=== PATIENT | female | born 1935 | race Caucasian/White ===

== ENCOUNTER → 2016-10-28 | Outpatient (CLI) | payer OTHER, BC ==
[~2016-10-28] MED LIST: AGG PO; ATOR-54 PO; CALC-354 PO; CLB/200 PO; FERR324T PO; MISCCAP82 PO; MULTTAB58 PO; NXM/40 PO; RANI150C4 PO; SERT1TAB72 PO; TOVIAZ PO; VALS40TA2 PO
[2016-10-28 12:23] LABS: COMPLETE YES; EOS % 7.7 %; HEMATOCRIT 42.6 % (37-47); IG% 0.5 %; LYMPH % 8.6 %; MEAN CELL VOLUME 101.9 fL (80-100); MEAN CORPUSCULAR HEMOGLOBIN 32.1 pg (25-34); MEAN CORPUSCULAR HGB CONC 31.5 g/dl (32-36); MEAN PLATELET VOLUME 11.2 fL (7.4-10.4); MONO % 7.2 %; PLATELET COUNT 220 K/uL (130-400); RED BLOOD COUNT 4.18 M/uL (4.2-5.4); WHITE BLOOD COUNT 10.49 K/uL (4.8-10.8)
[2016-10-28 13:12] LABS: ALT/SGPT 24 U/L (12-78); AST/SGOT 18 U/L (15-37); BLOOD UREA NITROGEN 16 mg/dl (7-18); BUN/CREATININE RATIO 17.2 (10-20); CALCIUM 9.7 mg/dl (8.5-10.1); CARBON DIOXIDE 26 mmol/L (21-32); CHLORIDE 107 mmol/L (98-107); CREATININE 0.95 mg/dl (0.60-1.20); GLUCOSE 95 mg/dl (70-99); POTASSIUM 4.1 mmol/L (3.5-5.1); SODIUM 141 mmol/L (136-145)
[2016-10-28 13:24] LABS: ALB/GLOB RATIO 0.9 (0.9-2); ALKALINE PHOSPHATASE 111 U/L (45-117); CHOLESTEROL 147 mg/dl (0-200); CHOLESTEROL/HDL RATIO 3.3; HDL CHOLESTEROL 44 mg/dl; LDL CHOLESTEROL CALCULATED 74 mg/dl; TRIGLYCERIDES 143 mg/dl (0-150); VERY LOW DENSITY LIPOPROT CALC 29 mg/dl
== END | disposition home or self-care (01) ==
LOC: C.LABPBG 07:54
PROVIDERS: ATTEND Internal Medicine
DX: R91.1 Solitary pulmonary nodule (principal); E03.9 Hypothyroidism, unspecified

== ENCOUNTER → 2016-11-06 | Outpatient (CLI) | payer OTHER, BC ==
--- NOTE | 2016-11-06 09:53 | DIAGNOSTIC IMAGING REPORT ---
CT OF THE CHEST WITHOUT IV CONTRAST CLINICAL HISTORY: Solitary pulmonary nodule. COMPARISON STUDY: Chest CT T April 16, 2015 and PET/CT May 13, 2015. CT DOSE: 220.32 mGy.cm TECHNIQUE: Axial images of the chest were obtained without IV contrast. Images were reviewed in the axial, sagittal, and coronal planes. IV contrast was not administered for this examination. FINDINGS: No enlarged axillary, mediastinal or hilar lymph nodes are present. The heart is mildly enlarged. There is extensive coronary artery calcification. There is no pericardial effusion. A large hiatal hernia with partially intrathoracic stomach is noted. The previously described 1.2 x 1.1 cm irregular subpleural opacity within the right upper lobe shown on image 75 of 266 is unchanged since exams dating back to October 30, 2014. There is a calcified granuloma within the right upper lobe. An 8 mm groundglass nodule within the left lower lobe shown on image 160 of 266 is new since prior exam. Bony thorax is unremarkable. Upper abdomen is unremarkable. Gallbladder is surgically absent. IMPRESSION: 1. No change in the 1.2 x 1.1 cm irregular subpleural opacity within the right upper lobe since initial CT of October 30, 2014. Scarring is favored. A neoplastic process is considered less likely. A follow-up chest CT in one year to ensure stability is recommended. 2. Subtle 9 mm groundglass opacity within the left lower lobe which is likely infectious or inflammatory but can be assessed on subsequent CT. 3. No thoracic lymphadenopathy. Electronically signed by: Ortega Davis M.D. 11/06/2016 9:51 AM Dictated Date/Time: 11/06/2016 9:35 AM
== END | disposition home or self-care (01) ==
LOC: C.CTS 09:22
PROVIDERS: ATTEND Internal Medicine
DX: R91.1 Solitary pulmonary nodule (principal)

== ENCOUNTER → 2017-03-15 | Outpatient (CLI) | payer OTHER, BC ==
[2017-03-15 17:32] LABS: BASO % 0.8 %; BASO ABS # 0.07 K/uL (0-0.2); COMPLETE YES; EOS % 2.5 %; HEMATOCRIT 41.8 % (37-47); IG% 0.2 %; LYMPH ABS # 1.67 K/uL (1.2-3.4); MEAN CELL VOLUME 101.7 fL (80-100); MEAN CORPUSCULAR HEMOGLOBIN 32.6 pg (25-34); MEAN CORPUSCULAR HGB CONC 32.1 g/dl (32-36); MEAN PLATELET VOLUME 11.7 fL (7.4-10.4); MONO % 7.3 %; NEUT % 69.2 %; PLATELET COUNT 214 K/uL (130-400); RED BLOOD COUNT 4.11 M/uL (4.2-5.4); WHITE BLOOD COUNT 8.35 K/uL (4.8-10.8)
[2017-03-15 17:47] LABS: ALT/SGPT 26 U/L (12-78); AST/SGOT 17 U/L (15-37); BLOOD UREA NITROGEN 21 mg/dl (7-18); BUN/CREATININE RATIO 21.9 (10-20); CALCIUM 9.9 mg/dl (8.5-10.1); CARBON DIOXIDE 29 mmol/L (21-32); CHLORIDE 106 mmol/L (98-107); CREATININE 0.97 mg/dl (0.60-1.20); GLUCOSE 97 mg/dl (70-99); POTASSIUM 4.6 mmol/L (3.5-5.1); SODIUM 139 mmol/L (136-145)
[2017-03-15 17:57] LABS: ALKALINE PHOSPHATASE 90 U/L (45-117)
[2017-03-15 18:04] LABS: LYME DISEASE AB IGG NEG (NEG)
[2017-03-15 18:05] LABS: LYME DISEASE AB IGM NEG (NEG)
== END | disposition home or self-care (01) ==
LOC: C.LABPBG 11:51
PROVIDERS: ATTEND Internal Medicine
DX: I10 Essential (primary) hypertension (principal); I63.50 Cerebral infarction due to unspecified occlusion or stenosis of unspecified cerebral artery; F32.9 Major depressive disorder, single episode, unspecified; E78.5 Hyperlipidemia, unspecified; E03.9 Hypothyroidism, unspecified; D75.89 Other specified diseases of blood and blood-forming organs

== ENCOUNTER 2017-06-11 10:51 | Emergency (ER) | payer OTHER, BC ==
[~2017-06-11] VITALS: Ht 152.4 cm; Wt 72.4 kg
[2017-06-11 10:57] VITALS: Ht 152.4 cm; Wt 72.4 kg
--- NOTE | 2017-06-11 11:38 | DIAGNOSTIC IMAGING REPORT ---
CHEST ONE VIEW PORTABLE CLINICAL HISTORY: Altered mental status COMPARISON STUDY: CT scan dated 11/06/2016 FINDINGS: The heart is normal in size. There is a gas-containing retrocardiac opacity consistent with a hiatal hernia. There is no lobar consolidation. There is mild basilar interstitial thickening. There is equivocal trace right pleural effusion.[ IMPRESSION: 1. Large hiatal hernia 2. No evidence of lobar consolidation 3. Basilar interstitial thickening Electronically signed by: Maldonado Gu M.D. 06/11/2017 11:37 AM Dictated Date/Time: 06/11/2017 11:36 AM
[2017-06-11 11:55] LABS: BASO % 0.3 %; BASO ABS # 0.04 K/uL (0-0.2); EOS ABS # 0.26 K/uL (0-0.5); HEMATOCRIT 39.7 % (37-47); HEMOGLOBIN 13.1 g/dL (12.0-16.0); IG# 0.06 K/uL (0.00-0.02); LYMPH % 5.9 %; LYMPH ABS # 0.77 K/uL (1.2-3.4); MEAN CELL VOLUME 99.5 fL (80-100); MEAN CORPUSCULAR HEMOGLOBIN 32.8 pg (25-34); MEAN PLATELET VOLUME 10.8 fL (7.4-10.4); MONO % 3.5 %; MONO ABS # 0.45 K/uL (0.11-0.59); NEUT % 87.8 %; NEUT ABS # 11.45 K/uL (1.4-6.5); PLATELET COUNT 170 K/uL (130-400); RED CELL DISTRIBUTION WIDTH CV 13.2 % (11.5-14.5); RED CELL DISTRIBUTION WIDTH SD 47.8 fL (36.4-46.3); WHITE BLOOD COUNT 13.03 K/uL (4.8-10.8)
[2017-06-11] MEDS ORDERED: ESCI10TA17 PO (12:06)
[2017-06-11] MEDS ORDERED: LEVO25TA5 PO (12:06)
[2017-06-11] MEDS ORDERED: MULTTAB5 PO (12:06)
[2017-06-11] MEDS ORDERED: MISCTAB78 PO (12:06)
[2017-06-11] MEDS ORDERED: FESO4TAB PO (12:06)
[2017-06-11] MEDS ORDERED: CHOL20009 PO (12:06)
[2017-06-11] MEDS ORDERED: ESCI1TAB10 PO (12:06)
[2017-06-11] MEDS ORDERED: MECL1TAB42 PO (12:06)
[2017-06-11] MEDS ORDERED: NITR1CAP16 PO (12:06)
[2017-06-11 12:13] LABS: BLOOD UREA NITROGEN 20 mg/dl (7-18); CALCIUM 10.1 mg/dl (8.5-10.1); CARBON DIOXIDE 25 mmol/L (21-32); GLUCOSE 111 mg/dl (70-99); LIPASE 90 U/L (73-393); POTASSIUM 3.4 mmol/L (3.5-5.1); SODIUM 136 mmol/L (136-145)
[2017-06-11] MEDS ORDERED: CEFTRIAXONE SOD INJ 1 GM ADDVIAL IV STA (12:14)
[2017-06-11 12:18] LABS: CKMB 1.2 ng/ml (0.5-3.6)
[2017-06-11 12:48] LABS: PTT PATIENT 26.5 SECONDS (21.0-31.0)
[2017-06-11] MEDS ORDERED: CEPH500C PO (13:25)
--- NOTE | 2017-06-11 13:25 | EMERGENCY ROOM VISIT NOTE ---
History Report prepared by Jose Armando: Reg Alcaraz Under the Supervision of: Dr. Victor Hugo Bledsoe D.O. 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 dx on wednesday with uti placed on antibiotics has been taking for 3 days called obgyn dr naqvi told to come to ed for admission. pt has been increasing fluids . 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 The patient notes that she was recently diagnosed with a severe UTI June 09, 2017. She was seen at [facility] and prescribed Macrobid for the UTI. Per caregiver, the patient was doing well yesterday, though developed general weakness and chills. The patient notes polyuria and a cough. She states that she has to urinate more often than normal. She denies any congestion or runny nose. She was given Tylenol this morning for the fever. 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 Review of Systems See HPI for pertinent positives & negatives. A total of 10 systems reviewed and were otherwise negative. Past Medical & Surgical Medical Problems: (1) Gallbladder calculus (2) UTI (urinary tract infection) Surgical Problems: (1) Hx of cholecystectomy Family History Cancer Social History Smoking Status: Never Smoker Smokeless Tobacco Use: No Alcohol Use: occasionally (glass of wine at night) Drug Use: none Marital Status: Housing Status: lives alone Occupation Status: unemployed Current/Historical Medications Scheduled Aspirin-Dipyridamole 25MG/200MG (Aggrenox 200MG/25MG), 1 CAP PO BID Atorvastatin (Lipitor), 20 MG PO DAILY Calcium Carbonate-Cholecalcife (Caltrate 600+D), 1 TAB PO DAILY Celecoxib (CeleBREX), 200 MG PO DAILY Cephalexin Monohydrate (Keflex), 500 MG PO BID Cholecalciferol (Vitamin D), 2,000 UNITS PO DAILY Escitalopram (Lexapro), 10 MG PO DAILY Escitalopram Oxalate (Lexapro), 40 MG PO DAILY Fesoterodine Fumarate (Toviaz), 4 MG PO BID Levothyroxine Sodium (Levothyroxine Sodium), 25 MCG PO DAILY Misc Natural Products (Osteo Bi-Flex Advanced Do), 2 TABS PO DAILY Multiple Vitamins W/ Minerals (Centrum), 1 TAB PO DAILY Nitrofurantoin Monohyd Macro (Macrobid), 100 MG PO BID Ranitidine Hcl (Ranitidine Hcl), 150 MG PO HS Valsartan (Diovan), 40 MG PO DAILY Scheduled PRN Meclizine Hcl (Meclizine Hcl), 25 MG PO UD PRN for DIZZINESS Allergies Coded Allergies: No Known Allergies (Unverified , 06/11/17) Physical Exam Vital Signs Date Time Temp Pulse Resp B/P (MAP) Pulse Ox O2 Delivery O2 Flow Rate FiO2 06/11/17 13:40 36.8 78 15 144/79 96 06/11/17 13:31 144/79 06/11/17 13:06 77 06/11/17 13:06 78 15 96 Room Air 06/11/17 13:01 126/79 06/11/17 12:41 77 15 96 Room Air 06/11/17 12:36 78 15 96 Room Air 06/11/17 12:31 121/66 06/11/17 12:26 84 13 96 Room Air 06/11/17 12:00 125/72 06/11/17 11:56 80 16 94 Room Air 06/11/17 11:51 82 15 94 Room Air 06/11/17 11:31 109/77 06/11/17 11:21 84 15 96 Room Air 06/11/17 11:12 84 18 124/72 96 Room Air 06/11/17 11:01 124/72 06/11/17 11:00 86 06/11/17 10:57 132/74 06/11/17 10:57 36.8 87 18 130/79 96 Room Air Physical Exam CONSTITUTIONAL/VITAL SIGNS: Reviewed / noted above. GENERAL: Non-toxic in appearance. INTEGUMENTARY: Warm, dry, and Roberta. HEAD: Normocephalic. EYES: without scleral icterus or trauma. ENT/OROPHARYNX: clear and moist. LYMPHADENOPATHY/NECK: Is supple without lymphadenopathy or meningismus. RESPIRATORY: Lungs clear and equal. CARDIOVASCULAR: Regular rate and rhythm. GI/ABDOMEN: Soft and nontender. No organomegaly or pulsatile mass. No rebound or guarding. Normal bowel sounds. EXTREMITIES: Warm and well perfused. BACK: No CVA tenderness. NEUROLOGICAL: Intact without focal deficits. PSYCHIATRIC: normal affect. MUSCULOSKELETAL: Normally developed with good muscle tone. Medical Decision & Procedures ER Provider Diagnostic Interpretation: Radiology results as stated below per my review and radiologist interpretation: CHEST ONE VIEW PORTABLE CLINICAL HISTORY: Altered mental status COMPARISON STUDY: CT scan dated 11/06/2016 FINDINGS: The heart is normal in size. There is a gas-containing retrocardiac opacity consistent with a hiatal hernia. There is no lobar consolidation. There is mild basilar interstitial thickening. There is equivocal trace right pleural effusion.[ IMPRESSION: 1. Large hiatal hernia 2. No evidence of lobar consolidation 3. Basilar interstitial thickening Electronically signed by: Maldonado Gu M.D. 06/11/2017 11:37 AM Dictated Date/Time: 06/11/2017 11:36 AM Laboratory Results 06/11/17 11:28 Red Blood Count 3.99, Mean Corpuscular Volume 99.5, Mean Corpuscular Hemoglobin 32.8, Mean Corpuscular Hemoglobin Concent 33.0, Mean Platelet Volume 10.8, Neutrophils (%) (Auto) 87.8, Lymphocytes (%) (Auto) 5.9, Monocytes (%) (Auto) 3.5, Eosinophils (%) (Auto) 2.0, Basophils (%) (Auto) 0.3, Neutrophils # (Auto) 11.45, Lymphocytes # (Auto) 0.77, Monocytes # (Auto) 0.45, Eosinophils # (Auto) 0.26, Basophils # (Auto) 0.04 06/11/17 11:28 Test 06/11/17 11:28 06/11/17 11:44 06/11/17 12:15 White Blood Count 13.03 K/uL (4.8-10.8) Red Blood Count 3.99 M/uL (4.2-5.4) Hemoglobin 13.1 g/dL (12.0-16.0) Hematocrit 39.7 % (37-47) Mean Corpuscular Volume 99.5 fL (80-100) Mean Corpuscular Hemoglobin 32.8 pg (25-34) Mean Corpuscular Hemoglobin Concent 33.0 g/dl (32-36) Platelet Count 170 K/uL (130-400) Mean Platelet Volume 10.8 fL (7.4-10.4) Neutrophils (%) (Auto) 87.8 % Lymphocytes (%) (Auto) 5.9 % Monocytes (%) (Auto) 3.5 % Eosinophils (%) (Auto) 2.0 % Basophils (%) (Auto) 0.3 % Neutrophils # (Auto) 11.45 K/uL (1.4-6.5) Lymphocytes # (Auto) 0.77 K/uL (1.2-3.4) Monocytes # (Auto) 0.45 K/uL (0.11-0.59) Eosinophils # (Auto) 0.26 K/uL (0-0.5) Basophils # (Auto) 0.04 K/uL (0-0.2) RDW Standard Deviation 47.8 fL (36.4-46.3) RDW Coefficient of Variation 13.2 % (11.5-14.5) Immature Granulocyte % (Auto) 0.5 % Immature Granulocyte # (Auto) 0.06 K/uL (0.00-0.02) Anion Gap 7.0 mmol/L (3-11) Est Creatinine Clear Calc Drug Dose 42.1 ml/min Estimated GFR () 68.5 Estimated GFR (Non- 59.1 BUN/Creatinine Ratio 22.3 (10-20) Calcium Level 10.1 mg/dl (8.5-10.1) Magnesium Level 2.1 mg/dl (1.8-2.4) Total Creatine Kinase 61 U/L (26-192) Creatine Kinase MB 1.2 ng/ml (0.5-3.6) Creatine Kinase MB Ratio 2.0 (0-3.0) Troponin I < 0.015 ng/ml (0-0.045) Lipase 90 U/L (73-393) Urine Color DK YELLOW Urine Appearance CLEAR (CLEAR) Urine pH 6.5 (4.5-7.5) Urine Specific [place] 1.016 (1.000-1.030) Urine Protein NEG (NEG) Urine Glucose (UA) NEG (NEG) Urine Ketones NEG (NEG) Urine Occult Blood NEG (NEG) Urine Nitrite NEG (NEG) Urine Bilirubin NEG (NEG) Urine Urobilinogen NEG (NEG) Urine Leukocyte Esterase NEG (NEG) Urine WBC (Auto) 0 /hpf (0-5) Urine RBC (Auto) 0-4 /hpf (0-4) Urine Hyaline Casts (Auto) 1-5 /lpf (0-5) Urine Epithelial Cells (Auto) 0-5 /lpf (0-5) Urine Bacteria (Auto) NEG (NEG) Prothrombin Time 10.6 SECONDS (9.0-12.0) Prothromb Time International Ratio 1.0 (0.9-1.1) Activated Partial Thromboplast Time 26.5 SECONDS (21.0-31.0) Partial Thromboplastin Ratio 1.0 Laboratory results as stated above per my review. Medications Administered Medications (Trade) Dose Ordered Sig/Vonnie Route Start Time Stop Time Status Last Admin Dose Admin Ceftriaxone Sodium (Rocephin Inj) 1 gm NOW STAT IV 06/11/17 12:14 06/11/17 12:15 DC 06/11/17 12:48 1 GM ECG Indication: other (fever) Rate (beats per minute): 84 Rhythm: normal sinus Findings: no acute ischemic change, no ectopy Change: Patient's electrocardiogram interpreted by me. ED Course 1116: Previous medical records were reviewed. The patient was evaluated in room B11B. A complete history and physical examination was performed. 1214: Ordered Rocephin 1 gm IV 1326: I reassessed the patient at this time. She is feeling better and resting comfortably. I discussed the results and treatment plan with the patient. I answered all pertaining questions that she had. She expressed understanding and verbalized agreement. The patient will be discharged home. Medical Decision Differentials include: Acute coronary syndrome, myocardial infarction, CVA, TIA , anemia, infection, pneumonia, UTI, pyelonephritis, poor nutrition, dehydration , electrolyte disturbance, and hypoglycemia. This is a 81-year-old female who presents to the ED with a chief complaint of generalized weakness. The patient had a urine culture done 2 days ago that revealed Escherichia coli that was pansensitive. The patient was started on Macrobid yesterday and had a dose yesterday. When the doctor contacted her about occult, they reported the weakness and he referred her here for evaluation. The patient has not had any vomiting or diarrhea. No other significant complaints. She does have some mild generalized weakness. She does have care workers taking care of her at least 16 hours a day. The vital signs are normal. She is afebrile. Her physical exam was unremarkable. A chest x-ray did not show acute disease. White blood cell count was 13. Complete metabolic panel was unremarkable, troponin is negative and a urine did not show infection. Because the recent culture, the patient was switched to Keflex. She was given a dose of IV Rocephin here. She is felt to be stable for discharge. Medication Reconcilliation Current Medication List: was personally reviewed by me Blood Pressure Screening Patient's blood pressure: Normal blood pressure Impression Primary Impression: UTI (urinary tract infection) Scribe Attestation The scribe's documentation has been prepared under my direction and personally reviewed by me in its entirety. I confirm that the note above accurately reflects all work, treatment, procedures, and medical decision making performed by me. Departure Information Dispostion Home / Self-Care Prescriptions Cephalexin Monohydrate (Keflex) 500 Mg Cap 500 MG PO BID, #28 CAP Prov: Victor Hugo Bledsoe D.O. 06/11/17 Referrals Addi Rangel M.D. (PCP) Forms HOME CARE DOCUMENTATION FORM, IMPORTANT VISIT INFORMATION Patient Instructions My [facility] Additional Instructions Keflex as prescribed. Follow-up with your doctor for further care and evaluation in 1-2 days. Return to the emergency department for worsening or new symptoms or any concerns. You have been examined and treated today on an emergency basis only. This is not a substitute for, or an effort to provide, complete comprehensive medical care. It is impossible to recognize and treat all injuries or illnesses in a single emergency department visit. It is therefore important that you follow up closely with your doctor. Call as soon as possible for an appointment.
[2017-06-11 13:40] VITALS: BP 144/79; PULSE 78; TEMP 36.8; O2SAT 96
== END 2017-06-11 13:40 | disposition home or self-care (01) ==
LOC: EDBD 10:51 → C.EDB 10:52
DX: N39.0 Urinary tract infection, site not specified (principal); B96.20 Unspecified Escherichia coli [E. coli] as the cause of diseases classified elsewhere; Z79.82 Long term (current) use of aspirin; Z80.9 Family history of malignant neoplasm, unspecified

== ENCOUNTER → 2017-11-29 | Outpatient (CLI) | payer OTHER, BC ==
[~2017-11-29] MED LIST changes: +CEPH500C PO; +CHOL20009 PO; +ESCI10TA17 PO; +ESCI1TAB10 PO; -FERR324T PO; +FESO4TAB PO; +LEVO25TA5 PO; +MECL1TAB42 PO; -MISCCAP82 PO; +MISCTAB78 PO; +MULTTAB5 PO; -MULTTAB58 PO; +NITR1CAP16 PO; -NXM/40 PO; -SERT1TAB72 PO; -TOVIAZ PO
[2017-11-29 16:48] LABS: BASO % 0.6 %; BASO ABS # 0.04 K/uL (0-0.2); EOS % 2.1 %; EOS ABS # 0.15 K/uL (0-0.5); HEMATOCRIT 45.2 % (37-47); HEMOGLOBIN 14.5 g/dL (12.0-16.0); IG# 0.01 K/uL (0.00-0.02); LYMPH % 22.4 %; MEAN CELL VOLUME 101.6 fL (80-100); MEAN CORPUSCULAR HEMOGLOBIN 32.6 pg (25-34); MEAN CORPUSCULAR HGB CONC 32.1 g/dl (32-36); MEAN PLATELET VOLUME 11.2 fL (7.4-10.4); MONO % 5.9 %; MONO ABS # 0.42 K/uL (0.11-0.59); NEUT % 68.9 %; NEUT ABS # 4.92 K/uL (1.4-6.5); PLATELET COUNT 208 K/uL (130-400); RED CELL DISTRIBUTION WIDTH CV 13.6 % (11.5-14.5); RED CELL DISTRIBUTION WIDTH SD 50.7 fL (36.4-46.3); WHITE BLOOD COUNT 7.14 K/uL (4.8-10.8)
[2017-11-29 17:07] LABS: ALBUMIN 3.9 gm/dl (3.4-5.0); ALKALINE PHOSPHATASE 89 U/L (45-117); ALT/SGPT 21 U/L (12-78); AST/SGOT 20 U/L (15-37); BLOOD UREA NITROGEN 19 mg/dl (7-18); CALCIUM 9.6 mg/dl (8.5-10.1); CARBON DIOXIDE 28 mmol/L (21-32); CHOLESTEROL 170 mg/dl (0-200); CREATININE 0.96 mg/dl (0.60-1.20); GLUCOSE 88 mg/dl (70-99); LDL CHOLESTEROL CALCULATED 86 mg/dl; POTASSIUM 4.3 mmol/L (3.5-5.1); SODIUM 140 mmol/L (136-145); TOTAL PROTEIN 7.4 gm/dl (6.4-8.2)
== END | disposition home or self-care (01) ==
LOC: C.LABPBG 10:47
PROVIDERS: ATTEND Internal Medicine
DX: I10 Essential (primary) hypertension (principal); I63.50 Cerebral infarction due to unspecified occlusion or stenosis of unspecified cerebral artery; E78.5 Hyperlipidemia, unspecified; D75.89 Other specified diseases of blood and blood-forming organs; E03.9 Hypothyroidism, unspecified; F43.20 Adjustment disorder, unspecified; M12.9 Arthropathy, unspecified

== ENCOUNTER 2019-06-30 14:15 | Observation (INO) ==
[2019-06-30 14:56] LABS: Basophils # (auto) 0.03 K/uL (0-0.2); Basophils % (auto) 0.4 %; Eosinophils # (auto) 0.12 K/uL (0-0.5); Eosinophils % (auto) 1.6 %; Hematocrit (blood only) 34.4 % (37-47); Hemoglobin 10.9 g/dL (12.0-16.0); Immature Granulocytes # (auto) 0.02 K/uL (0.00-0.02); Immature Granulocytes % (auto) 0.3 %; Lymphocytes # (auto) 1.02 K/uL (1.2-3.4); Mean Corpuscular Hemoglobin 32.8 pg (25-34); Mean Corpuscular Hgb Conc 31.7 g/dL (32-36); Mean Corpuscular Volume 103.6 fL (80-100); Mean Platelet Volume 10.1 fL (7.4-10.4); Monocytes # (auto) 0.76 K/uL (0.11-0.59); Monocytes % (auto) 10.4 %; Neutrophils # (auto) 5.33 K/uL (1.4-6.5); Neutrophils % (auto) 73.3 %; Platelet Count 175 K/uL (130-400); RDW Coefficient of Variation 13.6 % (11.5-14.5); RDW Standard Deviation 51.2 fL (36.4-46.3); Red Blood Count 3.32 M/uL (4.2-5.4); White Blood Count 7.28 K/uL (4.8-10.8)
[2019-06-30 15:02] LABS: Alanine Aminotransferase 21 U/L (12-78); Albumin Level 2.8 gm/dl (3.4-5.0); Aspartate Aminotransferase 19 U/L (15-37); BUN Creatinine Ratio 27.8 (10-20); Blood Urea Nitrogen 25 mg/dl (7-18); Calcium 10.1 mg/dl (8.5-10.1); Carbon Dioxide 26 mmol/L (21-32); Chloride 104 mmol/L (98-107); Creatinine Clr Calc Pharmacy 42.4 ml/min; Est GFR (African American) 67.6; Est GFR (Non-African American) 58.3; Glucose 100 mg/dl (70-99); Potassium 4.3 mmol/L (3.5-5.1); Sodium 135 mmol/L (136-145)
[2019-06-30 15:13] LABS: Albumin Globulin Ratio 0.7 (0.9-2); Alkaline Phosphatase 79 U/L (45-117); Bilirubin,Total 0.6 mg/dl (0.2-1); Thyroid Stimulating Hormone 0.737 uIu/ml (0.300-4.500); Total Protein 6.8 gm/dl (6.4-8.2); Troponin I < 0.015 ng/ml (0-0.045)
--- NOTE | 2019-06-30 16:01 | XRay Report ---
XR chest 1V portable CLINICAL HISTORY: 83 years-old Female presenting with weakness. TECHNIQUE: Portable upright AP view of the chest was obtained. COMPARISON: 06/11/2017. FINDINGS: Atherosclerosis of the aortic arch. Cardiac silhouette borderline enlarged. Bibasilar opacities left greater than right. This has increased from prior on the left. Underlying small left pleural effusion is not excluded. Degenerative changes of the thoracic spine. Degenerative changes of the glenohumera l joint on the left. The presence of a large hiatal hernia is better appreciated on the prior radiogr aph. IMPRESSION: 1. Bibasilar opacities likely represent atelectasis. There may be increased atelectasis on the left. Underlying infection/consolidation considered less likely. 2. Large hiatal hernia. 3. Borderline cardiomegaly. ACT 112: Negative or not required by law. Electronically signed by: Addi Perea M.D. 06/30/2019 4:00 PM
--- NOTE | 2019-06-30 16:08 | CT Scan Report ---
HEAD CT NONCONTRAST CT DOSE: 729.78 mGycm HISTORY: weakness TECHNIQUE: Multiaxial CT images of the head were performed without the use of intravenous contrast. A utomated exposure control was utilized for this study. A dose lowering technique was utilized adheri ng to the principles of ALARA. Comparison: Head CT 02/12/2013. Findings: Stable chronic opacification of the right maxillary sinus. The mastoid air cells are clear. The calvarium and skull base are intact. There is no mass, hematoma, midline shift, acute infarct. W júnior matter hypodensity is nonspecific but suggestive of microvascular ischemic change. The ventricle s and sulci demonstrate mild age-related involutional changes. Old right basal ganglia infarct, uncha nged. Impression: No significant change compared to the prior study. No acute intracranial abnormality. ACT 112: Negative or not required by law. Electronically signed by: Kevin Wallace M.D. 06/30/2019 4:07 PM
--- NOTE | 2019-06-30 16:51 | Ultrasound Report ---
BILATERAL LOWER EXTREMITY VENOUS DOPPLER HISTORY: Bilateral pain calves COMPARISON STUDY: None. FINDINGS: There is normal compressibility, flow, and augmentation within the bilateral lower extremit y deep venous systems. There is a 5.3 x 3.2 x 0.8 cm left popliteal cyst. IMPRESSION: No DVT within the right or left lower extremity. ACT 112: Negative or not required by law. Electronically signed by: Kevin Wallace M.D. 06/30/2019 4:49 PM
[2019-06-30 18:49] LABS: Appearance Urine Clear (Clear); Bacteria Urine Automated 2+ (Negative); Bilirubin Urine Negative (Negative); Blood Urine Negative (Negative); Cast Urine Automated 0 /lpf (0-5); Color Urine Yellow; Glucose Urine UA Negative (Negative); Ketones Urine Negative (Negative); Leukocyte Esterase Urine 2+ (Negative); Nitrite Urine Positive (Negative); Protein Urine Negative (Negative); RBC Urine Automated 0-4 /hpf (0-4); Specific Gravity Urine 1.012 (1.000-1.030); Urobilinogen Urine Negative (Negative); WBC Urine Automated >30 /hpf (0-5)
--- NOTE | 2019-06-30 19:28 | Emergency Department Note ---
Entered by Maggie Gonzalez acting as a scribe for Billy Aguiar M.D. History of Present Illness General Chief complaint: Weakness Time Seen by Provider: 06/30/19 15:05 Source: patient History of Present Illness Provider complaint: Weakness Onset (ago): day(s) 3 Location: lower extremity Radiation: back (Lower) Relieved By: + none Exacerbated By: + movement Associated symptoms: + cough, + loss of appetite and + other (Fatigued); no chest pain, no headaches and no shortness of breath The patient is a 83 year old female who presents to the Emergency Room with complaints of lower extremity weakness/pain that began 3 days ago. The patient states that her pain radiates into her lower back and is exacerbated by movement but not relieved by anything specific. The patient reports experiencing increased fatigue, a cough, and loss of appetite. The patient denies experiencing any chest pain, headaches, or shortness of breath. Home Medications Home Medications Medication Instructions Recorded Confirmed Type fesoterodine 4 mg tablet,extended 4 mg PO BID #100 tab 02/08/19 06/30/19 Rx release 24 hr aspirin 25 mg-dipyridamole 200 mg 1 cap PO BID #180 cap 03/01/19 06/30/19 Rx capsule,ext.release 12 hr multiphase levothyroxine 25 mcg tablet 25 mcg PO QAM #90 tab 03/30/19 06/30/19 History cholecalciferol (vitamin D3) 50 50 mcg PO QAM cap 04/08/19 06/30/19 History mcg (2,000 unit) capsule atorvastatin 20 mg PO HS 06/30/19 06/30/19 History calcium carbonate [Calcium 500] 500 mg PO QAM 06/30/19 06/30/19 History celecoxib 200 mg PO QAM 06/30/19 06/30/19 History escitalopram oxalate 5 mg PO QAM 06/30/19 06/30/19 History esomeprazole magnesium 40 mg PO HS 06/30/19 06/30/19 History glucosamine-chondroitin [Osteo 2 tab PO BID 06/30/19 06/30/19 History Bi-Flex] [id number]-[id number] acid 1 tab PO QAM 06/30/19 06/30/19 History [Centrum] telmisartan 40 mg PO QAM 06/30/19 06/30/19 History Allergies Allergy/AdvReac Type Severity Reaction Status Date / Time simvastatin [From Zocor] AdvReac Verified 06/30/19 18:06 Past Med/Surg History Medical History Arthritis, multiple joint involvement (Chronic) 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) Depression (Chronic) GERD without esophagitis (Acute) Hyperlipidemia (Chronic) Hypertension (Chronic) Hypothyroidism (Acute) Incontinence of urine in female Large hiatal hernia (Chronic) Macrocytosis (Acute) Urinary incontinence (Acute) Surgical History H/O foot surgery Family History Unknown Cancer Rheumatoid arthritis Fibromyalgia Social History Preferred Language: Frisian current occupational status: retired Feels Safe at Home: Yes Smoking Status: Never smoker Hx Alcohol Use: Yes Alcohol Intake Frequency: Rarely Hx Substance Use: No caffeine: Yes Physical Activity Frequency: Does not Exercise Seatbelt Use: always Sunscreen Use: Yes Review of Systems See HPI for pertinent positives & negatives. and A total of 10 systems reviewed and were otherwise negative Physical Exam Vital Signs Vital Signs - 24 hr 06/30/19 14:15 06/30/19 14:25 06/30/19 15:00 Temperature 36.9 C Temperature Source Oral Pulse Rate 90 92 H 87 Pulse Rate from SpO2 Sensor 92 H 87 Pulse Rhythm Regular Respiratory Rate 16 12 16 Respiratory Effort / Characteristics Non-Labored Respiratory Depth Normal Respiratory Pattern Regular Blood Pressure 127/83 127/83 128/62 Blood Pressure Mean 97 97 71 Pulse Oximetry 95 96 97 Oxygen Delivery Method Room Air Room Air Room Air Sepsis Recent Fever Within 48 Hours No Sepsis New/Unexplained Change in Mental Status No Sepsis Action Taken by Nursing No Action Required 06/30/19 15:30 06/30/19 18:00 06/30/19 18:30 Temperature Temperature Source Pulse Rate 87 89 89 Pulse Rate from SpO2 Sensor 88 89 87 Pulse Rhythm Respiratory Rate 16 16 15 Respiratory Effort / Characteristics Respiratory Depth Respiratory Pattern Blood Pressure 127/80 152/78 H 155/83 H Blood Pressure Mean 94 103 99 Pulse Oximetry 97 96 96 Oxygen Delivery Method Room Air Room Air Room Air Sepsis Recent Fever Within 48 Hours Sepsis New/Unexplained Change in Mental Status Sepsis Action Taken by Nursing GENERAL: Awake, alert, fatigued-appearing, in no distress HENT: Normocephalic, atraumatic. EYES: Normal conjunctiva. Sclera non-icteric. RESPIRATORY: Clear to auscultation. No wheezes. Normal respiratory effort. CARDIAC: Normal rate. Normal rhythm. Extremities warm and well perfused. GI: Soft, non-distended. No tenderness to palpation. No rebound or guarding. No masses. RECTAL: Hemoccult negative stool. MUSCULOSKELETAL: Atraumatic. Chest examination reveals no tenderness. LOWER EXTREMITIES: Calves are equal size bilaterally and non-tender. 1+ LE edema. NEURO: Normal sensorium. No sensory or motor deficits noted. No facial droop. SKIN: Warm and dry. Nojaundice noted. Course Course 151: Past medical records reviewed. The patient was evaluated in room B03B. A complete history and physical exam was performed. 1731: I spoke with the patient's daughter and she would like her mother to stay for observation because she is concerned for her mother's care at home. 0: I spoke with Dr. Gemma Chau- Hospitalist about the patient's case and she will accept the patient for further evaluation. Medical Decision Making Differential Diagnosis Differential Diagnosis includes but is not limited to dehydration, stroke, anemia, hypoglycemia, hyponatremia, hypernatremia, urinary tract infection, pneumonia, bronchitis, sepsis, gastroenteritis, additional abdominal pathology, metabolic abnormalities and infections. Medical Records Attestation: I reviewed the patient's medical records. Home Medications Current Medication List: was personally reviewed by me Laboratory Data Attestation: I reviewed the patient's lab results. Result diagrams: 06/30/19 14:36 06/30/19 14:36 Lab Results 06/30/19 06/30/19 06/30/19 Range/Units 14:36 14:36 17:50 WBC 7.28 (4.8-10.8) K/uL RBC 3.32 L (4.2-5.4) M/uL Hgb 10.9 L (12.0-16.0) g/dL Hct 34.4 L (37-47) % MCV 103.6 H (80-100) fL MCH 32.8 (25-34) pg MCHC 31.7 L (32-36) g/dL RDW Std Deviation 51.2 H (36.4-46.3) fL RDW Coeff of Pavithra 13.6 (11.5-14.5) % Plt Count 175 (130-400) K/uL MPV 10.1 (7.4-10.4) fL Immature Gran % (Auto) 0.3 % Neut % (Auto) 73.3 % Lymph % (Auto) 14.0 % [place] % (Auto) 10.4 % Eos % (Auto) 1.6 % Baso % (Auto) 0.4 % Immature Gran # (Auto) 0.02 (0.00-0.02) K/uL Neut # (Auto) 5.33 (1.4-6.5) K/uL Lymph # (Auto) 1.02 L (1.2-3.4) K/uL [place] # (Auto) 0.76 H (0.11-0.59) K/uL Eos # (Auto) 0.12 (0-0.5) K/uL Baso # (Auto) 0.03 (0-0.2) K/uL Sodium 135 L (136-145) mmol/L Potassium 4.3 (3.5-5.1) mmol/L Chloride 104 (98-107) mmol/L Carbon Dioxide 26 (21-32) mmol/L Anion Gap 5.0 (3-11) BUN 25 H (7-18) mg/dl Creatinine 0.90 (0.6-1.2) mg/dl Est Cr Clr Drug Dosing 42.4 ml/min Est GFR ( Amer) 67.6 Est GFR (Non-Af Amer) 58.3 BUN/Creatinine Ratio 27.8 H (10-20) Glucose 100 H (70-99) mg/dl Calcium 10.1 (8.5-10.1) mg/dl Total Bilirubin 0.6 (0.2-1) mg/dl AST 19 (15-37) U/L ALT 21 (12-78) U/L Alkaline Phosphatase 79 (45-117) U/L Troponin I < 0.015 (0-0.045) ng/ml Total Protein 6.8 (6.4-8.2) gm/dl Albumin 2.8 L (3.4-5.0) gm/dl Globulin 4.0 (2.5-4.0) gm/dl Albumin/Globulin Ratio 0.7 L (0.9-2) TSH 0.737 (0.300-4.500) uIu/ml Urine Color Yellow Urine Appearance Clear (Clear) Urine pH 6.0 (4.5-7.5) Ur Specific Warren 1.012 (1.000-1.030) Urine Protein Negative (Negative) Urine Glucose (UA) Negative (Negative) Urine Ketones Negative (Negative) Urine Blood Negative (Negative) Urine Nitrite Positive A (Negative) Urine Bilirubin Negative (Negative) Urine Urobilinogen Negative (Negative) Ur Leukocyte Esterase 2+ H (Negative) Urine WBC (Auto) >30 H (0-5) /hpf Urine RBC (Auto) 0-4 (0-4) /hpf U Hyaline Cast (Auto) 0 (0-5) /lpf U Epithel Cells (Auto) 5-10 H (0-5) /lpf Urine Bacteria (Auto) 2+ H (Negative) Imaging Data Radiologist's Impression: Radiology results as stated below per my review and the radiologist's interpretation: XR chest 1V portable CLINICAL HISTORY: 83 years-old Female presenting with weakness. TECHNIQUE: Portable upright AP view of the chest was obtained. COMPARISON: 06/11/2017. FINDINGS: Atherosclerosis of the aortic arch. Cardiac silhouette borderline enlarged. Bibasilar opacities left greater than right. This has increased from prior on the left. Underlying small left pleural effusion is not excluded. Degenerative changes of the thoracic spine. Degenerative changes of the glenohumeral joint on the left. The presence of a large hiatal hernia is better appreciated on the prior radiograph. IMPRESSION: 1. Bibasilar opacities likely represent atelectasis. There may be increased atelectasis on the left. Underlying infection/consolidation considered less likely. 2. Large hiatal hernia. 3. Borderline cardiomegaly. ACT 112: Negative or not required by law. Electronically signed by: Addi Perea M.D. 06/30/2019 4:[address] NON[address]AST CT DOSE: 729.78 mGycm HISTORY: weakness TECHNIQUE: Multiaxial CT images of the head were performed without the use of intravenous contrast. Automated exposure control was utilized for this study. A dose lowering technique was utilized adhering to the principles of ALARA. Comparison: Head CT 02/12/2013. Findings: Stable chronic opacification of the right maxillary sinus. The mastoid air cells are clear. The calvarium and skull base are intact. There is no mass, hematoma, midline shift, acute infarct. White matter hypodensity is nonspecific but suggestive of microvascular ischemic change. The ventricles and sulci demonstrate mild age-related involutional changes. Old right basal ganglia infarct, unchanged. Impression: No significant change compared to the prior study. No acute intracranial abnormality. ACT 112: Negative or not required by law. Electronically signed by: Kevin Wallace M.D. 06/30/2019 4:07 PM BILATERAL LOWER EXTREMITY VENOUS DOPPLER HISTORY: Bilateral pain calves COMPARISON STUDY: None. FINDINGS: There is normal compressibility, flow, and augmentation within the bilateral lower extremity deep venous systems. There is a 5.3 x 3.2 x 0.8 cm left popliteal cyst. IMPRESSION: No DVT within the right or left lower extremity. ACT 112: Negative or not required by law. Electronically signed by: Kevin Wallace M.D. 06/30/2019 4:49 PM ECG Data Attestation: I personally reviewed and interpreted this ECG as follows: Indication: + weakness Rate (beats per minute): 93 Rhythm: + sinus rhythm ECG ST segments: no ST depression and no ST elevation ECG Findings: + PVCs and + Other (LAFB) Blood Pressure Blood Pressure Findings: Elevated blood pressure Blood Pressure Disposition: further management by hospitalist SUNIL Narrative Patient is an 83-year-old female distant history of stroke, GERD, hiatal hernia, UTI presenting today with a complaint of some significant weakness the last 2 days with some intermittent confusion. No trauma reported. Planes of a little bit of bilateral calf pain. Ultrasound here were negative. Basic labs are complete without significant finding. Chest x-ray is unremarkable. CT the head is unremarkable. Does not have real focal deficits and doubt this is a stroke. Mild anemia is noted. Hemoccult negative stool. Does have some paresthesias at home but discussion with daughters via phone so the patient believe further evaluation observation here in the hospital is reasonable given her fall risk and unclear etiology of her weakness today. Patient was agreeable. Urinalysis was pending when I discussed with the hospitalist however on evaluation does appear somewhat concerning. May explain symptoms. Discussed with the hospital ist who will treat as UTI at this time. Impression & Plan Weakness, Acute UTI Discharge Plan Visit Data Chief Complaint: Weakness ED Provider: Billy Aguiar Discharge Problem: Weakness, Acute UTI Forms Stand Alone Forms: My [facility] Prescriptions Prescriptions: No Action Toviaz 4 mg tablet extended release 24 hr 4 mg PO BID Qty: 100 RF: 3 aspirin-dipyridamole 25-200 mg capsule, ER multiphase 12 hr 1 cap PO BID Qty: 180 RF: 1 levothyroxine 25 mcg tablet 25 mcg PO QAM Qty: 90 RF: 0 cholecalciferol (vitamin D3) 50 mcg (2,000 unit) capsule 50 mcg PO QAM RF: 0 calcium carbonate [Calcium 500] 500 mg calcium (1,250 mg) Tablet,Chewable 500 mg PO QAM RF: 0 glucosamine-chondroitin [Osteo Bi-Flex] 250-200 mg Tablet 2 tab PO BID RF: 0 Centrum 18-400 mg-mcg Tablet 1 tab PO QAM RF: 0 celecoxib 200 mg capsule 200 mg PO QAM RF: 0 atorvastatin 20 mg tablet 20 mg PO HS RF: 0 telmisartan 40 mg tablet 40 mg PO QAM RF: 0 esomeprazole magnesium 40 mg capsule,delayed release(DR/EC) 40 mg PO HS RF: 0 escitalopram oxalate 5 mg tablet 5 mg PO QAM RF: 0 The scribe's documentation has been prepared under my direction and personally reviewed by me in its entirety. I confirm that the note above accurately reflects all work, treatment, procedures, and medical decision making performed by me.
--- NOTE | 2019-06-30 20:01 | History & Physical Report ---
Date of Service June 30, 2019 Assessment & Plan (1) Weakness: Etiology uncertain. Patient has no objective findings of weakness. No muscle tenderness. Broad differential to include current UTI, deconditioning. Less likely suspect statin induced myopathy, polymyalgia rheumatica PT/OT evaluation Check CK, ESR, CRP with morning labs Fall precautions Present on Admission?: Yes (2) Acute UTI: + UA. 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 Continue Aggrenox Continue atorvastatin Present on Admission?: Yes (4) Depression: Chronic. Stable and well-controlled on current medications Continue escitalopram Present on Admission?: Yes (5) Hyperlipidemia: Chronic. Continue atorvastatin Present on Admission?: Yes (6) Hypertension: Blood pressure 155/83 Continue telmisartan Present on Admission?: Yes (7) Hypothyroidism: TSH within normal limits at 0.737 Continue Synthroid FENnormal saline at 100 mL/h x 2 L, monitor electrolytes and replete as needed, heart healthy diet as tolerated Prophylaxisencourage ambulation [place] per discussion with patient Dispositionobservation to medical floor History of Present Illness Chief Complaint: Weakness Primary Care Provider: Addi Rangel MD Emilee Israel is a pleasant 83-year-old female with history of hypertension/hyperlipidemia/hypothyroidism/depression presenting with 2 weeks of weakness and leg pain. Patient states that she has been having a difficult time with ambulation due to the leg weakness and pain. Weakness is sometimes in the morning and sometimes after being up all day. Equal bilaterally. Denies back pain, incontinence. No recent illness. No additional complaints at this time Patient lives at home alone but has caretakers coming to the house. She is active and independent in ADLs. ER course: Hemoccult stool negative Allergies Allergy/AdvReac Type Severity Reaction Status Date / Time simvastatin [From Zocor] AdvReac Verified 06/30/19 18:06 Home Medications Home Medications Medication Instructions Recorded Confirmed Type fesoterodine 4 mg tablet,extended 4 mg PO BID #100 tab 02/08/19 06/30/19 Rx release 24 hr aspirin 25 mg-dipyridamole 200 mg 1 cap PO BID #180 cap 03/01/19 06/30/19 Rx capsule,ext.release 12 hr multiphase levothyroxine 25 mcg tablet 25 mcg PO QAM #90 tab 03/30/19 06/30/19 History cholecalciferol (vitamin D3) 50 50 mcg PO QAM cap 04/08/19 06/30/19 History mcg (2,000 unit) capsule atorvastatin 20 mg PO HS 06/30/19 06/30/19 History calcium carbonate [Calcium 500] 500 mg PO QAM 06/30/19 06/30/19 History celecoxib 200 mg PO QAM 06/30/19 06/30/19 History escitalopram oxalate 5 mg PO QAM 06/30/19 06/30/19 History esomeprazole magnesium 40 mg PO HS 06/30/19 06/30/19 History glucosamine-chondroitin [Osteo 2 tab PO BID 06/30/19 06/30/19 History Bi-Flex] pwlqoyabttdo-[id number]-lmltk acid 1 tab PO QAM 06/30/19 06/30/19 History [Centrum] telmisartan 40 mg PO QAM 06/30/19 06/30/19 History Past Med/Surg History Medical History Arthritis, multiple joint involvement (Chronic) 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) Depression (Chronic) GERD without esophagitis (Acute) Hyperlipidemia (Chronic) Hypertension (Chronic) Hypothyroidism (Acute) Incontinence of urine in female Large hiatal hernia (Chronic) Macrocytosis (Acute) Urinary incontinence (Acute) Surgical History H/O foot surgery Family History Unknown Cancer Rheumatoid arthritis Fibromyalgia Social History Preferred Language: Icelandic current occupational status: retired Feels Safe at Home: Yes Smoking Status: Never smoker Hx Alcohol Use: Yes Alcohol Intake Frequency: Rarely Hx Substance Use: No caffeine: Yes Physical Activity Frequency: Does not Exercise Seatbelt Use: always Sunscreen Use: Yes Review of Systems Review of Systems: All systems reviewed & are unremarkable except as noted in HPI & below + Urinary frequency Physical Exam Physical Exam: General: patient resting comfortably, NAD, non-toxic in appearance, AA&O x 4 Skin: warm, dry, intact, no rashes or lesions HEENT: NC/AT, PERRL, EOMI, anicteric sclera, conjunctiva without injection, external ear normal to inspection and nontender, nares patent, dry lips and mucus membranes, dentures in place, no oropharyngeal lesions, neck supple, trachea midline, no LAD, no thyromegaly, no JVD Heart: +S1/S2, regular, no m/r/g Lungs: equal air entry bilaterally, no rales/rhonchi/wheezes Abd: +BS, soft, NT/ND, no masses/organomegaly/ascites Ext: warm, 2+ pulses in UE/LE bilaterally, no clubbing/cyanosis or edema, padded dressing on left foot Neuro: nonfocal, patient AA&O x 4, speech intact, no facial droop, moving all extremities on command, mildly decreased strength in left upper and lower extremities Results & Data Vital Signs (Past 12 Hours) Vital Signs Temp Pulse Resp BP Pulse Ox 06/30/19 18:30 89 15 155/83 H 96 06/30/19 18:00 89 16 152/78 H 96 06/30/19 15:30 87 16 127/80 97 06/30/19 15:00 87 16 128/62 97 06/30/19 14:25 92 H 12 127/83 96 06/30/19 14:15 36.9 C 90 16 127/83 95 Laboratory Results Lab Results 06/30/19 06/30/19 06/30/19 Range/Units 14:36 14:36 17:50 WBC 7.28 (4.8-10.8) K/uL RBC 3.32 L (4.2-5.4) M/uL Hgb 10.9 L (12.0-16.0) g/dL Hct 34.4 L (37-47) % MCV 103.6 H (80-100) fL MCH 32.8 (25-34) pg MCHC 31.7 L (32-36) g/dL RDW Std Deviation 51.2 H (36.4-46.3) fL RDW Coeff of Pavithra 13.6 (11.5-14.5) % Plt Count 175 (130-400) K/uL MPV 10.1 (7.4-10.4) fL Immature Gran % (Auto) 0.3 % Neut % (Auto) 73.3 % Lymph % (Auto) 14.0 % [place] % (Auto) 10.4 % Eos % (Auto) 1.6 % Baso % (Auto) 0.4 % Immature Gran # (Auto) 0.02 (0.00-0.02) K/uL Neut # (Auto) 5.33 (1.4-6.5) K/uL Lymph # (Auto) 1.02 L (1.2-3.4) K/uL [place] # (Auto) 0.76 H (0.11-0.59) K/uL Eos # (Auto) 0.12 (0-0.5) K/uL Baso # (Auto) 0.03 (0-0.2) K/uL Sodium 135 L (136-145) mmol/L Potassium 4.3 (3.5-5.1) mmol/L Chloride 104 (98-107) mmol/L Carbon Dioxide 26 (21-32) mmol/L Anion Gap 5.0 (3-11) BUN 25 H (7-18) mg/dl Creatinine 0.90 (0.6-1.2) mg/dl Est Cr Clr Drug Dosing 42.4 ml/min Est GFR ( Amer) 67.6 Est GFR (Non-Af Amer) 58.3 BUN/Creatinine Ratio 27.8 H (10-20) Glucose 100 H (70-99) mg/dl Calcium 10.1 (8.5-10.1) mg/dl Total Bilirubin 0.6 (0.2-1) mg/dl AST 19 (15-37) U/L ALT 21 (12-78) U/L Alkaline Phosphatase 79 (45-117) U/L Troponin I < 0.015 (0-0.045) ng/ml Total Protein 6.8 (6.4-8.2) gm/dl Albumin 2.8 L (3.4-5.0) gm/dl Globulin 4.0 (2.5-4.0) gm/dl Albumin/Globulin Ratio 0.7 L (0.9-2) TSH 0.737 (0.300-4.500) uIu/ml Urine Color Yellow Urine Appearance Clear (Clear) Urine pH 6.0 (4.5-7.5) Ur Specific [place] 1.012 (1.000-1.030) Urine Protein Negative (Negative) Urine Glucose (UA) Negative (Negative) Urine Ketones Negative (Negative) Urine Blood Negative (Negative) Urine Nitrite Positive A (Negative) Urine Bilirubin Negative (Negative) Urine Urobilinogen Negative (Negative) Ur Leukocyte Esterase 2+ H (Negative) Urine WBC (Auto) >30 H (0-5) /hpf Urine RBC (Auto) 0-4 (0-4) /hpf U Hyaline Cast (Auto) 0 (0-5) /lpf U Epithel Cells (Auto) 5-10 H (0-5) /lpf Urine Bacteria (Auto) 2+ H (Negative) Diagnostic Findings XR chest 1V portable CLINICAL HISTORY: 83 years-old Female presenting with weakness. TECHNIQUE: Portable upright AP view of the chest was obtained. COMPARISON: 06/11/2017. FINDINGS: Atherosclerosis of the aortic arch. Cardiac silhouette borderline enlarged. Bibasilar opacities left greater than right. This has increased from prior on the left. Underlying small left pleural effusion is not excluded. Degenerative changes of the thoracic spine. Degenerative changes of the glenohumeral joint on the left. The presence of a large hiatal hernia is better appreciated on the prior radiograph. IMPRESSION: 1. Bibasilar opacities likely represent atelectasis. There may be increased atelectasis on the left. Underlying infection/consolidation considered less likely. 2. Large hiatal hernia. 3. Borderline cardiomegaly. ACT 112: Negative or not required by law. Electronically signed by: Addi Perea M.D. 06/30/2019 4:00 PM Dictated: 06/30/19 1558 Transcribed: 06/30/[address] DOSE: 729.78 mGycm HISTORY: weakness TECHNIQUE: Multiaxial CT images of the head were performed without the use of intravenous contrast. Automated exposure control was utilized for this study. A dose lowering technique was utilized adhering to the principles of ALARA. Comparison: Head CT 02/12/2013. Findings: Stable chronic opacification of the right maxillary sinus. The mastoid air cells are clear. The calvarium and skull base are intact. There is no mass, hematoma, midline shift, acute infarct. White matter hypodensity is nonspecific but suggestive of microvascular ischemic change. The ventricles and sulci demonstrate mild age-related involutional changes. Old right basal ganglia infarct, unchanged. Impression: No significant change compared to the prior study. No acute intracranial abnormality. ACT 112: Negative or not required by law. Electronically signed by: Kevin Wallace M.D. 06/30/2019 4:07 PM Dictated: 06/30/191550 Transcribed: 06/30/191550 BILATERAL LOWER EXTREMITY VENOUS DOPPLER HISTORY: Bilateral pain calves COMPARISON STUDY: None. FINDINGS: There is normal compressibility, flow, and augmentation within the bilateral lower extremity deep venous systems. There is a 5.3 x 3.2 x 0.8 cm left popliteal cyst. BILATERAL LOWER EXTREMITY VENOUS DOPPLER HISTORY: Bilateral pain calves COMPARISON STUDY: None. FINDINGS: There is normal compressibility, flow, and augmentation within the bilateral lower extremity deep venous systems. There is a 5.3 x 3.2 x 0.8 cm left popliteal cyst. IMPRESSION: No DVT within the right or left lower extremity. ACT 112: Negative or not required by law. Electronically signed by: Kevin Wallace M.D. 06/30/2019 4:49 PM Dictated: 06/30/191647 Transcribed: 06/30/191647 ACT 112: Negative or not required by law. Electronically signed by: Kevin Wallace M.D. 06/30/2019 4:49 PM Dictated: 06/30/191647 Transcribed: 06/30/191647 ECG Additional Comments: The study shows NSR at 93bpm, LAFB, YX=053, FTX=947, QTc=47, non-specific Twave changes Code Status & VTE Plan Code Status FULL VTE Prophylaxis Plan VTE Prophylaxis will be ordered: Yes PG Care Time/CCT Total # of Minutes Spent Total Time Spent with Patient: Total time spent is greater than 50% in coordination of care (as documented) at patient's floor/unit and/or counseling patient: Coding Level of Care Code 08887 OBS Care - Level 3 Diagnoses Weakness R53.1 Acute UTI N39.0 Cerebral artery occlusion with cerebral infarction Depression F32.9 Depression Type: reactive depression Hyperlipidemia E78.5 Hyperlipidemia type: unspecified Hypertension I10 Hypertension type: unspecified Hypothyroidism E03.9 Hypothyroidism type: unspecified (1) Depression Depression Type: reactive depression Qualified Code(s): F32.9 - Major depressive disorder, single episode, unspecified (2) Hyperlipidemia Hyperlipidemia type: unspecified Qualified Code(s): E78.5 - Hyperlipidemia, unspecified (3) Hypertension Hypertension type: unspecified Qualified Code(s): I10 - Essential (primary) hypertension (4) Hypothyroidism Hypothyroidism type: unspecified Qualified Code(s): E03.9 - Hypothyroidism, unspecified
[2019-06-30] MEDS ORDERED: ONDANSETRON INJ 2 MG/ML 2 ML VIAL IV PRN (20:27)
[2019-06-30] MEDS ORDERED: ACETAMINOPHEN 325 MG TAB PO PRN (20:27)
[2019-06-30] MEDS: cefTRIAXone SODIUM 1,000 MG in DEXTROSE 5% 50 ML IV SCH (21:07)
[2019-06-30] MEDS: SODIUM CHLORIDE 0.9% 1000ML 1,000 ML IV SCH (21:08)
[2019-06-30] MEDS: DIPYRIDAMOLE/ASPIRIN CAP PO SCH (21:12)
[2019-06-30] MEDS: PANTOprazole 40 MG TAB PO SCH (21:12)
[2019-06-30] MEDS: ATORVASTATIN 20 MG TAB PO SCH (21:12)
[2019-06-30 21:25] LABS: Magnesium 2.1 mg/dl (1.8-2.4); Phosphorus 2.7 mg/dl (2.5-4.9)
--- NOTE | 2019-06-30 22:27 | Electrocardiogram Report ---
Test Reason : Blood Pressure : / mmHG Vent. Rate : 093 BPM Atrial Rate : 093 BPM P-R Int : 168 ms QRS Dur : 112 ms QT Int : 360 ms P-R-T Axes : 029 -47 055 degrees QTc Int : 447 ms Sinus rhythm with occasional Premature ventricular complexes Left anterior fascicular block Minimal voltage criteria for LVH, may be normal variant Abnormal ECG When compared with ECG of 11-JUN-2017 11:21, Premature ventricular complexes are now Present Non-specific change in ST segment in Anterior leads Nonspecific T wave abnormality no longer evident in Inferior leads Nonspecific T wave abnormality, improved in Anterolateral leads Confirmed by Ryan Angulo ([id number]) on 06/30/2019 10:27:41 PM Referred By: NELI Confirmed By:Ryan Angulo
[2019-07-01] MEDS: LEVOTHYROXINE SODIUM 25 MCG TABLET PO SCH (06:14)
[2019-07-01] MEDS: SODIUM CHLORIDE 0.9% 1000ML 1,000 ML IV SCH (06:48)
[2019-07-01] MEDS: TELMISARTAN 40 MG TAB PO SCH (08:30)
[2019-07-01] MEDS: ESCITALOPRAM OXALATE 10 MG TAB PO SCH (08:31)
[2019-07-01] MEDS: DIPYRIDAMOLE/ASPIRIN CAP PO SCH ×2 (08:31→20:16)
[2019-07-01] MEDS: CeleBREX 200 MG CAP PO SCH (08:31)
[2019-07-01] MEDS: CALCIUM CARBONATE 1250MG TAB PO SCH (08:31)
[2019-07-01] MEDS: CHOLECALCIFEROL 1,000 UNITS 25 MCG TAB PO SCH (08:31)
[2019-07-01 08:38] LABS: Basophils # (auto) 0.02 K/uL (0-0.2); Basophils % (auto) 0.3 %; Eosinophils # (auto) 0.08 K/uL (0-0.5); Eosinophils % (auto) 1.4 %; Hematocrit (blood only) 34.7 % (37-47); Hemoglobin 11.2 g/dL (12.0-16.0); Immature Granulocytes # (auto) 0.02 K/uL (0.00-0.02); Immature Granulocytes % (auto) 0.3 %; Lymphocytes # (auto) 0.97 K/uL (1.2-3.4); Lymphocytes % (auto) 16.6 %; Mean Corpuscular Hemoglobin 32.9 pg (25-34); Mean Corpuscular Hgb Conc 32.3 g/dL (32-36); Mean Corpuscular Volume 102.1 fL (80-100); Mean Platelet Volume 10.1 fL (7.4-10.4); Monocytes # (auto) 0.42 K/uL (0.11-0.59); Monocytes % (auto) 7.2 %; Neutrophils # (auto) 4.33 K/uL (1.4-6.5); Neutrophils % (auto) 74.2 %; Platelet Count 170 K/uL (130-400); RDW Coefficient of Variation 13.4 % (11.5-14.5); RDW Standard Deviation 50.4 fL (36.4-46.3); White Blood Count 5.84 K/uL (4.8-10.8)
[2019-07-01 09:16] LABS: BUN Creatinine Ratio 21.3 (10-20); C Reactive Protein 10.1 mg/dl (0-0.29); Calcium 9.5 mg/dl (8.5-10.1); Creatinine Clr Calc Pharmacy 58.7 ml/min; Est GFR (African American) 93.8; Potassium 3.5 mmol/L (3.5-5.1)
--- NOTE | 2019-07-01 13:43 | Hospitalist Progress Note ---
Date of Service July 01, 2019 Assessment & Plan (1) Weakness: - Likely related to acute UTI -- UC +gram negative bacilli, on IV abx. - No neuro deficits noted on exam; CT head was negative, hold brain MRI at this time (did have previous h/o CVA) - Denies unilateral leg weakness, radiculopathy -- less likely related to spinal etiology. - Consider statin induced myopathy; CK level was WNL - is not related to rhabdomyolysis. - CXR with atelectasis, neg for PNA; also has large hiatal hernia. - Venous doppler negative for DVT. - IV fluids with NS at 80 cc/hr. - PT/OT evaluation - does have caregivers at home that are present throughout most of the day. (2) Acute UTI: - UC +gram negative bacilli. - Continue Ceftriaxone for empiric coverage. 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 - Continue Aggrenox, Atorvastatin. - CT head negative; consider brain MRI to rule out CVA. (4) Depression: - Continue Lexapro as prescribed. - Her daughter expressed their wishes to d/c med -- discuss with PCP. (5) Hyperlipidemia: - Continue atorvastatin 20 mg qhs. (6) Hypertension: - Continue Telmisartan as prescribed. - BP has been elevated, 140-150's. (7) Hypothyroidism: - TSH within normal limits at 0.737 - Continue Synthroid 25 mcg daily. Dispo: Med/surg; discharge to home likely on 07/02 pending results of UC & PT/OT recs. Admission and Anticipated Discharge Date Admission Date: June 30, 2019 Subjective Pt. reports feeling fatigued but improved overall. She ambulated to the restroom, denied weakness/legs buckling underneath her. Is having urinary incontinence -- chronic for her at home. Denies dysuria, hematuria, abd or pelvic pain, fever/chills, chest pain, SOB. Her two daughters were present at bedside, updated with plan of care this afternoon. Review of Systems Review of Systems: All systems reviewed & are unremarkable except as noted in HPI & below Constitutional: + fatigue and + weakness; no fever, no chills and no anorexia Respiratory: no cough, no dyspnea and no dyspnea on exertion Cardiovascular: no chest pain, no palpitations and no edema Gastrointestinal: no abdominal pain, no nausea, no vomiting and no constipation Genitourinary: + urinary incontinence; no dysuria, no difficulty urinating and no hematuria Musculoskeletal: no back pain and no joint pain Integumentary: no non-healing lesions Physical Exam Physical Exam: General: Resting comfortably HEENT: NC/AT; PERRLA with EOMI; [place] conjunctiva, MMM. No erythema of posterior pharynx Neck: Supple and nontender Cardiac: RRR Lungs: CTA bilaterally Abdomen: Bowel normoactive X 4; Nontender to palpation Extremities: Warm. No edema present Neuro: No focal weakness Skin: No rash Results & Data ([facility]) Vital Signs (Past 12 Hours) Vital Signs Temp Pulse Resp BP Pulse Ox 07/01/19 07:28 36.6 C 74 20 155/75 H 95 Laboratory Results 07/01/19 07/01/19 07/01/19 Range/Units 08:09 08:09 08:09 WBC 5.84 (4.8-10.8) K/uL RBC 3.40 L (4.2-5.4) M/uL Hgb 11.2 L (12.0-16.0) g/dL Hct 34.7 L (37-47) % MCV 102.1 H (80-100) fL MCH 32.9 (25-34) pg MCHC 32.3 (32-36) g/dL RDW Std Deviation 50.4 H (36.4-46.3) fL RDW Coeff of Paivthra 13.4 (11.5-14.5) % Plt Count 170 (130-400) K/uL MPV 10.1 (7.4-10.4) fL Immature Gran % (Auto) 0.3 % Neut % (Auto) 74.2 % Lymph % (Auto) 16.6 % [place] % (Auto) 7.2 % Eos % (Auto) 1.4 % Baso % (Auto) 0.3 % Immature Gran # (Auto) 0.02 (0.00-0.02) K/uL Neut # (Auto) 4.33 (1.4-6.5) K/uL Lymph # (Auto) 0.97 L (1.2-3.4) K/uL [place] # (Auto) 0.42 (0.11-0.59) K/uL Eos # (Auto) 0.08 (0-0.5) K/uL Baso # (Auto) 0.02 (0-0.2) K/uL ESR 82 H (0-21) mm/hr Sodium 137 (136-145) mmol/L Potassium 3.5 D (3.5-5.1) mmol/L Chloride 107 (98-107) mmol/L Carbon Dioxide 24 (21-32) mmol/L Anion Gap 6.0 (3-11) BUN 14 (7-18) mg/dl Creatinine 0.65 (0.6-1.2) mg/dl Est Cr Clr Drug Dosing 58.7 ml/min Est GFR ( Amer) 93.8 Est GFR (Non-Af Amer) 81.0 BUN/Creatinine Ratio 21.3 H (10-20) Glucose 97 (70-99) mg/dl Calcium 9.5 (8.5-10.1) mg/dl Phosphorus (2.5-4.9) mg/dl Magnesium (1.8-2.4) mg/dl Total Bilirubin (0.2-1) mg/dl AST (15-37) U/L ALT (12-78) U/L Alkaline Phosphatase (45-117) U/L Total Creatine Kinase 32 (26-192) U/L Troponin I (0-0.045) ng/ml C-Reactive Protein 10.10 H (0-0.29) mg/dl Total Protein (6.4-8.2) gm/dl Albumin (3.4-5.0) gm/dl Globulin (2.5-4.0) gm/dl Albumin/Globulin Ratio (0.9-2) TSH (0.300-4.500) uIu/ml Urine Color Urine Appearance (Clear) Urine pH (4.5-7.5) Ur Specific [place] (1.000-1.030) Urine Protein (Negative) Urine Glucose (UA) (Negative) Urine Ketones (Negative) Urine Blood (Negative) Urine Nitrite (Negative) Urine Bilirubin (Negative) Urine Urobilinogen (Negative) Ur Leukocyte Esterase (Negative) Urine WBC (Auto) (0-5) /hpf Urine RBC (Auto) (0-4) /hpf U Hyaline Cast (Auto) (0-5) /lpf U Epithel Cells (Auto) (0-5) /lpf Urine Bacteria (Auto) (Negative) 06/30/19 06/30/19 06/30/19 Range/Units 17:50 14:36 14:36 WBC (4.8-10.8) K/uL RBC (4.2-5.4) M/uL Hgb (12.0-16.0) g/dL Hct (37-47) % MCV (80-100) fL MCH (25-34) pg MCHC (32-36) g/dL RDW Std Deviation (36.4-46.3) fL RDW Coeff of Pavithra (11.5-14.5) % Plt Count (130-400) K/uL MPV (7.4-10.4) fL Immature Gran % (Auto) % Neut % (Auto) % Lymph % (Auto) % [place] % (Auto) % Eos % (Auto) % Baso % (Auto) % Immature Gran # (Auto) (0.00-0.02) K/uL Neut # (Auto) (1.4-6.5) K/uL Lymph # (Auto) (1.2-3.4) K/uL [place] # (Auto) (0.11-0.59) K/uL Eos # (Auto) (0-0.5) K/uL Baso # (Auto) (0-0.2) K/uL ESR (0-21) mm/hr Sodium 135 L (136-145) mmol/L Potassium 4.3 (3.5-5.1) mmol/L Chloride 104 (98-107) mmol/L Carbon Dioxide 26 (21-32) mmol/L Anion Gap 5.0 (3-11) BUN 25 H (7-18) mg/dl Creatinine 0.90 (0.6-1.2) mg/dl Est Cr Clr Drug Dosing 42.4 ml/min Est GFR ( Amer) 67.6 Est GFR (Non-Af Amer) 58.3 BUN/Creatinine Ratio 27.8 H (10-20) Glucose 100 H (70-99) mg/dl Calcium 10.1 (8.5-10.1) mg/dl Phosphorus 2.7 (2.5-4.9) mg/dl Magnesium 2.1 (1.8-2.4) mg/dl Total Bilirubin 0.6 (0.2-1) mg/dl AST 19 (15-37) U/L ALT 21 (12-78) U/L Alkaline Phosphatase 79 (45-117) U/L Total Creatine Kinase (26-192) U/L Troponin I < 0.015 (0-0.045) ng/ml C-Reactive Protein (0-0.29) mg/dl Total Protein 6.8 (6.4-8.2) gm/dl Albumin 2.8 L (3.4-5.0) gm/dl Globulin 4.0 (2.5-4.0) gm/dl Albumin/Globulin Ratio 0.7 L (0.9-2) TSH 0.737 (0.300-4.500) uIu/ml Urine Color Yellow Urine Appearance Clear (Clear) Urine pH 6.0 (4.5-7.5) Ur Specific [place] 1.012 (1.000-1.030) Urine Protein Negative (Negative) Urine Glucose (UA) Negative (Negative) Urine Ketones Negative (Negative) Urine Blood Negative (Negative) Urine Nitrite Positive A (Negative) Urine Bilirubin Negative (Negative) Urine Urobilinogen Negative (Negative) Ur Leukocyte Esterase 2+ H (Negative) Urine WBC (Auto) >30 H (0-5) /hpf Urine RBC (Auto) 0-4 (0-4) /hpf U Hyaline Cast (Auto) 0 (0-5) /lpf U Epithel Cells (Auto) 5-10 H (0-5) /lpf Urine Bacteria (Auto) 2+ H (Negative) 06/30/19 Range/Units 14:36 WBC 7.28 (4.8-10.8) K/uL RBC 3.32 L (4.2-5.4) M/uL Hgb 10.9 L (12.0-16.0) g/dL Hct 34.4 L (37-47) % MCV 103.6 H (80-100) fL MCH 32.8 (25-34) pg MCHC 31.7 L (32-36) g/dL RDW Std Deviation 51.2 H (36.4-46.3) fL RDW Coeff of Pavithra 13.6 (11.5-14.5) % Plt Count 175 (130-400) K/uL MPV 10.1 (7.4-10.4) fL Immature Gran % (Auto) 0.3 % Neut % (Auto) 73.3 % Lymph % (Auto) 14.0 % [place] % (Auto) 10.4 % Eos % (Auto) 1.6 % Baso % (Auto) 0.4 % Immature Gran # (Auto) 0.02 (0.00-0.02) K/uL Neut # (Auto) 5.33 (1.4-6.5) K/uL Lymph # (Auto) 1.02 L (1.2-3.4) K/uL [place] # (Auto) 0.76 H (0.11-0.59) K/uL Eos # (Auto) 0.12 (0-0.5) K/uL Baso # (Auto) 0.03 (0-0.2) K/uL ESR (0-21) mm/hr Sodium (136-145) mmol/L Potassium (3.5-5.1) mmol/L Chloride (98-107) mmol/L Carbon Dioxide (21-32) mmol/L Anion Gap (3-11) BUN (7-18) mg/dl Creatinine (0.6-1.2) mg/dl Est Cr Clr Drug Dosing ml/min Est GFR ( Amer) Est GFR (Non-Af Amer) BUN/Creatinine Ratio (10-20) Glucose (70-99) mg/dl Calcium (8.5-10.1) mg/dl Phosphorus (2.5-4.9) mg/dl Magnesium (1.8-2.4) mg/dl Total Bilirubin (0.2-1) mg/dl AST (15-37) U/L ALT (12-78) U/L Alkaline Phosphatase (45-117) U/L Total Creatine Kinase (26-192) U/L Troponin I (0-0.045) ng/ml C-Reactive Protein (0-0.29) mg/dl Total Protein (6.4-8.2) gm/dl Albumin (3.4-5.0) gm/dl Globulin (2.5-4.0) gm/dl Albumin/Globulin Ratio (0.9-2) TSH (0.300-4.500) uIu/ml Urine Color Urine Appearance (Clear) Urine pH (4.5-7.5) Ur Specific [place] (1.000-1.030) Urine Protein (Negative) Urine Glucose (UA) (Negative) Urine Ketones (Negative) Urine Blood (Negative) Urine Nitrite (Negative) Urine Bilirubin (Negative) Urine Urobilinogen (Negative) Ur Leukocyte Esterase (Negative) Urine WBC (Auto) (0-5) /hpf Urine RBC (Auto) (0-4) /hpf U Hyaline Cast (Auto) (0-5) /lpf U Epithel Cells (Auto) (0-5) /lpf Urine Bacteria (Auto) (Negative) PG Care Time/CCT Total # of Minutes Spent Total Time Spent with Patient: Total time spent is greater than 50% in coordination of care (as documented) at patient's floor/unit and/or counseling patient: Coding Level of Care Code 09074 Subseq Obs Care Lvl 3 Diagnoses Weakness R53.1 Acute UTI N39.0 Cerebral artery occlusion with cerebral infarction Depression F32.9 Depression Type: reactive depression Hyperlipidemia E78.5 Hyperlipidemia type: unspecified Hypertension I10 Hypertension type: unspecified Hypothyroidism E03.9 Hypothyroidism type: unspecified (1) Depression Depression Type: reactive depression Qualified Code(s): F32.9 - Major depressive disorder, single episode, unspecified (2) Hyperlipidemia Hyperlipidemia type: unspecified Qualified Code(s): E78.5 - Hyperlipidemia, unspecified (3) Hypothyroidism Hypothyroidism type: unspecified Qualified Code(s): E03.9 - Hypothyroidism, unspecified (4) Hypertension Hypertension type: unspecified Qualified Code(s): I10 - Essential (primary) hypertension
[2019-07-01] MEDS: ENOXAPARIN INJ 40 MG/0.4 ML SYR SQ SCH (15:53)
[2019-07-01] MEDS: PANTOprazole 40 MG TAB PO SCH (20:16)
[2019-07-01] MEDS: cefTRIAXone SODIUM 1,000 MG in DEXTROSE 5% 50 ML IV SCH (20:16)
[2019-07-01] MEDS: ATORVASTATIN 20 MG TAB PO SCH (20:16)
[2019-07-02] MEDS: LEVOTHYROXINE SODIUM 25 MCG TABLET PO SCH (06:04)
[2019-07-02 06:08] LABS: Hematocrit (blood only) 34.4 % (37-47); Hemoglobin 10.9 g/dL (12.0-16.0); Mean Corpuscular Hemoglobin 32.2 pg (25-34); Mean Corpuscular Hgb Conc 31.7 g/dL (32-36); Mean Corpuscular Volume 101.8 fL (80-100); Mean Platelet Volume 9.9 fL (7.4-10.4); Platelet Count 181 K/uL (130-400); RDW Coefficient of Variation 13.1 % (11.5-14.5); RDW Standard Deviation 49.2 fL (36.4-46.3); Red Blood Count 3.38 M/uL (4.2-5.4)
[2019-07-02] MEDS: CeleBREX 200 MG CAP PO SCH (07:56)
[2019-07-02] MEDS: ESCITALOPRAM OXALATE 10 MG TAB PO SCH (07:56)
[2019-07-02] MEDS: CALCIUM CARBONATE 1250MG TAB PO SCH (07:56)
[2019-07-02] MEDS: DIPYRIDAMOLE/ASPIRIN CAP PO SCH (07:56)
[2019-07-02] MEDS: TELMISARTAN 40 MG TAB PO SCH (07:57)
[2019-07-02] MEDS: CHOLECALCIFEROL 1,000 UNITS 25 MCG TAB PO SCH (07:57)
[2019-07-02] MEDS ORDERED: CEFDINIR 300 MG CAP PO SCH (09:00)
[2019-07-02] MEDS: ENOXAPARIN INJ 40 MG/0.4 ML SYR SQ SCH (10:06)
--- NOTE | 2019-07-02 15:36 | Discharge Summary ---
Date of Service July 02, 2019 Admission HPI Per Admitting Provider Emilee Israel is a pleasant 83-year-old female with history of hypertension/hyperlipidemia/hypothyroidism/depression presenting with 2 weeks of weakness and leg pain. Patient states that she has been having a difficult time with ambulation due to the leg weakness and pain. Weakness is sometimes in the morning and sometimes after being up all day. Equal bilaterally. Denies back pain, incontinence. No recent illness. No additional complaints at this time Patient lives at home alone but has caretakers coming to the house. She is active and independent in ADLs. ER course: Hemoccult stool negative Admission Exam Per Admitting Provider General: patient resting comfortably, NAD, non-toxic in appearance, AA&O x 4 Skin: warm, dry, intact, no rashes or lesions HEENT: NC/AT, PERRL, EOMI, anicteric sclera, conjunctiva without injection, external ear normal to inspection and nontender, nares patent, dry lips and mucus membranes, dentures in place, no oropharyngeal lesions, neck supple, trachea midline, no LAD, no thyromegaly, no JVD Heart: +S1/S2, regular, no m/r/g Lungs: equal air entry bilaterally, no rales/rhonchi/wheezes Abd: +BS, soft, NT/ND, no masses/organomegaly/ascites Ext: warm, 2+ pulses in UE/LE bilaterally, no clubbing/cyanosis or edema, padded dressing on left foot Neuro: nonfocal, patient AA&O x 4, speech intact, no facial droop, moving all extremities on command, mildly decreased strength in left upper and lower extremities Principal Diagnosis Weakness, UTI Discharge Exam General: Resting comfortably HEENT: NC/AT; PERRLA with EOMI; [place] conjunctiva, MMM. No erythema of posterior pharynx Neck: Supple and nontender Cardiac: RRR Lungs: CTA bilaterally Abdomen: Bowel normoactive X 4; Nontender to palpation Extremities: Warm. No edema present Neuro: No focal weakness Skin: No rash Discharge Data Allergies Allergy/AdvReac Type Severity Reaction Status Date / Time simvastatin [From Zocor] AdvReac Verified 06/30/19 18:06 Consultations 06/30/19 18:03 ED Decision to Admit Stat Ordered Studies 06/30/19 15:26 CT head/brain wo con Stat US venous doppler LE BI Stat Hospital Course (1) Weakness: Likely related to acute UTI -- UC +E coli. CT head was negative. Denies unilateral leg weakness, radiculopathy -- less likely related to spinal etiology. Considered statin induced myopathy; CK level was WNL - is not related to rhabdomyolysis. CXR with atelectasis, neg for PNA; also has large hiatal hernia. Venous doppler negative for DVT. Received IV fluids at 80 cc/hr. PT/OT evaluation - does have caregivers at home that are present throughout most of the day. Recommended home health, was arranged. (2) Acute UTI: UC + E. coli. Ceftriaxone for empiric coverage. Converted to Cefdinir at discharge per sensitivities. 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 Continued Aggrenox, Atorvastatin. CT head negative. (4) Depression: Continued Lexapro as prescribed. Her daughter expressed their wishes to d/c med -- discuss with PCP. (5) Hyperlipidemia: Continued atorvastatin 20 mg qhs. (6) Hypertension: Continued Telmisartan as prescribed. (7) Hypothyroidism: TSH within normal limits at 0.737 Continued Synthroid 25 mcg daily. Discharged to home on 07/02/19. Total Time Total Time Spent Total Time Spent (In Minutes): >30 minutes Total Time Includes: Examination of the Patient, Discharge Planning, Medication Reconciliation, Communication With Other Providers and Other Discharge Plan Discharge Items Patient Disposition: Home - Self-Care Reason For Visit: WEAKNESS Discharge Diagnosis: UTI, Generalized Weakness Condition on Discharge: Fair Goals: You have been hospitalized for an acute medical problem. During your stay at [facility], we have made an effort to correct the problem that brought you to the hospital while keeping you as comfortable as possible. Medications were used to bring your condition under control and your discharge instructions will include directions for any medications you should take after leaving the hospital. Please make sure you see your Primary Care Provider as part of your follow up plan. Activity: As commented below Exercise/Sports: Gradually increase as tolerated Non-emergency contact: Primary Care Provider Call non-emergency contact if: you have any medication questions, your symptoms worsen and you have a fever Follow-up/Referrals: Addi Rangel MD [Primary Care Provider] - (Patient's family will take care of this appointment) Diet: Heart Healthy Addtl Attending Provider Instructions: 1. Acute Urinary Tract Infection * Please take Cefdinir 300 mg twice daily for treatment of UTI. * Please drink plenty of fluids - at least 8-10 glasses per day - to avoid dehydration. 2. Please follow up with PCP in 1-2 weeks to discuss this hospital admission. Pending Studies at Discharge: Yes Studies:: E. coli (prelim) on urine culture. Stand-Alone Forms: My [facility] Medications and DC Order Prescriptions: New cefdinir 300 mg capsule 300 mg PO BID 3 Days Qty: 6 RF: 0 Continued Toviaz 4 mg tablet extended release 24 hr 4 mg PO BID Qty: 100 RF: 3 aspirin-dipyridamole 25-200 mg capsule, ER multiphase 12 hr 1 cap PO BID Qty: 180 RF: 1 levothyroxine 25 mcg tablet 25 mcg PO QAM Qty: 90 RF: 0 cholecalciferol (vitamin D3) 50 mcg (2,000 unit) capsule 50 mcg PO QAM RF: 0 calcium carbonate [Calcium 500] 500 mg calcium (1,250 mg) Tablet,Chewable 500 mg PO QAM RF: 0 glucosamine-chondroitin [Osteo Bi-Flex] 250-200 mg Tablet 2 tab PO BID RF: 0 Centrum 18-400 mg-mcg Tablet 1 tab PO QAM RF: 0 celecoxib 200 mg capsule 200 mg PO QAM RF: 0 atorvastatin 20 mg tablet 20 mg PO HS RF: 0 telmisartan 40 mg tablet 40 mg PO QAM RF: 0 esomeprazole magnesium 40 mg capsule,delayed release(DR/EC) 40 mg PO HS RF: 0 escitalopram oxalate 5 mg tablet 5 mg PO QAM RF: 0 Discharge Orders: Discharge Order (Routine); Ordered 07/02/19 Ordered By: Jazmín Moran Admission Data Admit Date/Time: 06/30/19 19:40 Attending Provider: Gera Sanders Admit Provider: Kasey Chau Primary Care Provider: Addi Rangel Other Providers: Kasey Chau Other Interventions: Discharge Summary Assessment (RN) Last Done: 07/02/19 12:12 DC Date/Time DO NOT enter until pt leaves facility: 07/02/19 13:33 Supervising Physician Co-Signing Physician Notes Patient seen and examined on the day of discharge. I agree with the discharge s ummary by Jazmín NO. I have reviewed the chart including labs, imaging and plans for discharge. patient feeling great, completed therapy today, okay to go home with home health she is responding well to antibiotics for her UTI eating well, no fever updated daughter, answered questions - UTI, E coli: d/c home on Cefdinir no fever, vitals stable, eating well, strength is improving home health will be available Coding Level of Care Code D/C Day Management >30 mins Diagnoses Weakness R53.1 Acute UTI N39.0 Cerebral artery occlusion with cerebral infarction Depression F32.9 Depression Type: reactive depression Hyperlipidemia E78.5 Hyperlipidemia type: unspecified Hypertension I10 Hypertension type: unspecified Hypothyroidism E03.9 Hypothyroidism type: unspecified
== END 2019-07-02 13:33 | disposition home or self-care (01) ==
LOC: 4W 14:15 → ED 14:15 → SUATTDRO 19:40 → 4W 20:09

== ENCOUNTER 2020-06-29 16:13 | Observation (INO) ==
--- NOTE | 2020-06-29 16:41 | Emergency Department Note ---
Impression & Plan Acute loss of vision, Internal carotid artery stenosis, High serum chloride ED Provider Note NAME: RUSSEL CASANOVA AGE: 84 SEX: F : 1935 ARRIVES VIA: Walk-In INFORMANT: Patient ED PROVIDER(S): Beto Draper DO CHIEF COMPLAINT: Loss of vision out of left eye HPI: Patient is an 84-year-old female who presents the ER for sudden loss of vision of the left eye which occurred yesterday around 6 PM. She notes she can only see out of the left extreme lateral aspect of her left eye. She denies any headache or change in vision otherwise. No chest pain or shortness of breath. No nausea vomiting or diarrhea. No weakness or numbness in the arms or legs. No other exacerbating or remitting factors.She was seen at the eye doctor's office and referred in for further evaluation. ROS: See above HPI for pertinent positives & negatives. A total of 10 systems reviewed and were otherwise negative. PAST MEDICAL HISTORY:See Below PAST SURGICAL HISTORY:See Below FAMILY HISTORY:See Below SOCIAL HISTORY:See Below HOME MEDICATIONS:See Below ALLERGIES:See Below VITALS:See Below PHYSICAL EXAMINATION: GENERAL: Sitting up in bed, alert, well appearing, well nourished, no distress, non-toxic EYE EXAM: normal conjunctiva. PERRL and EOM's grossly intact. OROPHARYNX: no exudate, no erythema, lips, buccal mucosa, and tongue normal and mucous membranes are moist NECK: supple, no nuchal rigidity, no adenopathy, non-tender LUNGS: Clear to auscultation. Normal chest wall mechanics HEART: no murmurs, S1 normal and S2 normal ABDOMEN: abdomen soft, non-tender, normo-active bowel sounds, no masses, no rebound or guarding. BACK: Back is symmetrical on inspection and there is no deformity, no midline tenderness, no CVA tenderness. SKIN: no rashes and no bruising UPPER EXTREMITIES: upper extremities are grossly normal. LOWER EXTREMITIES: No pitting edema. NEURO EXAM: Normal sensorium, cranial nerves II-XII intact, normal speech, no weakness of arms, no weakness of legs. No drift. Finger to nose intact. Gross sensation intact. [id number]-tt-[id number] intact. Rapid alternating movements of upper extremities intact. MEDICAL DECISION MAKING: Patient is an 84-year-old female who presents the ER for Loss of vision out of her left eye with exception of the extreme left lateral visual field which she is able to see out of. She was referred in by her eye doctor.IV was established blood was obtained. She is completely neurologically intact with exception of her loss of vision. Labs show no significant leukocytosis or anemia. INR was u nremarkable. BMP with slightly elevated chloride. LFTs bilirubin troponin was unremarkable. Covid was negative.CT as well as CT angio of the head and neck showed no acute pathology. Several areas of stenosis and old stroke.Case was discussed with Aydin Valdes who recommended admission and complete stroke work- up. Patient was updated bedside admitted for further work-up Triage Nursing notes reviewed. Limited review of prior medical records performed Vital Signs: reviewed and remarkable for tachy Differential diagnosis: Differential Diagnosis includes but is not limited to ischemic Stroke, hemorrhagic stroke, bells palsy, mass, neoplasm, migraine headache, seizure, subarachnoid hemorrhage, TIA, and transient global amnesia. ER treatment provided: See below Diagnostics interpreted by me: ECG: A. fib rate of 108 Left axis Right bundle branch block ST depressions in the high lateral leads QTC 496 Cardiac Monitoring: An order was placed for continuous cardiac monitoring. The monitor shows a rate of 110 with A. fib rhythm. Laboratory studies: As stated above and show below. Imaging studies: CT as well as CT angio of the head and neck shows old basal ganglia stroke and stenosis in the right internal carotid as well as the cerebral artery Consultation(s): Discussed with neurology as stated above Procedures: none Critical Care: None Past Med/Surg History Medical History (Updated 06/29/20 @ 22:21 by Beto Draper DO) Acute UTI Arthritis, multiple joint involvement Cerebral artery occlusion with cerebral infarction Depression GERD without esophagitis Hyperlipidemia Hypertension Hypothyroidism Incontinence of urine in female Large hiatal hernia Macrocytosis Urinary incontinence UTI (urinary tract infection) Surgical History H/O foot surgery History of bladder surgery resuspension History of hysterectomy Hx of cholecystectomy Hx of varicose vein ligation and stripping Family History Unknown Cancer Rheumatoid arthritis Fibromyalgia Social History Smoking Status: Never smoker Hx Alcohol Use: No Hx Substance Use: No Preferred Language: Icelandic Communication Ability: Effective Visual Impairment: No Limitations 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 Beliefs That Will Affect Care: None marital status: / Current Living Situation: Alone Current Living Situation Comment: home health during day current occupational status: retired Feels Safe at Home: Yes Childhood Exposure to Second-Hand Smoke: No caffeine: Yes Dental Care, Regularly: Yes Physical Activity Frequency: Does not Exercise Seatbelt Use: always Sunscreen Use: Yes Assistive Devices: Walker Allergies Allergies Allergy/AdvReac Type Severity Reaction Status Date / Time simvastatin [From Zocor] AdvReac Verified 05/13/20 10:26 Home Meds Home Medications Medication Instructions Recorded Confirmed cholecalciferol (vitamin D3) 50 50 mcg PO QAM cap 04/08/19 06/29/20 mcg (2,000 unit) capsule Centrum 1 tab PO QAM 06/30/19 06/29/20 calcium carbonate [Calcium 500] 500 mg PO QAM 06/30/19 06/29/20 escitalopram oxalate 5 mg PO QAM 06/30/19 06/29/20 glucosamine-chondroitin [Osteo 2 tab PO BID 06/30/19 06/29/20 Bi-Flex] cyanocobalamin (vitamin B-12) 500 mcg PO QAM 04/29/20 06/29/20 [Vitamin B-12] levothyroxine 25 mcg PO QAM 04/29/20 06/29/20 Previous Rx's Medication Instructions Recorded aspirin 25 mg-dipyridamole 200 mg 1 cap PO BID #180 cap 07/07/19 capsule,ext.release 12 hr multiphase celecoxib 200 mg capsule 200 mg PO QAM #90 cap 12/11/19 atorvastatin 20 mg tablet 20 mg PO HS #90 tab 12/29/19 esomeprazole magnesium 40 mg 40 mg PO HS #90 cap 12/29/19 capsule,delayed release telmisartan 20 mg PO QAM #90 tab 05/02/20 diltiazem HCl 120 mg 120 mg PO QAM #30 cap 05/17/20 capsule,extended release 24 hr Results & Data (ED) Vital Signs Vital Signs - 24 hr 06/29/20 16:15 06/29/20 17:00 06/29/20 17:41 Temperature 36.6 C Temperature Source Temporal Artery Scan Pulse Rate 109 H 85 95 H Pulse Rate from SpO2 Sensor 83 99 H Pulse Rhythm Regular Respiratory Rate 18 16 14 Respiratory Effort / Characteristics Non-Labored Spontaneous Respiratory Depth Normal Respiratory Pattern Regular Blood Pressure 134/79 162/97 H 122/86 Blood Pressure Mean 97 118 98 Pulse Oximetry 98 96 95 Oxygen Delivery Method Room Air Room Air Sepsis Recent Fever Within 48 Hours No Sepsis New/Unexplained Change in Mental Status No Sepsis Action Taken by Nursing No Action Required 06/29/20 18:00 06/29/20 18:30 06/29/20 19:07 Temperature Temperature Source Pulse Rate 82 79 92 H Pulse Rate from SpO2 Sensor 82 Pulse Rhythm Respiratory Rate 16 13 19 Respiratory Effort / Characteristics Respiratory Depth Respiratory Pattern Blood Pressure 138/65 133/79 168/102 H Blood Pressure Mean 89 97 124 Pulse Oximetry 97 95 98 Oxygen Delivery Method Room Air Room Air Sepsis Recent Fever Within 48 Hours Sepsis New/Unexplained Change in Mental Status Sepsis Action Taken by Nursing 06/29/20 19:30 Temperature Temperature Source Pulse Rate 79 Pulse Rate from SpO2 Sensor Pulse Rhythm Respiratory Rate 19 Respiratory Effort / Characteristics Respiratory Depth Respiratory Pattern Blood Pressure 144/84 H Blood Pressure Mean 104 Pulse Oximetry 98 Oxygen Delivery Method Room Air Sepsis Recent Fever Within 48 Hours Sepsis New/Unexplained Change in Mental Status Sepsis Action Taken by Nursing Laboratory Data Result diagrams: 06/29/20 16:50 06/29/20 16:50 Lab Results 06/29/20 06/29/20 06/29/20 Range/Units 16:50 16:50 16:50 WBC 6.72 (4.8-10.8) K/uL RBC 4.02 L (4.2-5.4) M/uL Hgb 13.3 (12.0-16.0) g/dL Hct 41.0 (37-47) % MCV 102.0 H (80-100) fL MCH 33.1 (25-34) pg MCHC 32.4 (32-36) g/dL RDW Std Deviation 50.0 H (36.4-46.3) fL RDW Coeff of Pavithra 13.3 (11.5-14.5) % Plt Count 201 (130-400) K/uL MPV 10.5 H (7.4-10.4) fL Immature Gran % (Auto) 0.3 % Neut % (Auto) 59.8 % Lymph % (Auto) 28.0 % Emmet % (Auto) 8.8 % Eos % (Auto) 2.5 % Baso % (Auto) 0.6 % Neut # (Auto) 4.02 (1.4-6.5) K/uL Lymph # (Auto) 1.88 (1.2-3.4) K/uL Emmet # (Auto) 0.59 (0.11-0.59) K/uL Eos # (Auto) 0.17 (0-0.5) K/uL Baso # (Auto) 0.04 (0-0.2) K/uL Immature Gran # (Auto) 0.02 (0.00-0.02) K/uL PT 10.3 (9.0-12.0) Seconds INR 1.0 (0.9-1.1) APTT 24.4 (21.0-31.0) Seconds PTT Ratio 0.9 Sodium 140 (136-145) mmol/L Potassium 4.2 (3.5-5.1) mmol/L Chloride 110 H (98-107) mmol/L Carbon Dioxide 26 (21-32) mmol/L Anion Gap 5.0 (3-11) BUN 20 H (7-18) mg/dl Creatinine 1.10 (0.6-1.2) mg/dl Est Cr Clr Drug Dosing 31.2 ml/min Est GFR ( Amer) 52.6 Est GFR (Non-Af Amer) 45.4 BUN/Creatinine Ratio 18.4 (10-20) Glucose 112 H (70-99) mg/dl POC Glucose (70-99) mg/dl Calcium 10.6 H (8.5-10.1) mg/dl Magnesium 2.2 (1.8-2.4) mg/dl Total Bilirubin 0.3 (0.2-1) mg/dl AST 19 (15-37) U/L ALT 21 (12-78) U/L Alkaline Phosphatase 97 (45-117) U/L Troponin I < 0.015 (0-0.045) ng/ml Total Protein 7.6 (6.4-8.2) gm/dl Albumin 3.7 (3.4-5.0) gm/dl Globulin 3.9 (2.5-4.0) gm/dl Albumin/Globulin Ratio 1.0 (0.9-2) COVID-19 Eval Order SARS-CoV-2, RNA, NAAT (NEGATIVE) 06/29/20 06/29/20 06/29/20 Range/Units 16:50 18:53 18:53 WBC (4.8-10.8) K/uL RBC (4.2-5.4) M/uL Hgb (12.0-16.0) g/dL Hct (37-47) % MCV (80-100) fL MCH (25-34) pg MCHC (32-36) g/dL RDW Std Deviation (36.4-46.3) fL RDW Coeff of Pavithra (11.5-14.5) % Plt Count (130-400) K/uL MPV (7.4-10.4) fL Immature Gran % (Auto) % Neut % (Auto) % Lymph % (Auto) % Emmet % (Auto) % Eos % (Auto) % Baso % (Auto) % Neut # (Auto) (1.4-6.5) K/uL Lymph # (Auto) (1.2-3.4) K/uL Emmet # (Auto) (0.11-0.59) K/uL Eos # (Auto) (0-0.5) K/uL Baso # (Auto) (0-0.2) K/uL Immature Gran # (Auto) (0.00-0.02) K/uL PT (9.0-12.0) Seconds INR (0.9-1.1) APTT (21.0-31.0) Seconds PTT Ratio Sodium (136-145) mmol/L Potassium (3.5-5.1) mmol/L Chloride (98-107) mmol/L Carbon Dioxide (21-32) mmol/L Anion Gap (3-11) BUN (7-18) mg/dl Creatinine (0.6-1.2) mg/dl Est Cr Clr Drug Dosing ml/min Est GFR ( Amer) Est GFR (Non-Af Amer) BUN/Creatinine Ratio (10-20) Glucose (70-99) mg/dl POC Glucose 119 H (70-99) mg/dl Calcium (8.5-10.1) mg/dl Magnesium (1.8-2.4) mg/dl Total Bilirubin (0.2-1) mg/dl AST (15-37) U/L ALT (12-78) U/L Alkaline Phosphatase (45-117) U/L Troponin I (0-0.045) ng/ml Total Protein (6.4-8.2) gm/dl Albumin (3.4-5.0) gm/dl Globulin (2.5-4.0) gm/dl Albumin/Globulin Ratio (0.9-2) COVID[facility]19 [facility], RNA, NAAT NEGATIVE (NEGATIVE) Administered Medications Discontinued Medications Ioversol (Optiray 320 125ml) 120 ml IV ONCE ONE Stop: 06/29/20 17:31 Last Admin: 06/29/20 17:31 Dose: 120 ml Documented by: [id number] Discharge Plan Visit Data Chief Complaint: Neuro Symptoms/Deficit Stated Complaint: LOST VISION IN LEFT EYE ED Provider: Beto Draper Discharge Problem: Acute loss of vision, Internal carotid artery stenosis, High serum chloride Patient Disposition: Admitted As Inpatient Discharge Instructions Interventions: ED Discharge Assessment Last Done: 06/29/20 21:19 Discharge Problem: Acute loss of vision Qualifiers: Laterality: left Qualified Code(s): H53.132 - Sudden visual loss, left eye Internal carotid artery stenosis Qualifiers: Laterality: right Qualified Code(s): I65.21 - Occlusion and stenosis of right carotid artery
--- NOTE | 2020-06-29 16:46 | XRay Report ---
XR chest 1V portable CLINICAL HISTORY: Stroke Like Symptoms COMPARISON STUDY: No previous studies for comparison. FINDINGS: Lung volumes are normal. There is no pneumothorax. Blunting of left costophrenic angle is l ikely chronic. A hiatal hernia is noted. Left basilar opacity favors atelectasis. There is no evidenc e for pulmonary edema. Cardiomediastinal silhouette is stable. Old deformity of the left humeral neck is chronic. IMPRESSION: 1. No acute cardiopulmonary findings. No significant change in appearance of the chest. 2. Hiatal hernia. ACT 112: Negative or not required by law. Electronically signed by: Ortega Davis M.D. 06/29/2020 4:45 PM
[2020-06-29 17:05] LABS: Basophils # (auto) 0.04 K/uL (0-0.2); Basophils % (auto) 0.6 %; Eosinophils # (auto) 0.17 K/uL (0-0.5); Eosinophils % (auto) 2.5 %; Hemoglobin 13.3 g/dL (12.0-16.0); Immature Granulocytes # (auto) 0.02 K/uL (0.00-0.02); Immature Granulocytes % (auto) 0.3 %; Lymphocytes # (auto) 1.88 K/uL (1.2-3.4); Mean Corpuscular Hemoglobin 33.1 pg (25-34); Mean Corpuscular Hgb Conc 32.4 g/dL (32-36); Mean Platelet Volume 10.5 fL (7.4-10.4); Monocytes # (auto) 0.59 K/uL (0.11-0.59); Monocytes % (auto) 8.8 %; Neutrophils # (auto) 4.02 K/uL (1.4-6.5); Neutrophils % (auto) 59.8 %; Platelet Count 201 K/uL (130-400); RDW Coefficient of Variation 13.3 % (11.5-14.5); Red Blood Count 4.02 M/uL (4.2-5.4); White Blood Count 6.72 K/uL (4.8-10.8)
[2020-06-29 17:13] LABS: Partial Thromboplastin Ratio 0.9; Partial Thromboplastin Time 24.4 Seconds (21.0-31.0); Prothrombin Time 10.3 Seconds (9.0-12.0)
[2020-06-29 17:21] LABS: Alanine Aminotransferase 21 U/L (12-78); Albumin Level 3.7 gm/dl (3.4-5.0); Aspartate Aminotransferase 19 U/L (15-37); BUN Creatinine Ratio 18.4 (10-20); Blood Urea Nitrogen 20 mg/dl (7-18); Calcium 10.6 mg/dl (8.5-10.1); Carbon Dioxide 26 mmol/L (21-32); Chloride 110 mmol/L (98-107); Creatinine Clr Calc Pharmacy 31.2 ml/min; Est GFR (African American) 52.6; Est GFR (Non-African American) 45.4; Glucose 112 mg/dl (70-99); Magnesium 2.2 mg/dl (1.8-2.4); Potassium 4.2 mmol/L (3.5-5.1); Sodium 140 mmol/L (136-145)
[2020-06-29 17:26] LABS: Alkaline Phosphatase 97 U/L (45-117); Bilirubin,Total 0.3 mg/dl (0.2-1); Globulin 3.9 gm/dl (2.5-4.0); Total Protein 7.6 gm/dl (6.4-8.2); Troponin I < 0.015 ng/ml (0-0.045)
[2020-06-29] MEDS ORDERED: OPTIRAY 320 125ml IV ONE (17:30)
--- NOTE | 2020-06-29 18:02 | CT Scan Report ---
CT OF THE HEAD WITHOUT CONTRAST CLINICAL HISTORY: Stroke Like Symptoms COMPARISON STUDY: Head CT June 30, 2019. MRI of the brain April 29, 2020. TECHNIQUE: Helical axial images of the head were obtained without IV contrast. Automated exposure con trol was utilized for the study. A dose lowering technique was utilized adhering to the principles o f ALARA. FINDINGS: No acute intracranial hemorrhage, midline shift or mass effect is present. Ventricular syst em is stable. Basilar cisterns are patent. There are no extra-axial collections. Old right basal gang ángel infarct is unchanged. White matter hypodensities are unchanged and suggest small vessel disease. Right maxillary sinus is diminutive and opacified. This is chronic. There is no calvarial fracture. IMPRESSION: 1. No acute intracranial findings. 2. No change in an old right basal ganglia infarct. ACT 112: Negative or not required by law. Electronically signed by: Ortega Davis M.D. 06/29/2020 6:01 PM
--- NOTE | 2020-06-29 18:22 | CT Scan Report ---
CT ANGIOGRAPHY OF THE NECK WITH CONTRAST CLINICAL HISTORY: Stroke Like Symptoms COMPARISON STUDY: No previous studies for comparison. Technique: CT angiography of the carotid and vertebral arteries was obtained using [email or web address] 320 IV and 3D reconstruction on an independent workstation. NASCET criteria was utilized. Automated exposure c ontrol was utilized for the study. A dose lowering technique was utilized adhering to the principles of ALARA. CT DOSE: 1037.08 mGy.cm Findings: Lung apices are clear. There is no cervical lymphadenopathy or cervical spine fracture. The re is moderate stenosis severe stenosis at the origin of the right vertebral artery. Otherwise, the v ertebral arteries are unremarkable. There is no dissection within the major vessels of the neck. Ther e is moderate extensive plaque within the proximal right internal carotid artery. This results in elaina nosis. Vessel measures 2.3 mm in caliber at site of stenosis and 4.1 mm distally. There is moderate p laque within the left carotid bifurcation without stenosis. CTA of the head will be reported separate ly. IMPRESSION: 1. 50% stenosis of the proximal right internal carotid artery. 2. Moderate to severe stenosis at the origin of the right vertebral artery. 3. No dissection. ACT 112: Negative or not required by law. Electronically signed by: Ortega Davis M.D. 06/29/2020 6:21 PM
--- NOTE | 2020-06-29 18:26 | CT Scan Report ---
CTA ANGIOGRAPHY OF THE HEAD CLINICAL HISTORY: Stroke Like Symptoms COMPARISON STUDY: MRI of the brain April 29, 2020. Head CT June 30, 2019. TECHNIQUE: Helical axial images of the head were obtained following uneventful intravenous administr ation of 120 cc of Optiray 320. Sagittal and coronal reconstructions were viewed as well as maximal i ntensity projections on an independent 3-D workstation. Automated exposure control was utilized for the study. A dose lowering technique was utilized adhering to the principles of ALARA. FINDINGS: Right maxillary sinus is diminutive and opacified. This is chronic. No acute intracranial h emorrhage, midline shift or mass effect is present. Ventricular system is stable. Basilar cisterns ar e patent. There are no extra-axial collections. There is an old right basal ganglia infarct. This is unchanged. The bilateral M1, M2, A1 and A2 segments are patent. There is moderate calcified plaque wi thin the bilateral cavernous carotids severe stenosis. The posterior circulation is intact. No centra l vessel occlusion is noted. There is no intracranial aneurysm. Moderate multifocal stenoses within t he right posterior cerebral artery are noted. IMPRESSION: 1. No central vessel occlusion. 2. Moderate stenoses within the right posterior cerebral artery. ACT 112: Negative or not required by law. Electronically signed by: Ortega Davis M.D. 06/29/2020 6:25 PM
--- NOTE | 2020-06-29 20:37 | History & Physical Report ---
Date of Service June 29, 2020 Assessment & Plan Admission and Anticipated Discharge Date Admission Date: 84 yo F w/ pMHx. of GERD, HTN, HLD, hypothyroidism, depression and cerebral artery disease with infarction 10 years prior presents with sudden onset persistent painless monocular vision deficit of the left side concerning for ischemic optic neuropathy vs. central retinal artery occlusion; given that she had a prior stoke and imaging with multiple areas of narrowing embolic disease is a potential cause; patient also has an irregular heart rhythm that again could lead to an embolic process. - connect with [facility] for eye exam results from 06/29 - MRI brain ordered - neurology consulted - stroke protocol ordered - PT/OT/Speech consulted - continue Aggrenox, Statin - AM lipid and A1C ordered - neuro checks per protocol Arrhythmia, potentially MAT; previously diagnosed with PAT; asymptomatic Computer read is a. fib but p waves are seen, [id number] vasc of 6 for age, gender, HTN, and prior stroke (mod/high risk) - follow up EKG read - troponin, ECHO, AM EKG - consulted cardiology - continue home Diltiazem HTN - continue home Telmisartan HLD - continue home Atorvastatin GERD no change in hiatal hernia on CXR - continue home esomeprazole Hypothyroidism - continue home levothyroxine Code:full Diet: regular COVID: negative 06/29/20 DVT: Lovenox History of Present Illness Chief Complaint: vision loss L eye Primary Care Provider: Addi Rangel MD Emilee Israel is here today for loss of vision in her left eye. She has a past medical history of cerebral artery infarct, HTN, HLD, hypothyroidism, and depression. She wears glasses for reading. She noted at 6:15 PM on 06/28 after fi nishing dinner that she looked in the mirror and could not see out of her left eye. There was not a curtain falling over her vision but a sudden change. She does not have any pain in her eye. There is no double vision. She went to her eye doctor and underwent a thorough eye exam and was sent here. She has a prior history of a stroke 10 years prior with deficit at that time of left lower extremity weakness that has resolved. She was not sure if she was taking ASA and stated that her daughter normally helps her with her medications. She was previously admitted for concern of CAP, and found to have PAT at that time and started on Diltiazem by [facility]. She has a hiatal hernia and takes Esomeprazole for this. Daughter is a nurse in cardiology, and patient has been at her baseline mentation with no other symptoms per daughter outside of the vision loss. No tobacco use. Allergies Allergy/AdvReac Type Severity Reaction Status Date / Time simvastatin [From Zocor] AdvReac Verified 05/13/20 10:26 Home Medications Medication Instructions Recorded Confirmed Type cholecalciferol (vitamin D3) 50 50 mcg PO QAM cap 04/08/19 06/29/20 History mcg (2,000 unit) capsule Centrum 1 tab PO QAM 06/30/19 06/29/20 History calcium carbonate [Calcium 500] 500 mg PO QAM 06/30/19 06/29/20 History escitalopram oxalate 5 mg PO QAM 06/30/19 06/29/20 History glucosamine-chondroitin [Osteo 2 tab PO BID 06/30/19 06/29/20 History Bi-Flex] celecoxib 200 mg capsule 200 mg PO QAM #90 cap 12/11/19 06/29/20 Rx esomeprazole magnesium 40 mg 40 mg PO HS #90 cap 12/29/19 06/29/20 Rx capsule,delayed release cyanocobalamin (vitamin B-12) 500 mcg PO QAM 04/29/20 06/29/20 History [Vitamin B-12] levothyroxine 25 mcg PO QAM 04/29/20 06/29/20 History telmisartan 20 mg PO QAM #90 tab 05/02/20 06/29/20 Rx diltiazem HCl 120 mg 120 mg PO QAM #30 cap 05/17/20 06/29/20 Rx capsule,extended release 24 hr aspirin 81 mg PO DAILY #30 tab 07/01/20 Rx atorvastatin 40 mg PO HS #30 tab 07/01/20 Rx clopidogrel [Plavix] 75 mg PO DAILY 30 Days #30 tab 07/01/20 Rx Past Med/Surg History Medical History (Updated 07/02/20 @ 04:41 by Addi Rangel MD) Acute UTI Arthritis, multiple joint involvement Cerebral artery occlusion with cerebral infarction Community acquired pneumonia Depression GERD without esophagitis Gram-negative bacteremia Hyperlipidemia Hypertension Hypothyroidism Incontinence of urine in female Large hiatal hernia Macrocytosis Right ear impacted cerumen Urinary incontinence UTI (urinary tract infection) Weakness Surgical History H/O foot surgery History of bladder surgery resuspension History of hysterectomy Hx of cholecystectomy Hx of varicose vein ligation and stripping Family History Unknown Cancer Rheumatoid arthritis Fibromyalgia Social History Smoking Status: Never smoker Hx Alcohol Use: No Hx Substance Use: No Preferred Language: Japanese Communication Ability: Effective Visual Impairment: No Limitations Burglar Alarm Operator Required: No Beliefs That Will Affect Care: None marital status: / Current Living Situation: Alone Current Living Situation Comment: in-home aides to help current occupational status: retired Feels Safe at Home: Yes Childhood Exposure to Second-Hand Smoke: No caffeine: Yes Dental Care, Regularly: Yes Physical Activity Frequency: Does not Exercise Seatbelt Use: always Sunscreen Use: Yes Assistive Devices: Glasses Review of Systems Review of Systems: Constitutional: denies fevers, chills, vomiting, night sweats, weight change Head: denies trauma admits lightheadedness when standing up Neuro: denies syncope, presyncope, slurred speech, dysphagia, focal weakness, decreased sensation or numbness ENT: denies rhinorrhea, stuffiness, sneezing, sore throat Cardiac: denies chest pain, palpitations, leg edema Pulm: denies cough admits shortness of breath with walking chronically GI: denies constipation, diarrhea, changes in bowel habits : denies dysuria Physical Exam Constitutional: WD/WN, vitals as above Eyes: PERRL, conjunctivae normal, anicteric sclerae - loss of central vision in the left eye with peripheral vision intact to movement but not able to distinguish the number of fingers i am holding up ENMT: external ear and nose normal, oropharynx normal Neck: normal visual inspection Respiratory: normal respiratory effort, lungs clear to auscultation Cardiovascular: - regular rate with intermittent pauses, no m/r/g Gastrointestinal (Abdomen): normal bowel sounds, soft, nontender, no hepatosplenomegaly Musculoskeletal: no cyanosis or clubbing, extremities motor strength 5/5 Skin: no rashes, warm and dry Neurologic: - monocular visual deficit in central vision in the L eye with intact peripheral vision to movement in the left - vision intact in right eye - otherwise CN 2-12 intact - strength intact 5/5 and bilaterally symmetric in the upper and lower extremity Psychiatric: A+Ox3, euthymic affect Results & Data Results & Data ([facility]) Vital Signs (Past 12 Hours) Vital Signs Temp Pulse Resp BP Pulse Ox 06/29/20 19:30 79 19 144/84 H 98 06/29/20 19:07 92 H 19 168/102 H 98 06/29/20 18:30 79 13 133/79 95 06/29/20 18:00 82 16 138/65 97 06/29/20 17:41 95 H 14 122/86 95 06/29/20 17:00 85 16 162/97 H 96 06/29/20 16:15 36.6 C 109 H 18 134/79 98 CBC Results Results Complete Blood Count Results: RBC 4.00 M/uL (4.2-5.4) L 07/01/20 WBC 5.50 K/uL (4.8-10.8) 07/01/20 Hgb 13.2 g/dL (12.0-16.0) 07/01/20 Hct 40.9 % (37-47) 07/01/20 Plt Count 203 K/uL (130-400) 07/01/20 Chemistry (BMP) Results [facility] Results: Sodium 142 mmol/L (136-145) 07/01/20 Potassium 3.6 mmol/L (3.5-5.1) 07/01/20 Chloride 108 mmol/L (98-107) H 07/01/20 BUN 16 mg/dl (7-18) 07/01/20 Creatinine 0.78 mg/dl (0.6-1.2) 07/01/20 Glucose 108 mg/dl (70-99) H 07/01/20 Supervising Physician Co-Signing Physician Notes Attending addendum: I have physically seen this patient, have supervised the medical residents activities, and agree with the H&P unless as otherwise noted. Assessment and Plan: TIA- The patient will be admitted to telemetry for serial cardiac enzymes, serial EKG's, cardiac rhythm monitoring and a 2-D echocardiogram with Dopplers. CT of brain with old right basal ganglia infarct CTA head right posterior cerebral artery with moderate stenoses CTA neck with right ICA 50% proximal stenosis. Right vertebral artery with moderate to severe stenoses. All vascular changes unchanged compared to previous Stroke without TPA order set Continue high-dose statin Consult PT/OT/speech/neurology Dysrhythmia/hypertension- The patient will be admitted to telemetry for serial cardiac enzymes, serial EKG's, cardiac rhythm monitoring and a 2-D echocardiogram with Dopplers. Differential is MAT/intermittent A. fib. Continue diltiazem and telmisartan Consult cardiology Remaining orders and notations as noted Resident Activity Tracking Resident Involvement: Resident Care Provided Care Provided: Adult [facility] Medicine
[2020-06-29] MEDS ORDERED: ASPIRIN CHEW 324 MG PO STA (21:15)
[2020-06-29] MEDS ORDERED: PHARMACIST DISCHARGE MED REC CONSULT PRN (21:23)
[2020-06-29] MEDS ORDERED: ACETAMINOPHEN 325 MG TAB PO PRN (21:42)
[2020-06-29] MEDS ORDERED: ATORVASTATIN 20 MG TAB PO SCH (21:42)
[2020-06-29] MEDS ORDERED: POLYETHYLENE (MIRALAX) 17 GM PACK PO PRN (21:42)
[2020-06-29] MEDS: PANTOprazole 40 MG TAB PO SCH (23:54)
[2020-06-30 06:34] LABS: Basophils # (auto) 0.03 K/uL (0-0.2); Basophils % (auto) 0.5 %; Eosinophils # (auto) 0.14 K/uL (0-0.5); Eosinophils % (auto) 2.2 %; Hematocrit (blood only) 39.5 % (37-47); Hemoglobin 12.9 g/dL (12.0-16.0); Immature Granulocytes # (auto) 0.01 K/uL (0.00-0.02); Immature Granulocytes % (auto) 0.2 %; Lymphocytes # (auto) 1.35 K/uL (1.2-3.4); Lymphocytes % (auto) 20.7 %; Mean Corpuscular Hemoglobin 33.1 pg (25-34); Mean Corpuscular Hgb Conc 32.7 g/dL (32-36); Mean Corpuscular Volume 101.3 fL (80-100); Mean Platelet Volume 10.4 fL (7.4-10.4); Monocytes # (auto) 0.51 K/uL (0.11-0.59); Monocytes % (auto) 7.8 %; Neutrophils # (auto) 4.47 K/uL (1.4-6.5); Neutrophils % (auto) 68.6 %; Platelet Count 186 K/uL (130-400); RDW Coefficient of Variation 13.4 % (11.5-14.5); RDW Standard Deviation 49.6 fL (36.4-46.3); White Blood Count 6.51 K/uL (4.8-10.8)
[2020-06-30] MEDS: LEVOTHYROXINE SODIUM 25 MCG TABLET PO SCH (06:34)
[2020-06-30 07:06] LABS: BUN Creatinine Ratio 19.6 (10-20); Blood Urea Nitrogen 16 mg/dl (7-18); Calcium 9.7 mg/dl (8.5-10.1); Carbon Dioxide 25 mmol/L (21-32); Chloride 110 mmol/L (98-107); Creatinine Clr Calc Pharmacy 42.3 ml/min; Est GFR (African American) 76.2; Est GFR (Non-African American) 65.8; Glucose 94 mg/dl (70-99); Potassium 3.7 mmol/L (3.5-5.1); Sodium 142 mmol/L (136-145)
[2020-06-30 07:11] LABS: Chol HDL Ratio 3; Cholesterol 153 mg/dl (0-200); HDL Cholesterol 53 mg/dl; LDL Cholesterol Calculated 73 mg/dl; Triglycerides 136 mg/dl (0-150); Troponin I < 0.015 ng/ml (0-0.045); VLDL Cholesterol 27 mg/dl
--- NOTE | 2020-06-30 07:40 | Hospitalist Progress Note ---
Date of Service June 30, 2020 Assessment & Plan (1) Acute loss of vision: Emliee Israel is an 84-year-old female w/ PMH of GERD, HTN, HLD, hypothyroidism, depression and cerebral artery disease with infarction 10 years prior who presented with sudden onset persistent painless monocular vision deficit of the left eye concerning for ischemic optic neuropathy vs. central retinal artery occlusion. Acute Vision Loss - MRI Brain: 1. No acute intracranial abnormality, specifically there is no evidence of acute or subacute infarct. 2. Encephalomalacia related to chronic infarct of the right frontal lobe zhu radiata and lentiform nucleus. 3. Age-related involutional changes with advanced chronic microvascular ischemic disease. 4. No abnormal enhancement. - Consulted ophthalmology as well in light of fairly benign B-MRI - Neurology consult (see full details on neuro consult note): - Follow-up with results of brain MRI. - Would recommend checking an ESR, CRP, ARTUR screen with titers, and Sjogren's antibodies. - If inflammatory markers are elevated would recommend treatment with high- dose corticosteroids and temporal artery biopsy. - Continue with Aggrenox and atorvastatin. - Continue stroke protocol - PT/OT/Speech consulted - PT will continue while here - No need for OT after initial eval - ST: Slippery diet per recs on previous admission, no new swallowing issues - Atorvastatin increased from 20mg to 40mg daily--with previous stroke + current symptoms, secondary prevention will be more adequate with high-intensity dosing - Continue Aggrenox - Neuro checks per protocol Arrhythmia -- potentially MAT; previously diagnosed with PAT; asymptomatic - Initial EKG showing SR w frequent & consecutive atrial ectopy - Repeat EKG in AM showing SR w/ occasional PVCs, LVH w/ QRS widening - Troponin negative - Echo showing sclerotic aortic valve, vegetation could not be ruled out--see cardiology recs below - Cardiology consult (see cards consult note for full details): - Echocardiogram was relatively benign although the aortic valve is quite sclerotic. Small vegetation on the aortic valve would be difficult to see on the current study and if the suspicion is high for embolic phenomenon in no other source is suspected a PRAMOD could be considered to clarify the situation. - Do not think the rhythms identified on EKGs and tele are consistent w/ a. fib. 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 - I would not be surprised if she has occult atrial fibrillation at other times. Long-term monitoring for atrial fibrillation is an option - Continue home Diltiazem Hypertension - Continue home Telmisartan Hyperlipidemia - Continue home Atorvastatin GERD -- no change in hiatal hernia on CXR - Continue home esomeprazole Hypothyroidism - Continue home levothyroxine Code: Conditional (No intubation) Diet: Regular, slippery per Speech COVID: negative 06/29/20 DVT: Lovenox Dispo: Med Tele (2) Internal carotid artery stenosis: (3) Ischemic optic neuropathy of left eye: Admission and Anticipated Discharge Date Admission Date: June 29, 2020 Supervising Physician Co-Signing Physician Notes I personally examined the patient and verified all vyas points of history and exam, discussed case, and agree with decision making with Dr Roland. ongoing vision loss L eye. can see peripherally somewhat, then everything more direct and medially is more of a blur to a blind spot. vitals noted nad heent nc at mmm. L pupil doesn't really react, R reactive. subjectively vision poor L eye, seems more crisp from about midline or slightly lateral of midline laterally. from midline medically blurry to absent. no other notable focal deficits vision loss -with reportedly normal exam at [facility], seems unlikely retinal artery/vein occlusion in a conventional sense, does not have occiputal stroke. 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 will ask ophthalmology for opinion. updated dtr brenden (wanted to update gt - who had been calling for updates - but the number that i was given was incorrect -- gt's actual number is [phone] - but after updating brenden she noted that since things are still very much [id number] diagnostically she would update family today and just asked that we update gt when more information is available tomorrow) otherwise as above Subjective Emilee feels overall well this morning. Her vision remains impaired on the left side. She describes it as blurry vision, where she can see figures and shadows but cannot make out details. She denies associated symptoms including weakness, slurred speech, weakness, dizziness, headaches, n/v, SOB, CP. Review of Systems Review of Systems: All systems reviewed & are unremarkable except as noted in Subjective Physical Exam Constitutional: WD/WN, vitals as above Eyes: PERRL, conjunctivae normal, anicteric sclerae - Vision loss of left eye, sees figures/shadows but cannot count fingers ENMT: external ear and nose normal, oropharynx normal Neck: normal visual inspection Respiratory: normal respiratory effort, lungs clear to auscultation Cardiovascular: RRR, no murmur, no edema Heart Sounds: normal S1 and normal S2; no gallop, no murmur and no cardiac rub Gastrointestinal (Abdomen): normal bowel sounds, soft, nontender, no hepatosplenomegaly Musculoskeletal: no cyanosis or clubbing, extremities motor strength 5/5 Skin: no rashes, warm and dry Neurologic: - monocular visual deficit in central vision in the L eye with intact peripheral vision to movement in the left - vision intact in right eye - otherwise CN II-XII intact - strength intact 5/5 and bilaterally symmetric in the upper and lower extremity Psychiatric: A+Ox3, euthymic affect Results & Data Results & Data ([facility]) Vital Signs (Past 12 Hours) Vital Signs Temp Pulse Pulse Resp BP BP BP 06/30/20 03:28 36.4 C L 81 16 147/87 H 06/30/20 01:45 138 H 06/29/20 21:42 36.7 C 98 H 18 150/88 H 06/29/20 21:06 80 17 179/91 H 06/29/20 20:30 74 17 146/89 H Pulse Ox 06/30/20 03:28 98 06/30/20 01:45 06/29/20 21:42 97 06/29/20 21:06 95 06/29/20 20:30 98 Resident Activity Tracking Resident Involvement: Resident Care Provided Care Provided: Adult Hospital Medicine (1) Internal carotid artery stenosis Laterality: right Qualified Code(s): I65.21 - Occlusion and stenosis of right carotid artery (2) Acute loss of vision Laterality: left Qualified Code(s): H53.132 - Sudden visual loss, left eye
[2020-06-30] MEDS: DIPYRIDAMOLE/ASPIRIN CAP PO SCH ×2 (08:20→20:42)
[2020-06-30] MEDS: dilTIAZem HCL 120 MG CAPCR PO SCH (08:21)
[2020-06-30] MEDS: ESCITALOPRAM OXALATE 10 MG TAB PO SCH (08:21)
[2020-06-30] MEDS: TELMISARTAN 20 MG TAB PO SCH (08:21)
[2020-06-30] MEDS: ENOXAPARIN INJ 40 MG/0.4 ML SYR SQ SCH (08:22)
--- NOTE | 2020-06-30 10:34 | Neurology Consultation ---
Date of Consultation June 30, 2020 Assessment & Plan (1) Acute loss of vision: (2) Ischemic optic neuropathy of left eye: This patient presents with near complete painless vision loss to the left eye. She does have some residual peripheral vision only to the left eye and appears to have a full visual field for the right eye. She has a relative afferent pupillary defect to the left eye and has an abnormal appearing left optic nerve. She may have nonarteritic ischemic optic neuropathy. A retinal artery occlusion is not excluded. A right occipital lobe infarct is possible but I would not expect a relative afferent pupillary defect with this condition. Inflammatory or arteritic optic neuropathy is possible although she does not have systemic symptoms of arteritis such as headache, scalp tenderness, or jaw claudication. Follow-up with results of brain MRI. Would recommend checking an ESR, CRP, ARTUR screen with titers, and Sjogren's antibodies. If inflammatory markers are elevated would recommend treatment with high-dose corticosteroids and temporal artery biopsy. Continue with Aggrenox and atorvastatin. Follow-up with results of echocardiogram and cardiology consultation. May need to consider anticoagulation in light of possible atrial fibrillation. Patient will need additional ophthalmological care as well. Should arrange for further outpatient ophthalmology assessments after discharge. History of Present Illness Reason for Consultation: Vision loss, left eye Requesting Physician: Pepe Gaspar MD Attending Physician: Beto John DO History of Present Illness The patient is an 84-year-old female with a chief complaint of near complete painless vision loss to the left eye that began suddenly last night. She is able to see out of the upper lateral periphery of the left eye. No vision loss to the right eye noted. The vision loss has been persistent. She denies any associated headache, scalp tenderness, or myalgia. No ocular pain or redness. No ptosis or diplopia. No change in speech. No numbness of the face or limbs. No weakness of the arms or legs. She had been referred to the emergency department yesterday after an evaluation with her eye doctor. Past medical history notable for hypertension, hyperlipidemia, and stroke 10 years ago affecting the left side, without residual deficit. She has been taking Aggrenox, atorvastatin, and antihypertensives. Patient follows with cardiology for paroxysmal atrial tachycardia. An electrocardiogram completed yesterday suggested atrial fibrillation with rapid ventricular response. An electrocardiogram completed today revealed a sinus rhythm with occasional PVCs. Allergies Allergy/AdvReac Type Severity Reaction Status Date / Time simvastatin [From Zocor] AdvReac Verified 05/13/20 10:26 Home Medications Medication Instructions Recorded Confirmed Type cholecalciferol (vitamin D3) 50 50 mcg PO QAM cap 04/08/19 06/29/20 History mcg (2,000 unit) capsule Centrum 1 tab PO QAM 06/30/19 06/29/20 History calcium carbonate [Calcium 500] 500 mg PO QAM 06/30/19 06/29/20 History escitalopram oxalate 5 mg PO QAM 06/30/19 06/29/20 History glucosamine-chondroitin [Osteo 2 tab PO BID 06/30/19 06/29/20 History Bi-Flex] aspirin 25 mg-dipyridamole 200 mg 1 cap PO BID #180 cap 07/07/19 06/29/20 Rx capsule,ext.release 12 hr multiphase celecoxib 200 mg capsule 200 mg PO QAM #90 cap 12/11/19 06/29/20 Rx atorvastatin 20 mg tablet 20 mg PO HS #90 tab 12/29/19 06/29/20 Rx esomeprazole magnesium 40 mg 40 mg PO HS #90 cap 12/29/19 06/29/20 Rx capsule,delayed release cyanocobalamin (vitamin B-12) 500 mcg PO QAM 04/29/20 06/29/20 History [Vitamin B-12] levothyroxine 25 mcg PO QAM 04/29/20 06/29/20 History telmisartan 20 mg PO QAM #90 tab 05/02/20 06/29/20 Rx diltiazem HCl 120 mg 120 mg PO QAM #30 cap 05/17/20 06/29/20 Rx capsule,extended release 24 hr Patient History Medical History (Updated 06/30/20 @ 10:44 by Aydin Valdes MD) Acute UTI Arthritis, multiple joint involvement Cerebral artery occlusion with cerebral infarction Depression GERD without esophagitis Hyperlipidemia Hypertension Hypothyroidism Incontinence of urine in female Large hiatal hernia Macrocytosis Urinary incontinence UTI (urinary tract infection) Surgical History H/O foot surgery History of bladder surgery resuspension History of hysterectomy Hx of cholecystectomy Hx of varicose vein ligation and stripping Family History Unknown Cancer Rheumatoid arthritis Fibromyalgia Social History Smoking Status: Never smoker Hx Alcohol Use: No Hx Substance Use: No Preferred Language: [place] Communication Ability: Effective Visual Impairment: No Limitations Check And Transfer Beader Required: No Beliefs That Will Affect Care: None marital status: / Current Living Situation: Alone Current Living Situation Comment: in-home aides to help current occupational status: retired Other Information That Helps Us Care for You: No Feels Safe at Home: Yes Safety Concerns: Feels Safe At This Time Childhood Exposure to Second-Hand Smoke: No caffeine: Yes Dental Care, Regularly: Yes Physical Activity Frequency: Does not Exercise Seatbelt Use: always Sunscreen Use: Yes Assistive Devices: Walker Review of Systems Constitutional: no fever and no chills Eyes: as per Subjective / HPI and + blind spots; no diplopia and no eye pain Ear, Nose, Mouth, Throat: no hearing loss Respiratory: no cough and no dyspnea Cardiovascular: no chest pain and no palpitations Gastrointestinal: no nausea and no vomiting Genitourinary: no dysuria Musculoskeletal: no myalgia Integumentary: no rash and no lesions Neurologic: as per Subjective / HPI; no unsteadiness, no localized weakness, no loss of sensation, no abnormal movements, no syncope, no headache(s), no abnormal speech, no confusion and no memory loss Psychiatric: no depression and no anxiety Hematologic / Lymphatic: no easy bleeding and no easy bruising Exam (Neuro) Constitutional: well developed and well nourished; no acute distress Eyes: normal visual robison by confrontation, EOM intact bilaterally and + optic disc abnormality (Left optic disc appears indistinct, no hemorrhages); + no PERRL (There is a left afferent pupillary defect.) and no nystagmus Cardiovascular: Vessels: normal carotid upstroke; no carotid bruit Neurologic: Oriented to:: Person, Place and Time Memory: Short Term Intact and Remote Intact Attention: Span Intact and Concentration Intact Language: Naming Objects and Repeating Phrases Speech Fluency: negative Dysarthria Speech Aphasia: negative Aphasia Fund of Knowledge: Current Events, Past History and Vocabulary Cranial Nerves: Normal V (Facial sensation intact), VII (There is no facial droop or weakness), VIII (Hearing intact), IX, X (Palate elevates to midline), XI (Shoulder shrug intact) and XII (Tongue protrudes to midline); Abnorm II (Poor visual acuity to the left eye, unable to count fingers. Does have some residual upper lateral peripheral vision.) and III, IV, (Left afferent pupillary defect noted.) Motor Strength: Normal Lower Extremities and Normal Upper Extremities; negative Pronator Drift Motor Tone: Normal Lower Extremities and Normal Upper Extremities Muscle Bulk/Involuntary Movements: No Involuntary Movements; negative Muscle Atrophy Sensation: Light Touch Intact, Pain/Temperature Intact, Vibration Intact and Proprioception Intact Coordination: Normal; negative Limited Balance, Dysdiadochokinesia, Finger-Nose Abnormal and Heel-Voss Abnormal Deep Tendon Reflexes: Rt Triceps: 2+, Lt Triceps: 2+, Rt Biceps: 2+, Lt Biceps: 2+, Rt Brachioradialis: 2+, Lt Brachioradialis: 2+, Rt Patellar: 2+, Lt Patellar: 2+, Rt Ankle: 1+ and Lt Ankle: 1+ Special Tests: negative Babinski Present Gait: negative Normal Station and Gait Details: Gait not tested in the context of patient's current neurological/medical status. Results & Data ([facility]) Vital Signs (Past 12 Hours) Vital Signs Temp Pulse Pulse Resp BP BP Pulse Ox 06/30/20 07:45 36.4 C L 78 16 118/78 98 06/30/20 03:28 36.4 C L 81 16 147/87 H 98 06/30/20 01:45 138 H Laboratory Results WBC 6.51, hemoglobin 12.9, hematocrit 39.5, platelet count 186,, sodium 142, potassium 3.7, BUN 16, creatinine 0.81, glucose 94, troponin less than 0.015, triglycerides 136, cholesterol 153, LDL 73, VLDL 27, HDL [address] of the head reveals a chronic right basal ganglia infarct as well as chronic small vessel ischemic disease. CTA of the head reveals moderate stenosis within the right posterior cerebral artery. CTA of the neck reveals a 50% stenosis of the proximal right internal carotid artery and moderate to severe stenosis at the origin of the right vertebral artery, no dissection. These findings were observed by the interpreting radiologist, I reviewed the images as well and agree. Electrocardiogram completed today revealed a sinus rhythm with occasional PVCs, 75 bpm. Electrocardiogram completed yesterday suggested atrial fibrillation with rapid ventricular response or aberrantly conducted complexes. Coding Level of Care Code 53816 Initial Inpt Care Lvl 3 Diagnoses Acute loss of vision H53.132 Laterality: left Ischemic optic neuropathy of left eye H47.012 (1) Acute loss of vision Laterality: left Qualified Code(s): H53.132 - Sudden visual loss, left eye
--- NOTE | 2020-06-30 10:55 | XCELERA ---
[id number]
--- NOTE | 2020-06-30 10:59 | Cardiology Consultation ---
Date of Consultation June 30, 2020 Assessment & Plan (1) Acute loss of vision: Possibly embolic. Current etiology being investigated with additional studies. I do not think we have documented a rhythm which would put her at higher risk of embolic phenomenon. Her echocardiogram was relatively benign although the aortic valve is quite sclerotic. A small vegetation on the aortic valve would be difficult to see on the current study and if the suspicion is high for embolic phenomenon in no other source is suspected a PRAMOD could be considered to clarify the situation. (2) PAT (paroxysmal atrial tachycardia): I do not think the rhythms identified on her EKGs and telemetry to date are consistent with atrial fibrillation. 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 While I do not believe we have any documented recordings of atrial fibrillation, atrial arrhythmias that this nature certainly put her at risk of developing atrial fibrillation. I would not be surprised if she has occult atrial fibrillation at other times. Long-term monitoring for atrial fibrillation is an option, although it may be difficult to distinguish these rhythms on outpatient monitoring due to problems with fidelity of the recordings. (3) Aortic regurgitation: Mild to moderate on examination today. Normal chamber dimensions and LV function. I do not believe this is a clinical concern currently and can be followed over time. History of Present Illness Reason for Consultation: Abnormal EKG Requesting Physician: Dora Attending Physician: Beto John DO History of Present Illness The patient is an 84-year-old woman with a history of paroxysmal atrial tachycardia presented to the hospital with left eye blindness. She has been evaluated on outpatient patient sent to the hospital regarding her new visual disturbance. An initial EKG suggested the presence of atrial fibrillation and there was some concern for an embolic phenomenon resulting in her visual disturbance. The patient states that last the summer when she was admitted to the hospital she had been diagnosed with a heart rhythm problem. At that time she occasionally had noticed some pounding in her chest. This seemed to be quite rare was not associated with other symptoms. She was started on medical therapy that time is not had any recurrent symptoms. She cannot recall any recent episodes of palpitations or abnormal heart rhythms. She denies dizziness or lightheadedness. She has not suffered syncope. She denies any chest pain. She has an element of mild dyspnea at times which is not appear to be limiting. Allergies Allergy/AdvReac Type Severity Reaction Status Date / Time simvastatin [From Zocor] AdvReac Verified 05/13/20 10:26 Home Medications Medication Instructions Recorded Confirmed Type cholecalciferol (vitamin D3) 50 50 mcg PO QAM cap 04/08/19 06/29/20 History mcg (2,000 unit) capsule Centrum 1 tab PO QAM 06/30/19 06/29/20 History calcium carbonate [Calcium 500] 500 mg PO QAM 06/30/19 06/29/20 History escitalopram oxalate 5 mg PO QAM 06/30/19 06/29/20 History glucosamine-chondroitin [Osteo 2 tab PO BID 06/30/19 06/29/20 History Bi-Flex] aspirin 25 mg-dipyridamole 200 mg 1 cap PO BID #180 cap 07/07/19 06/29/20 Rx capsule,ext.release 12 hr multiphase celecoxib 200 mg capsule 200 mg PO QAM #90 cap 12/11/19 06/29/20 Rx atorvastatin 20 mg tablet 20 mg PO HS #90 tab 12/29/19 06/29/20 Rx esomeprazole magnesium 40 mg 40 mg PO HS #90 cap 12/29/19 06/29/20 Rx capsule,delayed release cyanocobalamin (vitamin B-12) 500 mcg PO QAM 04/29/20 06/29/20 History [Vitamin B-12] levothyroxine 25 mcg PO QAM 04/29/20 06/29/20 History telmisartan 20 mg PO QAM #90 tab 05/02/20 06/29/20 Rx diltiazem HCl 120 mg 120 mg PO QAM #30 cap 05/17/20 06/29/20 Rx capsule,extended release 24 hr Patient History Medical History (Updated 06/30/20 @ 13:07 by Milan Zarate MD) Acute UTI Arthritis, multiple joint involvement Cerebral artery occlusion with cerebral infarction Depression GERD without esophagitis Hyperlipidemia Hypertension Hypothyroidism Incontinence of urine in female Large hiatal hernia Macrocytosis Urinary incontinence UTI (urinary tract infection) Surgical History H/O foot surgery History of bladder surgery resuspension History of hysterectomy Hx of cholecystectomy Hx of varicose vein ligation and stripping Family History Unknown Cancer Rheumatoid arthritis Fibromyalgia Social History Smoking Status: Never smoker Hx Alcohol Use: No Hx Substance Use: No Preferred Language: Welsh Communication Ability: Effective Visual Impairment: No Limitations Evs Tech Required: No Beliefs That Will Affect Care: None marital status: / Current Living Situation: Alone Current Living Situation Comment: in-home aides to help current occupational status: retired Other Information That Helps Us Care for You: No Feels Safe at Home: Yes Safety Concerns: Feels Safe At This Time Childhood Exposure to Second-Hand Smoke: No caffeine: Yes Dental Care, Regularly: Yes Physical Activity Frequency: Does not Exercise Seatbelt Use: always Sunscreen Use: Yes Assistive Devices: Walker Review of Systems Review of Systems: All systems reviewed & are unremarkable except as noted in HPI & below No recent constitutional symptoms such as fevers or chills. Some swelling in the right ankle on occasion. Resolves with elevation. Eating and drinking normally. Physical Exam Physical Exam: She is alert and oriented x3. Mood affect appear normal. She answered all questions appropriately. HEENT: Sclerae are anicteric. Pupils are equal and reactive to light and accommodation. Extraocular movements were intact. Neuro: Cranial nerves intact with dilation of the left pupil verses the right. Neck: Examination of the submandibular region did not reveal any significant lymphadenopathy. Carotids are palpable bilaterally and free of bruits on auscultation. There was no evidence of jugular venous distention. The thyroid was not enlarged. Lungs: Lungs are clear to auscultation bilaterally. There are no rales wheezes or rhonchi. She has normal respiratory effort without use of accessory muscles. There is normal pulmonary excursion. Cardiac: The rhythm was regular. S1 and S2 were normal. Soft systolic murmur. The PMI was not markedly displaced on palpation. Abdomen: The abdomen was soft and nontender. Extremities: Patient has bilateral radial pulses that are equal in intensity. There is no evidence cyanosis or clubbing. There was no evidence of significant peripheral edema bilaterally. Skin: There are no rashes noted on examination today. Results & Data ([facility]) Vital Signs (Past 12 Hours) Vital Signs Temp Pulse Pulse Resp BP BP Pulse Ox 06/30/20 07:45 36.4 C L 78 16 118/78 98 06/30/20 03:28 36.4 C L 81 16 147/87 H 98 06/30/20 01:45 138 H Laboratory Results Abnormal Lab Results 06/29/20 06/29/20 06/29/20 16:50 16:50 16:50 WBC 6.72 RBC 4.02 L Hgb 13.3 Hct 41.0 MCV 102.0 H MCH 33.1 MCHC 32.4 RDW Std Deviation 50.0 H RDW Coeff of Pavithra 13.3 Plt Count 201 MPV 10.5 H Immature Gran % (Auto) 0.3 Neut % (Auto) 59.8 Lymph % (Auto) 28.0 [place] % (Auto) 8.8 Eos % (Auto) 2.5 Baso % (Auto) 0.6 Neut # (Auto) 4.02 Lymph # (Auto) 1.88 [place] # (Auto) 0.59 Eos # (Auto) 0.17 Baso # (Auto) 0.04 Immature Gran # (Auto) 0.02 PT 10.3 INR 1.0 APTT 24.4 PTT Ratio 0.9 Sodium 140 Potassium 4.2 Chloride 110 H Carbon Dioxide 26 Anion Gap 5.0 BUN 20 H Creatinine 1.10 Est Cr Clr Drug Dosing 31.2 Est GFR ( Amer) 52.6 Est GFR (Non-Af Amer) 45.4 BUN/Creatinine Ratio 18.4 Glucose 112 H POC Glucose Calcium 10.6 H Magnesium 2.2 Total Bilirubin 0.3 AST 19 ALT 21 Alkaline Phosphatase 97 Troponin I < 0.015 Total Protein 7.6 Albumin 3.7 Globulin 3.9 Albumin/Globulin Ratio 1.0 Triglycerides Cholesterol LDL Cholesterol, Calc VLDL Cholesterol, Calc HDL Cholesterol Cholesterol/HDL Ratio COVID-19 Eval Order SARS-CoV-2, RNA, NAAT 06/29/20 06/29/20 06/29/20 16:50 18:53 18:53 WBC RBC Hgb Hct MCV MCH MCHC RDW Std Deviation RDW Coeff of Pavithra Plt Count MPV Immature Gran % (Auto) Neut % (Auto) Lymph % (Auto) [place] % (Auto) Eos % (Auto) Baso % (Auto) Neut # (Auto) Lymph # (Auto) [place] # (Auto) Eos # (Auto) Baso # (Auto) Immature Gran # (Auto) PT INR APTT PTT Ratio Sodium Potassium Chloride Carbon Dioxide Anion Gap BUN Creatinine Est Cr Clr Drug Dosing Est GFR ( Amer) Est GFR (Non-Af Amer) BUN/Creatinine Ratio Glucose POC Glucose 119 H Calcium Magnesium Total Bilirubin AST ALT Alkaline Phosphatase Troponin I Total Protein Albumin Globulin Albumin/Globulin Ratio Triglycerides Cholesterol LDL Cholesterol, Calc VLDL Cholesterol, Calc HDL Cholesterol Cholesterol/HDL Ratio COVID-19 Eval [facility] SARS-CoV-2, RNA, NAAT NEGATIVE 06/30/20 06/30/20 06:08 06:08 WBC 6.51 RBC 3.90 L Hgb 12.9 Hct 39.5 MCV 101.3 H MCH 33.1 MCHC 32.7 RDW Std Deviation 49.6 H RDW Coeff of Pavithra 13.4 Plt Count 186 MPV 10.4 Immature Gran % (Auto) 0.2 Neut % (Auto) 68.6 Lymph % (Auto) 20.7 [place] % (Auto) 7.8 Eos % (Auto) 2.2 Baso % (Auto) 0.5 Neut # (Auto) 4.47 Lymph # (Auto) 1.35 [place] # (Auto) 0.51 Eos # (Auto) 0.14 Baso # (Auto) 0.03 Immature Gran # (Auto) 0.01 PT INR APTT PTT Ratio Sodium 142 Potassium 3.7 Chloride 110 H Carbon Dioxide 25 Anion Gap 7.0 BUN 16 Creatinine 0.81 Est Cr Clr Drug Dosing 42.3 Est GFR ( Amer) 76.2 Est GFR (Non-Af Amer) 65.8 BUN/Creatinine Ratio 19.6 Glucose 94 POC Glucose Calcium 9.7 Magnesium Total Bilirubin AST ALT Alkaline Phosphatase Troponin I < 0.015 Total Protein Albumin Globulin Albumin/Globulin Ratio Triglycerides 136 Cholesterol 153 LDL Cholesterol, Calc 73 VLDL Cholesterol, Calc 27 HDL Cholesterol 53 Cholesterol/HDL Ratio 3 COVID-19 Eval Order SARS-CoV-2, RNA, NAAT Diagnostic Findings Echocardiogram performed today revealed preserved LV systolic function. Mild LVH. Aortic valve sclerosis. Mild to moderate aortic regurgitation. ECG Additional Comments: Multiple EKGs were obtained during this admission and her last admission. Generally speaking she has a sinus rhythm with frequent atrial ectopy. Left axis deviation. PG Care Time/CCT Total # of Minutes Spent Total Time Spent with Patient: Total time spent is greater than 50% in coordination of care (as documented) at patient's floor/unit and/or counseling patient: Coding Level of Care Code 34645 Initial Inpt Care Lvl 3 Diagnoses Acute loss of vision H53.132 Laterality: left PAT (paroxysmal atrial tachycardia) I47.1 Aortic regurgitation I35.1 (1) Acute loss of vision Laterality: left Qualified Code(s): H53.132 - Sudden visual loss, left eye
--- NOTE | 2020-06-30 13:12 | Electrocardiogram Report ---
Test Reason : Blood Pressure : / mmHG Vent. Rate : 108 BPM Atrial Rate : 117 BPM P-R Int : 000 ms QRS Dur : 110 ms QT Int : 350 ms P-R-T Axes : 000 -53 091 degrees QTc Int : 469 ms Sinus rhythm with frequent and consecutive atrial ectopy Aberrant conduction vs PVCs Left anterior fascicular block Minimal voltage criteria for LVH, may be normal variant T wave abnormality, consider lateral ischemia Abnormal ECG When compared with ECG of 01-MAY-2020 06:39, Vent. rate has increased BY 41 BPM T wave inversion now evident in Lateral leads Confirmed by Prince Zarate ([id number]) on 06/30/2020 1:12:28 PM Referred By: REFERRED SELF Confirmed By:Noah Zarate
--- NOTE | 2020-06-30 13:18 | Electrocardiogram Report ---
Test Reason : Blood Pressure : / mmHG Vent. Rate : 075 BPM Atrial Rate : 075 BPM P-R Int : 172 ms QRS Dur : 120 ms QT Int : 408 ms P-R-T Axes : 028 -49 031 degrees QTc Int : 455 ms Sinus rhythm with occasional Premature ventricular complexes Left anterior fascicular block Left ventricular hypertrophy with QRS widening Abnormal ECG When compared with ECG of 29-JUN-2020 16:45, (unconfirmed) Sinus rhythm has replaced Atrial fibrillation T wave inversion no longer evident in Lateral leads Confirmed by Prince Zarate ([id number]) on 06/30/2020 1:17:50 PM Referred By: REFERRED SELF Confirmed By:Noah Zarate
[2020-06-30] MEDS ORDERED: GADOBUTROL 30ML VIAL IV ONE (15:37)
--- NOTE | 2020-06-30 17:11 | Magnetic Resonance Report ---
MR brain wo/w con HISTORY: 84 years-old Female vision loss L acute left eye vision loss COMPARISON: CT head, CTA head and neck studies 06/29/2020, brain MRI 04/29/2020 TECHNIQUE: Multiplanar multisequence MRI of the brain was obtained both with and without the use of 6 .5 mL Gadavist FINDINGS: Motion degraded exam. There is no restricted diffusion to suggest acute or subacute infarct. 6 mm pin eal gland cyst. No acute intracranial hemorrhage, midline shift, abnormal extra-axial collection, hyd rocephalus or intracranial mass. Age-related involutional changes. Extensive T2/FLAIR hyperintensitie s throughout the white matter suggest chronic microvascular ischemic disease. Encephalomalacia from a chronic infarct of the zhu radiata right frontal lobe with involvement of the right lentiform nuc leus and corpus callosum. Incidental note is made of a loop of the left anterior inferior cerebellar artery extending approximately 60% into the left internal auditory canal. The bilateral globes and orbits appear unremarkable. There is no abnormal intra-axial or extra-axial enhancement. Cerebral venous sinuses and major arterial flow voids are patent. Trace mastoid effusion s. Complete opacification with volume loss of the right maxillary sinus redemonstrated. IMPRESSION: 1. No acute intracranial abnormality, specifically there is no evidence of acute or subacute infarct. 2. Encephalomalacia related to chronic infarct of the right frontal lobe zhu radiata and lentiform nucleus. 3. Age-related involutional changes with advanced chronic microvascular ischemic disease. 4. No abnormal enhancement. ACT 112: Negative or not required by law. The above report was generated using voice recognition software. It may contain grammatical, syntax o r spelling errors. Electronically signed by: Timoteo Petersen M.D. 06/30/2020 5:10 PM
--- NOTE | 2020-06-30 18:04 | Billing Data ---
Date of Service June 30, 2020 Coding Level of Care Code 31674 Subseq Hosp Care Lvl 3
[2020-06-30] MEDS: PANTOprazole 40 MG TAB PO SCH (20:43)
[2020-06-30] MEDS ORDERED: ATORVASTATIN 40 MG TAB PO SCH (21:00)
--- NOTE | 2020-06-30 23:45 | Consultation Report ---
DATE OF CONSULTATION: 06/30/2020 OPHTHALMOLOGY CONSULTATION NOTE CHIEF COMPLAINT AND HISTORY OF PRESENT ILLNESS: This is an 84-year-old female with a past medical history of hypertension, hypercholesterolemia, remote history of stroke, and a history of paroxysmal atrial tachycardia, who developed sudden onset painless loss of vision in the left eye on 06/28/2020. She states she was eating dinner, had finished, and was cleaning the kitchen when she noticed that her left eye vision suddenly became dark. When she tried to look at herself in the mirror, she noticed that her left eye could only see off to the left temporal side of her vision, otherwise everything else seemed black. She denied any concomitant eye pain, taoist pain, jaw claudication, headache, pain with eye movement, extremity weakness, paresthesia, slurred speech, or difficulty ambulating. She ended up calling her primary gin inspector, Dr. Bonnie Luna, who saw the patient on 06/29/2020 in her office and noted a decrease in vision and an afferent pupillary defect in the left eye. She also thought her left optic nerve looked "odd," but did not see any retinal tear or detachment or macular pathology. Dr. Luna did call and speak with a retina specialist, Dr. Bernardo Kovacs, with the [facility] group who made arrangements to see Emilee on Wednesday in their [place] office. Her family wanted her to be seen sooner and so subsequently had her taken to the [facility] Emergency Department. PAST MEDICAL HISTORY: Hypertension, hypercholesterolemia, hypothyroidism, stroke, paroxysmal atrial tachycardia. PAST SURGICAL HISTORY: Hysterectomy, cholecystectomy, bladder surgery, foot surgery, varicose vein ligation. MEDICATIONS: Please see medication list. ALLERGIES: SIMVASTATIN. SOCIAL HISTORY: She is a . She does not smoke or use alcohol. She lives alone and is fairly active. PHYSICAL EXAMINATION: Her visual acuity without correction at near is 20/50 in the right eye and 20/200 in the left eye with eccentric viewing. Her intraocular pressures were 14 in the right eye and 15 in the left eye. Her right pupil was 6 mm and reacted down to 4 mm. Her left pupil was 6.5 mm and reacted only down to 6 mm. There was an afferent pupillary defect on the left side. Her extraocular movements were full in both eyes. Her confrontational visual robison were full in the right eye and constricted in the left eye except for the left temporal field. Her slit lamp exam on the right eye shows dermatochalasis of the right upper lid. Her conjunctiva and sclerae are white and quiet. Her cornea appears clear. Her anterior chamber is deep and formed. Her iris seems normal and her lens has moderate nuclear cataract. On the left side, she has dermatochalasis of the left upper lid. Her conjunctiva and sclerae are white and quiet. Cornea appears clear. The anterior chamber is deep and formed. The iris is normal and the lens show moderate nuclear sclerosis. Her dilated exam on the right shows a cup-to-disc ratio of around 0.5. The macula, vessels and peripheral retina appear within normal limits except for mild peripheral pigment degeneration. On the left side, there is a posterior vitreous detachment. She has a cup-to-disc ratio of 0.5. There is a small flame-shaped hemorrhage at the inferotemporal disc border. There is no pallid disc edema noted. There is no macular encinas red spot. The vessels and peripheral retina appear to be within normal limits except for mild peripheral pigment degeneration. LABORATORY DATA: Her erythrocyte sedimentation rate was 22. RADIOLOGY DATA: CTA of the head showed no central vessel occlusion and moderate right posterior cerebral artery stenosis. CTA of the neck showed 50% stenosis of the proximal right internal carotid artery. There was moderate severe stenosis of the right vertebral artery and there was no dissection noted. MRI of the brain shows no acute infarct. There is chronic microvascular ischemic disease and encephalomalacia related to chronic infarct of the right frontal lobe. ASSESSMENT AND PLAN: 1. Left eye vision loss: Differential diagnosis includes ischemic optic neuropathy versus artery occlusion. There were no signs or symptoms of giant cell arteritis by history or on exam. There was no pallid disc edema noted of the left optic nerve. There were no signs of vein occlusion on her dilated exam. Although artery occlusion is included in the differential, when Emilee saw Dr. Luna on Wednesday, Dr. Luna did not make any mention of a encinas red spot in the macula or any other signs of a central retinal artery occlusion. I discussed with Emilee that she certainly has risk factors for ischemia including hypertension, hypercholesterolemia, and a previous stroke. There was also a question of atrial fibrillation, but her cardiology consult revealed that it may actually be some type of ectopic atrial tachycardia. I discussed with Emilee that in any case there is no intervention for the eye indicated at this time. I did caution her on the guarded prognosis for visual recovery. I recommend continued vascular workup while in the hospital and upon discharge, she can follow up with the [facility] for further optic nerve and retinal imaging including an intravenous fluorescein angiogram. She will also follow up with Dr. Luna for her routine eye exams and eye pressure monitoring. 2. Nuclear cataracts, bilateral: She was told at her recent visit that her cataracts were becoming more visually significant. She can consider a cataract evaluation once she has stabilized from her left eye vision loss. 3. Glaucoma suspect: This is based on her borderline disc cupping and discussion with Dr. Luna on the phone. Her intraocular pressures have been normal, but Dr. Luna does have some concern for the possibility of low tension glaucoma and is considering referring Emilee to a senior it specialist. Thank you very much for this interesting consult. BRENDA
[2020-07-01 06:14] LABS: Estimated Average Glucose 108 mg/dl; Hemoglobin A1C 5.4 % (4.5-5.6)
[2020-07-01] MEDS: LEVOTHYROXINE SODIUM 25 MCG TABLET PO SCH (06:14)
[2020-07-01 06:28] LABS: Basophils # (auto) 0.04 K/uL (0-0.2); Basophils % (auto) 0.7 %; Eosinophils # (auto) 0.12 K/uL (0-0.5); Eosinophils % (auto) 2.2 %; Hematocrit (blood only) 40.9 % (37-47); Hemoglobin 13.2 g/dL (12.0-16.0); Immature Granulocytes # (auto) 0.01 K/uL (0.00-0.02); Immature Granulocytes % (auto) 0.2 %; Lymphocytes # (auto) 1.43 K/uL (1.2-3.4); Mean Corpuscular Hgb Conc 32.3 g/dL (32-36); Mean Corpuscular Volume 102.3 fL (80-100); Mean Platelet Volume 10.9 fL (7.4-10.4); Monocytes # (auto) 0.39 K/uL (0.11-0.59); Monocytes % (auto) 7.1 %; Neutrophils # (auto) 3.51 K/uL (1.4-6.5); Neutrophils % (auto) 63.8 %; Platelet Count 203 K/uL (130-400); RDW Coefficient of Variation 13.4 % (11.5-14.5); RDW Standard Deviation 50.6 fL (36.4-46.3)
[2020-07-01 07:06] LABS: BUN Creatinine Ratio 20.8 (10-20); Calcium 9.9 mg/dl (8.5-10.1); Creatinine Clr Calc Pharmacy 42.9 ml/min; Est GFR (African American) 79.8; Est GFR (Non-African American) 68.8; Potassium 3.6 mmol/L (3.5-5.1)
[2020-07-01] MEDS: dilTIAZem HCL 120 MG CAPCR PO SCH (08:10)
[2020-07-01] MEDS: ESCITALOPRAM OXALATE 10 MG TAB PO SCH (08:10)
[2020-07-01] MEDS: DIPYRIDAMOLE/ASPIRIN CAP PO SCH (08:10)
[2020-07-01] MEDS: TELMISARTAN 20 MG TAB PO SCH (08:11)
[2020-07-01] MEDS: ENOXAPARIN INJ 40 MG/0.4 ML SYR SQ SCH (08:11)
--- NOTE | 2020-07-01 09:48 | Neurology Progress Note ---
Date of Service July 01, 2020 Assessment & Plan (1) Acute loss of vision: (2) Ischemic optic neuropathy of left eye: Patient had acute loss of vision in the left eye (woke up with it on June 29). She had an ophthalmology evaluation by Dr. Munoz and was admitted to the hospital. MRI shows no acute stroke but she does have an old right frontal stroke ( from 10 years ago and she has been on Aggrenox). She has a history of hypertension and dyslipidemia, which , along with her advanced age, are risk factors for stroke. CT angiography shows moderate stenoses in multiple areas as noted in the history. echocardiogram was unremarkable. CRP and sed rate are normal and I suspect this was a vascular occlusion as opposed to an inflammatory issue such as temporal arteritis. She does have just a little bit of vision in the left eye, grossly. Recommendations: 1. Since the patient has been on Aggrenox with this new event, we could consider discontinuing this and initiating 81 mg aspirin +75 mg clopidogrel for 3 weeks then convert to 75 mg clopidogrel. There are no [id number]-[id number] studies comparing Aggrenox to clopidogrel, or Aggrenox to clopidogrel plus aspirin 2. continue with current dose of atorvastatin. 3. Continue follow-up with ophthalmology. Overall there is a poor prognosis for complete recovery of vision in left eye. Hopefully she will make some recovery with time. Overall, I spent a total of 35 minutes with the case including review of records, direct evaluation the patient bedside, and discussion of the case with the patient at bedside Dr. Donis including differential diagnosis and treatment options. Admission and Anticipated Discharge Date Admission Date: June 29, 2020 Subjective patient continues to have markedly decreased vision left eye. She has no pain or headache. MRI of the brain showed no acute stroke. There was an old right frontal stroke. CT angiography showed 50% stenosis of the proximal right ICA and moderate stenosis of the right vertebral at the origin and the right posterior cerebral artery. CBC and was unremarkable and sed rate was 22. CRP was nonreactive. The patient has been on Aggrenox and was recently put on Lovenox in the hospital. Results & Data ([facility]) Vital Signs (Past 12 Hours) Vital Signs Temp Pulse Pulse Resp BP Pulse Ox 07/01/20 07:22 102 H 07/01/20 07:16 36.7 C 70 18 141/73 H 96 07/01/20 03:41 36.6 C 90 18 169/66 H 96 07/01/20 02:11 85 06/30/20 22:10 36.9 C 81 18 136/70 93 Exam (Neuro) Physical Exam: She is awake and alert. Speech is without obvious a facial or dysarthria. She is pleasant and cooperative. Extraocular eye muscles are intact without nystagmus. In dim light the left pupil was 5-6 mm and the right was 4 mm. Both reacted briskly to bright light with direct and consensual responses. The right eye has normal vision and visual robison. The left eye has markedly decreased vision but she can see a hand way to little bit in front of her face. Vision is black. There is no facial droop and the tongue was midline. Coordination was normal in the arms and strength was symmetrical the limbs. There was no tremor. PG Care Time/CCT Total # of Minutes Spent Total Time Spent with Patient: Total time spent is greater than 50% in coordination of care (as documented) at patient's floor/unit and/or counseling patient: Coding Level of Care Code 79047 Subseq Hosp Care Lvl 3 Diagnoses Acute loss of vision H53.132 Laterality: left Ischemic optic neuropathy of left eye H47.012 Time Spent (min) 35 (1) Acute loss of vision Laterality: left Qualified Code(s): H53.132 - Sudden visual loss, left eye
[2020-07-01] MEDS ORDERED: dilTIAZem ER 120 MG CAPCR PO ONE (10:00)
--- NOTE | 2020-07-01 14:53 | Discharge Summary ---
Date of Service July 01, 2020 Admission HPI Per Admitting Provider Emilee Israel is here today for loss of vision in her left eye. She has a past medical history of cerebral artery infarct, HTN, HLD, hypothyroidism, and depression. She wears glasses for reading. She noted at 6:15 PM on 06/28 after finishing dinner that she looked in the mirror and could not see out of her left eye. There was not a curtain falling over her vision but a sudden change. She does not have any pain in her eye. There is no double vision. She went to her eye doctor and underwent a thorough eye exam and was sent here. She has a prior history of a stroke 10 years prior with deficit at that time of left lower extremity weakness that has resolved. She was not sure if she was taking ASA and stated that her daughter normally helps her with her medications. She was previously admitted for concern of CAP, and found to have PAT at that time and started on Diltiazem by [facility]. She has a hiatal hernia and takes Esomeprazole for this. Daughter is a nurse in cardiology, and patient has been at her baseline mentation with no other symptoms per daughter outside of the vision loss. No tobacco use. Admission Exam Per Admitting Provider Constitutional: WD/WN, vitals as above Eyes: PERRL, conjunctivae normal, anicteric sclerae - loss of central vision in the left eye with peripheral vision intact to movement but not able to distinguish the number of fingers i am holding up ENMT: external ear and nose normal, oropharynx normal Neck: normal visual inspection Respiratory: normal respiratory effort, lungs clear to auscultation Cardiovascular: - regular rate with intermittent pauses, no m/r/g Gastrointestinal (Abdomen): normal bowel sounds, soft, nontender, no hepatosplenomegaly Musculoskeletal: no cyanosis or clubbing, extremities motor strength 5/5 Skin: no rashes, warm and dry Neurologic: - monocular visual deficit in central vision in the L eye with intact peripheral vision to movement in the left - vision intact in right eye - otherwise CN 2-12 intact - strength intact 5/5 and bilaterally symmetric in the upper and lower extremity Psychiatric: A+Ox3, euthymic affect Principal Diagnosis left visual deficit Discharge Exam GENERAL: No acute distress. Well developed and well nourished. Vital signs reviewed as above. EYES: Conjunctivae normal. Anicteric sclerae. Still w/ complaint of loss of central vision in the left eye w/ peripheral vision intact and able to "see shadows/outlines." HENT: Moist mucous membranes. RESPIRATORY: Clear to auscultation bilaterally. No wheezing, rales, or rhonchi. CARDIOVASCULAR: Regular rate and rhythm. No murmurs. ABDOMEN: Soft, non-tender and non-distended. Normal bowel sounds. EXTREMITIES: No edema. Non-tender. NEUROLOGIC: No focal neurological deficits. Apart from vision deficit as noted above, CN II-XII grossly intact. PSYCHIATRIC: Cooperative. Appropriate mood and affect. Discharge Data Allergies Allergy/AdvReac Type Severity Reaction Status Date / Time simvastatin [From Zocor] AdvReac Verified 05/13/20 10:26 Consultations 06/29/20 18:46 ED Decision to Admit Stat 06/29/20 21:24 Consult Case Management - Discharge Planning Routine Consult Neurology Routine 06/29/20 21:42 Consult Cardiology Routine 06/30/20 17:12 Consult Ophthalmology Routine Ordered Studies 06/29/20 16:37 CT angio head w con Stat CT angio neck with con Stat CT head/brain wo con Stat 06/30/20 09:00 MR brain wo/w con Routine Hospital Course (1) Acute loss of vision: Emilee Israel is an 84-year-old female w/ PMH of GERD, HTN, HLD, hypothyroidism, depression and cerebral artery disease with infarction 10 years prior who presented with sudden onset persistent painless monocular vision deficit of the left eye concerning for ischemic optic neuropathy vs. central retinal artery occlusion. Acute Vision Loss - MRI Brain: 1. No acute intracranial abnormality, specifically there is no evidence of acute or subacute infarct. 2. Encephalomalacia related to chronic infarct of the right frontal lobe zhu radiata and lentiform nucleus. 3. Age-related involutional changes with advanced chronic microvascular ischemic disease. 4. No abnormal enhancement. - Consulted ophthalmology as well in light of fairly benign B-MRI -- no indications for intervention at this time - Recommend follow up with [facility] as outpatient - Neurology consult (see full details on neuro consult note): - Would recommend checking an ESR, CRP, ARTUR screen with titers, and Sjogren's antibodies. some of these labs were pending at time of discharge - Atorvastatin increased from 20mg to 40mg daily--with previous stroke + current symptoms, secondary prevention will be more adequate with high-intensity dosing - Per neuro recommendations, discontinued Aggenox - Started patient on Plavix 75mg po daily + ASA 81mg po daily x 3 weeks and then plan for just Plavix 75mg po daily - Recommend home PT Arrhythmia -- potentially MAT; previously diagnosed with PAT; asymptomatic - Initial EKG showing SR w frequent & consecutive atrial ectopy - Repeat EKG in AM showing SR w/ occasional PVCs, LVH w/ QRS widening - Troponin negative - Echo showing sclerotic aortic valve, vegetation could not be ruled out--see cardiology recs below - While in hospital, patient had cardiology consult (see cards consult note for full details): - Echocardiogram was relatively benign although the aortic valve is quite sclerotic. Small vegetation on the aortic valve would be difficult to see on the current study and if the suspicion is high for embolic phenomenon in no other source is suspected a PRAMOD could be considered to clarify the situation. - Do not think the rhythms identified on EKGs and tele are consistent w/ a. fib. 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 - I would not be surprised if she has occult atrial fibrillation at other times. Long-term monitoring for atrial fibrillation is an option - Continue home Diltiazem - Would consider long-term monitoring for atrial fibrillation as outpatient Hypertension - Continue home Telmisartan Hyperlipidemia - Continue home Atorvastatin GERD -- no change in hiatal hernia on CXR - Continue home esomeprazole Hypothyroidism - Continue home levothyroxine Code: Conditional (No intubation) Diet: Regular, slippery per Speech COVID: negative 06/29/20 DVT: Lovenox Dispo: Med Tele (2) Internal carotid artery stenosis: (3) Ischemic optic neuropathy of left eye: Total Time Total Time Spent Total Time Spent (In Minutes): See attending attestation Discharge Plan Discharge Items Patient Disposition: Home - Self-Care Reason For Visit: STROKE LIKE SYMPTOMS Discharge Diagnosis: painless monocular vision deficit of the left eye Condition on Discharge: Fair Activity: Per Instructions section Non-emergency contact: Primary Care Provider, Neurologist and Funeral Service Manager Call non-emergency contact if: you have any medication questions, your symptoms worsen, your pain is not controlled and your pain is worsening Follow-up/Referrals: Addi Rangel MD [Primary Care Provider] - 07/02/20 3:15 pm (If you need to change this appointment, please call [phone].) Diet: Regular Addtl Attending Provider Instructions: Mrs. Israel, It was our pleasure to care for you at [facility] from 06/29/20 to 07/01/20. You initially presented to the emergency department with concerns of acute vision deficit in your left eye. Imaging of your brain showed no evidence of a new stroke. While in the hospital, you were seen by neurologist, a brain specialist. It has been recommended, due to the this new symptom and your history of stroke, that you medications be adjusted. At this time, you should stop your home Aggrenox. Please start Plavix and Aspirin. You will take Plavix 75mg once daily AND Aspirin 81 mg once daily for 3 weeks, then take only Plavix 75mg once daily. Your atorvastatin dose has also been increased from 20mg to 40mg daily; please continue with this new dose. While in the hospital, you were also seen by an health sciences program coordinator, an leave specialist. At this time, there in no indication for intervention for the eye. It is recommended that you follow up with the [facility] for further work up. You are being discharged home with home health services and recommendations for home physical therapy. Please follow up with your primary care physician within 1-2 days. Pending Studies at Discharge: Yes Studies:: Immunology screening labs: ARTUR, SS-A/Ro antibody, SS-B/La antibody Stand-Alone Forms: My [employer]sm, Smoking Cessation Medications and DC Order Prescriptions: New atorvastatin 40 mg Tablet 40 mg PO HS Qty: 30 RF: 0 clopidogrel [Plavix] 75 mg tablet 75 mg PO DAILY 30 Days Qty: 30 RF: 0 aspirin 81 mg tablet,delayed release (DR/EC) 81 mg PO DAILY Qty: 30 RF: 0 Continued celecoxib 200 mg capsule 200 mg PO QAM Qty: 90 RF: 3 esomeprazole magnesium 40 mg capsule,delayed release(DR/EC) 40 mg PO HS Qty: 90 RF: 3 diltiazem HCl 120 mg capsule,extended release 24hr 120 mg PO QAM Qty: 30 RF: 5 cholecalciferol (vitamin D3) 50 mcg (2,000 unit) capsule 50 mcg PO QAM RF: 0 calcium carbonate [Calcium 500] 500 mg calcium (1,250 mg) Tablet,Chewable 500 mg PO QAM RF: 0 glucosamine-chondroitin [Osteo Bi-Flex] 250-200 mg Tablet 2 tab PO BID RF: 0 Centrum 18-400 mg-mcg Tablet 1 tab PO QAM RF: 0 escitalopram oxalate 5 mg tablet 5 mg PO QAM RF: 0 cyanocobalamin (vitamin B-12) [Vitamin B-12] 500 mcg Tablet 500 mcg PO QAM RF: 0 levothyroxine 25 mcg tablet 25 mcg PO QAM RF: 0 telmisartan 40 mg tablet 20 mg PO QAM Qty: 90 RF: 3 Discontinued aspirin-dipyridamole 25-200 mg capsule, ER multiphase 12 hr 1 cap PO BID Qty: 180 RF: 3 atorvastatin 20 mg tablet 20 mg PO HS Qty: 90 RF: 3 Discharge Orders: Discharge Order (Routine); Ordered 07/01/20 Ordered By: Samuel Fox Admission Data Admit Date/Time: 06/29/20 20:29 Attending Provider: Fabiola Donis Admit Provider: Pepe Gaspar Primary Care Provider: Addi Rangel Other Providers: Keagan Franks ; Milan Zarate ; Aydin Valdes ; Reymundo Munoz Other Interventions: Discharge Summary Assessment (RN) Last Done: 07/01/20 17:08 Supervising Physician Co-Signing Physician Notes Patient seen and examined with PGY-1 Dr. Olvera. Agree with history, exam findings, assessment and plan of care as outlined. In brief, Ms. Israel is an 84-year-old female w/ PMH of GERD, HTN, HLD, hypothyroidism, depression and cerebral artery disease with infarction 10 years prior who presented with sudden onset persistent painless monocular vision deficit of the left eye concerning for ischemic optic neuropathy vs. central retinal artery occlusion. Feeling well this morning. Eager to go home. Does not have much vision in the left eyeonly able to see peripherally and it is just shadows. Vital signs and nursing notes reviewed. Minimal vision grossly in the left eyejust shadows. Heart with regular rate and rhythm. Lungs clear to auscultation. 1. Acute vision loss. Likely vascular occlusion. MRI brain without evidence of acute or subacute infarct. Ophthalmology. Neurology consulted. ESR, CRP are not elevated. ARTUR with titers and Sjogrens pending. Continue Aggrenox and atorvastatin 40mg. Could potentially switch from Aggrenox to Plavix. Did discuss this with daughterClementina who is a nurse in [place], [place]. Follow up as scheduled with [facility] tomorrow. 2. Cardiac arrhythmia. 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 Troponin neg. Continue home diltiazem. Echo with sclerotic aortic valve. 3. HTN. Continue home telmisartan. 4. HLD. Continue atorvastatin 40mg. 5. Hypothyroid. Continue home levothyroxine. Dispo: Discharge home today. I personally spent 40 minutes discharge planning for this patient including discussing plan of care with patients daughterClementina. Resident Activity Tracking Resident Involvement: Resident Care Provided Care Provided: Adult Hospital Medicine
[2020-07-01] MEDS ORDERED: STROKE PATIENT DISCHARGE STA (15:56)
[2020-07-02] MEDS ORDERED: dilTIAZem HCL 240 MG CAPCR PO SCH (09:00)
[2020-07-02 13:36] LABS: Anti Nuclear Antibody Screen NEGATIVE (NEGATIVE); Anti-SS-A <1.0 NEG AI (<1.0 NEG); Anti-SS-B <1.0 NEG AI (<1.0 NEG)
--- NOTE | 2020-07-04 20:29 | Billing Data ---
Date of Service July 04, 2020 Coding Level of Care Code 01487 OBS Care - Level 3
== END 2020-07-01 17:29 | disposition home health service (06) ==
LOC: 2N 16:13 → ED 16:13 → SUATTDRO 20:29 → 2N 21:19

== ENCOUNTER 2020-12-17 00:22 | Inpatient (IN) ==
[2020-12-17] MEDS ORDERED: SODIUM CHLORIDE 0.9% 250 ML IV ONE (00:40)
[2020-12-17 00:58] LABS: Hematocrit (blood only) 34.7 % (37-47); Hemoglobin 11.3 g/dL (12.0-16.0); Mean Corpuscular Hemoglobin 32.2 pg (25-34); Mean Corpuscular Hgb Conc 32.6 g/dL (32-36); Mean Corpuscular Volume 98.9 fL (80-100); Mean Platelet Volume 9.7 fL (7.4-10.4); Platelet Count 199 K/uL (130-400); RDW Coefficient of Variation 15.7 % (11.5-14.5); RDW Standard Deviation 57.2 fL (36.4-46.3); Red Blood Count 3.51 M/uL (4.2-5.4); White Blood Count 9.73 K/uL (4.8-10.8)
[2020-12-17 01:20] LABS: Albumin Globulin Ratio 0.8 (0.9-2); Albumin Level 2.7 gm/dl (3.4-5.0); BUN Creatinine Ratio 27.4 (10-20); Bilirubin,Total 0.7 mg/dl (0.2-1); Calcium 9.3 mg/dl (8.5-10.1); Est GFR (African American) 83.1 ml/min; Est GFR (Non-African American) 71.7 ml/min; Globulin 3.5 gm/dl (2.5-4.0); Magnesium 1.9 mg/dl (1.8-2.4); Potassium 3.3 mmol/L (3.5-5.1); Total Protein 6.2 gm/dl (6.4-8.2)
[2020-12-17 01:36] LABS: Basophils # (auto) 0.02 K/uL (0-0.2); Basophils % (auto) 0.2 %; Eosinophils # (auto) 0.01 K/uL (0-0.5); Eosinophils % (auto) 0.1 %; Immature Granulocytes # (auto) 0.05 K/uL (0.00-0.02); Immature Granulocytes % (auto) 0.5 %; Lymphocytes # (auto) 0.69 K/uL (1.2-3.4); Lymphocytes % (auto) 7.1 %; Monocytes # (auto) 0.72 K/uL (0.11-0.59); Monocytes % (auto) 7.4 %; Neutrophils # (auto) 8.24 K/uL (1.4-6.5); Neutrophils % (auto) 84.7 %
--- NOTE | 2020-12-17 02:42 | History & Physical Report ---
Date of Service December 17, 2020 Assessment & Plan (1) Weakness: Plan: 85 yo F w/ pMHx. of weakness, swelling, internal carotid stenosis, urinary incontinence presenting after outpatient treatment for UTI with Macrobid and development of altered mental status and ambulatory dysfunction Altered mental status and ambulatory dysfunction likely 2/2 UTI given history of recurrent UTIs with similar presentations hemodynamically stable, afebrile, no leukocytosis, lactate nl. prior urine culture [e.coli] resistant to Ciprofloxacin and Levofloxacin CT head with no acute findings on [facility] - follow up final report - UA ordered with straight cath if needed - follow up results although this has been pre-treated with one dose of Macrobid - blood cultures ordered - follow up results - D/C Macrobid and started Ceftriaxone - continue to trend WBC - PT, OT ordered prior CVA - continue ASA, Plavix, & Statin HTN - continue Telmisartan Arrhythmia Prior Hx. 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.9 - continue Diltiazem Hypokalemia - replete with 40 mEq K-rider - recheck with AM labs Urinary incontinence - continue Toviaz Reflux - continue PPI Hypothyroidism - continue Levothyroxine Code: full Diet: regular DVT: Lovenox 30 Q24H (2) Internal carotid artery stenosis: (3) Arthritis, multiple joint involvement: (4) GERD without esophagitis: (5) Hyperlipidemia: (6) Hypertension: (7) Hypothyroidism: (8) Urinary incontinence: History of Present Illness Chief Complaint: ambulatory dysfunction Primary Care Provider: Addi Rangel MD Emilee Israel is presenting for ambulatory dysfunction and altered mental status. She was seen by her PCP Dr. Rangel for ambulatory dysfunction and confusion and was started on Macrobid for presumed UTI. She was not able to give a urine sample in the clinic. She has had UTI's in the past with a similar presentation. She was not able to give me any information, but her daughter was here and gave me some information. She had not had any elevated temperature, nausea, or vomiting. She did have chills, fatigue, weakness and sweats. She has not had any recent falls, no complaints of chest pain or palpitations, no recent constipation or diarrhea. She has not complained of dysuria. She has a history of incontinence and her daughter was wondering if the medication Toviaz that she takes for this could be contributing to her recurrent UTI's although she has been on this medication prior to her development of UTI's. Her most recent UTI was in September. Allergies Allergy/AdvReac Type Severity Reaction Status Date / Time simvastatin [From Zocor] AdvReac Unknown Unknown Verified 12/17/20 01:40 Home Medications Medication Instructions Recorded Confirmed Type cholecalciferol (vitamin D3) 50 50 mcg PO QAM cap 04/08/19 12/17/20 History mcg (2,000 unit) capsule calcium carbonate 500 mg calcium 500 mg PO QAM 06/30/19 12/17/20 History (1,250 mg) chewable tablet (Calcium 500) multivitamin-ferrous 1 tab PO QAM 06/30/19 12/17/20 History fumarate-folic acid 18 mg-400 mcg tablet (Centrum) cyanocobalamin (vitamin B-12) 500 500 mcg PO QAM 04/29/20 12/17/20 History mcg tablet (Vitamin B-12) glucosamine-chondroitin 250 mg-200 1 tab PO BID tab 07/10/20 12/17/20 History mg tablet (Osteo Bi-Flex) atorvastatin 40 mg tablet 40 mg PO HS #90 tab 07/18/20 12/17/20 Rx clopidogrel 75 mg tablet (Plavix) 75 mg PO DAILY #90 tab 07/18/20 12/17/20 Rx fesoterodine 4 mg tablet,extended 4 mg PO BID #180 tab 08/14/20 12/17/20 Rx release 24 hr (Toviaz) diltiazem HCl 120 mg 120 mg PO QAM #90 cap 10/22/20 12/17/20 Rx capsule,extended release 24 hr levothyroxine 25 mcg tablet 25 mcg PO QAM #90 tab 10/22/20 12/17/20 Rx celecoxib 200 mg capsule 200 mg PO QAM #90 cap 12/09/20 12/17/20 Rx nitrofurantoin 100 mg PO BID 5 Days #10 cap 12/16/20 12/17/20 Rx monohydrate/macrocrystals 100 mg capsule (Macrobid) telmisartan 40 mg tablet 20 mg PO DAILY #45 tab 12/16/20 12/17/20 Rx aspirin 81 mg tablet,delayed 81 mg PO HS 12/17/20 12/17/20 History release esomeprazole magnesium 40 mg 40 mg PO HS 12/17/20 12/17/20 History capsule,delayed release Past Med/Surg History Medical History Acute UTI Arthritis, multiple joint involvement Cerebral artery occlusion with cerebral infarction Community acquired pneumonia Depression GERD without esophagitis Gram-negative bacteremia Hyperlipidemia Hypertension Hypothyroidism Incontinence of urine in female Large hiatal hernia Macrocytosis Right ear impacted cerumen Swelling of right foot Urinary incontinence UTI (urinary tract infection) Weakness Surgical History H/O foot surgery History of bladder surgery resuspension History of hysterectomy Hx of cholecystectomy Hx of varicose vein ligation and stripping Family History Unknown Cancer Rheumatoid arthritis Fibromyalgia Denies family history of Ovarian cancer Prostate cancer Myocardial infarction Breast cancer Colorectal cancer Social History Smoking Status: Never smoker Second Hand Exposure: No; Hx Alcohol Use: No Hx Substance Use: No Preferred Language: Turkmen Communication Ability: Effective Visual Impairment: No Limitations Hearing Ability: Normal Content Management Specialist Required: No Beliefs That Will Affect Care: None marital status: / Current Living Situation: Family Current Living Situation Comment: in-home aides to help current occupational status: retired Feels Safe at Home: Yes Childhood Exposure to Second-Hand Smoke: No caffeine: Yes during the past year weight has: remained stable Dental Care, Regularly: Yes Physical Activity Frequency: Does not Exercise Seatbelt Use: always Sunscreen Use: Yes Assistive Devices: Glasses Review of Systems Review of Systems: Unobtainable due to cognitive status Physical Exam Constitutional: + altered mental status and + lethargic; no acute distress Eyes: PERRL, conjunctivae normal, anicteric sclerae ENMT: external ear and nose normal, oropharynx normal Neck: normal visual inspection Respiratory: normal respiratory effort, lungs clear to auscultation Cardiovascular: RRR, no murmur, no edema Gastrointestinal (Abdomen): - soft - bowel sounds present - tender to palpation in the lower quadrant - no guarding Skin: no rashes, warm and dry Neurologic: no focal motor deficits Psychiatric: Orientation: + not alert and + not oriented x 3 Results & Data Results & Data ([facility]) Vital Signs (Past 12 Hours) Vital Signs Temp Pulse Pulse Resp BP BP Pulse Ox 12/17/20 02:00 89 20 115/59 L 93 12/17/20 01:00 89 22 110/62 93 12/17/20 00:45 95 H 18 110/62 94 12/17/20 00:30 36.8 C 99 H 18 105/58 L 94 CBC Results Results Complete Blood Count Results: RBC 3.76 M/uL (4.2-5.4) L 12/17/20 WBC 9.47 K/uL (4.8-10.8) 12/17/20 Hgb 12.3 g/dL (12.0-16.0) 12/17/20 Hct 37.4 % (37-47) 12/17/20 Plt Count 171 K/uL (130-400) 12/17/20 Chemistry (BMP) Results BMP Results: Sodium 135 mmol/L (136-145) L 12/17/20 Potassium 3.6 mmol/L (3.5-5.1) 12/17/20 Chloride 107 mmol/L (98-107) 12/17/20 BUN 19 mg/dl (7-18) H 12/17/20 Creatinine 0.76 mg/dl (0.6-1.2) 12/17/20 Glucose 109 mg/dl (70-99) H 12/17/20 Supervising Physician Co-Signing Physician Notes Patient seen and examined, chart reviewed, case discussed with Dr. Gaspar and I agree with his assessment and plan as above. In brief, patient is an 85yo female presenting with weakness, ambulatory dysfunction and AMS. Patient as seen by her PCP recently and started on Macrobid for presumed UTI. On exam she is afebrile, HD stable, lethargic and slow to respond Skin -intact HEENT - NC/AT, PERRL, MMM, Neck supple Heart - +S1/S2, regular, no m/r/g Lungs - CTA Abd - +BS, soft, NT/ND Ext - no edema Labs and images reviewed. Assessment/Plan -Follow cultures -Ceftriaxone -PT/OT -Remainder of plan as above Resident Activity Tracking Resident Involvement: Resident Care Provided Care Provided: Adult [facility] Medicine (1) Internal carotid artery stenosis Laterality: right Qualified Code(s): I65.21 - Occlusion and stenosis of right carotid artery (2) Hyperlipidemia Hyperlipidemia type: unspecified Qualified Code(s): E78.5 - Hyperlipidemia, unspecified (3) Hypothyroidism Hypothyroidism type: unspecified Qualified Code(s): E03.9 - Hypothyroidism, unspecified (4) Hypertension Hypertension type: unspecified Qualified Code(s): I10 - Essential (primary) hypertension
[2020-12-17] MEDS ORDERED: POTASSIUM CHLORIDE / WTR 10 MEQ/100 ML PLCT IV STA (03:04)
[2020-12-17] MEDS ORDERED: ACETAMINOPHEN 325 MG TAB PO PRN (04:25)
[2020-12-17] MEDS ORDERED: POLYETHYLENE (MIRALAX) 17 GM PACK PO PRN (04:25)
[2020-12-17 04:27] LABS: Appearance Urine Clear (Clear); Bacteria Urine Automated 2+ (Negative); Bilirubin Urine Negative (Negative); Blood Urine Negative (Negative); Cast Urine Automated 0 /lpf (0-5); Color Urine Yellow; Epithelial Cell Urine Auto 0-5 /lpf (0-5); Glucose Urine UA Negative (Negative); Ketones Urine Negative (Negative); Leukocyte Esterase Urine 2+ (Negative); Nitrite Urine Positive (Negative); Protein Urine Trace (Negative); RBC Urine Automated 0-4 /hpf (0-4); Specific Gravity Urine 1.016 (1.000-1.030); Urobilinogen Urine Negative (Negative); pH Urine 5.5 (4.5-7.5)
[2020-12-17 06:23] LABS: BUN Creatinine Ratio 24.4 (10-20); Calcium 9.5 mg/dl (8.5-10.1); Creatinine Clr Calc Pharmacy 42.6 ml/min; Est GFR (African American) 81.7 ml/min; Est GFR (Non-African American) 70.5 ml/min; Hematocrit (blood only) 37.4 % (37-47); Hemoglobin 12.3 g/dL (12.0-16.0); Magnesium 1.9 mg/dl (1.8-2.4); Mean Corpuscular Hemoglobin 32.7 pg (25-34); Mean Corpuscular Hgb Conc 32.9 g/dL (32-36); Mean Corpuscular Volume 99.5 fL (80-100); Platelet Count 171 K/uL (130-400); Potassium 3.6 mmol/L (3.5-5.1); RDW Coefficient of Variation 15.6 % (11.5-14.5); Red Blood Count 3.76 M/uL (4.2-5.4); White Blood Count 9.47 K/uL (4.8-10.8)
[2020-12-17] MEDS: LEVOTHYROXINE SODIUM 25 MCG TABLET PO SCH (06:31)
[2020-12-17] MEDS: ENOXAPARIN INJ 30 MG/0.3 ML SYR SQ SCH (06:31)
[2020-12-17] MEDS: cefTRIAXone SODIUM 1,000 MG in DEXTROSE 5% 50 ML IV SCH (06:31)
[2020-12-17] MEDS: SODIUM CHLORIDE 0.9% 1000ML 1,000 ML IV SCH ×2 (06:31→19:37)
[2020-12-17 06:52] LABS: Basophils # (auto) 0.02 K/uL (0-0.2); Basophils % (auto) 0.2 %; Dohle Bodies 1+; Echinocytes 1+; Eosinophils # (auto) 0.01 K/uL (0-0.5); Eosinophils % (auto) 0.1 %; Immature Granulocytes # (auto) 0.03 K/uL (0.00-0.02); Immature Granulocytes % (auto) 0.3 %; Lymphocytes # (auto) 0.67 K/uL (1.2-3.4); Lymphocytes % (auto) 7.1 %; Macrocytosis Present; Monocytes # (auto) 0.27 K/uL (0.11-0.59); Monocytes % (auto) 2.9 %; Neutrophils # (auto) 8.47 K/uL (1.4-6.5); Neutrophils % (auto) 89.4 %
--- NOTE | 2020-12-17 07:07 | CT Scan Report ---
CT SCAN OF THE BRAIN WITHOUT IV CONTRAST CLINICAL HISTORY: Change in mental status. COMPARISON STUDY: CT of the brain dated 06/29/2020. TECHNIQUE: Unenhanced axial CT scan of the brain is performed from the vertex to the skull base. A do se lowering technique was utilized adhering to the principles of ALARA. CT DOSE: 537.48 mGy.cm FINDINGS: Brain parenchyma: There are age-related involutional changes noting moderate subcortical and periven tricular microangiopathic change. There is no hemorrhage, mass effect, or evidence of acute territori al ischemia by CT criteria. A chronic lacunar infarct is noted in the right basal ganglia/internal ca psule. Fuentes-white matter differentiation is preserved. No extra-axial fluid collection is seen. Ventricles, sulci, cisterns: Prominent secondary to involutional change. Intracranial vasculature: There is atherosclerotic calcification of the cavernous carotid and vertebr al arteries. Calvarium: Unremarkable. Sinuses and mastoids: The visualized paranasal sinuses are clear. The mastoid air cells are well pneu matized. Orbits: The bony orbits are grossly intact. IMPRESSION: There is no hemorrhage, mass effect, or evidence of acute territorial ischemia by CT jose ceballos. ACT 112: Negative or not required by law. Electronically signed by: Pietro Ott M.D. 12/17/2020 7:05 AM
--- NOTE | 2020-12-17 07:07 | Emergency Department Note ---
History of Present Illness General Chief complaint: Weakness Stated complaint: INABILITY TO AMBULATE Time Seen by Provider: 12/17/20 00:33 History of Present Illness This is an 85-year-old female presenting to the emergency department via EMS from home for evaluation of weakness and inability to ambulate. The patient was seen at her primary care physician's office about 12 hours prior to arrival and diagnosed with a urinary tract infection. She was started on Macrobid. The patient does have in-home care givers that watch her throughout the day. Evidently the patient had decreased appetite and did not eat or drink anything this afternoon. Around 4 PM she refused to get out of bed to walk despite need ing to use the bathroom. The patient then began acting atypical and altered. EMS was contacted and now brings the patient to the ER. The patient herself does not have any significant complaints, but does seem altered and history is somewhat limited otherwise. Home Medications Medication Instructions Recorded Confirmed Type cholecalciferol (vitamin D3) 50 50 mcg PO QAM cap 04/08/19 12/17/20 History mcg (2,000 unit) capsule calcium carbonate 500 mg calcium 500 mg PO QAM 06/30/19 12/17/20 History (1,250 mg) chewable tablet (Calcium 500) multivitamin-ferrous 1 tab PO QAM 06/30/19 12/17/20 History fumarate-folic acid 18 mg-400 mcg tablet (Centrum) cyanocobalamin (vitamin B-12) 500 500 mcg PO QAM 04/29/20 12/17/20 History mcg tablet (Vitamin B-12) glucosamine-chondroitin 250 mg-200 1 tab PO BID tab 07/10/20 12/17/20 History mg tablet (Osteo Bi-Flex) atorvastatin 40 mg tablet 40 mg PO HS #90 tab 07/18/20 12/17/20 Rx clopidogrel 75 mg tablet (Plavix) 75 mg PO DAILY #90 tab 07/18/20 12/17/20 Rx fesoterodine 4 mg tablet,extended 4 mg PO BID #180 tab 08/14/20 12/17/20 Rx release 24 hr (Toviaz) diltiazem HCl 120 mg 120 mg PO QAM #90 cap 10/22/20 12/17/20 Rx capsule,extended release 24 hr levothyroxine 25 mcg tablet 25 mcg PO QAM #90 tab 10/22/20 12/17/20 Rx celecoxib 200 mg capsule 200 mg PO QAM #90 cap 12/09/20 12/17/20 Rx nitrofurantoin 100 mg PO BID 5 Days #10 cap 12/16/20 12/17/20 Rx monohydrate/macrocrystals 100 mg capsule (Macrobid) telmisartan 40 mg tablet 20 mg PO DAILY #45 tab 12/16/20 12/17/20 Rx aspirin 81 mg tablet,delayed 81 mg PO HS 12/17/20 12/17/20 History release esomeprazole magnesium 40 mg 40 mg PO HS 12/17/20 12/17/20 History capsule,delayed release Allergies Allergy/AdvReac Type Severity Reaction Status Date / Time simvastatin [From Zocor] AdvReac Unknown Unknown Verified 12/17/20 01:40 Past Med/Surg History Medical History Acute UTI Arthritis, multiple joint involvement Cerebral artery occlusion with cerebral infarction Community acquired pneumonia Depression GERD without esophagitis Gram-negative bacteremia Hyperlipidemia Hypertension Hypothyroidism Incontinence of urine in female Large hiatal hernia Macrocytosis Right ear impacted cerumen Swelling of right foot Urinary incontinence UTI (urinary tract infection) Weakness Surgical History H/O foot surgery History of bladder surgery resuspension History of hysterectomy Hx of cholecystectomy Hx of varicose vein ligation and stripping Family History Unknown Cancer Rheumatoid arthritis Fibromyalgia Denies family history of Ovarian cancer Prostate cancer Myocardial infarction Breast cancer Colorectal cancer Social History Smoking Status: Never smoker Second Hand Exposure: No; Hx Alcohol Use: No Hx Substance Use: No Preferred Language: Bulgarian Communication Ability: Effective Visual Impairment: No Limitations Hearing Ability: Normal Delicatessen Manager Required: No Beliefs That Will Affect Care: None marital status: / Current Living Situation: Family Current Living Situation Comment: in-home aides to help current occupational status: retired Feels Safe at Home: Yes Childhood Exposure to Second-Hand Smoke: No caffeine: Yes during the past year weight has: remained stable Dental Care, Regularly: Yes Physical Activity Frequency: Does not Exercise Seatbelt Use: always Sunscreen Use: Yes Assistive Devices: Glasses Review of Systems A total of 10 systems reviewed and were otherwise negative Physical Exam Vital Signs Vital Signs - 24 hr 12/17/20 00:30 12/17/20 00:45 12/17/20 01:00 Temperature 36.8 C Temperature Source Oral Pulse Rate 99 H 89 Pulse Rate [Apical] 95 H Pulse Rate from SpO2 Sensor Respiratory Rate 18 18 22 Respiratory Effort / Characteristics Non-Labored Spontaneous Non-Labored Respiratory Depth Normal Normal Respiratory Pattern Regular Blood Pressure 105/58 L 110/62 Blood Pressure [Right Arm] 110/62 Blood Pressure Mean 73 78 Blood Pressure Mean [Right Arm] 78 Blood Pressure Position Lying Pulse Oximetry 94 94 93 Oxygen Delivery Method Room Air Room Air Sepsis Recent Fever Within 48 Hours No Sepsis New/Unexplained Change in Mental Status Yes Sepsis Action Taken by Nursing No Action Required 12/17/20 02:00 12/17/20 02:30 Temperature Temperature Source Pulse Rate 89 84 Pulse Rate [Apical] Pulse Rate from SpO2 Sensor 83 Respiratory Rate 20 20 Respiratory Effort / Characteristics Respiratory Depth Respiratory Pattern Blood Pressure 115/59 L 121/64 Blood Pressure [Right Arm] Blood Pressure Mean 77 83 Blood Pressure Mean [Right Arm] Blood Pressure Position Pulse Oximetry 93 94 Oxygen Delivery Method Sepsis Recent Fever Within 48 Hours Sepsis New/Unexplained Change in Mental Status Sepsis Action Taken by Nursing VITALS: Vitals are noted on the nurse's note and reviewed by myself. Vital signs stable. GENERAL: Elderly female who does not appear in acute distress. She is having difficulty answering questions. HEAD: Normocephalic atraumatic. HEART: Regular rate and rhythm without murmurs gallops or rubs. LUNGS: Clear to auscultation bilaterally without wheezes, rales or rhonchi. No retractions or accessory muscle use. ABDOMEN: Positive normal bowel sounds x 4. Soft, nontender, without masses or organomegaly. No guarding or rebound tenderness. MUSCULOSKELETAL: No muscle atrophy, erythema, or edema noted. Full range of motion in all extremities Course Administered Medications Enoxaparin Sodium (Enoxaparin Inj 30 Mg/0.3 Ml Syr) 30 mg SQ Q24H IVY Stop: 01/16/21 05:59 Last Admin: 12/17/20 06:31 Dose: 30 mg Documented by: [id number] Ceftriaxone Sodium 1,000 mg/ (Dextrose) 50 mls @ 100 mls/hr IV Q24H [facility]; Protocol Stop: 12/27/20 05:59 Last Admin: 12/17/20 06:31 Dose: 100 mls/hr Documented by: [id number] Sodium Chloride (Nss 1000ml) 1,000 mls @ 80 mls/hr IV .[id number] IVY Stop: 12/18/20 05:24 Last Admin: 12/17/20 06:31 Dose: 80 mls/hr Documented by: [id number] Levothyroxine Sodium (Levothyroxine Sodium 25 Mcg Tablet) 25 mcg PO DAILYBB IVY Stop: 01/16/21 06:29 Last Admin: 12/17/20 06:31 Dose: 25 mcg Documented by: [id number] Discontinued Medications Sodium Chloride (Nss) 250 mls @ 999 mls/hr IV .Q16M ONE Stop: 12/17/20 00:55 Last Infusion: 12/17/20 02:28 Dose: 0 mls/hr Documented by: [id number] Admin: 12/17/20 01:56 Dose: 999 mls/hr Documented by: [id number] Potassium Chloride (K Derik / Wtr) 10 meq in 100 mls @ 100 mls/hr IV Q1H STA Stop: 12/17/20 04:03 Last Infusion: 12/17/20 04:20 Dose: 0 mls/hr Documented by: [id number] Admin: 12/17/20 03:20 Dose: 100 mls/hr Documented by: [id number] Medical Decision Making Differential Diagnosis Differential includes acute coronary syndrome, myocardial infarction, CVA, TIA, anemia, infection, pneumonia, UTI, pyelonephritis, poor nutrition, dehydration, electrolyte disturbance,hypoglycemia. Laboratory Data Result diagrams: 12/17/20 05:23 12/17/20 05:23 Lab Results 12/17/20 12/17/20 12/17/20 Range/Units 00:40 00:40 00:40 WBC 9.73 (4.8-10.8) K/uL RBC 3.51 L (4.2-5.4) M/uL Hgb 11.3 L (12.0-16.0) g/dL Hct 34.7 L (37-47) % MCV 98.9 (80-100) fL MCH 32.2 (25-34) pg MCHC 32.6 (32-36) g/dL RDW Std Deviation 57.2 H (36.4-46.3) fL RDW Coeff of Pavithra 15.7 H (11.5-14.5) % Plt Count 199 (130-400) K/uL MPV 9.7 (7.4-10.4) fL Immature Gran % (Auto) 0.5 % Neut % (Auto) 84.7 % Lymph % (Auto) 7.1 % Dakota % (Auto) 7.4 % Eos % (Auto) 0.1 % Baso % (Auto) 0.2 % Neut # (Auto) 8.24 H (1.4-6.5) K/uL Lymph # (Auto) 0.69 L (1.2-3.4) K/uL [place] # (Auto) 0.72 H (0.11-0.59) K/uL Eos # (Auto) 0.01 (0-0.5) K/uL Baso # (Auto) 0.02 (0-0.2) K/uL Immature Gran # (Auto) 0.05 H (0.00-0.02) K/uL Sodium 134 L D (136-145) mmol/L Potassium 3.3 L D (3.5-5.1) mmol/L Chloride 107 (98-107) mmol/L Carbon Dioxide 24 (21-32) mmol/L Anion Gap 3.0 (3-11) BUN 21 H (7-18) mg/dl Creatinine 0.75 (0.6-1.2) mg/dl Est Cr Clr Drug Dosing 46.0 ml/min Est GFR ( Amer) 83.1 ml/min Est GFR (Non-Af Amer) 71.7 ml/min BUN/Creatinine Ratio 27.4 H (10-20) Glucose 148 H (70-99) mg/dl Lactate 0.9 (0.4-2.0) mmol/L Calcium 9.3 (8.5-10.1) mg/dl Magnesium 1.9 (1.8-2.4) mg/dl Total Bilirubin 0.7 (0.2-1) mg/dl AST 96 H (15-37) U/L ALT 77 (12-78) U/L Alkaline Phosphatase 102 (45-117) U/L Total Protein 6.2 L (6.4-8.2) gm/dl Albumin 2.7 L (3.4-5.0) gm/dl Globulin 3.5 (2.5-4.0) gm/dl Albumin/Globulin Ratio 0.8 L (0.9-2) COVID-19 Eval Order SARS-CoV-2 (PCR) (Negative) 12/17/20 12/17/20 Range/Units 01:26 01:26 WBC (4.8-10.8) K/uL RBC (4.2-5.4) M/uL Hgb (12.0-16.0) g/dL Hct (37-47) % MCV (80-100) fL MCH (25-34) pg MCHC (32-36) g/dL RDW Std Deviation (36.4-46.3) fL RDW Coeff of Pavithra (11.5-14.5) % Plt Count (130-400) K/uL MPV (7.4-10.4) fL Immature Gran % (Auto) % Neut % (Auto) % Lymph % (Auto) % [place] % (Auto) % Eos % (Auto) % Baso % (Auto) % Neut # (Auto) (1.4-6.5) K/uL Lymph # (Auto) (1.2-3.4) K/uL [place] # (Auto) (0.11-0.59) K/uL Eos # (Auto) (0-0.5) K/uL Baso # (Auto) (0-0.2) K/uL Immature Gran # (Auto) (0.00-0.02) K/uL Sodium (136-145) mmol/L Potassium (3.5-5.1) mmol/L Chloride (98-107) mmol/L Carbon Dioxide (21-32) mmol/L Anion Gap (3-11) BUN (7-18) mg/dl Creatinine (0.6-1.2) mg/dl Est Cr Clr Drug Dosing ml/min Est GFR ( Amer) ml/min Est GFR (Non-Af Amer) ml/min BUN/Creatinine Ratio (10-20) Glucose (70-99) mg/dl Lactate (0.4-2.0) mmol/L Calcium (8.5-10.1) mg/dl Magnesium (1.8-2.4) mg/dl Total Bilirubin (0.2-1) mg/dl AST (15-37) U/L ALT (12-78) U/L Alkaline Phosphatase (45-117) U/L Total Protein (6.4-8.2) gm/dl Albumin (3.4-5.0) gm/dl Globulin (2.5-4.0) gm/dl Albumin/Globulin Ratio (0.9-2) COVID-19 Eval Order Covid19 at [facility] SARS-CoV-2 (PCR) NEGATIVE (Negative) Imaging Data Radiologist's Impression: Head CT 12/17/20 00:40 CT SCAN OF THE BRAIN WITHOUT IV CONTRAST CLINICAL HISTORY: Change in mental status. COMPARISON STUDY: CT of the brain dated 06/29/2020. TECHNIQUE: Unenhanced axial CT scan of the brain is performed from the vertex to the skull base. A dose lowering technique was utilized adhering to the princip les of EVELIA. CT DOSE: 537.48 mGy.cm FINDINGS: Brain parenchyma: There are age-related involutional changes noting moderate subcortical and periventricular microangiopathic change. There is no hemorrhage, mass effect, or evidence of acute territorial ischemia by CT criteria. A chronic lacunar infarct is noted in the right basal ganglia/internal capsule. Fuentes-white matter differentiation is preserved. No extra-axial fluid collection is seen. Ventricles, sulci, cisterns: Prominent secondary to involutional change. Intracranial vasculature: There is atherosclerotic calcification of the cavernous carotid and vertebral arteries. Calvarium: Unremarkable. Sinuses and mastoids: The visualized paranasal sinuses are clear. The mastoid air cells are well pneumatized. Orbits: The bony orbits are grossly intact. IMPRESSION: There is no hemorrhage, mass effect, or evidence of acute territorial ischemia by CT criteria. ACT 112: Negative or not required by law. Electronically signed by: Pietro Ott M.D. 12/17/2020 7:05 AM Preliminary Findings Only See Final Report For Complete Findings CT HEAD: Comparison is made to CT head on 06/29/2020. No acute intracranial abnormality identified. If there is persistent concern for acute infarct, consider further evaluation with MRI. Stable chronic small vessel ischemic disease and cerebral volume loss. Stable encephalomalacia in the right basal ganglia. Mild mucosal thickening in the sphenoid sinus. Atherosclerotic calcifications of the intracranial vasculature. Small osteoma along the inner table of the left frontal bone. Radiologist: Jason Munguia M.D. ECG Data Attestation: I personally reviewed and interpreted this ECG as follows: Additional Comments: Normal sinus rhythm @89 bpm Left anterior fascicular block Left ventricular hypertrophy with QRS widening Abnormal ECG When compared with ECG of 30-JUN-2020 07:08, Premature ventricular complexes are no longer Present ST elevation now present in Anterior leads MDM Narrative Physical exam and history were performed. Nursing notes, EMR, and Medication List were personally reviewed. Patient appears to have diagnosis of UTI with progressive weakness and difficulty walking. IV access was established and labs were obtained. She was gently hydrated with normal saline. CT of the head was performed. Blood cultures and lactic were gathered. Patient blood work is as above and was reviewed. She does not have a significantly elevated white blood cell count, gross anemia, bandemia, or si gnificant electrolyte imbalance. Transaminases are not diagnostic. Urine is with nitrates and esterase suggestive of infection. Covid is negative. CT of the head was reviewed by myself and radiology showing no acute process. Lactic is negative. Overall the patient does not appear well for discharge home. She is somewhat altered and has a UTI. Her symptoms certainly could be medication related versus infectious findings. The case was discussed with the hospitalist team who agreed to evaluate the patient here in the ER. Please see their dictation for further patient course, plan, and disposition. The chart was completed utilizing [employer] ([employer]) Speech Voice Recognition Software. Grammatical errors, random word insertions, pronoun errors, and incomplete sentences are an occasional consequence of this system due to software limitations, ambient noise, and hardware issues. Any formal questions or concerns about the content, text, or information contained within the body of this dictation should be directly addressed to the provider for clarification. . Impression & Plan Weakness, Ambulatory dysfunction, Acute UTI Discharge Plan Visit Data Chief Complaint: Weakness Stated Complaint: INABILITY TO AMBULATE ED Provider: Dk Boucher ED Midlevel Provider: Alonso Chester Discharge Problem: Weakness, Ambulatory dysfunction, Acute UTI Patient Disposition: Admitted As Inpatient Discharge Instructions Interventions: ED Discharge Assessment Last Done: 12/17/20 03:58
[2020-12-17] MEDS: CLOPIDOGREL BISULFATE 75 MG TAB PO SCH (08:31)
[2020-12-17] MEDS: TELMISARTAN 20 MG TAB PO SCH (08:31)
[2020-12-17] MEDS: dilTIAZem HCL 120 MG CAPCR PO SCH (08:31)
[2020-12-17] MEDS: CeleBREX 200 MG CAP PO SCH (08:31)
--- NOTE | 2020-12-17 08:39 | Hospitalist Progress Note ---
Date of Service December 17, 2020 Assessment & Plan (1) Weakness: Plan: 85 yo F w/ pMHx. of weakness, swelling, internal carotid stenosis, urinary incontinence presenting after outpatient treatment for UTI with Macrobid and development of altered mental status and ambulatory dysfunction Metabolic encephalopathy from uti poa and ambulatory dysfunction likely recurrent UTIs with similar presentations sepsis prior urine culture [e.coli] resistant to Ciprofloxacin and Levofloxacin -> started on Ceftriaxone CT head with no acute findings - Urine and blood cultures show gram negative bacteria prior CVA - continue ASA, Plavix, & Statin HTN - continue Telmisartan Arrhythmia Prior Hx. 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.9 - continue Diltiazem Hypokalemia - replete with 40 mEq K-rider - recheck with AM labs Urinary incontinence - continue Toviaz Reflux - continue PPI Hypothyroidism - continue Levothyroxine Code: full Diet: regular DVT: Lovenox 30 Q24H (2) Internal carotid artery stenosis: (3) Arthritis, multiple joint involvement: (4) GERD without esophagitis: (5) Hyperlipidemia: (6) Hypertension: (7) Hypothyroidism: (8) Urinary incontinence: Admission and Anticipated Discharge Date Admission Date: December 17, 2020 Subjective this pt is still lethargic, has some mumbling speech, no focal deficits or loss, seems to be metabolic in nature and found to have gram negative bacteremia Review of Systems Review of Systems: Moderate distress and fatigue is asleep easily during examination no headache, no visual changes Has mumbling speech speech does not seem safe to swallow at this point no chest pain, pressure or palpitations no shortness of breath, cough or wheezes no abdominal pain, nausea or vomiting, diarrhea or constipation no dysuria, hematuria or frequency no focal joint pain or swelling no back pain, CVA tenderness or radicular pain no bruising, bleeding or rashes no focal signs of weakness or numbness or altered sensation no complaints of anxiety or depression.. Physical Exam Physical Exam: The patient appeared well nourished and normally developed. Vital signs as documented. Head exam is normocephalic atraumatic Neck is without JVD, thyromegaly, or carotid bruits She tries to speak but is mumbling and falls asleep easily likely result of encephalopathy. Lungs are clear to auscultation, and is at the bases Cardiac exam, Rhythm is regular.. No murmurs, rubs or gallops. Abdominal exam reveals normal bowel sounds, soft non tender, no suprapubic tenderness Extremities are nonedematous and both pedal pulses are present Neurologic exam is alert and responds to questions is not oriented Skin is without bruises or rashes Psychologically is without concerns for anxiety or depression Results & Data Results & Data ([facility]) Vital Signs (Past 12 Hours) Vital Signs Temp Pulse Pulse Pulse Resp BP BP 12/17/20 07:46 99.1 F 98 H 16 145/84 H 12/17/20 04:14 98.6 F 117 H 16 161/64 H 12/17/20 03:31 105 H 21 138/94 12/17/20 03:00 84 23 129/68 12/17/20 02:30 84 20 121/64 12/17/20 02:00 89 20 115/59 L 12/17/20 01:00 89 22 110/62 12/17/20 00:45 95 H 18 110/62 12/17/20 00:30 98.2 F 99 H 18 105/58 L Pulse Ox 12/17/20 07:46 96 12/17/20 04:14 93 12/17/20 03:31 12/17/20 03:00 94 12/17/20 02:30 94 12/17/20 02:00 93 12/17/20 01:00 93 12/17/20 00:45 94 12/17/20 00:30 94 PG Care Time/CCT Total # of Minutes Spent Total Time Spent with Patient: Total time spent is greater than 50% in coordinat ion of care (as documented) at patient's floor/unit and/or counseling patient: Coding Level of Care Code 13767 Subseq Hosp Care Lvl 3 Diagnoses Weakness R53.1 Internal carotid artery stenosis I65.21 Laterality: right Arthritis, multiple joint involvement M12.9 GERD without esophagitis K21.9 Hyperlipidemia E78.5 Hyperlipidemia type: unspecified Hypertension I10 Hypertension type: unspecified Hypothyroidism E03.9 Hypothyroidism type: unspecified Urinary incontinence R32 (1) Internal carotid artery stenosis Laterality: right Qualified Code(s): I65.21 - Occlusion and stenosis of right carotid artery (2) Hyperlipidemia Hyperlipidemia type: unspecified Qualified Code(s): E78.5 - Hyperlipidemia, unspecified (3) Hypothyroidism Hypothyroidism type: unspecified Qualified Code(s): E03.9 - Hypothyroidism, unspecified (4) Hypertension Hypertension type: unspecified Qualified Code(s): I10 - Essential (primary) hypertension
--- NOTE | 2020-12-17 15:26 | Electrocardiogram Report ---
Test Reason : Blood Pressure : / mmHG Vent. Rate : 089 BPM Atrial Rate : 089 BPM P-R Int : 166 ms QRS Dur : 122 ms QT Int : 382 ms P-R-T Axes : 020 -46 017 degrees QTc Int : 464 ms Normal sinus rhythm Left anterior fascicular block Left ventricular hypertrophy with QRS widening Abnormal ECG When compared with ECG of 30-JUN-2020 07:08, Premature ventricular complexes are no longer Present Confirmed by Prince Zarate ([id number]) on 12/17/2020 3:26:02 PM Referred By: REFERRED SELF Confirmed By:Noah Zarate
--- NOTE | 2020-12-17 21:47 | Billing Data ---
Date of Service December 17, 2020 Coding Level of Care Code 57075 Initial Inpt Care Lvl 2
[2020-12-17] MEDS: ATORVASTATIN 40 MG TAB PO SCH (22:18)
[2020-12-17] MEDS: ASPIRIN 81 MG ECTAB PO SCH (22:18)
[2020-12-17] MEDS: PANTOprazole 40 MG TAB PO SCH (22:18)
[2020-12-18] MEDS: LEVOTHYROXINE SODIUM 25 MCG TABLET PO SCH (06:07)
[2020-12-18] MEDS: ENOXAPARIN INJ 30 MG/0.3 ML SYR SQ SCH (06:07)
[2020-12-18] MEDS: cefTRIAXone SODIUM 1,000 MG in DEXTROSE 5% 50 ML IV SCH (06:07)
--- NOTE | 2020-12-18 07:47 | Hospitalist Progress Note ---
Date of Service December 18, 2020 Assessment & Plan (1) Weakness: Plan: 85 yo F w/ pMHx. of weakness, swelling, internal carotid stenosis, urinary incontinence presenting after outpatient treatment for UTI with Macrobid and development of altered mental status and ambulatory dysfunction infectious encephalopathy and ambulatory dysfunction likely 2/2 UTI given history of recurrent UTIs with similar presentations hemodynamically stable, afebrile, no leukocytosis, lactate nl. prior urine culture [e.coli] resistant to Ciprofloxacin and Levofloxacin now is gram negative awaiting final identification CT head with no acute findings - UA ordered with straight cath if needed - follow up results although this has been pre-treated with one dose of Macrobid - blood cultures ordered - follow up results - D/C Macrobid and started Ceftriaxone - continue to trend WBC - PT, OT ordered prior CVA - continue ASA, hold due Plavix, & Statin due to swallowing status HTN - continue Telmisartan Arrhythmia Prior Hx. 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.9 - continue Diltiazem Hypokalemia - replete with 40 mEq K-rider - recheck with AM labs Urinary incontinence - Toviaz Reflux - continue PPI Hypothyroidism - continue Levothyroxine Code: full Diet: regular DVT: Lovenox 30 Q24H (2) Internal carotid artery stenosis: (3) Arthritis, multiple joint involvement: (4) GERD without esophagitis: (5) Hyperlipidemia: (6) Hypertension: (7) Hypothyroidism: (8) Urinary incontinence: Admission and Anticipated Discharge Date Admission Date: December 17, 2020 Subjective this pt is still lethargic, but improved, still has some mumbling speech, no focal deficits or loss, seems to be metabolic in nature and found to have gram negative bacteremia speech did see and clear to have po food, will hold on many po meds at this time Review of Systems Review of Systems: Moderate distress and fatigue is asleep easily during examination no headache, no visual changes Has mumbling speech speech does not seem safe to swallow at this point no chest pain, pressure or palpitations no shortness of breath, cough or wheezes no abdominal pain, nausea or vomiting, diarrhea or constipation no dysuria, hematuria or frequency no focal joint pain or swelling no back pain, CVA tenderness or radicular pain no bruising, bleeding or rashes no focal signs of weakness or numbness or altered sensation no complaints of anxiety or depression.. Physical Exam Physical Exam: The patient appeared well nourished and normally developed. Vital signs as documented. Head exam is normocephalic atraumatic Neck is without JVD, thyromegaly, or carotid bruits She tries to speak but is mumbling and falls asleep easily likely result of encephalopathy. Lungs are clear to auscultation, and is at the bases Cardiac exam, Rhythm is regular.. No murmurs, rubs or gallops. Abdominal exam reveals normal bowel sounds, soft non tender, no suprapubic tenderness Extremities are nonedematous and both pedal pulses are present Neurologic exam is alert and responds to questions is not oriented Skin is without bruises or rashes Psychologically is without concerns for anxiety or depression Results & Data Results & Data ([facility]) Vital Signs (Past 12 Hours) Vital Signs Temp Pulse Resp BP Pulse Ox 12/18/20 07:24 98.1 F 97 H 18 144/75 H 96 12/18/20 04:40 98.8 F 93 H 16 146/80 H 96 12/17/20 22:00 98.2 F 93 H 20 132/74 98 PG Care Time/CCT Total # of Minutes Spent Total Time Spent with Patient: Total time spent is greater than 50% in coordination of care (as documented) at patient's floor/unit and/or counseling patient: Coding Level of Care Code 56604 Subseq Hosp Care Lvl 3 Diagnoses Weakness R53.1 Internal carotid artery stenosis I65.21 Laterality: right Arthritis, multiple joint involvement M12.9 GERD without esophagitis K21.9 Hyperlipidemia E78.5 Hyperlipidemia type: unspecified Hypertension I10 Hypertension type: unspecified Hypothyroidism E03.9 Hypothyroidism type: unspecified Urinary incontinence R32 (1) Internal carotid artery stenosis Laterality: right Qualified Code(s): I65.21 - Occlusion and stenosis of right carotid artery (2) Hyperlipidemia Hyperlipidemia type: unspecified Qualified Code(s): E78.5 - Hyperlipidemia, unspecified (3) Hypothyroidism Hypothyroidism type: unspecified Qualified Code(s): E03.9 - Hypothyroidism, unspecified (4) Hypertension Hypertension type: unspecified Qualified Code(s): I10 - Essential (primary) hypertension
[2020-12-18] MEDS: dilTIAZem HCL 120 MG CAPCR PO SCH (08:59)
[2020-12-18] MEDS: TELMISARTAN 20 MG TAB PO SCH (08:59)
[2020-12-18] MEDS: CeleBREX 200 MG CAP PO SCH (08:59)
[2020-12-18] MEDS: CLOPIDOGREL BISULFATE 75 MG TAB PO SCH (08:59)
[2020-12-18] MEDS ORDERED: hydrALAZINE HCL 20 MG/ML VIAL IV PRN (15:07)
[2020-12-18] MEDS ORDERED: ACETAMINOPHEN 1000 MG/100 ML IV IV PRN (15:11)
[2020-12-18] MEDS ORDERED: ASPIRIN 300 MG SUPP PR ONE (15:15)
[2020-12-18] MEDS ORDERED: THIAMINE HCL 200 MG in SODIUM CHLORIDE 0.9% 50 ML IV ONE (15:30)
[2020-12-18] MEDS: FAMOTIDINE 20 MG in SYRINGE 3 ML IV SCH (20:40)
[2020-12-18] MEDS: ATORVASTATIN 40 MG TAB PO SCH (20:40)
[2020-12-18] MEDS: ASPIRIN 81 MG ECTAB PO SCH (20:40)
[2020-12-19] MEDS: ENOXAPARIN INJ 30 MG/0.3 ML SYR SQ SCH (05:21)
[2020-12-19] MEDS: cefTRIAXone SODIUM 1,000 MG in DEXTROSE 5% 50 ML IV SCH (05:21)
[2020-12-19] MEDS: LEVOTHYROXINE SODIUM 25 MCG TABLET PO SCH (05:24)
[2020-12-19] MEDS: dilTIAZem HCL 120 MG CAPCR PO SCH (07:59)
[2020-12-19] MEDS: CLOPIDOGREL BISULFATE 75 MG TAB PO SCH (07:59)
[2020-12-19 08:02] LABS: Hematocrit (blood only) 34.8 % (37-47); Hemoglobin 11.3 g/dL (12.0-16.0); Mean Corpuscular Hemoglobin 32.5 pg (25-34); Mean Corpuscular Hgb Conc 32.5 g/dL (32-36); Mean Platelet Volume 9.6 fL (7.4-10.4); Platelet Count 233 K/uL (130-400); RDW Coefficient of Variation 15.5 % (11.5-14.5); RDW Standard Deviation 56.8 fL (36.4-46.3); Red Blood Count 3.48 M/uL (4.2-5.4); White Blood Count 8.29 K/uL (4.8-10.8)
[2020-12-19 08:24] LABS: BUN Creatinine Ratio 40.2 (10-20); Calcium 9.7 mg/dl (8.5-10.1); Creatinine Clr Calc Pharmacy 68.8 ml/min; Est GFR (African American) 102.9 ml/min; Est GFR (Non-African American) 88.8 ml/min; Potassium 3.6 mmol/L (3.5-5.1)
[2020-12-19] MEDS: FAMOTIDINE 20 MG in SYRINGE 3 ML IV SCH ×2 (08:59→19:56)
--- NOTE | 2020-12-19 15:08 | Hospitalist Progress Note ---
Date of Service December 19, 2020 Assessment & Plan (1) Weakness: Plan: 85 yo F w/ pMHx. of weakness, swelling, internal carotid stenosis, urinary incontinence presenting after outpatient treatment for UTI with Macrobid and development of altered mental status and ambulatory dysfunction infectious encephalopathy and ambulatory dysfunction likely 2/2 UTI given history of recurrent UTIs with similar presentations blood culture [e.coli] now william sensitive, prevously resistant to Ciprofloxacin and Levofloxacin, urine cuture with contaminated specimen, will assume this was the source as has no bowel c/o and no colic or GB complaints CT head with no acute findings - PT, OT ordered prior CVA - continue ASA, hold due Plavix, & Statin due to swallowing status HTN - continue Telmisartan Arrhythmia Prior Hx. 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.9 - continue Diltiazem Hypokalemia - replete with 40 mEq K-rider - recheck with AM labs Urinary incontinence - Toviaz Reflux - continue PPI Hypothyroidism - continue Levothyroxine Code: full Diet: regular DVT: Lovenox 30 Q24H (2) Internal carotid artery stenosis: (3) Arthritis, multiple joint involvement: (4) GERD without esophagitis: (5) Hyperlipidemia: (6) Hypertension: (7) Hypothyroidism: (8) Urinary incontinence: Admission and Anticipated Discharge Date Admission Date: December 18, 2020 Subjective this pt is doing much better today, more alert less mumbly speech, ecoli identified and with her clearing seems it was infectious encephalopathy Review of Systems Review of Systems: Mild distress and fatigue much more awake no headache, no visual changes Has mumbling speech speech does not seem safe to swallow at this point no chest pain, pressure or palpitations no shortness of breath, cough or wheezes no abdominal pain, nausea or vomiting, diarrhea or constipation no dysuria, hematuria or frequency no focal joint pain or swelling no back pain, CVA tenderness or radicular pain no bruising, bleeding or rashes no focal signs of weakness or numbness or altered sensation no complaints of anxiety or depression.. Physical Exam Physical Exam: The patient appeared well nourished and normally developed. Vital signs as documented. Head exam is normocephalic atraumatic Neck is without JVD, thyromegaly, or carotid bruits She tries to speak but is mumbling and falls asleep easily likely result of encephalopathy. Lungs are clear to auscultation, and is at the bases Cardiac exam, Rhythm is regular.. No murmurs, rubs or gallops. Abdominal exam reveals normal bowel sounds, soft non tender, no suprapubic tenderness Extremities are nonedematous and both pedal pulses are present Neurologic exam is alert and responds to questions is not oriented Skin is without bruises or rashes Psychologically is without concerns for anxiety or depression Results & Data Results & Data ([facility]) Vital Signs (Past 12 Hours) Vital Signs Temp Pulse Resp BP Pulse Ox 12/19/20 07:52 98.1 F 92 H 18 158/80 H 97 PG Care Time/CCT Total # of Minutes Spent Total Time Spent with Patient: Total time spent is greater than 50% in coordination of care (as documented) at patient's floor/unit and/or counseling patient: Coding Level of Care Code 32689 Subseq Hosp Care Lvl 2 Diagnoses Weakness R53.1 Internal carotid artery stenosis I65.21 Laterality: right Arthritis, multiple joint involvement M12.9 GERD without esophagitis K21.9 Hyperlipidemia E78.5 Hyperlipidemia type: unspecified Hypertension I10 Hypertension type: unspecified Hypothyroidism E03.9 Hypothyroidism type: unspecified Urinary incontinence R32 (1) Internal carotid artery stenosis Laterality: right Qualified Code(s): I65.21 - Occlusion and stenosis of right carotid artery (2) Hyperlipidemia Hyperlipidemia type: unspecified Qualified Code(s): E78.5 - Hyperlipidemia, unspecified (3) Hypertension Hypertension type: unspecified Qualified Code(s): I10 - Essential (primary) hypertension (4) Hypothyroidism Hypothyroidism type: unspecified Qualified Code(s): E03.9 - Hypothyroidism, unspecified
[2020-12-19] MEDS: ATORVASTATIN 40 MG TAB PO SCH (19:56)
[2020-12-19] MEDS: ASPIRIN 81 MG ECTAB PO SCH (19:56)
[2020-12-20] MEDS: cefTRIAXone SODIUM 1,000 MG in DEXTROSE 5% 50 ML IV SCH (05:44)
[2020-12-20] MEDS: LEVOTHYROXINE SODIUM 25 MCG TABLET PO SCH (05:45)
[2020-12-20] MEDS: ENOXAPARIN INJ 30 MG/0.3 ML SYR SQ SCH (05:45)
--- NOTE | 2020-12-20 08:59 | Hospitalist Progress Note ---
Date of Service December 20, 2020 Assessment & Plan (1) Weakness: Plan: 85 yo F w/ pMHx. of weakness, swelling, internal carotid stenosis, urinary incontinence presenting after outpatient treatment for UTI with Macrobid and development of altered mental status and ambulatory dysfunction Metabolic encephalopathy and ambulatory dysfunction likely 2/2 UTI given history of recurrent UTIs with similar presentations. Metabolic encephalopathy slightly worse than previous day we will escalate her antibiotics to 2000 mg Rocephin daily. Check a.m. cortisol TSH Lyme titer LFTs try to encourage good sleep with melatonin reevaluate encephalopathy in the morning blood culture [e.coli] now william sensitive, previously resistant to Ciprofloxacin and Levofloxacin, urine cuture with contaminated specimen, will assume this was the source as has no bowel c/o and no colic or GB complaints CT head with no acute findings - PT, OT ordered prior CVA -Resume aspirin Plavix and holding statin HTN - continue losartan is held due to lower blood pressure continues on diltiazem Arrhythmia Prior Hx. 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.9 - continue Diltiazem Hypokalemia - replete with 40 mEq K-rider - recheck with AM labs Urinary incontinence - Toviaz Reflux - continue PPI Hypothyroidism - continue Levothyroxine Code: full Diet: regular DVT: Lovenox 30 Q24H (2) Internal carotid artery stenosis: (3) Arthritis, multiple joint involvement: (4) GERD without esophagitis: (5) Hyperlipidemia: (6) Hypertension: (7) Hypothyroidism: (8) Urinary incontinence: Admission and Anticipated Discharge Date Admission Date: December 18, 2020 Subjective Currently patient is a bit diminished or less interactive than previously. She still does articulate her words more clearly and but just wants to sleep throughout her hospital stay. She has had stable vital signs Review of Systems Review of Systems: Mild distress and fatigue much more awake no headache, no visual changes her speech has cleared no chest pain, pressure or palpitations no shortness of breath, cough or wheezes no focused abdominal pain, nausea or vomiting, diarrhea or constipation no dysuria, hematuria or frequency no focal joint pain or swelling no back pain, CVA tenderness or radicular pain no bruising, bleeding or rashes no focal signs of weakness or numbness or altered sensation no complaints of anxiety or depression.. Physical Exam Physical Exam: The patient appeared well nourished and normally developed. Vital signs as documented. Head exam is normocephalic atraumatic Neck is without JVD, thyromegaly, or carotid bruits She speaks clearly but falls asleep easily Lungs are clear to auscultation, and is at the bases Cardiac exam, Rhythm is regular.. No murmurs, rubs or gallops. Abdominal exam reveals normal bowel sounds, soft non tender, no suprapubic tenderness Extremities are nonedematous and both pedal pulses are present Neurologic exam is alert and responds to questions she is oriented x3 Skin is without bruises or rashes Psychologically is without concerns for anxiety or depression Results & Data Results & Data ([facility]) Vital Signs (Past 12 Hours) Vital Signs Temp Pulse Resp BP Pulse Ox 12/20/20 06:29 97.7 F 78 16 171/92 H 97 12/19/20 22:20 98.1 F 83 16 146/83 H 94 PG Care Time/CCT Total # of Minutes Spent Total Time Spent with Patient: Total time spent is greater than 50% in coordination of care (as documented) at patient's floor/unit and/or counseling patient: Coding Level of Care Code 19526 Subseq Hosp Care Lvl 3 Diagnoses Weakness R53.1 Internal carotid artery stenosis I65.21 Laterality: right Arthritis, multiple joint involvement M12.9 GERD without esophagitis K21.9 Hyperlipidemia E78.5 Hyperlipidemia type: unspecified Hypertension I10 Hypertension type: unspecified Hypothyroidism E03.9 Hypothyroidism type: unspecified Urinary incontinence R32 (1) Internal carotid artery stenosis Laterality: right Qualified Code(s): I65.21 - Occlusion and stenosis of right carotid artery (2) Hyperlipidemia Hyperlipidemia type: unspecified Qualified Code(s): E78.5 - Hyperlipidemia, unspecified (3) Hypothyroidism Hypothyroidism type: unspecified Qualified Code(s): E03.9 - Hypothyroidism, unspecified (4) Hypertension Hypertension type: unspecified Qualified Code(s): I10 - Essential (primary) hypertension
[2020-12-20] MEDS: CLOPIDOGREL BISULFATE 75 MG TAB PO SCH (09:18)
[2020-12-20] MEDS: dilTIAZem HCL 120 MG CAPCR PO SCH (09:18)
[2020-12-20] MEDS: FAMOTIDINE 20 MG in SYRINGE 3 ML IV SCH (09:18)
[2020-12-20 09:21] LABS: Est GFR (African American) 106.8 ml/min; Est GFR (Non-African American) 92.2 ml/min
[2020-12-20] MEDS ORDERED: THIAMINE HCL 200 MG in SODIUM CHLORIDE 0.9% 50 ML IV STA (17:17)
[2020-12-20] MEDS: ASPIRIN 81 MG ECTAB PO SCH (20:16)
[2020-12-21] MEDS: LEVOTHYROXINE SODIUM 25 MCG TABLET PO SCH (05:51)
[2020-12-21] MEDS: ENOXAPARIN INJ 30 MG/0.3 ML SYR SQ SCH (05:51)
[2020-12-21] MEDS ORDERED: cefTRIAXone SODIUM 2,000 MG in DEXTROSE 5% 50 ML IV SCH (06:00)
[2020-12-21 07:31] LABS: Hematocrit (blood only) 35.1 % (37-47); Hemoglobin 11.6 g/dL (12.0-16.0); Mean Corpuscular Hemoglobin 32.5 pg (25-34); Mean Corpuscular Volume 98.3 fL (80-100); Mean Platelet Volume 9.3 fL (7.4-10.4); Platelet Count 242 K/uL (130-400); RDW Coefficient of Variation 15.2 % (11.5-14.5); RDW Standard Deviation 55.1 fL (36.4-46.3); Red Blood Count 3.57 M/uL (4.2-5.4); White Blood Count 6.69 K/uL (4.8-10.8)
[2020-12-21 08:00] LABS: Albumin Level 2.1 gm/dl (3.4-5.0); BUN Creatinine Ratio 39.6 (10-20); Bilirubin Direct 0.1 mg/dl (0-0.2); Calcium 9.5 mg/dl (8.5-10.1); Est GFR (African American) 106.8 ml/min; Est GFR (Non-African American) 92.2 ml/min; Magnesium 1.8 mg/dl (1.8-2.4)
[2020-12-21 08:10] LABS: Bilirubin,Total 0.3 mg/dl (0.2-1); Thyroid Stimulating Hormone 2.61 uIu/ml (0.300-4.500); Total Protein 6.1 gm/dl (6.4-8.2)
[2020-12-21] MEDS ORDERED: POTASSIUM CHLORIDE 10 MEQ / 100ML WTR IV STA (08:21)
[2020-12-21] MEDS ORDERED: MAGNESIUM SULFATE / D5W 1 GM/100 ML BAG IV ONE (09:00)
[2020-12-21] MEDS: POTASSIUM CHLORIDE / WTR 10 MEQ/100 ML PLCT IV SCH ×3 (09:29→11:47)
[2020-12-21] MEDS: dilTIAZem HCL 120 MG CAPCR PO SCH (09:29)
[2020-12-21] MEDS: POTASSIUM CHLORIDE CRTAB 20 MEQ TABCR PO SCH ×2 (09:29→20:00)
[2020-12-21] MEDS: CLOPIDOGREL BISULFATE 75 MG TAB PO SCH (09:29)
[2020-12-21] MEDS: THIAMINE HCL 100 MG in SYRINGE 9 ML IV SCH (09:29)
--- NOTE | 2020-12-21 09:58 | XRay Report ---
XR chest 1V portable HISTORY: Fever. Cough. Evaluate for pneumonia. COMPARISON: Chest 06/29/2020. FINDINGS: No pneumothorax. There is been interval development of a left basilar density. Large hiatus hernia is again noted. The heart is stable in size. Prior cholecystectomy. No evidence for pulmonary edema. There are low lung volumes. Old fracture deformity within the left femoral neck. IMPRESSION: Progressive left basilar density. This may represent atelectasis or pneumonia. ACT 112: Negative or not required by law. Electronically signed by: Kevin Wallace M.D. 12/21/2020 9:56 AM
--- NOTE | 2020-12-21 13:19 | Ultrasound Report ---
US liver HISTORY: 85 years-old Female eval for cholecystitis acute right upper quadrant abdominal pain COMPARISON: PET CT 05/13/2015, chest radiograph 10/19/2014. TECHNIQUE: Multiple real-time sonographic images of the abdominal right upper quadrant were obtained assessing grayscale appearance and color flow FINDINGS: The pancreas is mostly obscured by bowel gas. The liver is within normal limits. Cholecystectomy. Nor mal common bile duct, 5 mm. No ascites. 1.8 cm cyst of the interpolar right kidney. No hydronephrosis identified. IMPRESSION: 1. Unremarkable right upper quadrant abdominal ultrasound. 2. The clinical reason given for the study is to exclude acute cholecystitis. The gallbladder however has been surgically absent back to at least 2014. ACT 112: Negative or not required by law. The above report was generated using voice recognition software. It may contain grammatical, syntax o r spelling errors. Electronically signed by: Young Petersen M.D. 12/21/2020 1:17 PM
[2020-12-21] MEDS ORDERED: PIPERACILL/TAZOBAC CONSULT ACTIVE PRN (16:09)
[2020-12-21] MEDS ORDERED: PIPERACILLIN/TAZOBACTAM 4.5 GM in DEXTROSE 5% 100 ML IV SCH (16:15)
--- NOTE | 2020-12-21 16:19 | Hospitalist Progress Note ---
Date of Service December 21, 2020 Assessment & Plan (1) Weakness: Plan: 85 yo F w/ pMHx. of weakness, swelling, internal carotid stenosis, urinary incontinence presenting after outpatient treatment for UTI with Macrobid and development of altered mental status and ambulatory dysfunction Metabolic encephalopathy and ambulatory dysfunction likely 2/2 UTI given history of recurrent UTIs with similar presentations. Metabolic encephalopathy slightly worse than previous day we will change antibiotics to Zosyn to cover Aspiration pneumonia. Check a.m. cortisol normal . TSH nl, LFTs mild ast elevation but previous jazz and liver u/s is negative. encourage Incentive spirometry. CXR shows progressive left lower lobe infiltrate concern for aspiration pneumonia blood culture [e.coli] now william sensitive, previously resistant to Ciprofloxacin and Levofloxacin, urine culture with contaminated specimen, will assume this was the source as has no bowel c/o and no colic or GB complaints. Broaden antibiotics Pt was also given thiamine with some reportedly improvement in mental state will continue CT head with no acute findings - PT, OT continues Code: full Diet: regular DVT: Lovenox 30 Q24H (2) Internal carotid artery stenosis: Plan: prior CVA -Resume aspirin Plavix and holding statin (3) GERD without esophagitis: Plan: Reflux - continue PPI (4) Hyperlipidemia: Plan: typically is on a statin, on hold at this time (5) Hypertension: Plan: HTN - losartan is held due to lower blood pressure continues on diltiazem Arrhythmia Prior Hx. 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.9 - continue Diltiazem (6) Hypothyroidism: Plan: Hypothyroidism - continue Levothyroxine (7) Urinary incontinence: Plan: Urinary incontinence - Toviaz (8) Arthritis, multiple joint involvement: (9) Low iron: Plan: venofer infusion (10) Hypokalemia: Plan: Hypokalemia - replete with 40 mEq K-rider Admission and Anticipated Discharge Date Admission Date: December 18, 2020 Subjective this pt is reportedly better this am, but remains sleepy and fatigued later this day. daughter at bedside and updated, noted outpt iron level is low, will correct. CXR shows progressive left basilar opacity, early in hospital stay was lethargic and concern for swallowing in jeopardy, now with progressive CXR changes and poor cough will broaden the antibiotics to cover aspiration pneumonia Review of Systems Review of Systems: Mild distress and fatigue no headache, no visual changes her speech has cleared no chest pain, pressure or palpitations no shortness of breath, now cough with deep breathing no focused abdominal pain, nausea or vomiting, diarrhea or constipation no dysuria, hematuria or frequency no focal joint pain or swelling no back pain, CVA tenderness or radicular pain no bruising, bleeding or rashes no focal signs of weakness or numbness or altered sensation, is very sleepy during visit no complaints of anxiety or depression.. Physical Exam Physical Exam: The patient appeared well nourished and normally developed. Vital signs as documented. Head exam is normocephalic atraumatic Neck is without JVD, thyromegaly, or carotid bruits She speaks clearly but falls asleep easily Lungs are diminished at the bases with rales, but poor effort Cardiac exam, Rhythm is regular.. No murmurs, rubs or gallops. Abdominal exam reveals normal bowel sounds, soft non tender, no suprapubic tenderness Extremities are nonedematous and both pedal pulses are present Neurologic exam is alert and responds to questions she is oriented x3 Skin is without bruises or rashes Psychologically is without concerns for anxiety or depression Results & Data Results & [facility] ([facility]) Vital Signs (Past 12 Hours) Vital Signs Temp Pulse Resp BP Pulse Ox 12/21/20 15:54 97.2 F L 75 18 120/68 94 12/21/20 11:24 98.4 F 85 16 148/75 H 96 12/21/20 05:50 99.5 F 89 16 173/89 H 91 PG Care Time/CCT Total # of Minutes Spent Total Time Spent with Patient: Total time spent is greater than 50% in coordination of care (as documented) at patient's floor/unit and/or counseling patient: Coding Level of Care Code 15676 Subseq Hosp Care Lvl 3 Diagnoses Weakness R53.1 Internal carotid artery stenosis I65.21 Laterality: right Arthritis, multiple joint involvement M12.9 GERD without esophagitis K21.9 Hyperlipidemia E78.5 Hyperlipidemia type: unspecified Hypertension I10 Hypertension type: unspecified Hypothyroidism E03.9 Hypothyroidism type: unspecified Urinary incontinence R32 Low iron E61.1 Hypokalemia E87.6 (1) Internal carotid artery stenosis Laterality: right Qualified Code(s): I65.21 - Occlusion and stenosis of right carotid artery (2) Hyperlipidemia Hyperlipidemia type: unspecified Qualified Code(s): E78.5 - Hyperlipidemia, unspecified (3) Hypothyroidism Hypothyroidism type: unspecified Qualified Code(s): E03.9 - Hypothyroidism, unspecified (4) Hypertension Hypertension type: unspecified Qualified Code(s): I10 - Essential (primary) hypertension
[2020-12-21] MEDS ORDERED: PIPERACILLIN/TAZOBACTAM 3.375 GM in DEXTROSE 5% 100 ML IV ONE (17:15)
[2020-12-21] MEDS ORDERED: IRON SUCROSE 200 MG in 0.9 % SODIUM CHLORIDE 100 ML IV ONE (17:30)
[2020-12-21] MEDS: ASPIRIN 81 MG ECTAB PO SCH (20:00)
[2020-12-21] MEDS: PIPERACILLIN/TAZOBACTAM 3.375 GM in DEXTROSE 5% 100 ML IV SCH (22:14)
[2020-12-22] MEDS: LEVOTHYROXINE SODIUM 25 MCG TABLET PO SCH (06:19)
[2020-12-22] MEDS: PIPERACILLIN/TAZOBACTAM 3.375 GM in DEXTROSE 5% 100 ML IV SCH ×3 (06:19→22:50)
[2020-12-22] MEDS: ENOXAPARIN INJ 30 MG/0.3 ML SYR SQ SCH (06:20)
[2020-12-22 07:24] LABS: Hematocrit (blood only) 35.7 % (37-47); Hemoglobin 11.8 g/dL (12.0-16.0); Mean Corpuscular Hemoglobin 32.6 pg (25-34); Mean Corpuscular Hgb Conc 33.1 g/dL (32-36); Mean Corpuscular Volume 98.6 fL (80-100); Platelet Count 233 K/uL (130-400); RDW Coefficient of Variation 15.5 % (11.5-14.5); RDW Standard Deviation 56.5 fL (36.4-46.3); Red Blood Count 3.62 M/uL (4.2-5.4); White Blood Count 8.02 K/uL (4.8-10.8)
[2020-12-22 08:18] LABS: BUN Creatinine Ratio 29.3 (10-20); Calcium 9.5 mg/dl (8.5-10.1); Est GFR (African American) 106.8 ml/min; Est GFR (Non-African American) 92.2 ml/min; Magnesium 2.2 mg/dl (1.8-2.4); Potassium 3.7 mmol/L (3.5-5.1)
[2020-12-22] MEDS: THIAMINE HCL 100 MG in SYRINGE 9 ML IV SCH (08:46)
[2020-12-22] MEDS: dilTIAZem HCL 120 MG CAPCR PO SCH (08:46)
[2020-12-22] MEDS: CLOPIDOGREL BISULFATE 75 MG TAB PO SCH (08:47)
[2020-12-22] MEDS: POTASSIUM CHLORIDE CRTAB 20 MEQ TABCR PO SCH (08:47)
--- NOTE | 2020-12-22 13:47 | Hospitalist Progress Note ---
Date of Service December 22, 2020 Assessment & Plan (1) Weakness: Plan: 85 yo F w/ pMHx. of weakness, swelling, internal carotid stenosis, urinary incontinence presenting after outpatient treatment for UTI with Macrobid and development of altered mental status and ambulatory dysfunction Metabolic encephalopathy and ambulatory dysfunction with E coli bacteremia(william sensitive), likely 2/2 UTI given history of recurrent UTIs with similar pres entations. Metabolic encephalopathy slightly worse after initial clearing, prompting change in antibiotics to Zosyn to cover Aspiration pneumonia. cortisol normal . TSH nl, LFTs mild ast elevation but previous jazz and liver u/s is negative. encourage Incentive spirometry. CXR shows progressive left lower lobe infiltrate concern for aspiration pneumonia however is not with cough blood culture [e.coli] now william sensitive, urine culture with contaminated specimen, will assume this was the source as has no bowel c/o and no colic, previous choecystectomy and . Broaden antibiotics Pt was also given thiamine with some reportedly improvement in mental state will continue CT head with no acute findings - PT, OT continues Code: full Diet: regular DVT: Lovenox 30 Q24H (2) Internal carotid artery stenosis: Plan: prior CVA -Resume aspirin Plavix and holding statin (3) GERD without esophagitis: Plan: Reflux - continue PPI (4) Hyperlipidemia: Plan: typically is on a statin, on hold at this time (5) Hypertension: Plan: HTN - losartan is held due to lower blood pressure continues on diltiazem Arrhythmia Prior Hx. 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.9 - continue Diltiazem (6) Hypothyroidism: Plan: Hypothyroidism - continue Levothyroxine (7) Urinary incontinence: Plan: Urinary incontinence - Toviaz (8) Arthritis, multiple joint involvement: (9) Low iron: Plan: venofer infusion (10) Hypokalemia: Plan: Hypokalemia - replete with 40 mEq K-rider Admission and Anticipated Discharge Date Admission Date: December 18, 2020 Subjective this pt is reportedly better in the am, but remains sleepy and fatigued later in the day day. Family seems determined to take home however PT eval suggests rehab CXR shows progressive left basilar opacity, early in hospital stay was lethargic and concern for swallowing in jeopardy, now with progressive CXR changes and poor cough will broaden the antibiotics to cover aspiration pneumonia, however she has not rebounded well and the basilar changes are not completely correlating with no clinical symptoms, given profound weakness will check CT chest to evaluate for nefarious issues in lung base that maybe overall impacting her performance Review of Systems Review of Systems: Mild distress and moderate fatigue no headache, no visual changes her speech has cleared no chest pain, pressure or palpitations no shortness of breath, now cough with deep breathing no focused abdominal pain, nausea or vomiting, diarrhea or constipation no dysuria, hematuria or frequency no focal joint pain or swelling no back pain, CVA tenderness or radicular pain no bruising, bleeding or rashes no focal signs of weakness or numbness or altered sensation, oriented x 3 but sleeps easily Physical Exam Physical Exam: The patient appeared well nourished and normally developed. Vital signs as documented. Head exam is normocephalic atraumatic Neck is without JVD, thyromegaly, or carotid bruits She speaks clearly but falls asleep easily Lungs are diminished at the bases with rales, but poor effort Cardiac exam, Rhythm is regular.. No murmurs, rubs or gallops. Abdominal exam reveals normal bowel sounds, soft non tender, no suprapubic tenderness Extremities are nonedematous and both pedal pulses are present Neurologic exam is alert and responds to questions she is oriented x3 Skin is without bruises or rashes Psychologically is with concerns beginning dementia Results & Data Results & Data ([facility]) Vital Signs (Past 12 Hours) Vital Signs Temp Pulse Resp BP Pulse Ox 12/22/20 08:30 98.1 F 85 16 129/93 96 PG Care Time/CCT Total # of Minutes Spent Total Time Spent with Patient: Total time spent is greater than 50% in coordination of care (as documented) at patient's floor/unit and/or counseling patient: Coding Level of Care Code 49451 Subseq Hosp Care Lvl 3 Diagnoses Weakness R53.1 Internal carotid artery stenosis I65.21 Laterality: right GERD without esophagitis K21.9 Hyperlipidemia E78.5 Hyperlipidemia type: unspecified Hypertension I10 Hypertension type: unspecified Hypothyroidism E03.9 Hypothyroidism type: unspecified Urinary incontinence R32 Arthritis, multiple joint involvement M12.9 Low iron E61.1 Hypokalemia E87.6 (1) Internal carotid artery stenosis Laterality: right Qualified Code(s): I65.21 - Occlusion and stenosis of right carotid artery (2) Hyperlipidemia Hyperlipidemia type: unspecified Qualified Code(s): E78.5 - Hyperlipidemia, unspecified (3) Hypertension Hypertension type: unspecified Qualified Code(s): I10 - Essential (primary) hypertension (4) Hypothyroidism Hypothyroidism type: unspecified Qualified Code(s): E03.9 - Hypothyroidism, unspecified
--- NOTE | 2020-12-22 14:38 | CT Scan Report ---
CT chest diagnostic wo con CT DOSE: 277.95 mGy.cm HISTORY: Abnormal chest x-ray. Left basilar opacity. eval LLL to help determine if pneumonia or not TECHNIQUE: Multiaxial CT images of the chest were performed without contrast. A dose lowering techni que was utilized adhering to the principles of ALARA. COMPARISON: Chest 12/21/2020. Chest CT 11/06/2016. FINDINGS: No pneumothorax. There is a large hiatus hernia containing the majority the stomach. This r emains unchanged. Normal caliber esophagus. No mediastinal or hilar lymphadenopathy. The heart is bor derline enlarged. There are dense coronary artery calcifications. No pericardial effusion. Mild calci fied plaque within the normal caliber thoracic aorta. Limited views of the upper abdomen demonstrate normal liver and spleen. No fractures within the visualized osseous structures. No pneumothorax. Ther e is mild respiratory motion artifact. The central airways are patent. Stable peripheral scarlike den sity within the right upper lobe on image 95. This measures 1.2 cm. Mild diffuse interstitial thicken ing which is likely chronic. There appears to be trace left pleural effusion. Small patchy densities within the base of the left lower lobe have also slightly progressed. This favors atelectasis. Puncta te calcified granuloma within the right upper lobe. There are few patchy right basilar densities whic h is also slightly progressed. IMPRESSION: 1. Slight progression of the small patchy bibasilar densities. This favors atelectasis. A pneumonia c ould also have a similar appearance but is considered less likely. 2. Trace left pleural effusion. 3. Large hiatus hernia, unchanged. ACT 112: Negative or not required by law. Electronically signed by: Kevin Wallace M.D. 12/22/2020 2:36 PM
[2020-12-22] MEDS: ASPIRIN 81 MG ECTAB PO SCH (20:15)
[2020-12-23] MEDS: PIPERACILLIN/TAZOBACTAM 3.375 GM in DEXTROSE 5% 100 ML IV SCH ×3 (05:14→22:28)
[2020-12-23] MEDS: ENOXAPARIN INJ 30 MG/0.3 ML SYR SQ SCH (05:17)
[2020-12-23] MEDS: LEVOTHYROXINE SODIUM 25 MCG TABLET PO SCH (05:17)
[2020-12-23 06:19] LABS: Hematocrit (blood only) 36.3 % (37-47); Hemoglobin 11.9 g/dL (12.0-16.0); Mean Corpuscular Hemoglobin 32.3 pg (25-34); Mean Corpuscular Hgb Conc 32.8 g/dL (32-36); Mean Corpuscular Volume 98.6 fL (80-100); Mean Platelet Volume 9.1 fL (7.4-10.4); Platelet Count 276 K/uL (130-400); RDW Coefficient of Variation 15.7 % (11.5-14.5); RDW Standard Deviation 56.7 fL (36.4-46.3); Red Blood Count 3.68 M/uL (4.2-5.4); White Blood Count 8.59 K/uL (4.8-10.8)
[2020-12-23 06:52] LABS: Calcium 9.7 mg/dl (8.5-10.1); Creatinine Clr Calc Pharmacy 67.4 ml/min; Est GFR (African American) 102.2 ml/min; Est GFR (Non-African American) 88.2 ml/min; Magnesium 2.2 mg/dl (1.8-2.4); Potassium 3.8 mmol/L (3.5-5.1)
[2020-12-23] MEDS: dilTIAZem HCL 120 MG CAPCR PO SCH (08:39)
[2020-12-23] MEDS: THIAMINE HCL 100 MG in SYRINGE 9 ML IV SCH (08:39)
[2020-12-23] MEDS: CLOPIDOGREL BISULFATE 75 MG TAB PO SCH (08:39)
--- NOTE | 2020-12-23 16:12 | Hospitalist Progress Note ---
Date of Service December 23, 2020 Assessment & Plan (1) Weakness: Plan: 85 yo F w/ pMHx. of weakness, swelling, internal carotid stenosis, urinary incontinence presenting after outpatient treatment for UTI with Macrobid and development of altered mental status and ambulatory dysfunction Metabolic encephalopathy and ambulatory dysfunction with E coli bacteremia(william sensitive), likely 2/2 UTI given history of recurrent UTIs with similar pres entations. Metabolic encephalopathy slightly worse after initial clearing, prompting change in antibiotics to Zosyn to cover Aspiration pneumonia. cortisol normal . TSH nl, LFTs mild ast elevation but previous jazz and liver u/s is negative. encourage Incentive spirometry. CXR shows progressive left lower lobe infiltrate concern for aspiration pneumonia however is not with cough blood culture [e.coli] now william sensitive, urine culture with contaminated specimen, will assume this was the source as has no bowel c/o and no colic, previous choecystectomy and . Broaden antibiotics Pt was also given thiamine with some reportedly improvement in mental state will continue CT head with no acute findings -> Presumed to be from infectious encephalopathy. Continue with abx. - PT, OT continues Code: full Diet: regular DVT: Lovenox 30 Q24H (2) Internal carotid artery stenosis: Plan: prior CVA -Resume aspirin Plavix and holding statin (3) GERD without esophagitis: Plan: Reflux - continue PPI (4) Hyperlipidemia: Plan: typically is on a statin, on hold at this time (5) Hypertension: Plan: HTN - losartan is held due to lower blood pressure continues on diltiazem Arrhythmia Prior Hx. 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.9 - continue Diltiazem (6) Hypothyroidism: Plan: Hypothyroidism - continue Levothyroxine (7) Urinary incontinence: Plan: Urinary incontinence - Toviaz (8) Arthritis, multiple joint involvement: Plan: No complaint of pain today for me. Appeared comfortable. - Monitor (9) Low iron: Plan: venofer infusion (10) Hypokalemia: Plan: Hypokalemia - replete with 40 mEq K-rider Admission and Anticipated Discharge Date Admission Date: December 18, 2020 Subjective Very sleepy for me. Falls back asleep before really answering any questions. Review of Systems Review of Systems: Unobtainable due to cognitive status and Unobtainable due to reduced consciousness Physical Exam Constitutional: WD/WN, vitals as above no acute distress Eyes: EOM intact bilaterally; no conjunctival abnormality ENMT: external ear and nose normal, oropharynx normal Neck: trachea midline, no thyromegaly normal visual inspection Respiratory: normal respiratory effort, lungs clear to auscultation no respiratory distress Cardiovascular: RRR, no murmur, no edema Gastrointestinal (Abdomen): Inspection/Auscultation: abdomen normal to inspection; abdomen not distended Musculoskeletal: no cyanosis or clubbing, extremities motor strength 5/5 Skin: no rashes, warm and dry Neurologic: moves all extremities; + not awake Psychiatric: Orientation: oriented to person; + not alert Results & Data Results & Data ([facility]) Vital Signs (Past 12 Hours) Vital Signs Temp Pulse Resp BP Pulse Ox 12/23/20 14:59 36.9 C 91 H 16 128/83 97 12/23/20 06:33 36.8 C 83 16 146/82 H 97 PG Care Time/CCT Total # of Minutes Spent Total Time Spent with Patient: Total time spent is greater than 50% in coordination of care (as documented) at patient's floor/unit and/or counseling patient: Coding Level of Care Code 75027 Subseq Hosp Care Lvl 2 Diagnoses Weakness R53.1 Internal carotid artery stenosis I65.21 Laterality: right GERD without esophagitis K21.9 Hyperlipidemia E78.5 Hyperlipidemia type: unspecified Hypertension I10 Hypertension type: unspecified Hypothyroidism E03.9 Hypothyroidism type: unspecified Urinary incontinence R32 Arthritis, multiple joint involvement M12.9 Low iron E61.1 Hypokalemia E87.6 (1) Internal carotid artery stenosis Laterality: right Qualified Code(s): I65.21 - Occlusion and stenosis of right carotid artery (2) Hyperlipidemia Hyperlipidemia type: unspecified Qualified Code(s): E78.5 - Hyperlipidemia, unspecified (3) Hypertension Hypertension type: unspecified Qualified Code(s): I10 - Essential (primary) hypertension (4) Hypothyroidism Hypothyroidism type: unspecified Qualified Code(s): E03.9 - Hypothyroidism, unspecified
[2020-12-23] MEDS: ASPIRIN 81 MG ECTAB PO SCH (22:13)
[2020-12-24] MEDS: LEVOTHYROXINE SODIUM 25 MCG TABLET PO SCH (06:24)
[2020-12-24] MEDS: ENOXAPARIN INJ 30 MG/0.3 ML SYR SQ SCH (06:24)
[2020-12-24] MEDS: PIPERACILLIN/TAZOBACTAM 3.375 GM in DEXTROSE 5% 100 ML IV SCH ×3 (06:24→21:33)
[2020-12-24 06:26] LABS: Hematocrit (blood only) 37.5 % (37-47); Hemoglobin 12.4 g/dL (12.0-16.0); Mean Corpuscular Hgb Conc 33.1 g/dL (32-36); Mean Corpuscular Volume 99.7 fL (80-100); Mean Platelet Volume 9.1 fL (7.4-10.4); Platelet Count 312 K/uL (130-400); RDW Coefficient of Variation 15.6 % (11.5-14.5); RDW Standard Deviation 56.8 fL (36.4-46.3); Red Blood Count 3.76 M/uL (4.2-5.4); White Blood Count 8.89 K/uL (4.8-10.8)
[2020-12-24 06:58] LABS: Calcium 9.9 mg/dl (8.5-10.1); Creatinine Clr Calc Pharmacy 52.2 ml/min; Est GFR (Non-African American) 81.1 ml/min; Potassium 3.7 mmol/L (3.5-5.1)
[2020-12-24] MEDS: dilTIAZem HCL 120 MG CAPCR PO SCH (09:02)
[2020-12-24] MEDS: CLOPIDOGREL BISULFATE 75 MG TAB PO SCH (09:02)
[2020-12-24] MEDS: THIAMINE HCL 100 MG in SYRINGE 9 ML IV SCH (09:03)
--- NOTE | 2020-12-24 18:54 | Hospitalist Progress Note ---
Date of Service December 24, 2020 Assessment & Plan (1) E coli bacteremia: Plan: 85 yo F w/ pMHx. of weakness, swelling, internal carotid stenosis, urinary incontinence presenting after outpatient treatment for UTI with Macrobid and development of altered mental status and ambulatory dysfunction Blood culture [e.coli] now william sensitive, urine culture with contaminated specimen, will assume this was the source as has no bowel c/o. Initially on ceftriaxone but given concern for worsening mental status antibiotics broadened to Zosyn on December 21. Given lack of information on baseline at current time will continue on this. Some possible concern regarding aspiration however procalcitonin this morning negative. Repeat blood cultures from 12/20 negative 48 hours. (2) Acute UTI: Plan: As above (3) Metabolic encephalopathy: Plan: Metabolic encephalopathy and ambulatory dysfunction with E coli bacteremia(william sensitive), likely 2/2 UTI given history of recurrent UTIs with similar presentations. Metabolic encephalopathy slightly worse after initial clearing, prompting change in antibiotics to Zosyn to cover Aspiration pneumonia. Cortisol normal . TSH nl, LFTs mild ast elevation but previous jazz and liver u/s is negative. encourage Incentive spirometry. CXR shows progressive left lower lobe infiltrate concern for aspiration pneumonia however is not with cough. Appears improved from what has been described on prior days. Unknown baseline however. CT head no acute intracranial pathology Reportedly improvement in mentation with IV thiamine therefore will continue this No level taken prior to supplementation (4) Weakness: Plan: As above (5) Aspiration pneumonia: Plan: Continue Zosyn. Procalcitonin negative. Can likely be switched to Augmentin on discharge to cover E. coli bacteremia and aspiration PNA. (6) Oropharyngeal dysphagia: Plan: SLT consult 12/18 pureed diet Aspiration precautions (7) Internal carotid artery stenosis: Plan: -Resume aspirin Plavix and holding statin (8) GERD without esophagitis: Plan: - continue PPI (9) Hyperlipidemia: Plan: typically is on a statin, on hold at this time due to generalized weakness (10) Hypertension: Plan: - Holding telmisartan due to low normal BP, continue diltiazem Arrhythmia Prior Hx. 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.9 - continue Diltiazem (11) Hypothyroidism: Plan: - continue Levothyroxine (12) Urinary incontinence: Plan: - Toviaz (13) Arthritis, multiple joint involvement: Plan: No complaint of pain today for me. Appeared comfortable. - Monitor (14) Low iron: Plan: 12/16 transferrin sats 9% Venofer 200mg on 12/21 Given no anemia will defer further infusions (15) Hypokalemia: Plan: Monitor and replace as necesssary Plan: Code: full Diet: regular DVT: Lovenox 30 Q24H Admission and Anticipated Discharge Date Admission Date: December 18, 2020 Subjective Patient appears pleasantly confused. Denies any chest pain, shortness of breath or cough. Reports her appetite has always been poor but denies any nausea, vomiting, abdominal pain or dysphagia. Tried calling Clementina (POA noted on sticky note) and Vi (daughter) with no answer at numbers provided. Review of Systems Review of Systems: All systems reviewed & are unremarkable except as noted in HPI & below Physical Exam Constitutional: WD/WN, vitals as above no acute distress Eyes: EOM intact bilaterally; no conjunctival abnormality ENMT: external ear and nose normal, oropharynx normal Neck: trachea midline, no thyromegaly normal visual inspection Respiratory: normal respiratory effort, lungs clear to auscultation no respiratory distress Cardiovascular: RRR, no murmur, no edema Gastrointestinal (Abdomen): Inspection/Auscultation: abdomen normal to inspection; abdomen not distended Percussion/Palpation: abdomen soft; abdomen nontender Musculoskeletal: no cyanosis or clubbing, extremities motor strength 5/5 Skin: no rashes, warm and dry Neurologic: moves all extremities and awake Psychiatric: Orientation: alert and oriented to person; + not oriented to place and + not oriented to time Results & Data Results & Data ([facility]) Vital Signs (Past 12 Hours) Vital Signs Temp Pulse Resp BP Pulse Ox 12/24/20 16:44 37.1 C 83 16 122/71 96 12/24/20 08:25 36.7 C 86 16 151/85 H 99 PG Care Time/CCT Total # of Minutes Spent Total Time Spent with Patient: Total time spent is greater than 50% in coordination of care (as documented) at patient's floor/unit and/or counseling patient: Coding Level of Care Code 45027 Subseq Hosp Care Lvl 2 Diagnoses Weakness R53.1 Internal carotid artery stenosis I65.21 Laterality: right GERD without esophagitis K21.9 Hyperlipidemia E78.5 Hyperlipidemia type: unspecified Hypertension I10 Hypertension type: unspecified Hypothyroidism E03.9 Hypothyroidism type: unspecified Urinary incontinence R32 Arthritis, multiple joint involvement M12.9 Low iron E61.1 Hypokalemia E87.6 E coli bacteremia R78.81; B96.20 Acute UTI N39.0 Metabolic encephalopathy G93.41 Oropharyngeal dysphagia R13.12 Aspiration pneumonia J69.0 (1) Internal carotid artery stenosis Laterality: right Qualified Code(s): I65.21 - Occlusion and stenosis of right carotid artery (2) Hyperlipidemia Hyperlipidemia type: unspecified Qualified Code(s): E78.5 - Hyperlipidemia, unspecified (3) Hypothyroidism Hypothyroidism type: unspecified Qualified Code(s): E03.9 - Hypothyroidism, unspecified (4) Hypertension Hypertension type: unspecified Qualified Code(s): I10 - Essential (primary) hypertension
[2020-12-24] MEDS: ASPIRIN 81 MG ECTAB PO SCH (21:33)
[2020-12-25] MEDS: LEVOTHYROXINE SODIUM 25 MCG TABLET PO SCH (06:28)
[2020-12-25] MEDS: ENOXAPARIN INJ 30 MG/0.3 ML SYR SQ SCH (06:28)
[2020-12-25] MEDS: PIPERACILLIN/TAZOBACTAM 3.375 GM in DEXTROSE 5% 100 ML IV SCH ×2 (06:30→13:56)
[2020-12-25] MEDS: dilTIAZem HCL 120 MG CAPCR PO SCH (09:04)
[2020-12-25] MEDS: CLOPIDOGREL BISULFATE 75 MG TAB PO SCH (09:04)
[2020-12-25] MEDS: THIAMINE HCL 100 MG TAB PO SCH (09:51)
--- NOTE | 2020-12-25 16:00 | Hospitalist Progress Note ---
Date of Service December 25, 2020 Assessment & Plan (1) E coli bacteremia: Plan: 85 yo F w/ pMHx. of weakness, swelling, internal carotid stenosis, urinary incontinence presenting after outpatient treatment for UTI with Macrobid and development of altered mental status and ambulatory dysfunction Blood culture [e.coli] now william sensitive, urine culture with contaminated specimen, will assume this was the source as has no bowel c/o. Initially on ceftriaxone but given concern for worsening mental status antibiotics broadened to Zosyn on December 21. Repeat blood cultures from 12/20 negative 48 hours. On discussion with her family it appears she is reasonably for off her baseline with strength but not necessarily her mentality. Will switch to Augmentin to cover both aspiration and E. coli bacteremia for a total of 2 week antibiotic course. Observe over the next few days for clinical stability. (2) Acute UTI: Plan: As above (3) Metabolic encephalopathy: Plan: Metabolic encephalopathy and ambulatory dysfunction with E coli bacteremia(william sensitive), likely 2/2 UTI given history of recurrent UTIs with similar presentations. Metabolic encephalopathy slightly worse after initial clearing, prompting change in antibiotics to Zosyn to cover Aspiration pneumonia. Cortisol normal . TSH nl, LFTs mild ast elevation but previous jazz and liver u/s is negative. encourage Incentive spirometry. CXR shows progressive left lower lobe infiltrate concern for aspiration pneumonia however is not with cough. CT head no acute intracranial pathology Reportedly improvement in mentation with IV thiamine therefore will continue this but switch to PO. No level taken prior to supplementation. Appears to be back to her baseline mentation - suspect just took a while to overcome bacteremia infection. (4) Weakness: Plan: As above Continue PT/OT during inpatient stay (5) Aspiration pneumonia: Plan: Possible diagnosis Switch to Augmentin. Procalcitonin negative. Repeat SLT eval now more awake (6) Oropharyngeal dysphagia: Plan: SLT consult 12/18 pureed diet Aspiration precautions Repeat evaluation as above (7) Internal carotid artery stenosis: Plan: -Resume aspirin Plavix and holding statin (8) GERD without esophagitis: Plan: - continue PPI (9) Hyperlipidemia: Plan: typically is on a statin, on hold at this time due to generalized weakness (10) Hypertension: Plan: - Holding telmisartan due to low normal BP, continue diltiazem Arrhythmia Prior Hx. 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.9 - continue Diltiazem (11) Hypothyroidism: Plan: TSH WNL - continue Levothyroxine (12) Urinary incontinence: Plan: - Toviaz (13) Arthritis, multiple joint involvement: Plan: No complaint of pain today for me. Appeared comfortable. - Monitor (14) Low iron: Plan: 12/16 transferrin sats 9% Venofer 200mg on 12/21 Given no anemia will defer further infusions (15) Hypokalemia: Plan: Monitor and replace as necessary Plan: Code: full Diet: regular DVT: Lovenox 30 Q24H Admission and Anticipated Discharge Date Admission Date: December 18, 2020 Subjective Patient pleasantly confused but awake in bed. Unable to understand why she is in hospital. Updated her daughter at bedside. She has been much improved with me the last two days but I understand she took a long time to get to this point. They are concerned about bringing her home in her current state but also do not wish to consider rehabilitation. I discussed switching over to oral antibiotics now she has been stable for the last 2 days and they wish to make sure she is stable on these which seems reasonable. Will need 24 hour care at home on discharge. Previously speech evaluation performed when the patient was very lethargic therefore requested repeat evaluation of this since she appears to be much improved. Review of Systems Review of Systems: All systems reviewed & are unremarkable except as noted in HPI & below Physical Exam Constitutional: WD/WN, vitals as above no acute distress Eyes: + anicteric sclerae; normal pupil size Neck: trachea midline, no thyromegaly normal visual inspection Respiratory: normal respiratory effort, lungs clear to auscultation no respiratory distress Cardiovascular: RRR, no murmur, no edema Gastrointestinal (Abdomen): Inspection/Auscultation: abdomen normal to inspection; abdomen not distended Percussion/Palpation: abdomen soft; abdomen nontender Skin: no rashes, warm and dry Neurologic: moves all extremities and awake Psychiatric: Orientation: alert and oriented to person (self only); + not oriented to place and + not oriented to time Results & Data Results & Data ([facility]) Vital Signs (Past 12 Hours) Vital Signs Temp Pulse Resp BP Pulse Ox 12/25/20 15:48 36.5 C 88 16 134/83 96 12/25/20 09:03 84 122/82 12/25/20 06:48 36.7 C 97 H 16 138/82 96 PG Care Time/CCT Total # of Minutes Spent Total Time Spent with Patient: Total time spent is greater than 50% in coordination of care (as documented) at patient's floor/unit and/or counseling patient: Coding Level of Care Code 06239 Subseq Hosp Care Lvl 2 Diagnoses E coli bacteremia R78.81; B96.20 Acute UTI N39.0 Metabolic encephalopathy G93.41 Weakness R53.1 Aspiration pneumonia J69.0 Oropharyngeal dysphagia R13.12 Internal carotid artery stenosis I65.21 Laterality: right GERD without esophagitis K21.9 Hyperlipidemia E78.5 Hyperlipidemia type: unspecified Hypertension I10 Hypertension type: unspecified Hypothyroidism E03.9 Hypothyroidism type: unspecified Urinary incontinence R32 Arthritis, multiple joint involvement M12.9 Low iron E61.1 Hypokalemia E87.6 (1) Internal carotid artery stenosis Laterality: right Qualified Code(s): I65.21 - Occlusion and stenosis of right carotid artery (2) Hyperlipidemia Hyperlipidemia type: unspecified Qualified Code(s): E78.5 - Hyperlipidemia, unspecified (3) Hypothyroidism Hypothyroidism type: unspecified Qualified Code(s): E03.9 - Hypothyroidism, unspecified (4) Hypertension Hypertension type: unspecified Qualified Code(s): I10 - Essential (primary) hypertension
[2020-12-25] MEDS: AMOXICILLIN/CLAVULANATE 875 MG TAB PO SCH (18:08)
[2020-12-25] MEDS: PANTOprazole 40 MG TAB PO SCH (20:27)
[2020-12-25] MEDS: ASPIRIN 81 MG ECTAB PO SCH (20:27)
[2020-12-26] MEDS: LEVOTHYROXINE SODIUM 25 MCG TABLET PO SCH (05:56)
[2020-12-26] MEDS: ENOXAPARIN INJ 30 MG/0.3 ML SYR SQ SCH (05:56)
[2020-12-26 06:01] LABS: Basophils # (auto) 0.05 K/uL (0-0.2); Basophils % (auto) 0.6 %; Eosinophils # (auto) 0.18 K/uL (0-0.5); Hematocrit (blood only) 39.3 % (37-47); Hemoglobin 12.6 g/dL (12.0-16.0); Immature Granulocytes # (auto) 0.18 K/uL (0.00-0.02); Lymphocytes # (auto) 1.42 K/uL (1.2-3.4); Lymphocytes % (auto) 15.9 %; Mean Corpuscular Hemoglobin 32.1 pg (25-34); Mean Corpuscular Hgb Conc 32.1 g/dL (32-36); Mean Platelet Volume 9.1 fL (7.4-10.4); Monocytes # (auto) 0.45 K/uL (0.11-0.59); Neutrophils # (auto) 6.65 K/uL (1.4-6.5); Neutrophils % (auto) 74.5 %; Platelet Count 342 K/uL (130-400); RDW Coefficient of Variation 15.4 % (11.5-14.5); RDW Standard Deviation 56.5 fL (36.4-46.3); Red Blood Count 3.93 M/uL (4.2-5.4); White Blood Count 8.93 K/uL (4.8-10.8)
[2020-12-26 06:31] LABS: BUN Creatinine Ratio 19.5 (10-20); Calcium 10.2 mg/dl (8.5-10.1); Est GFR (African American) 94.5 ml/min; Est GFR (Non-African American) 81.5 ml/min; Potassium 3.2 mmol/L (3.5-5.1)
[2020-12-26] MEDS: dilTIAZem HCL 120 MG CAPCR PO SCH (09:04)
[2020-12-26] MEDS: AMOXICILLIN/CLAVULANATE 875 MG TAB PO SCH ×2 (09:04→18:04)
[2020-12-26] MEDS: CLOPIDOGREL BISULFATE 75 MG TAB PO SCH (09:04)
[2020-12-26] MEDS: THIAMINE HCL 100 MG TAB PO SCH (09:04)
--- NOTE | 2020-12-26 13:32 | Hospitalist Progress Note ---
Date of Service December 26, 2020 Assessment & Plan (1) E coli bacteremia: Plan: 85 yo F w/ pMHx. of weakness, swelling, internal carotid stenosis, urinary incontinence presenting after outpatient treatment for UTI with Macrobid and development of altered mental status and ambulatory dysfunction Blood culture [e.coli] now william sensitive, urine culture with contaminated specimen, will assume this was the source as has no bowel c/o. Initially on ceftriaxone but given concern for worsening mental status antibiotics broadened to Zosyn on December 21, now switched to Augmentin 12/25. Repeat blood cultures from 12/20 negative 48 hours. Continue on Augmentin for total 2 week course Plan to discharge on Wednesday back home to allow family to set up 24 hour care. (2) Acute UTI: Plan: As above (3) Metabolic encephalopathy: Plan: Metabolic encephalopathy and ambulatory dysfunction with E coli bacteremia(william sensitive), likely 2/2 UTI given history of recurrent UTIs with similar presentations. Metabolic encephalopathy slightly worse after initial clearing, prompting change in antibiotics to Zosyn to cover Aspiration pneumonia. Cortisol normal . TSH nl, LFTs mild ast elevation but previous jazz and liver u/s is negative. encourage Incentive spirometry. CXR shows progressive left lower lobe infiltrate concern for aspiration pneumonia however is not with cough. CT head no acute intracranial pathology Reportedly improvement in mentation with IV thiamine therefore will continue this but switch to PO. No level taken prior to supplementation. Appears to be back to her baseline mentation - suspect just took a while to overcome bacteremia infection. (4) Weakness: Plan: As above Continue PT/OT during inpatient stay. Family requests discharge home with 24 hour care. (5) Aspiration pneumonia: Plan: Possible diagnosis Switch to Augmentin. Procalcitonin negative. Appreciate SLT evaluation - increased to minced and moist diet. No aspiration but requires reminding to swallow (6) Oropharyngeal dysphagia: Plan: Aspiration precautions Switched to minced and moist diet today per repeat SLT re-evaluation (7) Internal carotid artery stenosis: Plan: -Resume aspirin Plavix. Given recent CVA will restart her atorvastatin. 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 Reportedly this had been discontinued prior to this admission. (13) Arthritis, multiple joint involvement: Plan: No complaint of pain today for me. Appeared comfortable. - Monitor (14) Low iron: Plan: 12/16 transferrin sats 9% Venofer 200mg on 12/21 Given no anemia will defer further infusions (15) Hypokalemia: Plan: Continues to trend down?antibiotic-associated diarrhea. Start potassium chloride 20 meq PO daily Plan: Code: full Diet: regular, minced and moist DVT: Lovenox 30 Q24H Admission and Anticipated Discharge Date Admission Date: December 18, 2020 Subjective No acute events overnight. Patient remains pleasantly confused. Understands she is in hospital. Sitting up in chair when seen. Review of Systems Review of Systems: All systems reviewed & are unremarkable except as noted in HPI & below Physical Exam Constitutional: WD/WN, vitals as above + frail appearing; no acute distress Eyes: + anicteric sclerae; normal pupil size Respiratory: normal respiratory effort, lungs clear to auscultation no respiratory distress Cardiovascular: RRR, no murmur, no edema Gastrointestinal (Abdomen): Inspection/Auscultation: abdomen normal to inspection; abdomen not distended Percussion/Palpation: abdomen soft; abdomen nontender Musculoskeletal: no cyanosis or clubbing, extremities motor strength 5/5 Skin: no rashes, warm and dry Neurologic: moves all extremities and awake Psychiatric: Orientation: alert and oriented to person (self only); + not oriented to place and + not oriented to time Results & Data Results & Data ([facility]) Vital Signs (Past 12 Hours) Vital Signs Temp Pulse Resp BP Pulse Ox 12/26/20 07:40 36.6 C 87 16 130/80 97 PG Care Time/CCT Total # of Minutes Spent Total Time Spent with Patient: Total time spent is greater than 50% in coordination of care (as documented) at patient's floor/unit and/or counseling patient: Coding Level of Care Code 31653 Subseq Hosp Care Lvl 2 Diagnoses E coli bacteremia R78.81; B96.20 Acute UTI N39.0 Metabolic encephalopathy G93.41 Weakness R53.1 Aspiration pneumonia J69.0 Oropharyngeal dysphagia R13.12 Internal carotid artery stenosis I65.21 Laterality: right GERD without esophagitis K21.9 Hyperlipidemia E78.5 Hyperlipidemia type: unspecified Hypertension I10 Hypertension type: unspecified Hypothyroidism E03.9 Hypothyroidism type: unspecified Urinary incontinence R32 Arthritis, multiple joint involvement M12.9 Low iron E61.1 Hypokalemia E87.6 (1) Internal carotid artery stenosis Laterality: right Qualified Code(s): I65.21 - Occlusion and stenosis of right carotid artery (2) Hyperlipidemia Hyperlipidemia type: unspecified Qualified Code(s): E78.5 - Hyperlipidemia, unspecified (3) Hypothyroidism Hypothyroidism type: unspecified Qualified Code(s): E03.9 - Hypothyroidism, unspecified (4) Hypertension Hypertension type: unspecified Qualified Code(s): I10 - Essential (primary) hypertension
[2020-12-26] MEDS ORDERED: POTASSIUM CHLORIDE CRTAB 20 MEQ TABCR PO ONE (21:00)
[2020-12-26] MEDS: PANTOprazole 40 MG TAB PO SCH (21:55)
[2020-12-26] MEDS: ATORVASTATIN 40 MG TAB PO SCH (21:55)
[2020-12-27] MEDS: ENOXAPARIN INJ 30 MG/0.3 ML SYR SQ SCH (05:50)
[2020-12-27] MEDS: LEVOTHYROXINE SODIUM 25 MCG TABLET PO SCH (05:50)
[2020-12-27] MEDS: dilTIAZem HCL 120 MG CAPCR PO SCH (09:31)
[2020-12-27] MEDS: CLOPIDOGREL BISULFATE 75 MG TAB PO SCH (09:32)
[2020-12-27] MEDS: AMOXICILLIN/CLAVULANATE 875 MG TAB PO SCH ×2 (09:32→18:37)
[2020-12-27] MEDS: ADVANCED PROBIOTIC 1250 MG CAPSULE PO SCH (09:32)
[2020-12-27] MEDS: POTASSIUM CHLORIDE CRTAB 20 MEQ TABCR PO SCH (09:32)
[2020-12-27] MEDS: THIAMINE HCL 100 MG TAB PO SCH (09:32)
--- NOTE | 2020-12-27 21:55 | Hospitalist Progress Note ---
Date of Service December 27, 2020 Assessment & Plan (1) E coli bacteremia: Plan: 85 yo F w/ pMHx. of weakness, swelling, internal carotid stenosis, urinary incontinence presenting after outpatient treatment for UTI with Macrobid and development of altered mental status and ambulatory dysfunction Blood culture [e.coli] now william sensitive, urine culture with contaminated specimen, will assume this was the source as has no bowel c/o. Initially on ceftriaxone but given concern for worsening mental status antibiotics broadened to Zosyn on December 21, now switched to Augmentin 12/25. Repeat blood cultures from 12/20 negative 48 hours. Continue on Augmentin for total 2 week course Plan to discharge on Wednesday back home to allow family to set up 24 hour care. (2) Acute UTI: Plan: As above (3) Metabolic encephalopathy: Plan: Metabolic encephalopathy and ambulatory dysfunction with E coli bacteremia(william sensitive), likely 2/2 UTI given history of recurrent UTIs with similar presentations. Metabolic encephalopathy slightly worse after initial clearing, prompting change in antibiotics to Zosyn to cover Aspiration pneumonia. Cortisol normal . TSH nl, LFTs mild ast elevation but previous jazz and liver u/s is negative. encourage Incentive spirometry. CXR shows progressive left lower lobe infiltrate concern for aspiration pneumonia however is not with cough. CT head no acute intracranial pathology Reportedly improvement in mentation with IV thiamine therefore will continue this but switch to PO. No level taken prior to supplementation. Appears to be back to her baseline mentation - suspect just took a while to overcome bacteremia infection. (4) Weakness: Plan: As above Continue PT/OT during inpatient stay. Family requests discharge home with 24 hour care. (5) Aspiration pneumonia: Plan: Possible diagnosis Switch to Augmentin. Procalcitonin negative. Appreciate SLT evaluation - increased to minced and moist diet. No aspiration but requires reminding to swallow (6) Oropharyngeal dysphagia: Plan: Aspiration precautions Switched to minced and moist diet today per repeat SLT re-evaluation (7) Internal carotid artery stenosis: Plan: -Resume aspirin Plavix. Given recent CVA will restart her atorvastatin. 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 Reportedly this had been discontinued prior to this admission. (13) Arthritis, multiple joint involvement: Plan: No complaint of pain today for me. Appeared comfortable. - Monitor (14) Low iron: Plan: 12/16 transferrin sats 9% Venofer 200mg on 12/21 Given no anemia will defer further infusions (15) Hypokalemia: Plan: Continues to trend down?antibiotic-associated diarrhea. Started on potassium chloride 20 meq PO daily. Repeat levels tomorrow. Plan: Code: full Diet: regular, minced and moist DVT: Lovenox 30 Q24H Disposition - discharge home with 24 hour care and PT on Wednesday Admission and Anticipated Discharge Date Admission Date: December 18, 2020 Subjective No acute events overnight. No acute concerns or questions. Understands she is in hospital. Sitting in bed when seen. Review of Systems Review of Systems: All systems reviewed & are unremarkable except as noted in HPI & below Physical Exam Constitutional: WD/WN, vitals as above + frail appearing; no acute distress Eyes: + anicteric sclerae; normal pupil size ENMT: external ear and nose normal, oropharynx normal Respiratory: normal respiratory effort, lungs clear to auscultation no respiratory distress Cardiovascular: RRR, no murmur, no edema Gastrointestinal (Abdomen): Inspection/Auscultation: abdomen normal to inspection; abdomen not distended Percussion/Palpation: abdomen soft; abdomen nontender Neurologic: moves all extremities and awake Psychiatric: Orientation: alert and oriented to person (self only); + not oriented to place and + not oriented to time PG Care Time/CCT Total # of Minutes Spent Total Time Spent with Patient: Total time spent is greater than 50% in coordination of care (as documented) at patient's floor/unit and/or counseling patient: Coding Level of Care Code 40203 Subseq Hosp Care Lvl 1 Diagnoses E coli bacteremia R78.81; B96.20 Acute UTI N39.0 Metabolic encephalopathy G93.41 Weakness R53.1 Aspiration pneumonia J69.0 Oropharyngeal dysphagia R13.12 Internal carotid artery stenosis I65.21 Laterality: right GERD without esophagitis K21.9 Hyperlipidemia E78.5 Hyperlipidemia type: unspecified Hypertension I10 Hypertension type: unspecified Hypothyroidism E03.9 Hypothyroidism type: unspecified Urinary incontinence R32 Arthritis, multiple joint involvement M12.9 Low iron E61.1 Hypokalemia E87.6 (1) Internal carotid artery stenosis Laterality: right Qualified Code(s): I65.21 - Occlusion and stenosis of right carotid artery (2) Hyperlipidemia Hyperlipidemia type: unspecified Qualified Code(s): E78.5 - Hyperlipidemia, unspecified (3) Hypothyroidism Hypothyroidism type: unspecified Qualified Code(s): E03.9 - Hypothyroidism, unspecified (4) Hypertension Hypertension type: unspecified Qualified Code(s): I10 - Essential (primary) hypertension
[2020-12-27] MEDS: ATORVASTATIN 40 MG TAB PO SCH (22:32)
[2020-12-27] MEDS: PANTOprazole 40 MG TAB PO SCH (22:32)
[2020-12-28] MEDS: ENOXAPARIN INJ 30 MG/0.3 ML SYR SQ SCH (05:58)
[2020-12-28] MEDS: LEVOTHYROXINE SODIUM 25 MCG TABLET PO SCH (05:59)
[2020-12-28 06:27] LABS: Calcium 10.4 mg/dl (8.5-10.1); Creatinine Clr Calc Pharmacy 59.9 ml/min; Est GFR (African American) 98.3 ml/min; Est GFR (Non-African American) 84.8 ml/min; Magnesium 2.1 mg/dl (1.8-2.4); Potassium 3.6 mmol/L (3.5-5.1)
[2020-12-28] MEDS: THIAMINE HCL 100 MG TAB PO SCH (09:05)
[2020-12-28] MEDS: CLOPIDOGREL BISULFATE 75 MG TAB PO SCH (09:05)
[2020-12-28] MEDS: ADVANCED PROBIOTIC 1250 MG CAPSULE PO SCH (09:05)
[2020-12-28] MEDS: POTASSIUM CHLORIDE CRTAB 20 MEQ TABCR PO SCH (09:05)
[2020-12-28] MEDS: AMOXICILLIN/CLAVULANATE 875 MG TAB PO SCH ×2 (09:05→17:30)
[2020-12-28] MEDS: dilTIAZem HCL 120 MG CAPCR PO SCH (09:05)
--- NOTE | 2020-12-28 17:43 | Hospitalist Progress Note ---
Date of Service December 28, 2020 Assessment & Plan (1) E coli bacteremia: Plan: 85 yo F w/ pMHx. of weakness, swelling, internal carotid stenosis, urinary incontinence presenting after outpatient treatment for UTI with Macrobid and development of altered mental status and ambulatory dysfunction Blood culture [e.coli] now william sensitive, urine culture with contaminated specimen, will assume this was the source as has no bowel c/o. Initially on ceftriaxone but given concern for worsening mental status antibiotics broadened to Zosyn on December 21, now switched to Augmentin 12/25. Repeat blood cultures from 12/20 negative 48 hours. Continue on Augmentin for total 2 week course Plan to discharge on Wednesday back home to allow family to set up 24 hour care. (2) Acute UTI: Plan: As above (3) Metabolic encephalopathy: Plan: Metabolic encephalopathy and ambulatory dysfunction with E coli bacteremia(william sensitive), likely 2/2 UTI given history of recurrent UTIs with similar presentations. Metabolic encephalopathy slightly worse after initial clearing, prompting change in antibiotics to Zosyn to cover Aspiration pneumonia, now switched to Augmentin. Cortisol normal. TSH nl. LFTs mild ast elevation, will monitor with AM labs. CT head no acute intracranial pathology Reportedly improvement in mentation with IV thiamine therefore will continue this but switch to PO. No level taken prior to supplementation. Appears to be back to her baseline mentation - suspect just took a while to overcome bacteremia. (4) Weakness: Plan: As above Continue PT/OT during inpatient stay. Family requests discharge home with 24 hour care. (5) Aspiration pneumonia: Plan: Possible diagnosis Switched to Augmentin. Procalcitonin negative. Appreciate SLT evaluation - increased to minced and moist diet. No aspiration but requires reminding to swallow (6) Oropharyngeal dysphagia: Plan: Aspiration precautions Switched to minced and moist diet today per repeat SLT re-evaluation (7) Internal carotid artery stenosis: Plan: Resume aspirin Plavix. Given recent CVA will restart her atorvastatin. 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 Reportedly this had been discontinued prior to this admission. (13) Arthritis, multiple joint involvement: Plan: No complaint of pain today for me. Appeared comfortable. - Monitor (14) Low iron: Plan: 12/16 transferrin sats 9% Venofer 200mg on 12/21 Given no anemia will defer further infusions (15) Hypokalemia: Plan: Continues to trend down?antibiotic-associated diarrhea. Continue on potassium chloride 20 meq PO daily. Repeat levels tomorrow. Plan: Code: full Diet: regular, minced and moist DVT: Lovenox 30 Q24H Disposition - discharge home with 24 hour care, PT and OT on Wednesday Admission and Anticipated Discharge Date Admission Date: December 18, 2020 Subjective No acute events overnight. No acute concerns or questions. Medically stable for discharge pending 24 hour care set up at home. Review of Systems Review of Systems: All systems reviewed & are unremarkable except as noted in HPI & below Physical Exam Constitutional: WD/WN, vitals as above + frail appearing; no acute distress Respiratory: normal respiratory effort, lungs clear to auscultation no respiratory distress Cardiovascular: RRR, no murmur, no edema Skin: no rashes, warm and dry Neurologic: moves all extremities and awake Psychiatric: Orientation: alert and oriented to person (self only); + not oriented to place and + not oriented to time Results & Data Results & Data ([facility]) Vital Signs (Past 12 Hours) Vital Signs Temp Pulse Resp BP Pulse Ox 12/28/20 07:36 36.8 C 88 16 119/81 98 PG Care Time/CCT Total # of Minutes Spent Total Time Spent with Patient: Total time spent is greater than 50% in coordination of care (as documented) at patient's floor/unit and/or counseling patient: Coding Level of Care Code 05099 Subseq Hosp Care Lvl 1 Diagnoses E coli bacteremia R78.81; B96.20 Acute UTI N39.0 Metabolic encephalopathy G93.41 Weakness R53.1 Aspiration pneumonia J69.0 Oropharyngeal dysphagia R13.12 Internal carotid artery stenosis I65.21 Laterality: right GERD without esophagitis K21.9 Hyperlipidemia E78.5 Hyperlipidemia type: unspecified Hypertension I10 Hypertension type: unspecified Hypothyroidism E03.9 Hypothyroidism type: unspecified Urinary incontinence R32 Arthritis, multiple joint involvement M12.9 Low iron E61.1 Hypokalemia E87.6 (1) Internal carotid artery stenosis Laterality: right Qualified Code(s): I65.21 - Occlusion and stenosis of right carotid artery (2) Hyperlipidemia Hyperlipidemia type: unspecified Qualified Code(s): E78.5 - Hyperlipidemia, unspecified (3) Hypothyroidism Hypothyroidism type: unspecified Qualified Code(s): E03.9 - Hypothyroidism, unspecified (4) Hypertension Hypertension type: unspecified Qualified Code(s): I10 - Essential (primary) hypertension
[2020-12-28] MEDS: PANTOprazole 40 MG TAB PO SCH (21:02)
[2020-12-28] MEDS: ATORVASTATIN 40 MG TAB PO SCH (21:03)
[2020-12-29] MEDS: ENOXAPARIN INJ 30 MG/0.3 ML SYR SQ SCH (05:47)
[2020-12-29] MEDS: LEVOTHYROXINE SODIUM 25 MCG TABLET PO SCH ×2 (05:47→06:39)
[2020-12-29] MEDS: AMOXICILLIN/CLAVULANATE 875 MG TAB PO SCH ×2 (09:13→17:08)
[2020-12-29] MEDS: CLOPIDOGREL BISULFATE 75 MG TAB PO SCH (09:13)
[2020-12-29] MEDS: THIAMINE HCL 100 MG TAB PO SCH (09:13)
[2020-12-29] MEDS: POTASSIUM CHLORIDE CRTAB 20 MEQ TABCR PO SCH (09:13)
[2020-12-29] MEDS: ADVANCED PROBIOTIC 1250 MG CAPSULE PO SCH (09:13)
[2020-12-29] MEDS: dilTIAZem HCL 120 MG CAPCR PO SCH (09:13)
--- NOTE | 2020-12-29 19:14 | Hospitalist Progress Note ---
Date of Service December 29, 2020 Assessment & Plan (1) E coli bacteremia: Plan: 85 yo F w/ pMHx. of weakness, swelling, internal carotid stenosis, urinary incontinence presenting after outpatient treatment for UTI with Macrobid and development of altered mental status and ambulatory dysfunction William-sensitive E. coli, urine culture with contaminated specimen but suspect this was the source. Initially on ceftriaxone but given concern for worsening mental status anti biotics broadened to Zosyn 12/21, now switched to Augmentin 12/25. Repeat blood cultures from 12/20 negative to date. Continue on Augmentin for total 2 week course (last dose 12/30) Plan to discharge on Wednesday back home to allow family to set up 24 hour care. (2) Acute UTI: Plan: As above (3) Metabolic encephalopathy: Plan: Metabolic encephalopathy and ambulatory dysfunction with E coli bacteremia(william sensitive), likely 2/2 UTI given history of recurrent UTIs with similar presentations. Metabolic encephalopathy slightly worse after initial clearing, prompting change in antibiotics to Zosyn to cover Aspiration pneumonia. Cortisol normal . TSH nl, LFTs mild ast elevation but previous jazz and liver u/s is negative. encourage Incentive spirometry. CXR shows progressive left lower lobe infiltrate concern for aspiration pneumonia however is not with cough. CT head no acute intracranial pathology Reportedly improvement in mentation with IV thiamine therefore will continue this but switch to PO. No level taken prior to supplementation. Appears to be back to her baseline mentation - suspect just took a while to overcome bacteremia infection. (4) Weakness: Plan: As above Continue PT/OT during inpatient stay. Family requests discharge home with 24 hour care. (5) Aspiration pneumonia: Plan: Possible diagnosis Switch to Augmentin. Procalcitonin negative. Appreciate SLT evaluation - increased to minced and moist diet. No aspiration but requires reminding to swallow (6) Oropharyngeal dysphagia: Plan: Aspiration precautions Switched to minced and moist diet today per repeat SLT re-evaluation (7) Internal carotid artery stenosis: Plan: Resume aspirin Plavix. Given recent CVA will restart her atorvastatin. 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 Reportedly this had been discontinued prior to this admission. (13) Arthritis, multiple joint involvement: Plan: No complaint of pain today for me. Appeared comfortable. - Monitor (14) Low iron: Plan: 12/16 transferrin sats 9% Venofer 200mg on 12/21 Given no anemia will defer further infusions (15) Hypokalemia: Plan: Continues to trend down?antibiotic-associated diarrhea. Started on potassium chloride 20 meq PO daily. Repeat levels stable. Plan: Code: full Diet: regular, minced and moist DVT: Lovenox 30 Q24H Disposition - discharge home with 24 hour care, PT and OT on Wednesday Admission and Anticipated Discharge Date Admission Date: December 18, 2020 Subjective No acute events overnight. No acute concerns or questions. Requires 2-3 person assist. Medically stable for discharge pending 24 hour care set up at home. Review of Systems Review of Systems: All systems reviewed & are unremarkable except as noted in HPI & below Physical Exam Constitutional: WD/WN, vitals as above + frail appearing; no acute distress Respiratory: normal respiratory effort, lungs clear to auscultation no respiratory distress Cardiovascular: RRR, no murmur, no edema Skin: no rashes, warm and dry Neurologic: moves all extremities and awake Psychiatric: Orientation: alert and oriented to person (self only); + not oriented to place and + not oriented to time Results & Data Results & Data ([facility]) Vital Signs (Past 12 Hours) Vital Signs Temp Pulse Resp BP Pulse Ox 12/29/20 14:42 36.5 C 83 16 105/64 97 PG Care Time/CCT Total # of Minutes Spent Total Time Spent with Patient: Total time spent is greater than 50% in coordination of care (as documented) at patient's floor/unit and/or counseling patient: Coding Level of Care Code 95480 Subseq Hosp Care Lvl 1 Diagnoses E coli bacteremia R78.81; B96.20 Acute UTI N39.0 Metabolic encephalopathy G93.41 Weakness R53.1 Aspiration pneumonia J69.0 Oropharyngeal dysphagia R13.12 Internal carotid artery stenosis I65.21 Laterality: right GERD without esophagitis K21.9 Hyperlipidemia E78.5 Hyperlipidemia type: unspecified Hypertension I10 Hypertension type: unspecified Hypothyroidism E03.9 Hypothyroidism type: unspecified Urinary incontinence R32 Arthritis, multiple joint involvement M12.9 Low iron E61.1 Hypokalemia E87.6 (1) Internal carotid artery stenosis Laterality: right Qualified Code(s): I65.21 - Occlusion and stenosis of right carotid artery (2) Hyperlipidemia Hyperlipidemia type: unspecified Qualified Code(s): E78.5 - Hyperlipidemia, unspecified (3) Hypothyroidism Hypothyroidism type: unspecified Qualified Code(s): E03.9 - Hypothyroidism, unspecified (4) Hypertension Hypertension type: unspecified Qualified Code(s): I10 - Essential (primary) hypertension
[2020-12-29] MEDS: PANTOprazole 40 MG TAB PO SCH (20:03)
[2020-12-29] MEDS: ATORVASTATIN 40 MG TAB PO SCH (20:03)
[2020-12-30] MEDS: LEVOTHYROXINE SODIUM 25 MCG TABLET PO SCH (06:00)
[2020-12-30] MEDS: ENOXAPARIN INJ 30 MG/0.3 ML SYR SQ SCH (06:00)
[2020-12-30 07:14] LABS: Albumin Level 2.5 gm/dl (3.4-5.0); BUN Creatinine Ratio 30.1 (10-20); Calcium 10.2 mg/dl (8.5-10.1); Creatinine Clr Calc Pharmacy 54.8 ml/min; Est GFR (African American) 95.5 ml/min; Est GFR (Non-African American) 82.4 ml/min; Potassium 3.9 mmol/L (3.5-5.1)
[2020-12-30 07:17] LABS: Albumin Globulin Ratio 0.7 (0.9-2); Bilirubin,Total 0.7 mg/dl (0.2-1); Globulin 3.7 gm/dl (2.5-4.0); Total Protein 6.2 gm/dl (6.4-8.2)
[2020-12-30] MEDS: AMOXICILLIN/CLAVULANATE 875 MG TAB PO SCH (08:16)
[2020-12-30] MEDS: POTASSIUM CHLORIDE CRTAB 20 MEQ TABCR PO SCH (08:16)
[2020-12-30] MEDS: THIAMINE HCL 100 MG TAB PO SCH (08:16)
[2020-12-30] MEDS: CLOPIDOGREL BISULFATE 75 MG TAB PO SCH (08:16)
[2020-12-30] MEDS: ADVANCED PROBIOTIC 1250 MG CAPSULE PO SCH (08:16)
[2020-12-30] MEDS: dilTIAZem HCL 120 MG CAPCR PO SCH (08:16)
--- NOTE | 2020-12-30 09:14 | Hospitalist Progress Note ---
Date of Service December 30, 2020 Assessment & Plan (1) E coli bacteremia: Plan: 85 yo F w/ pMHx. of weakness, swelling, internal carotid stenosis, urinary incontinence presenting after outpatient treatment for UTI with Macrobid and development of altered mental status and ambulatory dysfunction William-sensitive E. coli, urine culture with contaminated specimen but suspect this was the source. Initially on ceftriaxone but given concern for worsening mental status anti biotics broadened to Zosyn 12/21, now switched to Augmentin 12/25. Repeat blood cultures from 12/20 negative to date. Continue on Augmentin for total 2 week course (last dose 12/30) Plan to discharge on Wednesday back home to allow family to set up 24 hour care. (2) Acute UTI: Plan: As above (3) Metabolic encephalopathy: Plan: Metabolic encephalopathy and ambulatory dysfunction with E coli bacteremia(william sensitive), likely 2/2 UTI given history of recurrent UTIs with similar presentations. Metabolic encephalopathy slightly worse after initial clearing, prompting change in antibiotics to Zosyn to cover Aspiration pneumonia. Cortisol normal . TSH nl, LFTs mild ast elevation but previous jazz and liver u/s is negative. encourage Incentive spirometry. CXR shows progressive left lower lobe infiltrate concern for aspiration pneumonia however is not with cough. CT head no acute intracranial pathology Reportedly improvement in mentation with IV thiamine therefore will continue this but switch to PO. No level taken prior to supplementation. Appears to be back to her baseline mentation - suspect just took a while to overcome bacteremia infection. (4) Weakness: Plan: As above Continue PT/OT during inpatient stay. Family requests discharge home with 24 hour care. (5) Aspiration pneumonia: Plan: Possible diagnosis Switch to Augmentin. Procalcitonin negative. Appreciate SLT evaluation - increased to minced and moist diet. No aspiration but requires reminding to swallow (6) Oropharyngeal dysphagia: Plan: Aspiration precautions Switched to minced and moist diet today per repeat SLT re-evaluation (7) Internal carotid artery stenosis: Plan: Resume aspirin Plavix. Given recent CVA will restart her atorvastatin. 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 Reportedly this had been discontinued prior to this admission. (13) Arthritis, multiple joint involvement: Plan: No complaint of pain today for me. Appeared comfortable. - Monitor (14) Low iron: Plan: 12/16 transferrin sats 9% Venofer 200mg on 12/21 Given no anemia will defer further infusions (15) Hypokalemia: Plan: Continues to trend down?antibiotic-associated diarrhea. Started on potassium chloride 20 meq PO daily. Repeat levels stable. Plan: Code: full Diet: regular, minced and moist DVT: Lovenox 30 Q24H Disposition - discharge home with 24 hour care, PT and OT on Wednesday Admission and Anticipated Discharge Date Admission Date: December 18, 2020 Results & Data Results & Data ([facility]) Vital Signs (Past 12 Hours) Vital Signs Temp Pulse Resp BP Pulse Ox 12/30/20 07:06 97.9 F 77 16 128/75 98 12/29/20 22:17 98.1 F 84 16 125/79 97 PG Care Time/CCT Total # of Minutes Spent Total Time Spent with Patient: Total time spent is greater than 50% in coordination of care (as documented) at patient's floor/unit and/or counseling patient: Coding Diagnoses E coli bacteremia R78.81; B96.20 Acute UTI N39.0 Metabolic encephalopathy G93.41 Weakness R53.1 Aspiration pneumonia J69.0 Oropharyngeal dysphagia R13.12 Internal carotid artery stenosis I65.21 Laterality: right GERD without esophagitis K21.9 Hyperlipidemia E78.5 Hyperlipidemia type: unspecified Hypertension I10 Hypertension type: unspecified Hypothyroidism E03.9 Hypothyroidism type: unspecified Urinary incontinence R32 Arthritis, multiple joint involvement M12.9 Low iron E61.1 Hypokalemia E87.6 (1) Internal carotid artery stenosis Laterality: right Qualified Code(s): I65.21 - Occlusion and stenosis of right carotid artery (2) Hyperlipidemia Hyperlipidemia type: unspecified Qualified Code(s): E78.5 - Hyperlipidemia, unspecified (3) Hypertension Hypertension type: unspecified Qualified Code(s): I10 - Essential (primary) hypertension (4) Hypothyroidism Hypothyroidism type: unspecified Qualified Code(s): E03.9 - Hypothyroidism, unspecified
--- NOTE | 2020-12-30 19:33 | Discharge Summary ---
Date of Service December 30, 2020 Admission HPI Per Admitting Provider Emilee Israel is presenting for ambulatory dysfunction and altered mental status. She was seen by her PCP Dr. Rangel for ambulatory dysfunction and confusion and was started on Macrobid for presumed UTI. She was not able to give a urine sample in the clinic. She has had UTI's in the past with a similar presentation. She was not able to give me any information, but her daughter was here and gave me some information. She had not had any elevated temperature, nausea, or vomiting. She did have chills, fatigue, weakness and sweats. She has not had any recent falls, no complaints of chest pain or palpitations, no recent constipation or diarrhea. She has not complained of dysuria. She has a history of incontinence and her daughter was wondering if the medication Toviaz that she takes for this could be contributing to her recurrent UTI's although she has been on this medication prior to her development of UTI's. Her most recent UTI was in September. Principal Diagnosis metabolic encephalopathy from uti poa aspiration pneumonia from lethargy from metabolic encephalopathy oral pharyngeal dysphagia iron deficiency Discharge Exam The patient appeared well Vital signs as documented. Lungs are clear to auscultation and appear unlabored Cardiac exam, Rhythm is regular.. No murmurs, rubs or gallops. Abdominal exam reveals normal bowel sounds, soft non tender, no masses Extremities are nonedematous and both pedal pulses are normal. Neurologic exam is alert and oriented x2 she seems slightly confused at times, n o focal loss of strength or sensation Skin is without bruises or rashes Psychologically is without concerns for anxiety or depression. Discharge Data Allergies Allergy/AdvReac Type Severity Reaction Status Date / Time simvastatin [From Zocor] AdvReac Unknown Unknown Verified 12/17/20 01:40 Consultations 12/17/20 02:01 ED Decision to Admit Stat Ordered Studies 12/17/20 00:40 CT head/brain wo con Stat 12/21/20 08:25 US liver Routine 12/22/20 13:48 CT chest diagnostic wo con Routine Hospital Course (1) E coli bacteremia: 85 yo F w/ pMHx. of weakness, swelling, internal carotid stenosis, urinary incontinence presenting after outpatient treatment for UTI with Macrobid and development of altered mental status and ambulatory dysfunction William-sensitive E. coli, urine culture with contaminated specimen but suspect this was the source. Initially on ceftriaxone but given concern for worsening mental status antibiotics broadened to Zosyn 12/21, now switched to Augmentin 12/25. Repeat blood cultures from 12/20 negative to date. Continue on Augmentin for total 2 week course (last dose 12/30) Plan to discharge on 12/30/20 back home to allow family to set up 24 hour care. (2) Acute UTI: As above (3) Metabolic encephalopathy: Metabolic encephalopathy and ambulatory dysfunction with E coli bacteremia(william sensitive), likely 2/2 UTI given history of recurrent UTIs with similar presentations. Metabolic encephalopathy slightly worse after initial clearing, prompting change in antibiotics to Zosyn to cover Aspiration pneumonia. Cortisol normal . TSH nl, LFTs mild ast elevation but previous jazz and liver u/s is negative. encourage Incentive spirometry. CXR shows progressive left lower lobe infiltrate concern for aspiration pneumonia however is not with cough. CT head no acute intracranial pathology Reportedly improvement in mentation with IV thiamine therefore will continue this but switch to PO. No level taken prior to supplementation. Appears to be back to her baseline mentation - suspect just took a while to overcome bacteremia infection. (4) Weakness: As above Continue PT/OT during inpatient stay. Family requests discharge home with 24 hour care. (5) Aspiration pneumonia: Possible diagnosis Switch to Augmentin. Procalcitonin negative. Appreciate SLT evaluation - increased to minced and moist diet. No aspiration but requires reminding to swallow (6) Oropharyngeal dysphagia: Aspiration precautions Switched to minced and moist diet today per repeat SLT re-evaluation (7) Internal carotid artery stenosis: Resume aspirin Plavix. Given recent CVA will restart her atorvastatin. 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 MAT - continue Diltiazem (11) Hypothyroidism: TSH WNL - continue Levothyroxine (12) Urinary incontinence: d/c Toviaz per family request. Reportedly this had been discontinued prior to this admission. (13) Arthritis, multiple joint involvement: No complaint of pain today for me. Appeared comfortable. - Monitor (14) Low iron: 12/16 transferrin sats 9% Venofer 200mg on 12/21 Given no anemia will defer further infusions (15) Hypokalemia: Continues to trend down?antibiotic-associated diarrhea. Started on potassium chloride 20 meq PO daily. Repeat levels stable. discharge home with 24 hour care, PT and OT on Wednesday Total Time Total Time Spent Total Time Spent (In Minutes): It required greater than 30 minutes to prepare this patient for discharge Discharge Plan Discharge Items Patient Disposition: Home - Home Health Services Reason For Visit: AMBULATORY DYSFUNCTION Discharge Diagnosis: E coli bacteremia confusion from infection resolved weakness from infection aspiration pneumonia Activity: Per Instructions section Activity Comment: care to avoid fall, and to increase strength Non-emergency contact: Primary Care Provider Call non-emergency contact if: you have any medication questions and your symptoms worsen Follow-up/Referrals: Addi Rangel MD [Primary Care Provider] - 01/08/21 8:30 am (APPT WITH APOLLO SANTANA AT [facility].) Diet: Regular Diet Texture: Mechanical soft (ground) Diet Comment: easy to chew easy to swallow, eat slowly and swallow intentionally Addtl Attending Provider Instructions: please be sure to follow up with family doctor in one week take extra care with diet and swallowing work to increase strength and balance be sure to have good bowel production take your multple vitamin, consider liquid vitamins if hard to swallow Pending Studies at Discharge: No Stand-Alone Forms: [facility] [employer], Smoking Cessation Medications and DC Order Prescriptions: Continued atorvastatin 40 mg tablet 40 mg PO HS Qty: 90 RF: 3 clopidogrel [Plavix] 75 mg tablet 75 mg PO DAILY Qty: 90 RF: 3 diltiazem HCl 120 mg capsule,extended release 24hr 120 mg PO QAM Qty: 90 RF: 3 levothyroxine 25 mcg tablet 25 mcg PO QAM Qty: 90 RF: 3 celecoxib 200 mg capsule 200 mg PO QAM Qty: 90 RF: 3 cholecalciferol (vitamin D3) 50 mcg (2,000 unit) capsule 50 mcg PO QAM RF: 0 calcium carbonate [Calcium 500] 500 mg calcium (1,250 mg) Tablet,Chewable 500 mg PO QAM RF: 0 Centrum 18-400 mg-mcg Tablet 1 tab PO QAM RF: 0 glucosamine-chondroitin [Osteo Bi-Flex] 250-200 mg tablet 1 tab PO BID RF: 0 cyanocobalamin (vitamin B-12) [Vitamin B-12] 500 mcg Tablet 500 mcg PO QAM RF: 0 esomeprazole magnesium 40 mg capsule,delayed release(DR/EC) 40 mg PO HS RF: 0 Discontinued Toviaz 4 mg tablet extended release 24 hr 4 mg PO BID Qty: 180 RF: 3 telmisartan 40 mg tablet 20 mg PO DAILY Qty: 45 RF: 3 nitrofurantoin monohyd/m-cryst [Macrobid] 100 mg capsule 100 mg PO BID 5 Days Qty: 10 RF: 0 aspirin 81 mg tablet,delayed release (DR/EC) 81 mg PO HS RF: 0 Discharge Orders: Discharge Order (Routine); Ordered 12/30/20 Ordered By: Tommy Mcgraw/Other Patient Handouts: Dysphagia: Exercises, Preventing Pneumonia, Dysphagia Aspiration, Dysphagia Diet- Managing Drinks, Dysphagia Diet- Managing Foods, Dysphagia Tongue Strengthen Exercise Admission Data Admit Date/Time: 12/18/20 10:23 Attending Provider: Tommy Bertrand Admit Provider: Pepe Gaspar Primary Care Provider: Addi Rangel Other Providers: Tahco Ramirez Other Interventions: Discharge Summary Assessment (RN) Last Done: 12/30/20 14:28 Coding Level of Care Code D/C DAY MANAGEMENT >30 MINS Diagnoses E coli bacteremia R78.81; B96.20 Acute UTI N39.0 Metabolic encephalopathy G93.41 Weakness R53.1 Aspiration pneumonia J69.0 Oropharyngeal dysphagia R13.12 Internal carotid artery stenosis I65.21 Laterality: right GERD without esophagitis K21.9 Hyperlipidemia E78.5 Hyperlipidemia type: unspecified Hypertension I10 Hypertension type: unspecified Hypothyroidism E03.9 Hypothyroidism type: unspecified Urinary incontinence R32 Arthritis, multiple joint involvement M12.9 Low iron E61.1 Hypokalemia E87.6
== END 2020-12-30 16:07 | disposition home health service (06) | DRG 689 ==
LOC: ED 00:22 → 3E 00:22 → SUATTDRO 02:48 → 3E 03:58 → SUATTDRO 12-18 10:23

== ENCOUNTER 2021-01-05 09:39 | Observation (INO) ==
--- NOTE | 2021-01-05 09:50 | Emergency Department Note ---
Impression & Plan Atypical chest pain, Hernia, hiatal ED Provider Note NAME: RUSSEL CASANOVA AGE: 85 SEX: F : 1935 ARRIVES VIA: Ambulance INFORMANT: patient, ED PROVIDER(S): Carlos Alberto Sampson MD Chief Complaint: Chest pain HPI: Patient did present with chest pain that woke up this morning around 8 AM. Patient describes it as substernal nonradiating. The patient did have some nausea but without any vomiting or diaphoresis. No known history of CAD or lung disease. Patient states that she does live by herself. Patient does have a prior history of stroke as well as recent admission due to concern for bacteremia likely secondary to UTI. The patient was also reportedly admitted for an aspiration pneumonia. The patient denies any fevers or chills. The patient does have some abdominal discomfort and associated pain with inspiration as well. Patient did receive aspirin in route. This did slightly improve her discomfort. Patient is currently on Macrobid for a presumptive UTI although family states that the patient does not have the results of her recent urinalysis. ROS: See HPI for pertinent positives and negatives. A total of 10 systems were reviewed and otherwise negative. Past medical history: See below Surgical history: See below Social history: See below Physical Exam: GENERAL: NAD, wearing a mask, non-toxic. EYE EXAM: Normal conjunctiva. PERRL, no anisocoria and EOM's grossly intact w/o pain. NECK: Supple, no nuchal rigidity, no adenopathy, non-tender. No signs of meningismus. LUNGS: Clear to auscultation. Normal chest wall mechanics. HEART: NSR, no MRG. ABDOMEN: Abdomen soft, non-tender, normo-active bowel sounds, no masses, no rebound or guarding. BACK: No CVA TTP. SKIN: No rashes and no bruising. UPPER EXTREMITIES: Upper extremities are grossly normal. LOWER EXTREMITIES: Grossly normal, no edema. Negative Homans' sign bilaterally. NEURO EXAM: A&O x3, cranial nerves II-XII grossly intact, normal speech, moves all 4 extremities on command w/o issue. Differential diagnoses: Cardiac ischemia, aortic dissection, pulmonary embolism, pneumothorax, pneumonia, pericarditis, myocarditis, esophageal rupture, GERD, cholecystitis, pancreatitis, musculoskeletal, as well as other pathologies. Course: Patient was seen and evaluated the bedside. Full history physical exam was pe rformed. EKG interpreted by me Normal sinus rhythm, rate 96, wide QRS, right bundle branch block pattern, left axis deviation, T wave version high lateral leads. Imaging Studies: See Below Cardiac monitoring: An order was placed for continuous cardiac monitoring. The monitor shows a rate of 90 with sinus rhythm. MDM: Patient did have blood work completed was given nitro. Patient has a white count of 11 with a hemoglobin of 11. Platelet count is unremarkable. Kidney function with prerenal azotemia. The patient did receive IV fluids. Initial troponin negative. EKG with T wave version the high lateral leads. Patient's pain has resolved. Given this we discussed possibility of admission but given the patient's abdominal discomfort CT of the abdomen pelvis ordered as well as angiography of the chest given the patient's pain with inspiration. CT angiography shows no PE but the patient does have significant hiatal hernia. This may also be contributory to the patient's symptoms. The patient does have a known history of hiatal hernia. Patient does have likely atelectasis of the left lower lobe likely from hiatal hernia. Patient has not has not complained of any cough. Patient does have mild perirectal and presacral edema. The patient does not complain of any buttock or back pain. No bowel wall thickening or obstruction. Given the patient's improvement in symptoms with the aspirin nitro and atypical nature of her chest pain I did speak the on-call hospitalist Dr. Castano the patient was admitted to the medicine service. Past Med/Surg History Medical History Acute UTI Arthritis, multiple joint involvement Cerebral artery occlusion with cerebral infarction Community acquired pneumonia Depression GERD without esophagitis Gram-negative bacteremia Hyperlipidemia Hypertension Hypothyroidism Incontinence of urine in female Large hiatal hernia Macrocytosis Right ear impacted cerumen Swelling of right foot Urinary incontinence UTI (urinary tract infection) Weakness Surgical History H/O foot surgery History of bladder surgery resuspension History of hysterectomy Hx of cholecystectomy Hx of varicose vein ligation and stripping Family History Unknown Cancer Rheumatoid arthritis Fibromyalgia Denies family history of Ovarian cancer Prostate cancer Myocardial infarction Breast cancer Colorectal cancer Social History Smoking Status: Never smoker Second Hand Exposure: No; Hx Alcohol Use: No Hx Substance Use: No Preferred Language: Danish Communication Ability: Effective Visual Impairment: No Limitations Hearing Ability: Normal 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 Beliefs That Will Affect Care: None marital status: / Current Living Situation: Family Current Living Situation Comment: in-home aides to help current occupational status: retired Feels Safe at Home: Yes Childhood Exposure to Second-Hand Smoke: No caffeine: Yes during the past year weight has: remained stable Dental Care, Regularly: Yes Physical Activity Frequency: Does not Exercise Seatbelt Use: always Sunscreen Use: Yes Assistive Devices: Walker Allergies Allergies Allergy/AdvReac Type Severity Reaction Status Date / Time simvastatin [From Zocor] AdvReac Unknown Unknown Verified 01/05/21 10:32 Home Meds Home Medications Medication Instructions Recorded Confirmed cholecalciferol (vitamin D3) 50 50 mcg PO QAM cap 04/08/19 01/05/21 mcg (2,000 unit) capsule calcium carbonate 500 mg calcium 500 mg PO QAM 06/30/19 01/05/21 (1,250 mg) chewable tablet (Calcium 500) multivitamin-ferrous 1 tab PO QAM 06/30/19 01/05/21 fumarate-folic acid 18 mg-400 mcg tablet (Centrum) cyanocobalamin (vitamin B-12) 500 500 mcg PO QAM 04/29/20 01/05/21 mcg tablet (Vitamin B-12) glucosamine-chondroitin 250 mg-200 1 tab PO BID tab 07/10/20 01/05/21 mg tablet (Osteo Bi-Flex) esomeprazole magnesium 40 mg 40 mg PO HS 12/17/20 01/05/21 capsule,delayed release fesoterodine 4 mg tablet,extended 4 mg PO BID 01/05/21 01/05/21 release 24 hr (Toviaz) telmisartan 40 mg tablet 20 mg PO QAM 01/05/21 01/05/21 Previous Rx's Medication Instructions Recorded atorvastatin 40 mg tablet 40 mg PO HS #90 tab 07/18/20 clopidogrel 75 mg tablet (Plavix) 75 mg PO DAILY #90 tab 07/18/20 diltiazem HCl 120 mg 120 mg PO QAM #90 cap 10/22/20 capsule,extended release 24 hr levothyroxine 25 mcg tablet 25 mcg PO QAM #90 tab 10/22/20 celecoxib 200 mg capsule 200 mg PO QAM #90 cap 12/09/20 Results & Data (ED) Vital Signs Vital Signs - 24 hr 01/05/21 09:50 01/05/21 09:51 01/05/21 10:00 Temperature 36.4 C L Temperature Source Oral Pulse Rate 95 H 96 H 94 H Pulse Rate [Finger] Pulse Rate from SpO2 Sensor 96 H 94 H Pulse Rhythm Regular Pulse Strength Normal Respiratory Rate 18 20 17 Respiratory Effort / Characteristics Non-Labored Spontaneous Respiratory Depth Normal Respiratory Pattern Regular Blood Pressure 121/71 121/71 114/65 Blood Pressure [Right Arm] Blood Pressure Mean 87 87 81 Blood Pressure Mean [Right Arm] Blood Pressure Position Sitting Pulse Oximetry 96 96 96 Oxygen Delivery Method Room Air Sepsis Recent Fever Within 48 Hours No Sepsis New/Unexplained Change in Mental Status N/A Sepsis Action Taken by Nursing No Action Required 01/05/21 10:17 01/05/21 10:30 01/05/21 10:37 Temperature Temperature Source Pulse Rate 97 H 91 H Pulse Rate [Finger] 90 Pulse Rate from SpO2 Sensor 92 H Pulse Rhythm Regular Pulse Strength Respiratory Rate 18 18 18 Respiratory Effort / Characteristics Respiratory Depth Respiratory Pattern Blood Pressure 115/69 Blood Pressure [Right Arm] 113/70 Blood Pressure Mean 84 Blood Pressure Mean [Right Arm] 84 Blood Pressure Position Pulse Oximetry 96 97 97 Oxygen Delivery Method Room Air Room Air Sepsis Recent Fever Within 48 Hours Sepsis New/Unexplained Change in Mental Status Sepsis Action Taken by Nursing 01/05/21 10:40 01/05/21 10:50 01/05/21 11:00 Temperature Temperature Source Pulse Rate 90 94 H 94 H Pulse Rate [Finger] 94 H Pulse Rate from SpO2 Sensor 91 H 94 H 94 H Pulse Rhythm Pulse Strength Respiratory Rate 18 18 15 Respiratory Effort / Characteristics Respiratory Depth Respiratory Pattern Blood Pressure 118/62 114/58 L 107/57 L Blood Pressure [Right Arm] 118/62 Blood Pressure Mean 80 76 73 Blood Pressure Mean [Right Arm] 80 Blood Pressure Position Pulse Oximetry 96 94 94 Oxygen Delivery Method Room Air Sepsis Recent Fever Within 48 Hours Sepsis New/Unexplained Change in Mental Status Sepsis Action Taken by Nursing 01/05/21 11:01 01/05/21 11:10 01/05/21 11:20 Temperature Temperature Source Pulse Rate 92 H 89 Pulse Rate [Finger] 90 Pulse Rate from SpO2 Sensor 91 H 85 Pulse Rhythm Pulse Strength Respiratory Rate 16 15 15 Respiratory Effort / Characteristics Respiratory Depth Respiratory Pattern Blood Pressure 106/58 L 112/62 Blood Pressure [Right Arm] 107/57 L Blood Pressure Mean 74 78 Blood Pressure Mean [Right Arm] 73 Blood Pressure Position Pulse Oximetry 94 96 96 Oxygen Delivery Method Room Air Sepsis Recent Fever Within 48 Hours Sepsis New/Unexplained Change in Mental Status Sepsis Action Taken by Nursing 01/05/21 11:30 Temperature Temperature Source Pulse Rate 89 Pulse Rate [Finger] Pulse Rate from SpO2 Sensor 89 Pulse Rhythm Pulse Strength Respiratory Rate 16 Respiratory Effort / Characteristics Respiratory Depth Respiratory Pattern Blood Pressure 119/65 Blood Pressure [Right Arm] Blood Pressure Mean 83 Blood Pressure Mean [Right Arm] Blood Pressure Position Pulse Oximetry 95 Oxygen Delivery Method Sepsis Recent Fever Within 48 Hours Sepsis New/Unexplained Change in Mental Status Sepsis Action Taken by Care Home Medications Current Medication List: was personally reviewed by me Laboratory Data Attestation: I reviewed the patient's lab results. Result diagrams: 01/05/21 08:58 01/05/21 08:58 Lab Results 01/05/21 01/05/21 01/05/21 Range/Units 08:58 08:58 08:58 WBC 11.71 H (4.8-10.8) K/uL RBC 3.43 L (4.2-5.4) M/uL Hgb 11.0 L (12.0-16.0) g/dL Hct 34.2 L (37-47) % MCV 99.7 (80-100) fL MCH 32.1 (25-34) pg MCHC 32.2 (32-36) g/dL RDW Std Deviation 56.8 H (36.4-46.3) fL RDW Coeff of Pavithra 15.4 H (11.5-14.5) % Plt Count 246 (130-400) K/uL MPV 10.6 H (7.4-10.4) fL Immature Gran % (Auto) 0.3 % Neut % (Auto) 87.9 % Lymph % (Auto) 6.4 % [place] % (Auto) 4.3 % Eos % (Auto) 0.9 % Baso % (Auto) 0.2 % Neut # (Auto) 10.31 H (1.4-6.5) K/uL Lymph # (Auto) 0.75 L (1.2-3.4) K/uL [place] # (Auto) 0.50 (0.11-0.59) K/uL Eos # (Auto) 0.10 (0-0.5) K/uL Baso # (Auto) 0.02 (0-0.2) K/uL Immature Gran # (Auto) 0.03 H (0.00-0.02) K/uL APTT 23.6 (21.0-31.0) Seconds PTT Ratio 0.9 Sodium 142 (136-145) mmol/L Potassium 3.6 (3.5-5.1) mmol/L Chloride 107 (98-107) mmol/L Carbon Dioxide 26 (21-32) mmol/L Anion Gap 9.0 (3-11) BUN 20 H (7-18) mg/dl Creatinine 0.66 (0.6-1.2) mg/dl Est Cr Clr Drug Dosing 49.1 ml/min Est GFR ( Amer) 92.1 ml/min Est GFR (Non-Af Amer) 79.4 ml/min BUN/Creatinine Ratio 30.7 H (10-20) Glucose 99 (70-99) mg/dl Calcium 9.8 (8.5-10.1) mg/dl Total Bilirubin 0.7 (0.2-1) mg/dl AST 22 (15-37) U/L ALT 27 (12-78) U/L Alkaline Phosphatase 88 (45-117) U/L Troponin I < 0.015 (0-0.045) ng/ml Total Protein 5.6 L (6.4-8.2) gm/dl Albumin 2.6 L (3.4-5.0) gm/dl Globulin 3.0 (2.5-4.0) gm/dl Albumin/Globulin Ratio 0.9 (0.9-2) Lipase 95 (73-393) U/L Urine Color Urine Appearance (Clear) Urine pH (4.5-7.5) Ur Specific [place] (1.000-1.030) Urine Protein (Negative) Urine Glucose (UA) (Negative) Urine Ketones (Negative) Urine Blood (Negative) Urine Nitrite (Negative) Urine Bilirubin (Negative) Urine Urobilinogen (Negative) Ur Leukocyte Esterase (Negative) Urine WBC (Auto) (0-5) /hpf Urine RBC (Auto) (0-4) /hpf U Hyaline Cast (Auto) (0-5) /lpf U Epithel Cells (Auto) (0-5) /lpf Urine Bacteria (Auto) (Negative) COVID-19 Eval Order SARS-CoV-2 (PCR) (Negative) 01/05/21 01/05/21 01/05/21 Range/Units 10:14 10:14 14:11 WBC (4.8-10.8) K/uL RBC (4.2-5.4) M/uL Hgb (12.0-16.0) g/dL Hct (37-47) % MCV (80-100) fL MCH (25-34) pg MCHC (32-36) g/dL RDW Std Deviation (36.4-46.3) fL RDW Coeff of Pavithra (11.5-14.5) % Plt Count (130-400) K/uL MPV (7.4-10.4) fL Immature Gran % (Auto) % Neut % (Auto) % Lymph % (Auto) % [place] % (Auto) % Eos % (Auto) % Baso % (Auto) % Neut # (Auto) (1.4-6.5) K/uL Lymph # (Auto) (1.2-3.4) K/uL [place] # (Auto) (0.11-0.59) K/uL Eos # (Auto) (0-0.5) K/uL Baso # (Auto) (0-0.2) K/uL Immature Gran # (Auto) (0.00-0.02) K/uL APTT (21.0-31.0) Seconds PTT Ratio Sodium (136-145) mmol/L Potassium (3.5-5.1) mmol/L Chloride (98-107) mmol/L Carbon Dioxide (21-32) mmol/L Anion Gap (3-11) BUN (7-18) mg/dl Creatinine (0.6-1.2) mg/dl Est Cr Clr Drug Dosing ml/min Est GFR ( Amer) ml/min Est GFR (Non-Af Amer) ml/min BUN/Creatinine Ratio (10-20) Glucose (70-99) mg/dl Calcium (8.5-10.1) mg/dl Total Bilirubin (0.2-1) mg/dl AST (15-37) U/L ALT (12-78) U/L Alkaline Phosphatase (45-117) U/L Troponin I (0-0.045) ng/ml Total Protein (6.4-8.2) gm/dl Albumin (3.4-5.0) gm/dl Globulin (2.5-4.0) gm/dl Albumin/Globulin Ratio (0.9-2) Lipase (73-393) U/L Urine Color Yellow Urine Appearance Clear (Clear) Urine pH 6.5 (4.5-7.5) Ur Specific [place] > 1.045 H (1.000-1.030) Urine Protein Negative (Negative) Urine Glucose (UA) Negative (Negative) Urine Ketones Negative (Negative) Urine Blood Negative (Negative) Urine Nitrite Negative (Negative) Urine Bilirubin Negative (Negative) Urine Urobilinogen Negative (Negative) Ur Leukocyte Esterase 1+ H (Negative) Urine WBC (Auto) >30 H (0-5) /hpf Urine RBC (Auto) 0-4 (0-4) /hpf U Hyaline Cast (Auto) 1-5 (0-5) /lpf U Epithel Cells (Auto) >30 H (0-5) /lpf Urine Bacteria (Auto) Negative (Negative) COVID-19 Eval Order Covid19 at [facility] SARS-CoV-2 (PCR) NEGATIVE (Negative) Administered Medications Nitroglycerin (Nitroglycerin Sl 0.4 Mg/Tab Tab) 0.4 mg SL UD PRN PRN Reason: Chest Pain Stop: 02/04/21 10:03 Last Admin: 01/05/21 10:35 Dose: 0.4 mg Documented by: [id number] Discontinued Medications Sodium Chloride (Nss) 500 mls @ 999 mls/hr IV .Q31M STA Stop: 01/05/21 10:34 Last Infusion: 01/05/21 11:02 Dose: 0 mls/hr Documented by: [id number] Admin: 01/05/21 10:35 Dose: 999 mls/hr Documented by: [id number] Ioversol (Optiray 320 125ml) 120 ml IV ONCE ONE Stop: 01/05/21 11:45 Last Admin: 01/05/21 11:45 Dose: 120 ml Documented by: [id number] Imaging Data Radiologist's Impression: Chest X-Ray 01/05/21 10:04 XR chest 1V portable HISTORY: Atypical Chest Pain COMPARISON: Chest CT 12/22/2020. FINDINGS: No pneumothorax. There is a trace left pleural effusion, unchanged. There is a large hiatus hernia. Left basilar linear densities persist and favor subsegmental atelectasis. The heart remains borderline enlarged. There is mild chronic interstitial thickening, unchanged. No evidence for pulmonary edema. Chr onic deformity within the left shoulder is again noted. IMPRESSION: No significant change compared to the prior study. A trace left pleural effusion and left basilar densities/atelectasis persist. ACT 112: Negative or not required by law. Electronically signed by: Kevin Wallace M.D. 01/05/2021 10:31 AM Abdomen/Pelvis CT 01/05/21 11:[address] WITH IV CONTRAST CT DOSE: HISTORY: Generalized abd pain, pain w/ deep breathing TECHNIQUE: Multiaxial CT images of the abdomen and pelvis were performed followi ng the use of intravenous contrast. A dose lowering technique was utilized adhering to the principles of ALARA. COMPARISON STUDY: None. FINDINGS: Please refer to the same day chest CTA for further evaluation of the lung bases in the large hiatus hernia. No pneumoperitoneum. No pneumatosis. No suspicious lytic or blastic osseous lesions. Cholecystectomy. The liver, spleen, adrenal glands, and pancreas unremarkable. There is a 1.7 cm cyst within the right kidney. Mild focal scarring within the right kidney. No hydronephrosis. The bladder is unremarkable. The uterus is surgically absent. Small fat- containing right inguinal hernia. Mild perirectal/presacral edema which is nonspecific. No bowel wall thickening or obstruction. The appendix is not identified and may be surgically absent. The main portal vein is patent. No lymphadenopathy identified. Colonic diverticulosis. No evidence for acute diverticulitis. IMPRESSION: 1. No bowel wall thickening or obstruction. 2. The appendix is not identified and may be surgically absent. 3. Mild perirectal/presacral edema. This is nonspecific but could be chronic. There is no adjacent bowel wall thickening. 4. Please refer the same day chest CT for further evaluation of the lung bases and hiatus hernia. ACT 112: Negative or not required by law. Electronically signed by: Kevin Wallace M.D. 01/05/2021 12:15 PM Chest CTA 01/05/21 11:37 CHEST CTA for PULMONARY ARTER[address] DOSE: 565.70 mGy.cm HISTORY: Pleuritic chest pain. TECHNIQUE: Multiaxial CT images of the chest were performed following the intravenous administration of contrast to evaluate the pulmonary arteries. Maximal intensity projection images were also obtained. A dose lowering technique was utilized adhering to the principles of ALARA. COMPARISON STUDY: Chest CT 12/22/2020. FINDINGS: There is again noted a large hiatus hernia containing the majority the stomach and a segment of the transverse colon. Trace left pleural effusion is noted. No pericardial effusions. The large hiatus hernia results in mild to moderate mass effect along the posterior heart. This has progressed in the interval. The hernia appears to have slightly increased in size. No mediastinal or hilar lymphadenopathy. Mild distal thickening of the esophagus. No suspicious lytic or blastic osseous lesions. Patchy densities within the basal left lower lobe have progressed. This favors atelectasis from the hiatal hernia. A pneumonia could also a similar appearance but is considered less likely. The central airways are patent. No pneumothorax. Mild interstitial thickening which is likely chronic. Small patchy peripheral densities within the base of the right lower lobe also favors dependent change/atelectasis. Stable 1.2 cm scarlike density within the right upper lobe. Normal caliber thoracic aorta with no evidence for dissection. No filling defects within the pulmonary arteries to suggest a pulmonary embolus. IMPRESSION: 1. No evidence for pulmonary embolus. 2. Increase in size in the large hiatus hernia which results in mild to moderate mass effect along the posterior heart. This has progressed in the interval. 3. Trace left pleural effusion. 4. Progressive patchy densities within the base of the left lower lobe. This favors atelectasis from the hiatus hernia. A pneumonia could also have a similar appearance in the appropriate clinical setting. 5. Stable 1.2 cm scarlike density within the right upper lobe. ACT 112: Negative or not required by law. Electronically signed by: Kevin Wallace M.D. 01/05/2021 12:07 PM Discharge Plan Visit Data Chief Complaint: Chest Pain ED Provider: Carlos Alberto Sampson Discharge Problem: Atypical chest pain, Hernia, hiatal Forms Stand Alone Forms: My [facility] Prescriptions Prescriptions: No Action atorvastatin 40 mg tablet 40 mg PO HS Qty: 90 RF: 3 clopidogrel [Plavix] 75 mg tablet 75 mg PO DAILY Qty: 90 RF: 3 diltiazem HCl 120 mg capsule,extended release 24hr 120 mg PO QAM Qty: 90 RF: 3 levothyroxine 25 mcg tablet 25 mcg PO QAM Qty: 90 RF: 3 celecoxib 200 mg capsule 200 mg PO QAM Qty: 90 RF: 3 cholecalciferol (vitamin D3) 50 mcg (2,000 unit) capsule 50 mcg PO QAM RF: 0 calcium carbonate [Calcium 500] 500 mg calcium (1,250 mg) Tablet,Chewable 500 mg PO QAM RF: 0 Centrum 18-400 mg-mcg Tablet 1 tab PO QAM RF: 0 glucosamine-chondroitin [Osteo Bi-Flex] 250-200 mg tablet 1 tab PO BID RF: 0 cyanocobalamin (vitamin B-12) [Vitamin B-12] 500 mcg Tablet 500 mcg PO QAM RF: 0 esomeprazole magnesium 40 mg capsule,delayed release(DR/EC) 40 mg PO HS RF: 0 telmisartan 40 mg tablet 20 mg PO QAM RF: 0 Toviaz 4 mg tablet extended release 24 hr 4 mg PO BID RF: 0 Referrals Referrals: Addi Rangel MD [Primary Care Provider] -
[2021-01-05] MEDS ORDERED: SODIUM CHLORIDE 0.9% 500 ML IV STA (10:04)
[2021-01-05] MEDS ORDERED: NITROGLYCERIN SL 0.4 MG/TAB TAB SL PRN (10:04)
[2021-01-05 10:19] LABS: Basophils # (auto) 0.02 K/uL (0-0.2); Basophils % (auto) 0.2 %; Eosinophils % (auto) 0.9 %; Hematocrit (blood only) 34.2 % (37-47); Immature Granulocytes # (auto) 0.03 K/uL (0.00-0.02); Immature Granulocytes % (auto) 0.3 %; Lymphocytes # (auto) 0.75 K/uL (1.2-3.4); Lymphocytes % (auto) 6.4 %; Mean Corpuscular Hemoglobin 32.1 pg (25-34); Mean Corpuscular Hgb Conc 32.2 g/dL (32-36); Mean Corpuscular Volume 99.7 fL (80-100); Mean Platelet Volume 10.6 fL (7.4-10.4); Monocytes % (auto) 4.3 %; Neutrophils # (auto) 10.31 K/uL (1.4-6.5); Neutrophils % (auto) 87.9 %; Platelet Count 246 K/uL (130-400); RDW Coefficient of Variation 15.4 % (11.5-14.5); RDW Standard Deviation 56.8 fL (36.4-46.3); Red Blood Count 3.43 M/uL (4.2-5.4); White Blood Count 11.71 K/uL (4.8-10.8)
[2021-01-05 10:30] LABS: Partial Thromboplastin Ratio 0.9; Partial Thromboplastin Time 23.6 Seconds (21.0-31.0)
--- NOTE | 2021-01-05 10:33 | XRay Report ---
XR chest 1V portable HISTORY: Atypical Chest Pain COMPARISON: Chest CT 12/22/2020. FINDINGS: No pneumothorax. There is a trace left pleural effusion, unchanged. There is a large hiatus hernia. Left basilar linear densities persist and favor subsegmental atelectasis. The heart remains borderline enlarged. There is mild chronic interstitial thickening, unchanged. No evidence for pulmon tess edema. Chronic deformity within the left shoulder is again noted. IMPRESSION: No significant change compared to the prior study. A trace left pleural effusion and left basilar den sities/atelectasis persist. ACT 112: Negative or not required by law. Electronically signed by: Kevin Wallace M.D. 01/05/2021 10:31 AM
[2021-01-05 10:46] LABS: Alanine Aminotransferase 27 U/L (12-78); Albumin Level 2.6 gm/dl (3.4-5.0); Aspartate Aminotransferase 22 U/L (15-37); BUN Creatinine Ratio 30.7 (10-20); Blood Urea Nitrogen 20 mg/dl (7-18); Calcium 9.8 mg/dl (8.5-10.1); Carbon Dioxide 26 mmol/L (21-32); Chloride 107 mmol/L (98-107); Creatinine Clr Calc Pharmacy 49.1 ml/min; Est GFR (African American) 92.1 ml/min; Est GFR (Non-African American) 79.4 ml/min; Glucose 99 mg/dl (70-99); Lipase 95 U/L (73-393); Potassium 3.6 mmol/L (3.5-5.1); Sodium 142 mmol/L (136-145)
[2021-01-05 10:51] LABS: Albumin Globulin Ratio 0.9 (0.9-2); Alkaline Phosphatase 88 U/L (45-117); Bilirubin,Total 0.7 mg/dl (0.2-1); Total Protein 5.6 gm/dl (6.4-8.2); Troponin I < 0.015 ng/ml (0-0.045)
[2021-01-05] MEDS ORDERED: OPTIRAY 320 125ml IV ONE (11:44)
--- NOTE | 2021-01-05 12:09 | CT Scan Report ---
CHEST CTA for PULMONARY ARTERIES CT DOSE: 565.70 mGy.cm HISTORY: Pleuritic chest pain. TECHNIQUE: Multiaxial CT images of the chest were performed following the intravenous administration of contrast to evaluate the pulmonary arteries. Maximal intensity projection images were also obtaine d. A dose lowering technique was utilized adhering to the principles of ALARA. COMPARISON STUDY: Chest CT 12/22/2020. FINDINGS: There is again noted a large hiatus hernia containing the majority the stomach and a segmen t of the transverse colon. Trace left pleural effusion is noted. No pericardial effusions. The large hiatus hernia results in mild to moderate mass effect along the posterior heart. This has progressed in the interval. The hernia appears to have slightly increased in size. No mediastinal or hilar lymph adenopathy. Mild distal thickening of the esophagus. No suspicious lytic or blastic osseous lesions. Patchy densities within the basal left lower lobe have progressed. This favors atelectasis from the h iatal hernia. A pneumonia could also a similar appearance but is considered less likely. The central airways are patent. No pneumothorax. Mild interstitial thickening which is likely chronic. Small patc hy peripheral densities within the base of the right lower lobe also favors dependent change/atelecta sis. Stable 1.2 cm scarlike density within the right upper lobe. Normal caliber thoracic aorta with n o evidence for dissection. No filling defects within the pulmonary arteries to suggest a pulmonary em bolus. IMPRESSION: 1. No evidence for pulmonary embolus. 2. Increase in size in the large hiatus hernia which results in mild to moderate mass effect along th e posterior heart. This has progressed in the interval. 3. Trace left pleural effusion. 4. Progressive patchy densities within the base of the left lower lobe. This favors atelectasis from the hiatus hernia. A pneumonia could also have a similar appearance in the appropriate clinical setti ng. 5. Stable 1.2 cm scarlike density within the right upper lobe. ACT 112: Negative or not required by law. Electronically signed by: Kevin Wallace M.D. 01/05/2021 12:07 PM
--- NOTE | 2021-01-05 12:16 | CT Scan Report ---
ABDOMEN AND PELVIS CT WITH IV CONTRAST CT DOSE: HISTORY: Generalized abd pain, pain w/ deep breathing TECHNIQUE: Multiaxial CT images of the abdomen and pelvis were performed following the use of intrave nous contrast. A dose lowering technique was utilized adhering to the principles of ALARA. COMPARISON STUDY: None. FINDINGS: Please refer to the same day chest CTA for further evaluation of the lung bases in the larg e hiatus hernia. No pneumoperitoneum. No pneumatosis. No suspicious lytic or blastic osseous lesions. Cholecystectomy. The liver, spleen, adrenal glands, and pancreas unremarkable. There is a 1.7 cm cys t within the right kidney. Mild focal scarring within the right kidney. No hydronephrosis. The bladde r is unremarkable. The uterus is surgically absent. Small fat-containing right inguinal hernia. Mild perirectal/presacral edema which is nonspecific. No bowel wall thickening or obstruction. The appendi x is not identified and may be surgically absent. The main portal vein is patent. No lymphadenopathy identified. Colonic diverticulosis. No evidence for acute diverticulitis. IMPRESSION: 1. No bowel wall thickening or obstruction. 2. The appendix is not identified and may be surgically absent. 3. Mild perirectal/presacral edema. This is nonspecific but could be chronic. There is no adjacent michael wel wall thickening. 4. Please refer the same day chest CT for further evaluation of the lung bases and hiatus hernia. ACT 112: Negative or not required by law. Electronically signed by: Kevin Wallace M.D. 01/05/2021 12:15 PM
--- NOTE | 2021-01-05 14:17 | History & Physical Report ---
Date of Service January 05, 2021 Assessment & Plan (1) Atypical chest pain: Plan: Reproducible, but also received ASA and NTG this morning - ECG without dynamic change at this time- will trend Troponin I and ECG q6 hours - No dysnpnea or radiation of symptoms - Does endorse continued fatigue - Continue statin - Continue Plavix - ARB was discontinued last admission - on Diltiazem 120mg qday- continue (2) Hernia, hiatal: Plan: Continue with PPI- - follow symptomatology with above (3) Recurrent UTI: Plan: Completed course of Zosyn and Augmentin previously - daughter reports urine still dark and cloudy yesterday- home health gave dose of Macrobid and sent culture - UA on admission here- negative for bacteria; nitrite negative, LE 1+ contaminated with >30 epi and WBC (4) Aortic regurgitation: Plan: Stable with no complaints of dizziness or dyspnea - follow - - Spec grav noted at 1.045- LR at maintenance through PM as her mucuous membranes are dry as well. (5) PAT (paroxysmal atrial tachycardia): Plan: No acute need- telemtry overnight - remains on Dilt (6) Hyperlipidemia: Plan: Continue statin (7) Hypertension: Plan: As above (8) Hypothyroidism: Plan: Continue synthroid - TSH 2.6 on the [id number] (9) Internal carotid artery stenosis: Plan: As above continue plavix and statin, BP at goal History of Present Illness Primary Care Provider: Addi Rangel MD [id number] YOF with past medical history of: CVA, HTN, PAT/MAT narrow complex arrhythmia, hypokalemia, Urinary incontinence, GERD, Internal carotid artery stenosis, Hypothyroidism, and hiatal hernia. Patient was recently discharged on 12/30 following admission for weakness and was treated for UTI william sensitive E.coli (likely contaminated) completed course of Zosyn and Augmentin which was finished on 12/30. The patient was discharged home with home health assistance. The patient was brought to the EMD today after awakening and having chest pressure that was on the right center of her chest. This pain occurred upon awakening and worsened with her taking a deep breath. The patient received [address] to the EMD and the patient states that her pain got better after that and received a dose of nitroglycerin in the EMD. In the EMD the patient had a CXR done and ECG done. Concern was made for her ECG having non-specific t wave changes. The first set of troponin I was negative <0.015. Generally she feels overall well but does continue to endorse fatigue. She has an ECHO from 06/30 with EF 55-60%, mild to moderate Aortic Regurgitation, concentric LVH and normal wall motion. The pain is reproducible on her right side of her chest with palpation and the patient states this is the same pain that she was experiencing this morning. The daughter in the room endorses that they have been using pulling her up and assisting with getting her repositioned quite frequently at home, which would be consistent. Patient will be observed overnight on telemetry to trend CPK and Troponin I levels. Her ECG has no dynamic changes at this time and her symptoms are resolved. Allergies Allergy/AdvReac Type Severity Reaction Status Date / Time simvastatin [From Zocor] AdvReac Unknown Unknown Verified 01/05/21 10:32 Home Medications Medication Instructions Recorded Confirmed Type cholecalciferol (vitamin D3) 50 50 mcg PO QAM cap 04/08/19 01/05/21 History mcg (2,000 unit) capsule calcium carbonate 500 mg calcium 500 mg PO QAM 06/30/19 01/05/21 History (1,250 mg) chewable tablet (Calcium 500) multivitamin-ferrous 1 tab PO QAM 06/30/19 01/05/21 History fumarate-folic acid 18 mg-400 mcg tablet (Centrum) cyanocobalamin (vitamin B-12) 500 500 mcg PO QAM 04/29/20 01/05/21 History mcg tablet (Vitamin B-12) glucosamine-chondroitin 250 mg-200 1 tab PO BID tab 07/10/20 01/05/21 History mg tablet (Osteo Bi-Flex) atorvastatin 40 mg tablet 40 mg PO HS #90 tab 07/18/20 01/05/21 Rx clopidogrel 75 mg tablet (Plavix) 75 mg PO DAILY #90 tab 07/18/20 01/05/21 Rx diltiazem HCl 120 mg 120 mg PO QAM #90 cap 10/22/20 01/05/21 Rx capsule,extended release 24 hr levothyroxine 25 mcg tablet 25 mcg PO QAM #90 tab 10/22/20 01/05/21 Rx celecoxib 200 mg capsule 200 mg PO QAM #90 cap 12/09/20 01/05/21 Rx esomeprazole magnesium 40 mg 40 mg PO HS 12/17/20 01/05/21 History capsule,delayed release fesoterodine 4 mg tablet,extended 4 mg PO BID 01/05/21 01/05/21 History release 24 hr (Toviaz) telmisartan 40 mg tablet 20 mg PO QAM 01/05/21 01/05/21 History Past Med/Surg History Medical History Acute UTI Arthritis, multiple joint involvement Cerebral artery occlusion with cerebral infarction Community acquired pneumonia Depression GERD without esophagitis Gram-negative bacteremia Hyperlipidemia Hypertension Hypothyroidism Incontinence of urine in female Large hiatal hernia Macrocytosis Right ear impacted cerumen Swelling of right foot Urinary incontinence UTI (urinary tract infection) Weakness Surgical History H/O foot surgery History of bladder surgery resuspension History of hysterectomy Hx of cholecystectomy Hx of varicose vein ligation and stripping Family History Unknown Cancer Rheumatoid arthritis Fibromyalgia Denies family history of Ovarian cancer Prostate cancer Myocardial infarction Breast cancer Colorectal cancer Social History Smoking Status: Never smoker Second Hand Exposure: No; Hx Alcohol Use: No Hx Substance Use: No Preferred Language: Faroese Communication Ability: Effective Visual Impairment: No Limitations Hearing Ability: Normal Assembler Equipment Required: No Beliefs That Will Affect Care: None marital status: / Current Living Situation: Family Current Living Situation Comment: in-home aides to help current occupational status: retired Feels Safe at Home: Yes Childhood Exposure to Second-Hand Smoke: No caffeine: Yes during the past year weight has: remained stable Dental Care, Regularly: Yes Physical Activity Frequency: Does not Exercise Seatbelt Use: always Sunscreen Use: Yes Assistive Devices: Walker Review of Systems Review of Systems: REVIEW OF SYSTEMS: Constitutional: No fever, sweats or chills Eyes: No diplopia, no worsening or blurred vision ENT: normal hearing, no trouble swallowing Respiratory: No cough, sputum, dyspnea at rest or on exertion Cardiovascular: (+) chest pain, with inspiration, no tightness or palpitations Abdomen: No pain, nausea, vomiting, diarrhea or constipation Musculoskeletal: (+) generalized weakness, No joint pain, calf pain, swelling Neurologic: No weakness, numbness/tingling, or balance problems Psychiatric: No anxiety or depression Skin: No rash or itch Physical Exam Physical Exam: PHYSICAL EXAM: General: awake, alert, no apparent distress Head: Normocephalic, atraumatic ENT: PERRL, EOMI, no pharyngeal exudate, mucous membranes moist Neuro: AAO x 3, speech clear and appropriate, strength intact bilaterally 4/5 all extremities, sensation intact and equal all extremities and dermatomes Chest: equal rise and fall of the chest, no accessory muscle use, no heaves or thrills, Clear to auscultation, on room air, Cardiac: Regular rate and rhythm, telemetry reviewed- NSR, skin warm dry, cap refill <3 seconds, peripheral pulses +2 no JVD, Grade I-II systolic murmur, no JVD, no edema GI: NABS x 4 quadrants, soft, nontender to palpation, no rebound, guarding or tenderness : Spontaneously voiding, no pain, no CVA tenderness, Extremities: (+) tenderness to right intercostal 2nd and 3rd with palpation, Normal inspection, no peripheral edema or erythema, calfs nontender to palpation Psych: Normal mood and affect Skin: no rash or erythema Results & Data Results & Data ([facility]) Vital Signs (Past 12 Hours) Vital Signs Temp Pulse Pulse Resp BP BP Pulse Ox 01/05/21 11:30 89 16 119/65 95 01/05/21 11:20 89 15 112/62 96 01/05/21 11:10 92 H 15 106/58 L 96 01/05/21 11:01 90 16 107/57 L 94 01/05/21 11:00 94 H 15 107/57 L 94 01/05/21 10:50 94 H 18 114/58 L 94 01/05/21 10:40 90 94 H 18 118/62 118/62 96 01/05/21 10:37 90 18 113/70 97 01/05/21 10:30 91 H 18 115/69 97 01/05/21 10:17 97 H 18 96 01/05/21 10:00 94 H 17 114/65 96 01/05/21 09:51 96 H 20 121/71 96 01/05/21 09:50 36.4 C L 95 H 18 121/71 96 Laboratory Results Abnormal lab results 01/05/21 01/05/21 Range/Units 08:58 08:58 WBC 11.71 H (4.8-10.8) K/uL RBC 3.43 L (4.2-5.4) M/uL Hgb 11.0 L (12.0-16.0) g/dL Hct 34.2 L (37-47) % RDW Std Deviation 56.8 H (36.4-46.3) fL RDW Coeff of Pavithra 15.4 H (11.5-14.5) % MPV 10.6 H (7.4-10.4) fL Neut # (Auto) 10.31 H (1.4-6.5) K/uL Lymph # (Auto) 0.75 L (1.2-3.4) K/uL Immature Gran # (Auto) 0.03 H (0.00-0.02) K/uL BUN 20 H (7-18) mg/dl BUN/Creatinine Ratio 30.7 H (10-20) Total Protein 5.6 L (6.4-8.2) gm/dl Albumin 2.6 L (3.4-5.0) gm/dl Diagnostic Findings Chest X-Ray 01/05/21 10:04 XR chest 1V portable HISTORY: Atypical Chest Pain COMPARISON: Chest CT 12/22/2020. FINDINGS: No pneumothorax. There is a trace left pleural effusion, unchanged. There is a large hiatus hernia. Left basilar linear densities persist and favor subsegmental atelectasis. The heart remains borderline enlarged. There is mild chronic interstitial thickening, unchanged. No evidence for pulmonary edema. Chronic deformity within the left shoulder is again noted. IMPRESSION: No significant change compared to the prior study. A trace left pleural effusion and left basilar densities/atelectasis persist. ACT 112: Negative or not required by law. Electronically signed by: Kevin Wallace M.D. 01/05/2021 10:31 AM Abdomen/Pelvis CT 01/05/21 11:[address] WITH IV CONTRAST CT DOSE: HISTORY: Generalized abd pain, pain w/ deep breathing TECHNIQUE: Multiaxial CT images of the abdomen and pelvis were performed following the use of intravenous contrast. A dose lowering technique was utilized adhering to the principles of ALARA. COMPARISON STUDY: None. FINDINGS: Please refer to the same day chest CTA for further evaluation of the lung bases in the large hiatus hernia. No pneumoperitoneum. No pneumatosis. No suspicious lytic or blastic osseous lesions. Cholecystectomy. The liver, spleen, adrenal glands, and pancreas unremarkable. There is a 1.7 cm cyst within the right kidney. Mild focal scarring within the right kidney. No hydronephrosis. The bladder is unremarkable. The uterus is surgically absent. Small fat- containing right inguinal hernia. Mild perirectal/presacral edema which is nonspecific. No bowel wall thickening or obstruction. The appendix is not identified and may be surgically absent. The main portal vein is patent. No lymphadenopathy identified. Colonic diverticulosis. No evidence for acute diverticulitis. IMPRESSION: 1. No bowel wall thickening or obstruction. 2. The appendix is not identified and may be surgically absent. 3. Mild perirectal/presacral edema. This is nonspecific but could be chronic. There is no adjacent bowel wall thickening. 4. Please refer the same day chest CT for further evaluation of the lung bases and hiatus hernia. ACT 112: Negative or not required by law. Electronically signed by: Kevin Wallace M.D. 01/05/2021 12:15 PM Chest CTA 01/05/21 11:37 CHEST CTA for PULMONARY ARTERIES CT DOSE: 565.70 mGy.cm HISTORY: Pleuritic chest pain. TECHNIQUE: Multiaxial CT images of the chest were performed following the intravenous administration of contrast to evaluate the pulmonary arteries. Maximal intensity projection images were also obtained. A dose lowering technique was utilized adhering to the principles of ALARA. COMPARISON STUDY: Chest CT 12/22/2020. FINDINGS: There is again noted a large hiatus hernia containing the majority the stomach and a segment of the transverse colon. Trace left pleural effusion is noted. No pericardial effusions. The large hiatus hernia results in mild to moderate mass effect along the posterior heart. This has progressed in the interval. The hernia appears to have slightly increased in size. No mediastinal or hilar lymphadenopathy. Mild distal thickening of the esophagus. No suspicious lytic or blastic osseous lesions. Patchy densities within the basal left lower lobe have progressed. This favors atelectasis from the hiatal hernia. A pneumonia could also a similar appearance but is considered less likely. The central airways are patent. No pneumothorax. Mild interstitial thickening which is likely chronic. Small patchy peripheral densities within the base of the right lower lobe also favors dependent change/atelectasis. Stable 1.2 cm scarlike density within the right upper lobe. Normal caliber thoracic aorta with no evidence for dissection. No filling defects within the pulmonary arteries to suggest a pulmonary embolus. IMPRESSION: 1. No evidence for pulmonary embolus. 2. Increase in size in the large hiatus hernia which results in mild to moderate mass effect along the posterior heart. This has progressed in the interval. 3. Trace left pleural effusion. 4. Progressive patchy densities within the base of the left lower lobe. This favors atelectasis from the hiatus hernia. A pneumonia could also have a similar appearance in the appropriate clinical setting. 5. Stable 1.2 cm scarlike density within the right upper lobe. ACT 112: Negative or not required by law. Electronically signed by: Kevin Wallace M.D. 01/05/2021 12:07 PM Medications Administered Nitroglycerin (Nitroglycerin Sl 0.4 Mg/Tab Tab) 0.4 mg SL UD PRN PRN Reason: Chest Pain Stop: 02/04/21 10:03 Last Admin: 01/05/21 10:35 Dose: 0.4 mg Documented by: [id number] Discontinued Medications Sodium Chloride (Nss) 500 mls @ 999 mls/hr IV .Q31M STA Stop: 01/05/21 10:34 Last Infusion: 01/05/21 11:02 Dose: 0 mls/hr Documented by: [id number] Admin: 01/05/21 10:35 Dose: 999 mls/hr Documented by: [id number] Ioversol (Optiray 320 125ml) 120 ml IV ONCE ONE Stop: 01/05/21 11:45 Last Admin: 01/05/21 11:45 Dose: 120 ml Documented by: [id number] Home Medications cholecalciferol (vitamin D3) 50 mcg (2,000 unit) capsule 50 mcg PO QAM cap 04/08/19 [History Confirmed 01/05/21] calcium carbonate 500 mg calcium (1,250 mg) chewable tablet (Calcium 500) 500 mg PO QAM 06/30/19 [History Confirmed 01/05/21] multivitamin-ferrous fumarate-folic acid 18 mg-400 mcg tablet (Centrum) 1 tab PO QAM 06/30/19 [History Confirmed 01/05/21] cyanocobalamin (vitamin B-12) 500 mcg tablet (Vitamin B-12) 500 mcg PO QAM 04/29/20 [History Confirmed 01/05/21] glucosamine-chondroitin 250 mg-200 mg tablet (Osteo Bi-Flex) 1 tab PO BID tab 07/10/20 [History Confirmed 01/05/21] atorvastatin 40 mg tablet 40 mg PO HS #90 tab 07/18/20 [Rx Confirmed 01/05/21] clopidogrel 75 mg tablet (Plavix) 75 mg PO DAILY #90 tab 07/18/20 [Rx Confirmed 01/05/21] diltiazem HCl 120 mg capsule,extended release 24 hr 120 mg PO QAM #90 cap 10/22/20 [Rx Confirmed 01/05/21] levothyroxine 25 mcg tablet 25 mcg PO QAM #90 tab 10/22/20 [Rx Confirmed 01/05/21] celecoxib 200 mg capsule 200 mg PO QAM #90 cap 12/09/20 [Rx Confirmed 01/05/21] esomeprazole magnesium 40 mg capsule,delayed release 40 mg PO HS 12/17/20 [History Confirmed 01/05/21] fesoterodine 4 mg tablet,extended release 24 hr (Toviaz) 4 mg PO BID 01/05/21 [History Confirmed 01/05/21] telmisartan 40 mg tablet 20 mg PO QAM 01/05/21 [History Confirmed 01/05/21] Active Medications Nitroglycerin (Nitroglycerin Sl 0.4 Mg/Tab Tab) 0.4 mg SL UD PRN PRN Reason: Chest Pain Stop: 02/04/21 10:03 Last Admin: 01/05/21 10:35 Dose: 0.4 mg Documented by: ECG Additional Comments: Normal sinus rhythm Left anterior fascicular block Left ventricular hypertrophy with QRS widening and repolarization abnormality Abnormal ECG When compared with ECG of 17-DEC-2020 01:07, T wave inversion now evident in Lateral leads Code Status & VTE Plan Code Status CODE: FULL VTE: SCDs, Lovenox VTE Prophylaxis Plan VTE Prophylaxis will be ordered: Yes Supervising Physician Co-Signing Physician Notes I have seen and agree with the above PG Care Time/CCT Total # of Minutes Spent Total Time Spent with Patient: Total time spent is greater than 50% in coordination of care (as documented) at patient's floor/unit and/or counseling patient: Coding Level of Care Code INT OBSERVATION CARE 70M LVL 3 Diagnoses Atypical chest pain R07.89 Hernia, hiatal K44.9 Recurrent UTI N39.0 Aortic regurgitation I35.1 PAT (paroxysmal atrial tachycardia) I47.1 Hyperlipidemia E78.5 Hyperlipidemia type: unspecified Hypertension I10 Hypertension type: unspecified Hypothyroidism E03.9 Hypothyroidism type: unspecified Internal carotid artery stenosis I65.21 Laterality: right (1) Internal carotid artery stenosis Laterality: right Qualified Code(s): I65.21 - Occlusion and stenosis of right carotid artery (2) Hyperlipidemia Hyperlipidemia type: unspecified Qualified Code(s): E78.5 - Hyperlipidemia, unspecified (3) Hypothyroidism Hypothyroidism type: unspecified Qualified Code(s): E03.9 - Hypothyroidism, unspecified (4) Hypertension Hypertension type: unspecified Qualified Code(s): I10 - Essential (primary) hypertension
[2021-01-05 14:20] LABS: Appearance Urine Clear (Clear); Bacteria Urine Automated Negative (Negative); Bilirubin Urine Negative (Negative); Blood Urine Negative (Negative); Color Urine Yellow; Epithelial Cell Urine Auto >30 /lpf (0-5); Glucose Urine UA Negative (Negative); Ketones Urine Negative (Negative); Leukocyte Esterase Urine 1+ (Negative); Nitrite Urine Negative (Negative); Protein Urine Negative (Negative); RBC Urine Automated 0-4 /hpf (0-4); Specific Gravity Urine > 1.045 (1.000-1.030); Urobilinogen Urine Negative (Negative); WBC Urine Automated >30 /hpf (0-5); pH Urine 6.5 (4.5-7.5)
[2021-01-05] MEDS ORDERED: LACTATED RINGER'S 1,000 ML IV ONE (17:07)
[2021-01-05] MEDS ORDERED: POLYETHYLENE (MIRALAX) 17 GM PACK PO PRN (17:11)
[2021-01-05] MEDS ORDERED: ONDANSETRON INJ 2 MG/ML 2 ML VIAL IV PRN (17:11)
[2021-01-05] MEDS ORDERED: ACETAMINOPHEN 325 MG TAB PO PRN (17:11)
[2021-01-05] MEDS ORDERED: PANTOprazole 40 MG TAB PO SCH (21:00)
[2021-01-05] MEDS ORDERED: ENOXAPARIN INJ 40 MG/0.4 ML SYR SQ SCH (21:00)
[2021-01-05] MEDS ORDERED: ATORVASTATIN 40 MG TAB PO SCH (21:00)
--- NOTE | 2021-01-06 06:14 | Electrocardiogram Report ---
Test Reason : Blood Pressure : / mmHG Vent. Rate : 096 BPM Atrial Rate : 096 BPM P-R Int : 172 ms QRS Dur : 122 ms QT Int : 368 ms P-R-T Axes : 030 -51 078 degrees QTc Int : 464 ms Normal sinus rhythm Left anterior fascicular block Left ventricular hypertrophy with QRS widening and repolarization abnormality Abnormal ECG When compared with ECG of 17-DEC-2020 01:07, T wave inversion now evident in Lateral leads Confirmed by Ryan Angulo ([id number]) on 01/06/2021 6:13:31 AM Referred By: ED Confirmed By:Ryan Angulo
[2021-01-06] MEDS ORDERED: LEVOTHYROXINE SODIUM 25 MCG TABLET PO SCH (06:30)
[2021-01-06] MEDS ORDERED: CeleBREX 200 MG CAP PO SCH (09:00)
[2021-01-06] MEDS ORDERED: CLOPIDOGREL BISULFATE 75 MG TAB PO SCH (09:00)
[2021-01-06] MEDS ORDERED: CYANOCOBALAMIN 500 MCG TABLET (VITAMIN B-12) PO SCH (09:00)
[2021-01-06] MEDS ORDERED: dilTIAZem HCL 120 MG CAPCR PO SCH (09:00)
[2021-01-06] MEDS ORDERED: CHOLECALCIFEROL 1,000 UNITS 25 MCG TAB PO SCH (09:00)
[2021-01-06] MEDS ORDERED: CALCIUM CARBONATE 1250MG TAB PO SCH (09:00)
--- NOTE | 2021-01-06 12:32 | Electrocardiogram Report ---
Test Reason : Blood Pressure : / mmHG Vent. Rate : 094 BPM Atrial Rate : 094 BPM P-R Int : 166 ms QRS Dur : 120 ms QT Int : 380 ms P-R-T Axes : 025 -51 084 degrees QTc Int : 475 ms Normal sinus rhythm Left anterior fascicular block Abnormal ECG When compared with ECG of 05-JAN-2021 09:56, No significant change was found Confirmed by Ryan Angulo ([id number]) on 01/06/2021 12:31:59 PM Referred By: REFERRED SELF Confirmed By:Ryan Angulo
--- NOTE | 2021-01-06 12:37 | Electrocardiogram Report ---
Test Reason : Blood Pressure : / mmHG Vent. Rate : 084 BPM Atrial Rate : 084 BPM P-R Int : 160 ms QRS Dur : 122 ms QT Int : 368 ms P-R-T Axes : 067 -48 077 degrees QTc Int : 434 ms Poor data quality, interpretation may be adversely affected Sinus rhythm with Premature atrial complexes Premature ventricular complexes Left anterior fascicular block Nonspecific ST abnormality Abnormal ECG When compared with ECG of 05-JAN-2021 17:18, Premature atrial complexes are now Present Premature ventricular complexes are now Present Confirmed by Ryan Angulo ([id number]) on 01/06/2021 12:37:13 PM Referred By: REFERRED SELF Confirmed By:Ryan Angulo
--- NOTE | 2021-01-06 12:40 | Electrocardiogram Report ---
Test Reason : Blood Pressure : / mmHG Vent. Rate : 088 BPM Atrial Rate : 088 BPM P-R Int : 174 ms QRS Dur : 124 ms QT Int : 368 ms P-R-T Axes : 033 -46 071 degrees QTc Int : 445 ms Normal sinus rhythm Non-specific intra-ventricular conduction block Nonspecific ST abnormality Abnormal ECG When compared with ECG of 05-JAN-2021 22:09, Premature atrial complexes are no longer Present Premature ventricular complexes are no longer Present Confirmed by Ryan Angulo ([id number]) on 01/06/2021 12:40:12 PM Referred By: REFERRED SELF Confirmed By:Ryan Angulo
[2021-01-06 13:07] LABS: BUN Creatinine Ratio 20.9 (10-20); Calcium 9.7 mg/dl (8.5-10.1); Creatinine Clr Calc Pharmacy 70.9 ml/min; Est GFR (African American) 104.4 ml/min; Est GFR (Non-African American) 90.1 ml/min; Potassium 3.2 mmol/L (3.5-5.1)
[2021-01-06 13:15] LABS: Basophils # (auto) 0.02 K/uL (0-0.2); Basophils % (auto) 0.3 %; Eosinophils # (auto) 0.25 K/uL (0-0.5); Eosinophils % (auto) 3.6 %; Hematocrit (blood only) 31.2 % (37-47); Hemoglobin 10.1 g/dL (12.0-16.0); Immature Granulocytes # (auto) 0.03 K/uL (0.00-0.02); Immature Granulocytes % (auto) 0.4 %; Lymphocytes # (auto) 0.91 K/uL (1.2-3.4); Lymphocytes % (auto) 13.2 %; Mean Corpuscular Hemoglobin 31.9 pg (25-34); Mean Corpuscular Hgb Conc 32.4 g/dL (32-36); Mean Corpuscular Volume 98.4 fL (80-100); Mean Platelet Volume 10.7 fL (7.4-10.4); Monocytes # (auto) 0.35 K/uL (0.11-0.59); Monocytes % (auto) 5.1 %; Neutrophils # (auto) 5.33 K/uL (1.4-6.5); Neutrophils % (auto) 77.4 %; Platelet Count 229 K/uL (130-400); RDW Coefficient of Variation 15.6 % (11.5-14.5); RDW Standard Deviation 56.6 fL (36.4-46.3); Red Blood Count 3.17 M/uL (4.2-5.4); White Blood Count 6.89 K/uL (4.8-10.8)
--- NOTE | 2021-01-06 15:12 | Discharge Summary ---
Date of Service January 06, 2021 Admission HPI Per Admitting Provider 85 YOF with past medical history of: CVA, HTN, PAT/MAT narrow complex arrhythmia, hypokalemia, Urinary incontinence, GERD, Internal carotid artery stenosis, Hypothyroidism, and hiatal hernia. Patient was recently discharged on 12/30 following admission for weakness and was treated for UTI william sensitive E.coli (likely contaminated) completed course of Zosyn and Augmentin which was finished on 12/30. The patient was discharged home with home health assistance. The patient was brought to the EMD today after awakening and having chest pressure that was on the right center of her chest. This pain occurred upon aw akening and worsened with her taking a deep breath. The patient received [address] to the EMD and the patient states that her pain got better after that and received a dose of nitroglycerin in the EMD. In the EMD the patient had a CXR done and ECG done. Concern was made for her ECG having non-specific t wave changes. The first set of troponin I was negative <0.015. Generally she feels overall well but does continue to endorse fatigue. She has an ECHO from 06/30 with EF 55-60%, mild to moderate Aortic Regurgitation, concentric LVH and normal wall motion. The pain is reproducible on her right side of her chest with palpation and the patient states this is the same pain that she was experiencing this morning. The daughter in the room endorses that they have been using pulling her up and assisting with getting her repositioned quite frequently at home, which would be consistent. Patient will be observed overnight on telemetry to trend CPK and Troponin I levels. Her ECG has no dynamic changes at this time and her symptoms are resolved. Discharge Data Allergies Allergy/AdvReac Type Severity Reaction Status Date / Time simvastatin [From Zocor] AdvReac Unknown Unknown Verified 01/05/21 10:32 Consultations 01/05/21 13:04 ED Decision to Admit Stat Ordered Studies 01/05/21 11:37 CT abd pelvis IV con only Stat CT angio chest PE protocol Stat Hospital Course (1) Atypical chest pain: Reproducible, but also received ASA and NTG this morning - ECG without dynamic change at this time- will trend Troponin I and ECG q6 hours - No dysnpnea or radiation of symptoms - Does endorse continued fatigue - Continue statin - Continue Plavix - ARB was discontinued last admission - on Diltiazem 120mg qday- continue (2) Hernia, hiatal: Continue with PPI- - follow symptomatology with above (3) Recurrent UTI: Completed course of Zosyn and Augmentin previously - daughter reports urine still dark and cloudy yesterday- home health gave dose of Macrobid and sent culture - UA on admission here- negative for bacteria; nitrite negative, LE 1+ contaminated with >30 epi and WBC (4) Aortic regurgitation: Stable with no complaints of dizziness or dyspnea - follow - - Spec grav noted at 1.045- LR at maintenance through PM as her mucuous membranes are dry as well. (5) PAT (paroxysmal atrial tachycardia): No acute need- telemtry overnight - remains on Dilt (6) Hyperlipidemia: Continue statin (7) Hypertension: As above (8) Hypothyroidism: Continue synthroid - TSH 2.6 on the (9) Internal carotid artery stenosis: As above continue plavix and statin, BP at goal Discharge Plan Discharge Items Patient Disposition: Home - Self-Care Reason For Visit: CHEST PAIN Discharge Diagnosis: Atypical chest pain - suspect from large hiatal hernia vs. musculoskeletal from movement Activity: Resume your previous activity Non-emergency contact: Primary Care Provider Call non-emergency contact if: you have any medication questions and your symptoms worsen Follow-up/Referrals: Addi Rangel MD [Primary Care Provider] - Diet: Low Sodium (2gm) Addtl Attending Provider Instructions: You were observed at [facility] from January 05 - 2020 due to chest pain. No pulmonary emboli on CT angiogram. Serial troponins were negative therefore this was not a heart attack. She has a large hiatal hernia therefore possibly her pain was due to this. Her pain was also reproducible on exam on admission therefore possible her pain is musculoskeletal. On telemetry she had an episode of known paroxysmal atrial tachycardia and she was asymptomatic during this therefore do not suspect this caused her chest pain. She is now chest pain free and medically stable for discharge. Of note her Toviaz and Telmisartan were discontinued on last admission. These should be discontinued already. Pending Studies at Discharge: No Stand-Alone Forms: My [facility] Luminescent, Smoking Cessation Medications and DC Order Prescriptions: Continued atorvastatin 40 mg tablet 40 mg PO HS Qty: 90 RF: 3 clopidogrel [Plavix] 75 mg tablet 75 mg PO DAILY Qty: 90 RF: 3 diltiazem HCl 120 mg capsule,extended release 24hr 120 mg PO QAM Qty: 90 RF: 3 levothyroxine 25 mcg tablet 25 mcg PO QAM Qty: 90 RF: 3 celecoxib 200 mg capsule 200 mg PO QAM Qty: 90 RF: 3 cholecalciferol (vitamin D3) 50 mcg (2,000 unit) capsule 50 mcg PO QAM RF: 0 calcium carbonate [Calcium 500] 500 mg calcium (1,250 mg) Tablet,Chewable 500 mg PO QAM RF: 0 Centrum 18-400 mg-mcg Tablet 1 tab PO QAM RF: 0 glucosamine-chondroitin [Osteo Bi-Flex] 250-200 mg tablet 1 tab PO BID RF: 0 cyanocobalamin (vitamin B-12) [Vitamin B-12] 500 mcg Tablet 500 mcg PO QAM RF: 0 esomeprazole magnesium 40 mg capsule,delayed release(DR/EC) 40 mg PO HS RF: 0 Discontinued telmisartan 40 mg tablet 20 mg PO QAM RF: 0 Toviaz 4 mg tablet extended release 24 hr 4 mg PO BID RF: 0 Discharge Orders: Discharge Order (Routine); Ordered 01/06/21 Ordered By: Keagan Franks Admission Data Admit Date/Time: 01/05/21 13:59 Attending Provider: Keagan Franks Admit Provider: Gaby Monet Primary Care Provider: Addi Rangel Other Providers: Aydin Rubi Coding Diagnoses Atypical chest pain R07.89 Hernia, hiatal K44.9 Recurrent UTI N39.0 Aortic regurgitation I35.1 PAT (paroxysmal atrial tachycardia) I47.1 Hyperlipidemia E78.5 Hyperlipidemia type: unspecified Hypertension I10 Hypertension type: unspecified Hypothyroidism E03.9 Hypothyroidism type: unspecified Internal carotid artery stenosis I65.21 Laterality: right
== END 2021-01-06 16:38 | disposition home or self-care (01) ==
LOC: ED 09:39 → 2W 09:39 → SUATTDRO 13:59 → 2W 16:18

== ENCOUNTER 2022-05-11 12:33 | Inpatient (IN) ==
[2022-05-11] MEDS ORDERED: SODIUM CHLORIDE 0.9% 1000ML 1,000 ML IV SCH (13:30)
[2022-05-11 13:34] LABS: Basophils # (auto) 0.08 K/uL (0-0.2); Basophils % (auto) 0.8 %; Hematocrit (blood only) 40.4 % (34.1-44.9); Hemoglobin 13.3 g/dl (12.0-16.0); Immature Granulocytes # (auto) 0.12 K/uL (0.00-0.02); Immature Granulocytes % (auto) 1.2 %; Lymphocytes # (auto) 1.73 K/uL (1.2-3.4); Lymphocytes % (auto) 16.6 %; Mean Corpuscular Hemoglobin 32.5 pg (25.0-34.0); Mean Corpuscular Hgb Conc 32.9 g/dL (32.0-36.0); Mean Corpuscular Volume 98.8 fL (80.0-100.0); Mean Platelet Volume 9.7 fL (9.4-12.3); Monocytes # (auto) 0.63 K/uL (0.24-0.82); Neutrophils # (auto) 7.77 K/uL (1.4-6.5); Neutrophils % (auto) 74.4 %; Platelet Count 245 K/uL (130-400); RDW Coefficient of Variation 14.7 % (11.5-14.5); RDW Standard Deviation 53.2 fL (36.4-46.3); Red Blood Count 4.09 M/uL (3.93-5.22); White Blood Count 10.43 K/ul (4.8-10.8)
--- NOTE | 2022-05-11 13:43 | XRay Report ---
XR chest 1V portable HISTORY: 86 years-old Female weakness acute weakness COMPARISON: Chest radiograph 12/22/2021, CT abdomen and pelvis 01/05/2021 TECHNIQUE: AP view of the chest FINDINGS: Cardiac silhouette is enlarged. Chronic left basilar density redemonstrated. Atherosclerosis of the t horacic aorta. No pneumothorax, large pleural effusion or overt pulmonary edema. Degenerative changes of the shoulders and spine. IMPRESSION: 1. Cardiomegaly without acute process. 2. Chronic left basilar opacity likely represents the previously noted large hiatal hernia. ACT 112: Negative or not required by law. The above report was generated using voice recognition software. It may contain grammatical, syntax o r spelling errors. Electronically signed by: Young Petersen M.D. 05/11/2022 1:41 PM
[2022-05-11 14:02] LABS: Albumin Globulin Ratio 1.2 (0.9-2); Albumin Level 3.9 gm/dl (3.4-5.0); BUN Creatinine Ratio 39.2 (10-20); Bilirubin,Total 0.7 mg/dl (0.2-1.0); Calcium 10.8 mg/dl (8.5-10.1); Creatinine Clr Calc Pharmacy 54.8 ml/min; Est GFR (African American) 99.5 ml/min; Est GFR (Non-African American) 85.9 ml/min; Globulin 3.2 gm/dl (2.5-4.0); Magnesium 1.7 mg/dl (1.7-2.4); Potassium 3.8 mmol/L (3.5-5.1); Total Protein 7.1 gm/dl (6.0-8.3)
[2022-05-11 14:04] LABS: Troponin I High Sensitivity 9.6 pg/ml (0-14)
[2022-05-11 14:58] LABS: Appearance Urine Clear (Clear); Bacteria Urine Automated 4+ (Negative); Bilirubin Urine Negative (Negative); Blood Urine Negative (Negative); Cast Urine Automated 0 /lpf (0-5); Color Urine Yellow; Glucose Urine UA Negative (Negative); Ketones Urine Negative (Negative); Leukocyte Esterase Urine Trace (Negative); Nitrite Urine Positive (Negative); Protein Urine Negative (Negative); RBC Urine Automated 0-4 /hpf (0-4); Specific Gravity Urine 1.009 (1.000-1.030); Urobilinogen Urine Negative (Negative)
[2022-05-11] MEDS ORDERED: PIPERACILLIN/TAZOBACTAM 4.5 GM/120 ML BAG IV ONE (15:14)
--- NOTE | 2022-05-11 16:25 | History & Physical Report ---
Date of Service May 11, 2022 Assessment & Plan (1) Acute UTI: Plan: - No urinary symptoms but generally weak with foul smelling urine which is a typical presentation for her. - UA: 4+ bacteria, + nitries, trace leukesterase. - Received a dose of Zosyn in ED--reviewed urine cultures from the last 2 years, all have grown E. Coli that is sensitive to Rocephin, therefor will switch to this antibiotic starting tomorrow. - Urine cx collected, follow. (2) Weakness: Plan: - Suspect 2/2 UTI and worsened by age, deconditioning give severe OA that limits her mobility. - No electrolyte abnormalities on labs checked, will add on phosphorus. - Management of UTI as above, PT/OT also to evaluate and treat patient while admitted. (3) Chronic pain: Plan: - Due to widespread osteoarthritis. - Continue Celebrex, [place], glucosamine tabs. (4) Hypercalcemia: Plan: - Ca 10.8, history of hypercalcemia 2/2 hyperparathyroid. - Has discussed referral to surgery for Sensipar. - Continue to monitor. (5) Hyperparathyroidism: (6) GERD without esophagitis: Plan: - With known large hiatal hernia. - Continue PPI. (7) Hypertension: Plan: - Continue diltiazem. (8) Hyperlipidemia: Plan: - Continue atorvastatin. (9) Hypothyroidism: Plan: - Continue levothyroxine. - TSH 2.13 today. Plan - Admit to med/surg. - SCDs, Lovenox for VTE ppx. - Full Code. History of Present Illness Chief Complaint: generalized weakness Primary Care Provider: Addi Rangel MD Emilee Israel is an 86-year-old female with past medical history of recurrent UTIs, hypothyroidism, hyperparathyroidism, hypertension, GERD, and osteoarthritis is presenting today with generalized weakness. For the past 3 days she has felt weak in both of her legs and notices foul smelling urine. She notes she typically presents this way with UTIs and rarely has urinary symptoms, fevers, or chills. She has not had any falls, fever/chills, confusion, abdominal pain, n/v, increased urinary frequency, retention, or dysuria. She has been on methenamine and follows w/ urology for recurrent UTIs. On presentation she is borderline tachycardic and hypertensive, otherwise vital signs within normal limits, she is afebrile. UA positive for nitrates, trace leuk esterase and 4+ bacteria with 510 epithelial cells. Her Ca is mildly high at 10.8 which is not a new finding for her. Without leukocytosis, other electrolyte abnormalities or renal dysfunction. Troponin 9.6. TSH 2.1. Allergies Allergy/AdvReac Type Severity Reaction Status Date / Time cephalexin AdvReac Intermediate macular Verified 05/11/22 17:12 welts / rash duloxetine AdvReac Intermediate dazed. Verified 05/11/22 17:12 fatigued simvastatin [From Zocor] AdvReac Unknown Unknown Verified 05/11/22 17:12 Home Medications Medication Instructions Recorded Confirmed Type multivitamin-ferrous 1 tab PO QAM 06/30/19 05/11/22 History fumarate-folic acid 18 mg-400 mcg tablet (Centrum) cyanocobalamin (vitamin B-12) 500 500 mcg PO QAM 04/29/20 05/11/22 History mcg tablet (Vitamin B-12) glucosamine-chondroitin 250 mg-200 1 tab PO BID 07/10/20 05/11/22 History mg tablet (Osteo Bi-Flex) Wheelchair (Manual) #1 ea 09/04/21 02/17/22 Rx celecoxib 200 mg capsule 200 mg PO QAM #90 caps 12/12/21 05/11/22 Rx benzonatate 100 mg capsule 100 mg PO TID PRN cough 10 days 04/17/22 05/11/22 Rx #30 caps hydrocodone 7.5 mg-acetaminophen 10 ml PO Q8H PRN pain #200 mL 04/22/22 05/11/22 Rx 325 mg/15 mL oral solution ascorbic acid (vitamin C) 500 mg 500 mg PO DAILY 05/11/22 05/11/22 History tablet atorvastatin 40 mg tablet 40 mg PO HS 05/11/22 05/11/22 History clopidogrel 75 mg tablet 75 mg PO DAILY 05/11/22 05/11/22 History esomeprazole magnesium 40 mg 40 mg PO HS 05/11/22 05/11/22 History capsule,delayed release latanoprost 0.005 % eye drops 1 drp OPR HS 05/11/22 05/11/22 History levothyroxine 25 mcg tablet 25 mcg PO DAILYBB 05/11/22 05/11/22 History magnesium oxide 400 mg PO DAILY 05/11/22 05/11/22 History potassium chloride 20 mEq 20 meq PO DAILY 05/11/22 05/11/22 History tablet,extended release(part/cryst) diltiazem HCl 180 mg 180 mg PO QPM #30 caps 05/19/22 Rx capsule,extended release 24 hr nystatin 100,000 unit/mL oral 5 ml PO QID 7 days #140 mL 05/19/22 Rx suspension thiamine HCl (vitamin B1) 100 mg 200 mg PO QAM #60 tabs 05/19/22 Rx tablet Past Med/Surg History Medical History (Updated 05/19/22 @ 08:50 by Keagan Leggett) Acute UTI Arthritis, multiple joint involvement Cerebral artery occlusion with cerebral infarction Community acquired pneumonia Depression GERD without esophagitis Gram-negative bacteremia Hyperlipidemia Hypertension Hypothyroidism Incontinence of urine in female Large hiatal hernia Macrocytosis Right ear impacted cerumen Swelling of right foot Urinary incontinence UTI (urinary tract infection) Weakness Surgical History H/O foot surgery History of bladder surgery resuspension History of hysterectomy Hx of cholecystectomy Hx of varicose vein ligation and stripping Family History Unknown Cancer Rheumatoid arthritis Fibromyalgia Denies family history of Ovarian cancer Prostate cancer Myocardial infarction Breast cancer Colorectal cancer Social History Smoking Status: Never smoker Second Hand Exposure: No; Hx Alcohol Use: No Hx Substance Use: No Preferred Language: Malay Communication Ability: Effective Visual Impairment: Partially Limited Hearing Ability: Normal Laborer Rags Required: No Beliefs That Will Affect Care: None marital status: / Current Living Situation: Alone Current Living Situation Comment: in-home aides to help current occupational status: retired Feels Safe at Home: Yes Childhood Exposure to Second-Hand Smoke: No caffeine: Yes during the past year weight has: remained stable Dental Care, Regularly: Yes Physical Activity Frequency: Does not Exercise Seatbelt Use: always Sunscreen Use: Yes Assistive Devices: Bedside Commode, Walker and Wheelchair Review of Systems Review of Systems: Constitutional: 3 days of weakness, fatigue; No fever/chills, myalgias, anorexia, night sweats Eyes: No diplopia, no worsening or blurred vision ENT: normal hearing, no trouble swallowing Respiratory: No cough, sputum, dyspnea at rest or on exertion Cardiovascular: No chest pain, tightness or palpitations Abdomen: No pain, nausea, vomiting, diarrhea or constipation : Denies dysuria, hematuria, increased urgency/frequency, urinary retention Musculoskeletal: No joint pain, calf pain, swelling Neurologic: No weakness, numbness/tingling, or balance problems Psychiatric: No anxiety or depression Skin: No rash or itch Physical Exam Physical Exam: General: awake, alert, no apparent distress Head: Normocephalic, atraumatic ENT: PERRL, EOMI, no pharyngeal exudate, mucous membranes moist Chest: Clear to auscultation, on room air, no adventitious breath sounds Cardiac: Regular rate and rhythm, no murmur, no JVD, normal peripheral pulses, good capillary refill Abdominal: NABS x 4 quadrants, soft, nontender to palpation, no rebound, guarding or tenderness Extremities: Normal inspection, no peripheral edema or erythema, calfs nontender to palpation Psych: Normal mood and affect Neuro: AAO x 3, strength intact bilaterally and rated 5/5, no motor deficits, speech is clear, no peripheral sensory deficits Skin: no rash or erythema Results & Data Results & Data ([facility]) Vital Signs (Past 12 Hours) Vital Signs Temp Pulse Resp BP Pulse Ox O2 Del Method 05/11/22 15:30 88 18 05/11/22 15:30 160/85 H 05/11/22 15:00 89 19 05/11/22 15:00 169/92 H 05/11/22 14:30 92 H 19 05/11/22 14:30 186/94 H 05/11/22 14:00 92 H 18 05/11/22 14:00 153/96 H 05/11/22 13:30 91 H 20 05/11/22 13:30 168/90 H 05/11/22 13:01 91 H 16 96 Room Air 05/11/22 13:01 184/91 H 05/11/22 13:00 91 H 17 97 Room Air 05/11/22 12:43 95 H 15 97 Room Air 05/11/22 13:09 36.9 C 95 H 96 H 190/100 H 96 Room Air Laboratory Results Abnormal lab results 05/11/22 05/11/22 05/11/22 Range/Units 12:51 12:51 14:37 RDW Std Deviation 53.2 H (36.4-46.3) fL RDW Coeff of Pavithra 14.7 H (11.5-14.5) % Neut # (Auto) 7.77 H (1.4-6.5) K/uL Immature Gran # (Auto) 0.12 H (0.00-0.02) K/uL Creatinine 0.51 L (0.6-1.2) mg/dl BUN/Creatinine Ratio 39.2 H (10-20) Calcium 10.8 H (8.5-10.1) mg/dl Urine Nitrite Positive A (Negative) Ur Leukocyte Esterase Trace H (Negative) U Epithel Cells (Auto) 5-10 H (0-5) /lpf Urine Bacteria (Auto) 4+ H (Negative) Diagnostic Findings Chest X-Ray 05/11/22 13:20 XR chest 1V portable HISTORY: 86 years-old Female weakness acute weakness COMPARISON: Chest radiograph 12/22/2021, CT abdomen and pelvis 01/05/2021 TECHNIQUE: AP view of the chest FINDINGS: Cardiac silhouette is enlarged. Chronic left basilar density redemonstrated. Atherosclerosis of the thoracic aorta. No pneumothorax, large pleural effusion or overt pulmonary edema. Degenerative changes of the shoulders and spine. IMPRESSION: 1. Cardiomegaly without acute process. 2. Chronic left basilar opacity likely represents the previously noted large hiatal hernia. ACT 112: Negative or not required by law. The above report was generated using voice recognition software. It may contain grammatical, syntax or spelling errors. Electronically signed by: Young Petersen M.D. 05/11/2022 1:41 PM ECG Additional Comments: Normal sinus rhythm Incomplete right bundle branch block Left anterior fascicular block Left ventricular hypertrophy with repolarization abnormality Cannot rule out Septal infarct , age undetermined Abnormal ECG When compared with ECG of 22-DEC-2021 13:41, Premature supraventricular complexes are no longer Present Minimal criteria for Septal infarct are now Present T wave inversion more evident in Anterolateral leads Code Status & VTE Plan Code Status Full Code. Supervising Physician Co-Signing Physician Notes Patient seen and examined at bedside. During face to face encounter, I performed a physical examination and clinical history. Patient will be admitted for weakness and a possible UTI. Will be placed on antibiotics. I discussed plan of care with [facility] and patient. I reviewed above note and agree with it. PG Care Time/CCT Total # of Minutes Spent Total Time Spent with Patient: Total time spent is greater than 50% in coordination of care (as documented) at patient's floor/unit and/or counseling patient: Coding Level of Care Code 89205 INT INP/OBS CARE 3/75MIN Diagnoses Acute UTI N39.0 Weakness R53.1 Chronic pain G89.29 Hypercalcemia E83.52 Hyperparathyroidism E21.3 GERD without esophagitis K21.9 Hypertension I10 Hypertension type: unspecified Hyperlipidemia E78.5 Hyperlipidemia type: unspecified Hypothyroidism E03.9 Hypothyroidism type: unspecified (1) Hyperlipidemia Hyperlipidemia type: unspecified Qualified Code(s): E78.5 - Hyperlipidemia, unspecified (2) Hypothyroidism Hypothyroidism type: unspecified Qualified Code(s): E03.9 - Hypothyroidism, unspecified (3) Hypertension Hypertension type: unspecified Qualified Code(s): I10 - Essential (primary) hypertension
[2022-05-11] MEDS ORDERED: POLYETHYLENE (MIRALAX) 17 GM PACK PO PRN (18:43)
[2022-05-11] MEDS ORDERED: ACETAMINOPHEN 325 MG TAB PO PRN (18:43)
[2022-05-11] MEDS ORDERED: ALUMINUM/MAGNESIUM SUSP 30 ML UDC PO PRN (18:43)
[2022-05-11] MEDS ORDERED: ONDANSETRON INJ 2 MG/ML 2 ML VIAL IV PRN (18:43)
[2022-05-11] MEDS ORDERED: BENZONATATE 100 MG CAPSULE PO PRN (18:43)
--- NOTE | 2022-05-11 19:08 | Electrocardiogram Report ---
Test Reason : Blood Pressure : / mmHG Vent. Rate : 091 BPM Atrial Rate : 091 BPM P-R Int : 160 ms QRS Dur : 114 ms QT Int : 340 ms P-R-T Axes : 062 -48 097 degrees QTc Int : 418 ms Normal sinus rhythm Incomplete right bundle branch block Left anterior fascicular block Left ventricular hypertrophy with repolarization abnormality Abnormal ECG When compared with ECG of 22-DEC-2021 13:41, Premature supraventricular complexes are no longer Present T wave inversion more evident in Anterolateral leads Confirmed by Prince Zarate ([id number]) on 05/11/2022 7:08:01 PM Referred By: Confirmed By:Noah Zarate
[2022-05-11] MEDS: SODIUM CHLORIDE 0.9% 1000ML 1,000 ML IV SCH (19:52)
[2022-05-11] MEDS: ENOXAPARIN INJ 40 MG/0.4 ML SYR SQ SCH (21:00)
[2022-05-11] MEDS ORDERED: NON-FORMULARY MEDICATION (Glucosamine-Chondroitin [Osteo Bi-Flex] 250-200 mg tablet) PO SCH (21:00)
[2022-05-11] MEDS: cefTRIAXone SODIUM 1,000 MG in DEXTROSE 5% AD-VAN 50 ML IV SCH (21:00)
[2022-05-11] MEDS: ATORVASTATIN 40 MG TAB PO SCH (21:01)
[2022-05-11] MEDS: PANTOprazole 40 MG TAB PO SCH (21:02)
[2022-05-11] MEDS ORDERED: ACETAMINOPHEN/HYDROcodone ELIX 15 ML/CUP PO PRN (21:06)
[2022-05-11] MEDS ORDERED: dilTIAZem HCL 120 MG CAPCR PO ONE (21:23)
[2022-05-12] MEDS: LEVOTHYROXINE SODIUM 25 MCG TABLET PO SCH (06:22)
[2022-05-12] MEDS: SODIUM CHLORIDE 0.9% 1000ML 1,000 ML IV SCH (06:26)
[2022-05-12 08:33] LABS: Basophils # (auto) 0.09 K/uL (0-0.2); Basophils % (auto) 1.3 %; Eosinophils # (auto) 0.14 K/uL (0-0.50); Hematocrit (blood only) 37.6 % (34.1-44.9); Hemoglobin 12.2 g/dl (12.0-16.0); Immature Granulocytes # (auto) 0.09 K/uL (0.00-0.02); Immature Granulocytes % (auto) 1.3 %; Lymphocytes # (auto) 1.39 K/uL (1.2-3.4); Lymphocytes % (auto) 19.7 %; Mean Corpuscular Hemoglobin 31.9 pg (25.0-34.0); Mean Corpuscular Hgb Conc 32.4 g/dL (32.0-36.0); Mean Corpuscular Volume 98.2 fL (80.0-100.0); Mean Platelet Volume 9.6 fL (9.4-12.3); Monocytes # (auto) 0.48 K/uL (0.24-0.82); Monocytes % (auto) 6.8 %; Neutrophils # (auto) 4.87 K/uL (1.4-6.5); Neutrophils % (auto) 68.9 %; Platelet Count 204 K/uL (130-400); RDW Coefficient of Variation 14.7 % (11.5-14.5); RDW Standard Deviation 53.2 fL (36.4-46.3); Red Blood Count 3.83 M/uL (3.93-5.22); White Blood Count 7.06 K/ul (4.8-10.8)
[2022-05-12] MEDS: CLOPIDOGREL BISULFATE 75 MG TAB PO SCH (08:52)
[2022-05-12] MEDS: CYANOCOBALAMIN (B-12) 500 MCG TABLET PO SCH (08:53)
[2022-05-12] MEDS: CHOLECALCIFEROL 1,000 UNITS 25 MCG TAB PO SCH (08:53)
[2022-05-12] MEDS: CeleBREX 200 MG CAP PO SCH (08:53)
[2022-05-12] MEDS ORDERED: dilTIAZem HCL 120 MG CAPCR PO SCH (09:00)
[2022-05-12] MEDS ORDERED: POTASSIUM CHLORIDE CRTAB 20 MEQ TABCR PO SCH (09:00)
[2022-05-12 09:01] LABS: BUN Creatinine Ratio 32.4 (10-20); Calcium 9.7 mg/dl (8.5-10.1); Est GFR (African American) 110.6 ml/min; Est GFR (Non-African American) 95.4 ml/min; Magnesium 1.6 mg/dl (1.7-2.4); Potassium 3.4 mmol/L (3.5-5.1)
[2022-05-12] MEDS ORDERED: POTASSIUM CHLORIDE CRTAB 20 MEQ TABCR PO STA (10:06)
[2022-05-12] MEDS ORDERED: MAGNESIUM SULFATE / D5W 1 GM/100 ML BAG IV ONE (10:15)
--- NOTE | 2022-05-12 16:19 | Hospitalist Progress Note ---
Date of Service May 12, 2022 Assessment & Plan (1) Acute UTI: Plan: Urine cx with GNR. Cont rocephin 1gm daily. Follow culture to finalization. (2) Weakness: Plan: 2nd to UTI, recent COVID-19 infection, deconditioning, high calcium, etc. PT, OT. Rx UTI. Fluids for high calcium. etc. B12, TSH, etc have been wnl within the last year. 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 Continue Celebrex, [place], glucosamine tabs. (4) Hypercalcemia: Plan: presenting Ca 10.8 calcium levels have been mildly high since 2020 see #5 below cont NS hydration serial levels daily could have been contributing to her fatigue/etc. (5) Hyperparathyroidism: Plan: records indicate this diagnosis, but prior PTH levels have NOT been elevated (11/2021, 05/2021) phos level is wnl she will need repeat intact PTH, 25-OH vit D level, etc due to her hypercalcemia (6) GERD without esophagitis: Plan: With known large hiatal hernia. Continue PPI. (7) Hypertension: Plan: Continue diltiazem. (8) Hyperlipidemia: Plan: Continue atorvastatin. (9) Hypothyroidism: Plan: Continue levothyroxine. TSH 2.13 (10) History of COVID-19: Plan: 04/2022 did not require hospitalization for such she has been weak & fatigued since her infection order PT/OT to help with mobility and deconditioning CXR stable O2 sats stable (11) DVT prophylaxis: Plan: lovenox daily (12) Swelling of right foot: Plan: given her recent COVID infection and poor mobility will obtain venous duplex of RLE - r/o DVT (13) PAT (paroxysmal atrial tachycardia): Plan: cont diltiazem once daily (14) History of stroke: Plan: prior MRI brain showed old right frontal lobe CVA date of the CVA is uncertain records indicate h/o ICA stenosis as well cont plavix for secondary prevention cont statin for secondary prevention (15) Large hiatal hernia: Plan: cont PPI no symptoms from the hiatal hernia at this time (no frequent GERD symptoms, chronic cough, aspiration, etc) Plan daughter updated at bedside Admission and Anticipated Discharge Date Admission Date: May 11, 2022 Subjective patient reports extreme weakness of legs (bilateral) this has gotten worse over the last few weeks due to COVID-19 infection in April followed by UTI she is eating poorly denies dyspnea denies chest pain denies abd pain daughter at bedside during the visit Review of Systems Review of Systems: gen - no fevers; ongoing fatigue/weakness cv - no chest pain pulm - no cough (had such during her COVID illness now resolved) GI - no nausea or emesis Physical Exam Physical Exam: gen - very thin, frail-appearing, NAD; pleasant mouth - MM dry neck - no JVD heart - RRR, s1 s2, 1/6 HILDA LSB lungs - minimal dry rales L base, otherwise CTA b/l abd - soft NT ND BS+ ext - <1+ edema right foot, no edema left foot, pulses 2+ b/l skin - mild stasis changes b/l shins Results & Data Results & Data ([facility]) Vital Signs (Past 12 Hours) Vital Signs Temp Pulse Resp BP Pulse Ox O2 Del Method 05/12/22 14:58 36.6 C 59 L 18 155/75 H 92 Room Air 05/12/22 07:00 36.5 C 86 16 168/83 H 96 Room Air Laboratory Results urine cx - GNR K 3.4 Mag 1.6 PG Care Time/CCT Total # of Minutes Spent Total Time Spent with Patient: Total time spent is greater than 50% in coordination of care (as documented) at patient's floor/unit and/or counseling patient: Coding Level of Care Code 96952 SUB INP/OBS CARE 3/50MIN Diagnoses Acute UTI N39.0 Weakness R53.1 Chronic pain G89.29 Hypercalcemia E83.52 Hyperparathyroidism E21.3 GERD without esophagitis K21.9 Hypertension I10 Hypertension type: unspecified Hyperlipidemia E78.5 Hyperlipidemia type: unspecified Hypothyroidism E03.9 Hypothyroidism type: unspecified History of COVID-19 Z86.16 DVT prophylaxis Z29.9 Swelling of right foot M79.89 PAT (paroxysmal atrial tachycardia) I47.1 History of stroke Z86.73 Large hiatal hernia K44.9 (1) Hyperlipidemia Hyperlipidemia type: unspecified Qualified Code(s): E78.5 - Hyperlipidemia, unspecified (2) Hypothyroidism Hypothyroidism type: unspecified Qualified Code(s): E03.9 - Hypothyroidism, unspecified (3) Hypertension Hypertension type: unspecified Qualified Code(s): I10 - Essential (primary) hypertension
--- NOTE | 2022-05-12 20:53 | Ultrasound Report ---
RIGHT LOWER EXTREMITY VENOUS DOPPLER CLINICAL HISTORY: recent COVID infection, edema; r/o DVT COMPARISON STUDY: Bilateral lower extremity venous Doppler ultrasound June 30, 2019. TECHNIQUE: Sonography of the deep venous system of the right lower extremity was performed. Compress ion and augmentation were evaluated. FINDINGS: The right common femoral, superficial femoral and popliteal veins were compressible. Augme ntation was normal. Flow was shown within the deep calf vessels. There is a complex fluid collection within the medial aspect of the right popliteal fossa that measures 5.5 x 1.3 x 2.8 cm. This contains no color flow. IMPRESSION: 1. No evidence of deep venous thrombus within the right lower extremity. 2. 5.5 x 1.3 x 2.8 cm hypoechoic abnormality within the medial aspect of the right popliteal fossa. T his favors a complex popliteal cyst. ACT 112: Negative or not required by law. Electronically signed by: Ortega Davis M.D. 05/12/2022 8:51 PM
[2022-05-12] MEDS: ENOXAPARIN INJ 40 MG/0.4 ML SYR SQ SCH (21:01)
[2022-05-12] MEDS: cefTRIAXone SODIUM 1,000 MG in DEXTROSE 5% AD-VAN 50 ML IV SCH (21:01)
[2022-05-12] MEDS: POTASSIUM CHLORIDE CRTAB 20 MEQ TABCR PO SCH (21:02)
[2022-05-12] MEDS: dilTIAZem HCL 120 MG CAPCR PO SCH (21:03)
[2022-05-12] MEDS: PANTOprazole 40 MG TAB PO SCH (21:03)
[2022-05-12] MEDS: ATORVASTATIN 40 MG TAB PO SCH (21:05)
[2022-05-13] MEDS: LEVOTHYROXINE SODIUM 25 MCG TABLET PO SCH (05:36)
[2022-05-13] MEDS: CeleBREX 200 MG CAP PO SCH (08:18)
[2022-05-13] MEDS: CHOLECALCIFEROL 1,000 UNITS 25 MCG TAB PO SCH (08:19)
[2022-05-13] MEDS: CLOPIDOGREL BISULFATE 75 MG TAB PO SCH (08:19)
[2022-05-13] MEDS: CYANOCOBALAMIN (B-12) 500 MCG TABLET PO SCH (08:20)
[2022-05-13] MEDS: POTASSIUM CHLORIDE CRTAB 20 MEQ TABCR PO SCH ×2 (08:21→21:17)
[2022-05-13 12:39] LABS: Calcium 10.3 mg/dl (8.5-10.1); Est GFR (African American) 101.5 ml/min; Est GFR (Non-African American) 87.6 ml/min; Magnesium 1.7 mg/dl (1.7-2.4); Potassium 4.1 mmol/L (3.5-5.1)
[2022-05-13] MEDS ORDERED: MAGNESIUM SULFATE / D5W 1 GM/100 ML BAG IV ONE (13:02)
[2022-05-13] MEDS: D5W AND NSS 1,000 ML IV SCH (18:48)
--- NOTE | 2022-05-13 20:39 | Hospitalist Progress Note ---
Date of Service May 13, 2022 Assessment & Plan (1) Acute UTI: Plan: Urine cx with MDR e.coli but sensitive to rocephin. Cont rocephin 1gm daily until she shows clinical improvement, then can switch to PO omnicef to complete the course. CT abd/pelvis - 2020 - no stones, etc. (2) Weakness: Plan: 2nd to UTI, recent COVID-19 infection, deconditioning, high calcium, etc. PT, OT. Rx UTI. etc. B12, TSH, etc have been wnl within the last year. 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 Continue Celebrex, [place], glucosamine tabs. (4) Hypercalcemia: Plan: presenting Ca 10.8 calcium levels have been mildly high since 2020 see #5 below resume NS hydration serial levels daily could have been contributing to her fatigue/etc. see #5 below (5) Hyperparathyroidism: Plan: records indicate this diagnosis, but prior PTH levels have NOT been elevated (11/2021, 05/2021) phos level is wnl she will need repeat intact PTH, 25-OH vit D level, etc due to her hypercalcemia obtain these in am if negative w/u then send PTH-related peptide level (6) GERD without esophagitis: Plan: With known large hiatal hernia. Continue PPI. (7) Hypertension: Plan: Continue diltiazem. Bps a little high and if this persists then increase dilt to 180mg/day (8) Hyperlipidemia: Plan: Continue atorvastatin. (9) Hypothyroidism: Plan: Continue levothyroxine. TSH 2.13 (10) History of COVID-19: Plan: 04/2022 did not require hospitalization for such she has been weak & fatigued since her infection order PT/OT to help with mobility and deconditioning CXR stable O2 sats stable (11) DVT prophylaxis: Plan: lovenox daily (12) Swelling of right foot: Plan: given her recent COVID infection and poor mobility obtained venous duplex of RLE -- NEGATIVE for DVT (13) PAT (paroxysmal atrial tachycardia): Plan: cont diltiazem once daily (14) History of stroke: Plan: prior MRI brain showed old right frontal lobe CVA date of the CVA is uncertain records indicate h/o ICA stenosis as well cont plavix for secondary prevention cont statin for secondary prevention (15) Large hiatal hernia: Plan: cont PPI no symptoms from the hiatal hernia at this time (no frequent GERD symptoms, chronic cough, aspiration, etc) (16) Acute metabolic encephalopathy: Plan: likely due to UTI start melatonin 3mg HS avoid sedatives, etc Plan daughter updated at bedside yesterday niece updated at bedside yesterday despite doing very poorly on PT/OT [place] family wishes to take her home with 24/7 support after d/c Admission and Anticipated Discharge Date Admission Date: May 11, 2022 Subjective pt a bit confused during the visit telling me about "John" - her brother in law - hospitalized for chest pain?? she then said "I was in the hospital yesterday but I'm home now" appetite is poor drinking poorly as well per staff slept poorly overnight Review of Systems Review of Systems: gen - no fevers cv - no chest pain pulm - no dyspnea GI - no abd pain/back pain Physical Exam Physical Exam: gen - very thin, frail-appearing, NAD; confused today, tearful mouth - MM dry still neck - no JVD heart - RRR, s1 s2, 1/6 HILDA LSB lungs - minimal dry rales L base, otherwise CTA b/l abd - soft NT ND BS+ ext - trace edema right foot, no edema left foot, pulses 2+ b/l skin - mild stasis changes b/l shins psych - a/o to person only Results & Data Results & Data ([place]) Vital Signs (Past 12 Hours) Vital Signs Temp Pulse Pulse Resp BP BP Pulse Ox 05/13/22 19:14 37 C 100 H 18 99/60 L 95 05/13/22 15:36 36.7 C 93 H 16 160/87 H 95 05/13/22 14:16 36.3 C L 99 H 16 157/84 H 98 O2 Del Method 05/13/22 19:14 Room Air 05/13/22 15:36 Room Air 05/13/22 14:16 Room Air Laboratory Results Laboratory Results - last 24 hr 05/13/22 11:14 Sodium 139 Potassium 4.1 D Chloride 107 Carbon Dioxide 27 Anion Gap 5 BUN 12 Creatinine 0.48 L Est Cr Clr Drug Dosing 57.0 Est GFR ( Amer) 101.5 Est GFR (Non-Af Amer) 87.6 BUN/Creatinine Ratio 25.0 H Glucose 114 H Calcium 10.3 H Magnesium 1.7 Diagnostic Findings Urine Culture Final 05/13/22-1036 Organism 1 Escherichia coli [place] Count >100,000 CFU/ml Sens Sensitivities to Follow E coli RX M.I.C. --- --------- Amox/Clav I 16/8 Ampicillin R >16 Amp/Sul I 16/8 Cefazolin S 16 Cefepime S <=2 Ceftriaxone S <=1 Ciprofloxacin R >2 Ertapenem S <=0.5 Gentamicin R >8 Levofloxacin R >4 Meropenem S <=1 Nitrofurantoin S <=32 Tobramycin R >8 Trimeth/Sulfa R >38 Pip/Tazo S <=16 S = SENSITIVE I = INTERMEDIATE R = RESISTANT PG Care Time/CCT Total # of Minutes Spent Total Time Spent with Patient: Total time spent is greater than 50% in coordination of care (as documented) at patient's floor/unit and/or counseling patient: Coding Level of Care Code 18109 SUB INP/OBS CARE 2/35MIN Diagnoses Acute UTI N39.0 Weakness R53.1 Chronic pain G89.29 Hypercalcemia E83.52 Hyperparathyroidism E21.3 GERD without esophagitis K21.9 Hypertension I10 Hypertension type: unspecified Hyperlipidemia E78.5 Hyperlipidemia type: unspecified Hypothyroidism E03.9 Hypothyroidism type: unspecified History of COVID-19 Z86.16 DVT prophylaxis Z29.9 Swelling of right foot M79.89 PAT (paroxysmal atrial tachycardia) I47.1 History of stroke Z86.73 Large hiatal hernia K44.9 Acute metabolic encephalopathy G93.41 (1) Hyperlipidemia Hyperlipidemia type: unspecified Qualified Code(s): E78.5 - Hyperlipidemia, unspecified (2) Hypothyroidism Hypothyroidism type: unspecified Qualified Code(s): E03.9 - Hypothyroidism, unspecified (3) Hypertension Hypertension type: unspecified Qualified Code(s): I10 - Essential (primary) hypertension
[2022-05-13] MEDS: ENOXAPARIN INJ 40 MG/0.4 ML SYR SQ SCH (21:16)
[2022-05-13] MEDS: cefTRIAXone SODIUM 1,000 MG in DEXTROSE 5% AD-VAN 50 ML IV SCH (21:16)
[2022-05-13] MEDS: dilTIAZem HCL 120 MG CAPCR PO SCH (21:17)
[2022-05-13] MEDS: MELATONIN 3 MG TAB PO SCH (21:17)
[2022-05-13] MEDS: PANTOprazole 40 MG TAB PO SCH (21:17)
[2022-05-13] MEDS: ATORVASTATIN 40 MG TAB PO SCH (21:17)
[2022-05-14] MEDS: LEVOTHYROXINE SODIUM 25 MCG TABLET PO SCH (06:10)
[2022-05-14] MEDS: POTASSIUM CHLORIDE CRTAB 20 MEQ TABCR PO SCH ×2 (09:41→20:32)
[2022-05-14 09:42] LABS: BUN Creatinine Ratio 21.4 (10-20); Calcium 10.1 mg/dl (8.5-10.1); Creatinine Clr Calc Pharmacy 65.2 ml/min; Est GFR (African American) 106.1 ml/min; Est GFR (Non-African American) 91.5 ml/min; Potassium 3.6 mmol/L (3.5-5.1)
[2022-05-14] MEDS: CeleBREX 200 MG CAP PO SCH (09:42)
[2022-05-14] MEDS: D5W AND NSS 1,000 ML IV SCH (09:42)
[2022-05-14] MEDS: CYANOCOBALAMIN (B-12) 500 MCG TABLET PO SCH (09:42)
[2022-05-14] MEDS: CLOPIDOGREL BISULFATE 75 MG TAB PO SCH (09:42)
[2022-05-14] MEDS: CHOLECALCIFEROL 1,000 UNITS 25 MCG TAB PO SCH (09:42)
[2022-05-14 10:16] LABS: Vitamin D, 25 Hydrox 61.4 ng/ml (30-100)
[2022-05-14] MEDS: CEROVITE ADV FORMULA TAB PO SCH (12:12)
[2022-05-14] MEDS: THIAMINE HCL 100 MG TAB PO SCH ×2 (12:12→20:33)
[2022-05-14] MEDS: cefTRIAXone SODIUM 1,000 MG in DEXTROSE 5% AD-VAN 50 ML IV SCH (20:31)
[2022-05-14] MEDS: MELATONIN 3 MG TAB PO SCH (20:32)
[2022-05-14] MEDS: ATORVASTATIN 40 MG TAB PO SCH (20:32)
[2022-05-14] MEDS: ENOXAPARIN INJ 40 MG/0.4 ML SYR SQ SCH (20:32)
[2022-05-14] MEDS: dilTIAZem HCL 180 MG CAPCR PO SCH (20:33)
[2022-05-14] MEDS: PANTOprazole 40 MG TAB PO SCH (20:33)
--- NOTE | 2022-05-14 21:42 | Hospitalist Progress Note ---
Date of Service May 14, 2022 Assessment & Plan (1) Acute UTI: Plan: Urine cx with MDR e.coli but sensitive to rocephin. Cont rocephin 1gm daily until she shows clinical improvement, then can switch to PO omnicef to complete the course. today is day #4 of rocephin. plan 7 days of total Rx. CT abd/pelvis - 2020 - no stones, etc. (2) Weakness: Plan: 2nd to UTI, recent COVID-19 infection, deconditioning, high calcium, etc. PT, OT. Rx UTI. etc. B12, TSH, etc have been wnl within the last year. of note - she has ankle clonus on right with very brisk reflexes of b/l legs - etiology? consider CT lumbar spine to r/o high-grade spinal stenosis and other pathology. if there is spinal stenosis this could be contributing to her leg weakness as well. 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 Continue Celebrex, [place], glucosamine tabs. (4) Hypercalcemia: Plan: presenting Ca 10.8 calcium levels have been mildly high since 2020 see #5 below resumed NS hydration due to poor PO intake serial levels daily could have been contributing to her fatigue/etc. at presentation see #5 below (5) Hyperparathyroidism: Plan: records indicate this diagnosis, but prior PTH levels have NOT been elevated (11/2021, 05/2021) phos level is wnl repeat intact PTH level is wnl 25-OH vit D level is wnl send PTH-related peptide level stop vit D supplement (6) GERD without esophagitis: Plan: With known large hiatal hernia. Continue PPI. (7) Hypertension: Plan: Continue diltiazem. Bps have remained high thus increase dilt to 180mg/day (8) Hyperlipidemia: Plan: Continue atorvastatin. (9) Hypothyroidism: Plan: Continue levothyroxine. TSH 2.13 (10) History of COVID-19: Plan: 04/2022 did not require hospitalization for such but she has been weak & fatigued since her infection ordered PT/OT to help with mobility and deconditioning CXR stable O2 sats stable did poorly with PT/OT but family wishing to take her home at discharge (11) DVT prophylaxis: Plan: lovenox daily (12) Swelling of right foot: Plan: given her recent COVID infection and poor mobility obtained venous duplex of RLE -- NEGATIVE for DVT (13) PAT (paroxysmal atrial tachycardia): Plan: cont diltiazem once daily (14) History of stroke: Plan: prior MRI brain showed old right frontal lobe CVA date of the CVA is uncertain records indicate h/o ICA stenosis as well cont plavix for secondary prevention cont statin for secondary prevention (15) Large hiatal hernia: Plan: cont PPI no symptoms from the hiatal hernia at this time (no frequent GERD symptoms, chronic cough, aspiration, etc) (16) Acute metabolic encephalopathy: Plan: likely due to UTI cont melatonin 3mg HS avoid sedatives, etc confusion modestly better today Plan despite doing very poorly on PT/OT evals family wishes to take her home with 24/ support after d/c repeat labs am Admission and Anticipated Discharge Date Admission Date: May 11, 2022 Subjective patient resting in bed comfortably during the visit fair appetite legs "are still so weak" she denies any low back pain denies cough or congestion during the visit was a bit confused still Review of Systems Review of Systems: gen - weak, tired cv - no chest pain pulm - no dyspnea or cough GI - no nausea/emesis Physical Exam Physical Exam: gen - very thin, frail-appearing, NAD; still mildly confused - could not tell me the day of the week but knew it was May - MMM neck - no JVD heart - RRR, s1 s2, 1/6 HILDA LSB lungs - minimal dry rales L base, otherwise CTA b/l abd - soft NT ND BS+ ext - pulses 2+ b/l skin - mild stasis changes b/l shins psych - a/o to person, place, month but not day neuro - ankle clonus R; brisk reflexes b/l patella; strength b/l hip flexion near 5/5; distal strength near 5/5 musculo - b/l foot deformities Results & Data Results & Data ([facility]) Vital Signs (Past 12 Hours) Vital Signs Temp Pulse Resp BP BP Pulse Ox O2 Del Method 05/14/22 20:30 36.8 C 87 16 157/95 H 97 Room Air 05/14/22 14:39 36.8 C 82 18 152/78 H 99 Room Air Laboratory Results Laboratory Results - last 24 hr 05/14/22 05/14/22 05/14/22 08:08 08:08 08:08 Sodium 139 Potassium 3.6 Chloride 106 Carbon Dioxide 27 Anion Gap 6 BUN 9 Creatinine 0.42 L Est Cr Clr Drug Dosing 65.2 Est GFR ( Amer) 106.1 Est GFR (Non-Af Amer) 91.5 BUN/Creatinine Ratio 21.4 H Glucose 114 H Calcium 10.1 Vitamin B1 25-OH Vitamin D Total 61.4 Folate > 22.30 PTH Intact 53.2 05/14/22 08:08 Sodium Potassium Chloride Carbon Dioxide Anion Gap BUN Creatinine Est Cr Clr Drug Dosing Est GFR ( Amer) Est GFR (Non-Af Amer) BUN/Creatinine Ratio Glucose Calcium Vitamin B1 Pending 25-OH Vitamin D Total Folate PTH Intact PG Care Time/CCT Total # of Minutes Spent Total Time Spent with Patient: Total time spent is greater than 50% in coordination of care (as documented) at patient's floor/unit and/or counseling patient: Coding Level of Care Code 18821 SUB INP/OBS CARE 2/35MIN Diagnoses Acute UTI N39.0 Weakness R53.1 Chronic pain G89.29 Hypercalcemia E83.52 Hyperparathyroidism E21.3 GERD without esophagitis K21.9 Hypertension I10 Hypertension type: unspecified Hyperlipidemia E78.5 Hyperlipidemia type: unspecified Hypothyroidism E03.9 Hypothyroidism type: unspecified History of COVID-19 Z86.16 DVT prophylaxis Z29.9 Swelling of right foot M79.89 PAT (paroxysmal atrial tachycardia) I47.1 History of stroke Z86.73 Large hiatal hernia K44.9 Acute metabolic encephalopathy G93.41 (1) Hyperlipidemia Hyperlipidemia type: unspecified Qualified Code(s): E78.5 - Hyperlipidemia, unspecified (2) Hypothyroidism Hypothyroidism type: unspecified Qualified Code(s): E03.9 - Hypothyroidism, unspecified (3) Hypertension Hypertension type: unspecified Qualified Code(s): I10 - Essential (primary) hypertension
[2022-05-15] MEDS: D5W AND NSS 1,000 ML IV SCH ×2 (03:01→19:34)
[2022-05-15] MEDS: LEVOTHYROXINE SODIUM 25 MCG TABLET PO SCH (06:09)
[2022-05-15 08:54] LABS: Hematocrit (blood only) 38.7 % (34.1-44.9); Hemoglobin 12.7 g/dl (12.0-16.0); Mean Corpuscular Hemoglobin 31.8 pg (25.0-34.0); Mean Corpuscular Hgb Conc 32.8 g/dL (32.0-36.0); Mean Platelet Volume 9.4 fL (9.4-12.3); Platelet Count 215 K/uL (130-400); RDW Coefficient of Variation 14.7 % (11.5-14.5); RDW Standard Deviation 53.1 fL (36.4-46.3); Red Blood Count 3.99 M/uL (3.93-5.22); White Blood Count 7.51 K/ul (4.8-10.8)
[2022-05-15 09:17] LABS: BUN Creatinine Ratio 15.8 (10-20); Calcium 9.7 mg/dl (8.5-10.1); Creatinine Clr Calc Pharmacy 72.1 ml/min; Est GFR (African American) 109.6 ml/min; Est GFR (Non-African American) 94.6 ml/min; Potassium 3.3 mmol/L (3.5-5.1)
[2022-05-15] MEDS: CeleBREX 200 MG CAP PO SCH (09:40)
[2022-05-15] MEDS: CLOPIDOGREL BISULFATE 75 MG TAB PO SCH (09:41)
[2022-05-15] MEDS: CEROVITE ADV FORMULA TAB PO SCH (09:41)
[2022-05-15] MEDS: CYANOCOBALAMIN (B-12) 500 MCG TABLET PO SCH (09:41)
[2022-05-15] MEDS: POTASSIUM CHLORIDE CRTAB 20 MEQ TABCR PO SCH ×2 (09:42→20:02)
[2022-05-15] MEDS: THIAMINE HCL 100 MG TAB PO SCH ×2 (09:42→20:02)
[2022-05-15] MEDS ORDERED: POTASSIUM CHLORIDE CRTAB 20 MEQ TABCR PO STA (10:07)
[2022-05-15] MEDS: MAGNESIUM SULFATE / D5W 1 GM/100 ML BAG IV SCH ×2 (11:52→14:02)
--- NOTE | 2022-05-15 12:20 | Hospitalist Progress Note ---
Date of Service May 15, 2022 Assessment & Plan (1) Acute UTI: Plan: Urine cx with MDR e.coli but sensitive to rocephin. Cont rocephin 1gm daily until she shows clinical improvement, then can switch to PO omnicef to complete the course. alternatively just finish the entire course via rocephin. today is day #6 of rocephin. plan 7 days of [address] Rx. CT abd/pelvis - 2020 - no stones, etc. previously was taking methemanine for UTI prevention - resume this after abx course is complete (2) Weakness: Plan: 2nd to UTI, recent COVID-19 infection, deconditioning, high calcium, etc. PT, OT. Rx UTI. etc. B12, TSH, etc have been wnl within the last year. 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 Continue Celebrex, [place], glucosamine tabs. (4) Hypercalcemia: Plan: presenting Ca 10.8 calcium levels have been mildly high since 2020 see #5 below resumed NS hydration due to poor PO intake - will stop IV fluids today serial levels have shown improvement could have been contributing to her fatigue/etc. at presentation see #5 below (5) Hyperparathyroidism: Plan: records indicate this diagnosis, but prior PTH levels have NOT been elevated (11/2021, 05/2021) phos level is wnl repeat intact PTH level is wnl 25-OH vit D level is wnl sent PTH-related peptide level stop vit D supplement (6) GERD without esophagitis: Plan: With known large hiatal hernia. Continue PPI. (7) Hypertension: Plan: Continue diltiazem. BPs improved with higher dose of 180mg/day. (8) Hyperlipidemia: Plan: Continue atorvastatin. Check CPK in am due to weakness of legs. (9) Hypothyroidism: Plan: Continue levothyroxine. TSH 2.13 (10) History of COVID-19: Plan: 04/2022 did not require hospitalization for such but she has been weak & fatigued since her infection ordered PT/OT to help with mobility and deconditioning CXR stable O2 sats stable did poorly with PT/OT but family wishing to take her home at discharge (11) DVT prophylaxis: Plan: lovenox daily (12) Swelling of right foot: Plan: given her recent COVID infection and poor mobility obtained venous duplex of RLE -- NEGATIVE for DVT (13) PAT (paroxysmal atrial tachycardia): Plan: cont diltiazem once daily (14) History of stroke: Plan: prior MRI brain showed old right frontal lobe CVA date of the CVA is uncertain records indicate h/o ICA stenosis as well cont plavix for secondary prevention cont statin for secondary prevention (15) Large hiatal hernia: Plan: cont PPI no symptoms from the hiatal hernia at this time (no frequent GERD symptoms, chronic cough, aspiration, etc) (16) Acute metabolic encephalopathy: Plan: likely due to UTI cont melatonin 3mg HS avoid sedatives, etc confusion much better today (17) Hypokalemia: Plan: replace with PO supplementation repeat level am replace low mag (18) Hypomagnesemia: Plan: give mag sulfate 2gm IV x [address] on ongoing PO mag supplementation thereafter 2nd to PPI usage?? no diarrhea Plan despite doing very poorly on PT/OT [place] family wishes to take her home with 24/7 support after d/c I discussed this with her 2 daughters today - they understand she will need this level of support and they have arranged 24/7 care for her home this weekend? Wednesday? Admission and Anticipated Discharge Date Admission Date: May 11, 2022 Subjective patient resting comfortably in bed during the visit daughter at bedside another daughter was on Zoom during the visit patient c/o b/l LE weakness once again denies pain any location eating about 50% of meals per staff needs considerable help for transfers daughters mention blood blisters on back of right arm - present before admission no other new issues Review of Systems Review of Systems: gen - no fevers; just weak cv - no orthopnea, no chest pain pulm - no dyspnea GI - no pain/nausea/emesis neuro - no numbness legs Physical Exam Physical Exam: gen - very thin, frail-appearing, NAD; more oriented today mouth - MMM neck - no JVD heart - RRR, s1 s2, 1/6 HILDA LSB lungs - minimal dry rales L base, otherwise CTA b/l abd - soft NT ND BS+ ext - pulses 2+ b/l, trace edema right leg skin - mild stasis changes b/l shins; back of right upper arm - several small blood-filled blisters; extensive ecchymoses of b/l arms musculo - b/l foot deformities Results & Data Results & Data ([facility]) Vital Signs (Past 12 Hours) Vital Signs Temp Pulse Resp BP Pulse Ox O2 Del Method 05/15/22 07:45 36.4 C L 86 16 157/72 H 97 Room Air Laboratory Results Laboratory Results - last 24 hr 05/15/22 05/15/22 05/15/22 08:27 08:27 08:27 WBC 7.51 RBC 3.99 Hgb 12.7 Hct 38.7 MCV 97.0 MCH 31.8 MCHC 32.8 RDW Std Deviation 53.1 H RDW Coeff of Pavithra 14.7 H Plt Count 215 MPV 9.4 Sodium 137 Potassium 3.3 L Chloride 104 Carbon Dioxide 29 Anion Gap 4 BUN 6 Creatinine 0.38 L Est Cr Clr Drug Dosing 72.1 Est GFR ( Amer) 109.6 Est GFR (Non-Af Amer) 94.6 BUN/Creatinine Ratio 15.8 Glucose 125 H Calcium 9.7 Magnesium PTH Related Protein Pending 05/15/22 Unknown WBC RBC Hgb Hct MCV MCH MCHC RDW Std Deviation RDW Coeff of Pavithra Plt Count MPV Sodium Potassium Chloride Carbon Dioxide Anion Gap BUN Creatinine Est Cr Clr Drug Dosing Est GFR ( Amer) Est GFR (Non-Af Amer) BUN/Creatinine Ratio Glucose Calcium Magnesium 1.5 L PTH Related Protein PG Care Time/CCT Total # of Minutes Spent Total Time Spent with Patient: Total time spent is greater than 50% in coordination of care (as documented) at patient's floor/unit and/or counseling patient: Coding Level of Care Code 57082 SUB INP/OBS CARE 3/50MIN Diagnoses Acute UTI N39.0 Weakness R53.1 Chronic pain G89.29 Hypercalcemia E83.52 Hyperparathyroidism E21.3 GERD without esophagitis K21.9 Hypertension I10 Hypertension type: unspecified Hyperlipidemia E78.5 Hyperlipidemia type: unspecified Hypothyroidism E03.9 Hypothyroidism type: unspecified History of COVID-19 Z86.16 DVT prophylaxis Z29.9 Swelling of right foot M79.89 PAT (paroxysmal atrial tachycardia) I47.1 History of stroke Z86.73 Large hiatal hernia K44.9 Acute metabolic encephalopathy G93.41 Hypokalemia E87.6 Hypomagnesemia E83.42 (1) Hyperlipidemia Hyperlipidemia type: unspecified Qualified Code(s): E78.5 - Hyperlipidemia, unspecified (2) Hypothyroidism Hypothyroidism type: unspecified Qualified Code(s): E03.9 - Hypothyroidism, unspecified (3) Hypertension Hypertension type: unspecified Qualified Code(s): I10 - Essential (primary) hypertension
[2022-05-15] MEDS: CARBAMIDE PEROXIDE 6.5% 15 ML BTL OT SCH ×2 (14:37→20:01)
--- NOTE | 2022-05-15 16:00 | CT Scan Report ---
CT LUMBAR SPINE WO CON HISTORY: 86 years-old Female b/l leg weakness; assess for spinal stenosis, etc., chronic low back pa in with lower extremity weakness. COMPARISON: CT abdomen and pelvis 01/05/2021 TECHNIQUE: Multiple axial CT images of the lumbar spine were obtained without the use of IV contrast. A dose lowering technique was used consistent with the principals of [facility]ELIA. FINDINGS: Partially imaged right basilar opacities suggestive of atelectasis/scarring. Atherosclerosis of the a lennox. No paravertebral edema. 19 degrees levoscoliosis measured from L1-L5. No acute fracture, sublux ation, endplate erosion or destructive bone lesion. Moderate and moderate to severe intervertebral di sc space narrowing with vacuum disc phenomenon, moderate spondylitic spurring with chondrocalcinosis and severe facet arthrosis. No spondylolysis or spondylolisthesis. Moderate degeneration of the SI loren ints. Evaluation of the central canal and neuroforamina is limited by CT technique. T11-T12: Moderate disc space narrowing with circumferential disc osteophyte complex and moderate face t arthrosis. The central canal is patent. Moderate left with mild to moderate right neural foraminal narrowing. T12-L1: Posterior disc osteophyte complex, eccentric to the right. Moderate facet arthrosis. Flatteni ng of the ventral thecal sac without significant central canal stenosis. The right neural foramen is patent. Mild left neural foraminal narrowing. L1-L2: Moderate-sized posterior disc osteophyte complex with ligamentum flavum thickening and severe facet arthrosis. Severe central canal stenosis, AP dimension of the thecal sac measuring approximatel y 5 mm. Moderate right with [id number] left neural foraminal narrowing. L2-L3: Small posterior disc osteophyte complex. Ligamentum flavum thickening with severe facet arthro sis. Mild to moderate central canal stenosis, AP dimension of the thecal sac measuring 8 mm. Severe r ight with mild left neural foraminal stenosis. L3-L4: Posterior disc osteophyte complex. Ligamentum flavum thickening with severe facet arthrosis. M ild central canal stenosis, AP dimension of the thecal sac measuring 9 mm. Mild to moderate bilateral foraminal stenosis. L4-L5: Spondylitic spurring with small circumferential annular disc bulge, eccentric to the left. Lig amentum flavum thickening with severe facet arthrosis. Mild central canal stenosis, AP dimension of t he thecal sac measuring 9 mm. Moderate bilateral foraminal narrowing, left greater than right. L5-S1: Posterior disc osteophyte complex with ligamentum flavum thickening and severe facet arthrosis . Mild flattening of the ventral thecal sac without significant central canal stenosis. Severe left w ith moderate to severe right neural foraminal narrowing. IMPRESSION: 1. No acute fracture or subluxation. 2. 19 degrees levoscoliosis. 3. 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 ACT 112: Negative or not required by law. The above report was generated using voice recognition software. It may contain grammatical, syntax o r spelling errors. Dictated: 05/15/2022 1:55 PM Transcribed: 05/15/2022 3:31 PM Miri [id number] [facility] Electronically signed by: Young Petersen M.D. 05/15/2022 3:58 PM
[2022-05-15] MEDS: cefTRIAXone SODIUM 1,000 MG in DEXTROSE 5% AD-VAN 50 ML IV SCH (19:34)
[2022-05-15] MEDS: ENOXAPARIN INJ 40 MG/0.4 ML SYR SQ SCH (20:00)
[2022-05-15] MEDS: ATORVASTATIN 40 MG TAB PO SCH (20:01)
[2022-05-15] MEDS: dilTIAZem HCL 180 MG CAPCR PO SCH (20:01)
[2022-05-15] MEDS: MELATONIN 3 MG TAB PO SCH (20:02)
[2022-05-15] MEDS: PANTOprazole 40 MG TAB PO SCH (20:02)
[2022-05-15] MEDS: MAGNESIUM OXIDE 400 MG TAB PO SCH (20:02)
[2022-05-16] MEDS: LEVOTHYROXINE SODIUM 25 MCG TABLET PO SCH (06:15)
[2022-05-16 07:30] LABS: BUN Creatinine Ratio 16.7 (10-20); Calcium 9.8 mg/dl (8.5-10.1); Creatinine Clr Calc Pharmacy 65.2 ml/min; Est GFR (African American) 106.1 ml/min; Est GFR (Non-African American) 91.5 ml/min; Potassium 4.3 mmol/L (3.5-5.1)
[2022-05-16] MEDS: CARBAMIDE PEROXIDE 6.5% 15 ML BTL OT SCH ×2 (08:45→21:02)
[2022-05-16] MEDS: CeleBREX 200 MG CAP PO SCH (08:46)
[2022-05-16] MEDS: CEROVITE ADV FORMULA TAB PO SCH (08:46)
[2022-05-16] MEDS: CLOPIDOGREL BISULFATE 75 MG TAB PO SCH (08:46)
[2022-05-16] MEDS: CYANOCOBALAMIN (B-12) 500 MCG TABLET PO SCH (08:46)
[2022-05-16] MEDS: POTASSIUM CHLORIDE CRTAB 20 MEQ TABCR PO SCH (08:46)
[2022-05-16] MEDS: THIAMINE HCL 100 MG TAB PO SCH ×2 (08:47→21:02)
[2022-05-16] MEDS: MAGNESIUM OXIDE 400 MG TAB PO SCH ×2 (08:48→21:02)
--- NOTE | 2022-05-16 12:44 | Hospitalist Progress Note ---
Date of Service May 16, 2022 Assessment & Plan (1) Acute UTI: Plan: Urine cx with MDR e.coli but sensitive to rocephin. Cont rocephin 1gm daily. today is day #6 of rocephin. (first dose was on 05/11) plan 7 days of total Rx then stop. CT abd/pelvis - 2020 - no stones, etc. previously was taking methemanine for UTI prevention - resume this after abx course is complete (2) Weakness: Plan: 2nd to UTI, recent COVID-19 infection, deconditioning, high calcium, lumbar spinal stenosis/severe DJD, etc. PT, OT. Rx UTI. etc. B12, TSH, etc have been wnl within the last year. CPK this am wnl. discussed the CT lumbar spine results with Pt and 2 daughters today cont celebrex for this (3) Chronic pain: Plan: 2nd osteoarthritis. Continue Celebrex, Sentinel, glucosamine tabs. (4) Hypercalcemia: Plan: presenting Ca 10.8 calcium levels have been mildly high since 2020 see #5 below received NS hydration with improved levels could have been contributing to her fatigue/etc. at presentation see #5 below (5) Hyperparathyroidism: Plan: records indicate this diagnosis, but prior PTH levels have NOT been elevated (11/2021, 05/2021) phos level is wnl repeat intact PTH level is wnl 25-OH vit D level is wnl sent PTH-related peptide level -- if high underlying malignancy is likely stopped vit D supplement (6) GERD without esophagitis: Plan: With known large hiatal hernia. Continue PPI. (7) Hypertension: Plan: Continue diltiazem. BPs improved with higher dose of 180mg/day. (8) Hyperlipidemia: Plan: Continue atorvastatin. CPK, LFTs wnl. (9) Hypothyroidism: Plan: Continue levothyroxine. TSH 2.13 (10) History of COVID-19: Plan: 04/2022 did not require hospitalization for such but she has been weak & fatigued since her infection ordered PT/OT to help with mobility and deconditioning CXR stable O2 sats stable has done poorly with PT/OT but family wishing to take her home at discharge (11) DVT prophylaxis: Plan: lovenox daily (12) Swelling of right foot: Plan: given her recent COVID infection and poor mobility obtained venous duplex of RLE -- NEGATIVE for DVT (13) PAT (paroxysmal atrial tachycardia): Plan: cont diltiazem once daily (14) History of stroke: Plan: prior MRI brain showed old right frontal lobe CVA date of the CVA is uncertain records indicate h/o ICA stenosis as well cont plavix for secondary prevention cont statin for secondary prevention (15) Large hiatal hernia: Plan: cont PPI no symptoms from the hiatal hernia at this time (no frequent GERD symptoms, chronic cough, aspiration, etc) (16) Acute metabolic encephalopathy: Plan: likely due to UTI cont melatonin 3mg HS avoid sedatives, etc confusion improved (17) Hypokalemia: Plan: replaced resolved cont PO supplementation daily (18) Hypomagnesemia: Plan: replaced resolved cont PO supplementation daily 2nd to PPI usage?? (19) Lumbar spinal stenosis: Plan: severe at L1 multiple other levels with significant/severe DJD the spinal stenosis could be contributing to b/l leg weakness - even urinary issues, too poor candidate for any intervention discussed this in detail with her 2 daughters (1 at bedside, 1 on Zoom call) cont celebrex for pain (20) Candidiasis of mouth and esophagus: Plan: start nystatin 5cc qid swish/spit Plan despite doing very poorly on PT/OT evals family wishes to take her home with 24 support after d/c hospital bed prescription completed --- patient with SEVERE FUNCTIONAL DEFICITS, PARTICULARLY OF HER LEGS, ALONG WITH SEVERE GENERALIZED WEAKNESS WITHOUT HOSPITAL BED AT HOME TURNING, TRANSFERS, ETC WOULD BE EXCEPTIONALLY DIFFICULTY due to mobility issues she is at high risk of sacral decubs, etc hospital bed will make her overall care much easier home Wednesday? medical complexity - very high, numerous active medical problems Admission and Anticipated Discharge Date Admission Date: May 11, 2022 Subjective patient lying in bed comfortably daughter at bedside we discussed the results of the lumbar spine CT showing severe spinal stenosis at L1 discussed that this could be contributing to some of her LE weakness she has complained of her back in the past no paresthesias of legs overnight no new issues daughter asks about getting her mother to the chair today daughter also asks if Wednesday d/c is acceptable - they need hospital bed delivered etc Review of Systems Review of Systems: gen - generalized weakness, fatigue remain; appetite fair cv - no cp, no orthopnea pulm - no dyspnea GI - no pain - incontinence Physical Exam Physical Exam: gen - very thin, frail-appearing, NAD, laying in bed comfortably mouth - MMM, ?mild thrush present on tongue neck - no JVD heart - RRR, s1 s2, 1/6 HILDA LSB lungs - minimal dry rales L base, otherwise CTA b/l as previous abd - soft NT ND BS+ ext - pulses 2+ b/l, trace edema right leg skin - mild stasis changes b/l shins; extensive ecchymoses of b/l arms musculo - b/l foot deformities psych - mild intermittent confusion noted Results & Data Results & Data ([facility]) Vital Signs (Past 12 Hours) Vital Signs Temp Pulse Resp BP Pulse Ox O2 Del Method 05/16/22 12:33 Room Air 05/16/22 07:09 37.1 C 77 18 157/77 H 95 Room Air Laboratory Results Laboratory Results - last 24 hr 05/16/22 06:01 Sodium 139 Potassium 4.3 D Chloride 107 Carbon Dioxide 30 Anion Gap 2 L BUN 7 Creatinine 0.42 L Est Cr Clr Drug Dosing 65.2 Est GFR ( Amer) 106.1 Est GFR (Non-Af Amer) 91.5 BUN/Creatinine Ratio 16.7 Glucose 101 H Calcium 9.8 Magnesium 2.0 Total Creatine Kinase 60 PG Care Time/CCT Total # of Minutes Spent Total Time Spent with Patient: Total time spent is greater than 50% in coordination of care (as documented) at patient's floor/unit and/or counseling patient: Coding Level of Care Code 79755 SUB INP/OBS CARE 3/50MIN Diagnoses Acute UTI N39.0 Weakness R53.1 Chronic pain G89.29 Hypercalcemia E83.52 Hyperparathyroidism E21.3 GERD without esophagitis K21.9 Hypertension I10 Hypertension type: unspecified Hyperlipidemia E78.5 Hyperlipidemia type: unspecified Hypothyroidism E03.9 Hypothyroidism type: unspecified History of COVID-19 Z86.16 DVT prophylaxis Z29.9 Swelling of right foot M79.89 PAT (paroxysmal atrial tachycardia) I47.1 History of stroke Z86.73 Large hiatal hernia K44.9 Acute metabolic encephalopathy G93.41 Hypokalemia E87.6 Hypomagnesemia E83.42 Lumbar spinal stenosis M48.061 Candidiasis of mouth and esophagus B37.81; B37.0 (1) Hyperlipidemia Hyperlipidemia type: unspecified Qualified Code(s): E78.5 - Hyperlipidemia, unspecified (2) Hypothyroidism Hypothyroidism type: unspecified Qualified Code(s): E03.9 - Hypothyroidism, unspecified (3) Hypertension Hypertension type: unspecified Qualified Code(s): I10 - Essential (primary) hypertension
[2022-05-16] MEDS: NYSTATIN SUSP 500,000 U/5 ML UDC PO SCH ×3 (14:05→21:01)
[2022-05-16] MEDS: cefTRIAXone SODIUM 1,000 MG in DEXTROSE 5% AD-VAN 50 ML IV SCH (20:58)
[2022-05-16] MEDS: ENOXAPARIN INJ 40 MG/0.4 ML SYR SQ SCH (20:59)
[2022-05-16] MEDS: PANTOprazole 40 MG TAB PO SCH (21:02)
[2022-05-16] MEDS: MELATONIN 3 MG TAB PO SCH (21:02)
[2022-05-16] MEDS: ATORVASTATIN 40 MG TAB PO SCH (21:03)
[2022-05-16] MEDS: dilTIAZem HCL 180 MG CAPCR PO SCH (21:03)
[2022-05-17] MEDS: LEVOTHYROXINE SODIUM 25 MCG TABLET PO SCH (06:02)
[2022-05-17] MEDS: CeleBREX 200 MG CAP PO SCH (09:16)
[2022-05-17] MEDS: CEROVITE ADV FORMULA TAB PO SCH (09:16)
[2022-05-17] MEDS: MAGNESIUM OXIDE 400 MG TAB PO SCH ×2 (09:16→20:57)
[2022-05-17] MEDS: NYSTATIN SUSP 500,000 U/5 ML UDC PO SCH ×4 (09:16→20:56)
[2022-05-17] MEDS: CYANOCOBALAMIN (B-12) 500 MCG TABLET PO SCH (09:16)
[2022-05-17] MEDS: CLOPIDOGREL BISULFATE 75 MG TAB PO SCH (09:16)
[2022-05-17] MEDS: THIAMINE HCL 100 MG TAB PO SCH ×2 (09:17→20:57)
[2022-05-17] MEDS: POTASSIUM CHLORIDE CRTAB 20 MEQ TABCR PO SCH (09:17)
[2022-05-17] MEDS: CARBAMIDE PEROXIDE 6.5% 15 ML BTL OT SCH ×2 (09:17→20:57)
--- NOTE | 2022-05-17 20:24 | Hospitalist Progress Note ---
Date of Service May 17, 2022 Assessment & Plan (1) Acute UTI: Plan: Urine cx with MDR e.coli but sensitive to rocephin. Cont rocephin 1gm daily. today is day #7 of rocephin. (first dose was on 05/11) stop rocephin after today's dose. CT abd/pelvis - 2020 - no stones, etc. previously was taking methemanine for UTI prevention - resume this tomorrow, 1gm BID (2) Weakness: Plan: 2nd to UTI, recent COVID-19 infection, deconditioning, high calcium, lumbar spinal stenosis/severe DJD, etc. PT, OT. Rx UTI. etc. B12, TSH, etc have been wnl within the last year. CPK wnl. discussed the CT lumbar spine results with Pt and 2 daughters yesterday cont celebrex for this (3) Chronic pain: Plan: 2nd osteoarthritis. Continue Celebrex, Coyle, glucosamine tabs. (4) Hypercalcemia: Plan: presenting Ca 10.8 calcium levels have been mildly high since 2020 see #5 below received NS hydration with improved levels could have been contributing to her fatigue/etc. at presentation see #5 below (5) Hyperparathyroidism: Plan: records indicate this diagnosis, but prior PTH levels have NOT been elevated (11/2021, 05/2021) phos level is wnl repeat intact PTH level is wnl 25-OH vit D level is wnl sent PTH-related peptide level -- if high underlying malignancy is likely stopped vit D supplement (6) GERD without esophagitis: Plan: With known large hiatal hernia. Continue PPI. (7) Hypertension: Plan: Continue diltiazem. BPs improved with higher dose of 180mg/day. BPs tend to be labile. GIven her advanced age will leave dose as is for now. (8) Hyperlipidemia: Plan: Continue atorvastatin. CPK, LFTs wnl. (9) Hypothyroidism: Plan: Continue levothyroxine. TSH 2.13 (10) History of COVID-19: Plan: 04/2022 did not require hospitalization for such but she has been weak & fatigued since her infection ordered PT/OT to help with mobility and deconditioning CXR stable O2 sats stable has done poorly with PT/OT but family wishing to take her home at discharge (11) DVT prophylaxis: Plan: lovenox daily (12) Swelling of right foot: Plan: given her recent COVID infection and poor mobility obtained venous duplex of RLE -- NEGATIVE for DVT (13) PAT (paroxysmal atrial tachycardia): Plan: cont diltiazem once daily (14) History of stroke: Plan: prior MRI brain showed old right frontal lobe CVA date of the CVA is uncertain records indicate h/o ICA stenosis as well cont plavix for secondary prevention cont statin for secondary prevention (15) Large hiatal hernia: Plan: cont PPI no symptoms from the hiatal hernia at this time (no frequent GERD symptoms, chronic cough, aspiration, etc) (16) Acute metabolic encephalopathy: Plan: likely due to UTI cont melatonin 3mg HS avoid sedatives, etc confusion improved (17) Hypokalemia: Plan: replaced resolved cont PO supplementation daily repeat BMP/mag in am tomorrow (18) Hypomagnesemia: Plan: replaced resolved cont PO supplementation daily 2nd to PPI usage?? (19) Lumbar spinal stenosis: Plan: severe at L1 multiple other levels with significant/severe DJD the spinal stenosis could be contributing to b/l leg weakness - even urinary issues, too poor candidate for any intervention discussed this in detail with her 2 daughters (1 at bedside, 1 on Zoom call) cont celebrex for pain (20) Candidiasis of mouth and esophagus: Plan: improved cont nystatin 5cc qid swish/spit Plan despite doing very poorly on PT/OT evals family wishes to take her home with 24/7 support after d/c hospital bed prescription completed --- patient with SEVERE FUNCTIONAL DEFICITS, PARTICULARLY OF HER LEGS, ALONG WITH SEVERE GENERALIZED WEAKNESS WITHOUT HOSPITAL BED AT HOME TURNING, TRANSFERS, ETC WOULD BE EXCEPTIONALLY DIFFICULTY due to mobility issues she is at high risk of sacral decubs, etc hospital bed will make her overall care much easier home Wednesday if hospital bed is available and delivered Admission and Anticipated Discharge Date Admission Date: May 11, 2022 Subjective patient w/o any new complaints did sit in the recliner chair for several hours today weakness in legs is unchanged eating fair likes to tell stories about her and children teary eye today telling some of these stories daughter at bedside plan is for d/c home tomorrow - pt needs hospital bed for home Review of Systems Review of Systems: gen - no fever; weakness present cv - no cp, no orthopnea pulm - no dyspnea GI - no abd pain; no nausea Physical Exam Physical Exam: gen - very thin, frail-appearing, NAD, laying in bed comfortably; telling stories, teary eyed mouth - MMM, thrush improved neck - no JVD heart - RRR, s1 s2, 1/6 HILDA LSB lungs - minimal dry rales L base, otherwise CTA b/l abd - soft NT ND BS+ ext - pulses 2+ b/l, no significant edema b/l ankles skin - mild stasis changes b/l shins; extensive ecchymoses of b/l arms musculo - b/l foot deformities psych - mild intermittent confusion noted - baseline Results & Data Results & Data ([facility]) Vital Signs (Past 12 Hours) Vital Signs Temp Pulse Resp BP Pulse Ox O2 Del Method 05/17/22 15:35 36.6 C 81 18 137/80 96 Room Air 05/17/22 09:15 Room Air PG Care Time/CCT Total # of Minutes Spent Total Time Spent with Patient: Total time spent is greater than 50% in coordination of care (as documented) at patient's floor/unit and/or counseling patient: Coding Level of Care Code 48449 SUB INP/OBS CARE 2/35MIN Diagnoses Acute UTI N39.0 Weakness R53.1 Chronic pain G89.29 Hypercalcemia E83.52 Hyperparathyroidism E21.3 GERD without esophagitis K21.9 Hypertension I10 Hypertension type: unspecified Hyperlipidemia E78.5 Hyperlipidemia type: unspecified Hypothyroidism E03.9 Hypothyroidism type: unspecified History of COVID-19 Z86.16 DVT prophylaxis Z29.9 Swelling of right foot M79.89 PAT (paroxysmal atrial tachycardia) I47.1 History of stroke Z86.73 Large hiatal hernia K44.9 Acute metabolic encephalopathy G93.41 Hypokalemia E87.6 Hypomagnesemia E83.42 Lumbar spinal stenosis M48.061 Candidiasis of mouth and esophagus B37.81; B37.0 (1) Hyperlipidemia Hyperlipidemia type: unspecified Qualified Code(s): E78.5 - Hyperlipidemia, unspecified (2) Hypothyroidism Hypothyroidism type: unspecified Qualified Code(s): E03.9 - Hypothyroidism, unspecified (3) Hypertension Hypertension type: unspecified Qualified Code(s): I10 - Essential (primary) hypertension
[2022-05-17] MEDS: dilTIAZem HCL 180 MG CAPCR PO SCH (20:56)
[2022-05-17] MEDS: cefTRIAXone SODIUM 1,000 MG in DEXTROSE 5% AD-VAN 50 ML IV SCH (20:57)
[2022-05-17] MEDS: MELATONIN 3 MG TAB PO SCH (20:57)
[2022-05-17] MEDS: ATORVASTATIN 40 MG TAB PO SCH (20:57)
[2022-05-17] MEDS: ENOXAPARIN INJ 40 MG/0.4 ML SYR SQ SCH (20:57)
[2022-05-17] MEDS: PANTOprazole 40 MG TAB PO SCH (20:58)
[2022-05-18] MEDS: LEVOTHYROXINE SODIUM 25 MCG TABLET PO SCH (05:27)
[2022-05-18 07:23] LABS: Hematocrit (blood only) 36.7 % (34.1-44.9); Hemoglobin 12.6 g/dl (12.0-16.0); Mean Corpuscular Hemoglobin 32.5 pg (25.0-34.0); Mean Corpuscular Hgb Conc 34.3 g/dL (32.0-36.0); Mean Corpuscular Volume 94.6 fL (80.0-100.0); Mean Platelet Volume 9.5 fL (9.4-12.3); Platelet Count 217 K/uL (130-400); RDW Standard Deviation 52.2 fL (36.4-46.3); Red Blood Count 3.88 M/uL (3.93-5.22)
[2022-05-18 07:45] LABS: Calcium 10.2 mg/dl (8.5-10.1); Creatinine Clr Calc Pharmacy 68.4 ml/min; Est GFR (African American) 107.8 ml/min; Magnesium 1.7 mg/dl (1.7-2.4); Potassium 3.7 mmol/L (3.5-5.1)
[2022-05-18] MEDS: THIAMINE HCL 100 MG TAB PO SCH ×2 (09:18→20:49)
[2022-05-18] MEDS: CYANOCOBALAMIN (B-12) 500 MCG TABLET PO SCH (09:18)
[2022-05-18] MEDS: CeleBREX 200 MG CAP PO SCH (09:19)
[2022-05-18] MEDS: POTASSIUM CHLORIDE CRTAB 20 MEQ TABCR PO SCH (09:19)
[2022-05-18] MEDS: CLOPIDOGREL BISULFATE 75 MG TAB PO SCH (09:19)
[2022-05-18] MEDS: MAGNESIUM OXIDE 400 MG TAB PO SCH ×2 (09:19→20:49)
[2022-05-18] MEDS: CEROVITE ADV FORMULA TAB PO SCH (09:19)
[2022-05-18] MEDS: NYSTATIN SUSP 500,000 U/5 ML UDC PO SCH ×4 (09:21→20:55)
[2022-05-18] MEDS: CARBAMIDE PEROXIDE 6.5% 15 ML BTL OT SCH (09:21)
[2022-05-18] MEDS: METHENAMINE HIPPURATE 1 GM TAB PO SCH ×2 (09:24→20:48)
--- NOTE | 2022-05-18 12:29 | CT Scan Report ---
CT SCAN OF THE BRAIN WITHOUT IV CONTRAST CLINICAL HISTORY: Lethargy. Dysarthria COMPARISON STUDY: CT of the brain dated 12/22/2021. TECHNIQUE: Unenhanced axial CT scan of the brain is performed from the vertex to the skull base. A do se lowering technique was utilized adhering to the principles of ALARA. CT DOSE: 729.78 mGycm FINDINGS: Brain parenchyma: There is age-related involutional change noting moderate to advanced confluent subc ortical and periventricular microangiopathic disease. There is no hemorrhage, mass effect, or evidenc e of acute territorial ischemia by CT criteria. A chronic infarct in the right basal ganglia is simil ar to previous. Fuentes-white matter differentiation is preserved. No extra-axial fluid collection is se en. Ventricles, sulci, cisterns: Prominent secondary to involutional change. Intracranial vasculature: There is atherosclerotic calcification of the cavernous carotid and vertebr al arteries. Calvarium: Unremarkable. Sinuses and mastoids: There is subtotal opacification of the right maxillary antrum. Moderate mucosal thickening is noted in the sphenoid sinuses. The remaining visualized paranasal sinuses are clear. T he mastoid air cells are well pneumatized. Orbits: The bony orbits are grossly intact. IMPRESSION: There is no hemorrhage, mass effect, or evidence of acute territorial ischemia by CT jose ceballos. ACT 112: Negative or not required by law. Electronically signed by: Pietro Ott M.D. 05/18/2022 12:26 PM
[2022-05-18 13:33] LABS: Base Excess VBG 7.7 mEq/L; HCO3 VBG 33 mmol/L; Oxygen Saturation VBG 86.6 %; PCO2 VBG 46 mmHg (38-50); PO2 VBG 52 mmHg; pH VBG 7.46 (7.36-7.41)
--- NOTE | 2022-05-18 15:03 | Emergency Department Note ---
Impression & Plan Acute UTI, Weakness, Antibiotic-resistant bacterial infection ED Provider Note CHIEF COMPLAINT: Weakness, foul-smelling urine HISTORY OF PRESENT ILLNESS: This 86-year-old female patient presents to the emergency department with complaints of weakness and foul-smelling urine. Patient had COVID over Esteban, family is at the bedside. They have not noted any significant fevers or vomiting. She is not able to ambulate as she normally does. They note a significant decrease in strength and some periodic confusion. Decreased oral intake. REVIEW OF SYSTEMS: As noted above ALLERGIES: see below MEDICATIONS: see below PMH: Spinal stenosis, depression, UTI, iron deficiency, aortic regurgitation, internal carotid aortic stenosis, paroxysmal atrial tachycardia, arthritis, CVA, GERD, hyperlipidemia, hypertension, hypothyroid, hiatal hernia, macrocytosis, cholelithiasis SOCIAL HISTORY: Lives at home with in-home services DDx: Infection, dehydration, metabolic abnormality, hypo/hyperglycemia, electrolyte disturbance, anemia, hypoxia, cardiac sources, intracerebral event, toxicologic, neurologic, as well as other pathologies. PHYSICAL EXAM: Vital signs reviewed. General: Elderly, chronically ill-appearing 86-year-old female, in no significant distress. HEENT: No scleral icterus, PERRLA, neck supple. Dry mucous membranes Cardiovascular: Regular rate and rhythm, systolic ejection murmur, no extra sounds Pulmonary: Clear to auscultation bilaterally, normal work of breathing. Abdomen: Soft, nontender, nondistended, positive bowel sounds. Musculoskeletal: Atraumatic, no peripheral edema. Neurologic: Somnolent but awake. Able to follow some simple commands. Answers questions without difficulty. Moves all extremities equally Skin: Warm, dry, no rash EMERGENCY DEPARTMENT COURSE/MDM: This patient was evaluated and appeared to be in no significant distress. IV access was obtained and laboratory work was drawn. Patient was placed on the telemetry monitor and noted to be in normal sinus rhythm. Laboratory work is fairly reassuring, COVID swab is negative. A family member is in the department with a COVID-positive status however. Patient's UA is indicative of infection. Patient was hydrated with normal saline solution and medicated with IV Zosyn due to previous resistance patterns. Case was discussed with the hospitalist service to evaluate the patient for admission and further management. Patient and family are aware of the plan and agreed. MONITORING: An order for cardiac monitoring was placed and the patient is noted to be in a NSR at 91 beats per minute. RADIOLOGY: Chest x-ray to my interpretation reveals cardiomegaly, otherwise no focal lung consolidation or significant failure. Otherwise defer to radiology. Venous Doppler studies are negative per radiology. EKG: My interpretation reveals normal sinus rhythm at 91 bpm. Incomplete right bundle branch block, left anterior fascicular block, LVH with repolarization abnormality, QTC is 418. When compared to previous dated December 22, 2021, premature supraventricular complexes are no longer present, T wave inversion is now present in the anterior lateral leads DISPOSITION: Admission Past Med/Surg History Medical History (Updated 05/20/22 @ 09:21 by Olga Lanier MD) Acute UTI Arthritis, multiple joint involvement Cerebral artery occlusion with cerebral infarction Community acquired pneumonia Depression GERD without esophagitis Gram-negative bacteremia Hyperlipidemia Hypertension Hypothyroidism Incontinence of urine in female Large hiatal hernia Macrocytosis Right ear impacted cerumen Swelling of right foot Urinary incontinence UTI (urinary tract infection) Weakness Surgical History H/O foot surgery History of bladder surgery resuspension History of hysterectomy Hx of cholecystectomy Hx of varicose vein ligation and stripping Family History Unknown Cancer Rheumatoid arthritis Fibromyalgia Denies family history of Ovarian cancer Prostate cancer Myocardial infarction Breast cancer Colorectal cancer Social History Smoking Status: Never smoker Second Hand Exposure: No; Hx Alcohol Use: No Hx Substance Use: No Preferred Language: Tajik Communication Ability: Effective Visual Impairment: Partially Limited Hearing Ability: Normal Bushel Girl Required: No Beliefs That Will Affect Care: None marital status: / Current Living Situation: Alone Current Living Situation Comment: in-home aides to help current occupational status: retired Feels Safe at Home: Yes Childhood Exposure to Second-Hand Smoke: No caffeine: Yes during the past year weight has: remained stable Dental Care, Regularly: Yes Physical Activity Frequency: Does not Exercise Seatbelt Use: always Sunscreen Use: Yes Assistive Devices: Bedside Commode, Walker and Wheelchair Allergies Allergies Allergy/AdvReac Type Severity Reaction Status Date / Time cephalexin AdvReac Intermediate macular Verified 05/11/22 17:12 welts / rash duloxetine AdvReac Intermediate dazed. Verified 05/11/22 17:12 fatigued simvastatin [From Zocor] AdvReac Unknown Unknown Verified 05/11/22 17:12 Home Meds Home Medications Medication Instructions Recorded Confirmed multivitamin-ferrous 1 tab PO QAM 06/30/19 05/11/22 fumarate-folic acid 18 mg-400 mcg tablet (Centrum) cyanocobalamin (vitamin B-12) 500 500 mcg PO QAM 04/29/20 05/11/22 mcg tablet (Vitamin B-12) glucosamine-chondroitin 250 mg-200 1 tab PO BID 07/10/20 05/11/22 mg tablet (Osteo Bi-Flex) ascorbic acid (vitamin C) 500 mg 500 mg PO DAILY 05/11/22 05/11/22 tablet atorvastatin 40 mg tablet 40 mg PO HS 05/11/22 05/11/22 clopidogrel 75 mg tablet 75 mg PO DAILY 05/11/22 05/11/22 esomeprazole magnesium 40 mg 40 mg PO HS 05/11/22 05/11/22 capsule,delayed release latanoprost 0.005 % eye drops 1 drp OPR HS 05/11/22 05/11/22 levothyroxine 25 mcg tablet 25 mcg PO DAILYBB 05/11/22 05/11/22 magnesium oxide 400 mg PO DAILY 05/11/22 05/11/22 potassium chloride 20 mEq 20 meq PO DAILY 05/11/22 05/11/22 tablet,extended release(part/cryst) Previous Rx's Medication Instructions Recorded Wheelchair (Manual) #1 ea 09/04/21 celecoxib 200 mg capsule 200 mg PO QAM #90 caps 12/12/21 benzonatate 100 mg capsule 100 mg PO TID PRN cough 10 days 04/17/22 #30 caps hydrocodone 7.5 mg-acetaminophen 10 ml PO Q8H PRN pain #200 mL 04/22/22 325 mg/15 mL oral solution diltiazem HCl 180 mg 180 mg PO QPM #30 caps 05/19/22 capsule,extended release 24 hr nystatin 100,000 unit/mL oral 5 ml PO QID 7 days #140 mL 05/19/22 suspension thiamine HCl (vitamin B1) 100 mg 200 mg PO QAM #60 tabs 05/19/22 tablet Results & Data (ED) Home Medications Current Medication List: was personally reviewed by me Laboratory Data Attestation: I reviewed the patient's lab results. 05/18/22 07:04 05/18/22 07:04 Lab Results 05/11/22 05/11/22 05/11/22 Range/Units 12:51 12:51 12:51 WBC 10.43 (4.8-10.8) K/ul RBC 4.09 (3.93-5.22) M/uL Hgb 13.3 (12.0-16.0) g/dl Hct 40.4 (34.1-44.9) % MCV 98.8 (80.0-100.0) fL MCH 32.5 (25.0-34.0) pg MCHC 32.9 (32.0-36.0) g/dL RDW Std Deviation 53.2 H (36.4-46.3) fL RDW Coeff of Pavithra 14.7 H (11.5-14.5) % Plt Count 245 (130-400) K/uL MPV 9.7 (9.4-12.3) fL Immature Gran % (Auto) 1.2 % Neut % (Auto) 74.4 % Lymph % (Auto) 16.6 % Barry % (Auto) 6.0 % Eos % (Auto) 1.0 % Baso % (Auto) 0.8 % Neut # (Auto) 7.77 H (1.4-6.5) K/uL Lymph # (Auto) 1.73 (1.2-3.4) K/uL Barry # (Auto) 0.63 (0.24-0.82) K/uL Eos # (Auto) 0.10 (0-0.50) K/uL Baso # (Auto) 0.08 (0-0.2) K/uL Immature Gran # (Auto) 0.12 H (0.00-0.02) K/uL Sodium 138 (136-145) mmol/L Potassium 3.8 (3.5-5.1) mmol/L Chloride 104 (98-107) mmol/L Carbon Dioxide 27 (21-32) mmol/L Anion Gap 7 (3-11) BUN 20 (6-23) mg/dl Creatinine 0.51 L (0.6-1.2) mg/dl Est Cr Clr Drug Dosing 54.8 ml/min Est GFR ( Amer) 99.5 ml/min Est GFR (Non-Af Amer) 85.9 ml/min BUN/Creatinine Ratio 39.2 H (10-20) Glucose 96 (70-99(Fasting)) mg/dl Calcium 10.8 H (8.5-10.1) mg/dl Phosphorus (2.5-4.9) mg/dl Magnesium 1.7 (1.7-2.4) mg/dl Total Bilirubin 0.7 (0.2-1.0) mg/dl AST 16 (13-39) U/L ALT 10 (7-52) U/L Alkaline Phosphatase 75 (34-104) U/L Troponin I High Sens 9.6 (0-14) pg/ml Total Protein 7.1 (6.0-8.3) gm/dl Albumin 3.9 (3.4-5.0) gm/dl Globulin 3.2 (2.5-4.0) gm/dl Albumin/Globulin Ratio 1.2 (0.9-2) TSH 2.130 (0.300-4.500) uIu/ml Urine Color Urine Appearance (Clear) Urine pH (4.5-7.5) Ur Specific Wesson (1.000-1.030) Urine Protein (Negative) Urine Glucose (UA) (Negative) Urine Ketones (Negative) Urine Blood (Negative) Urine Nitrite (Negative) Urine Bilirubin (Negative) Urine Urobilinogen (Negative) Ur Leukocyte Esterase (Negative) Urine WBC (Auto) (0-5) /hpf Urine RBC (Auto) (0-4) /hpf U Hyaline Cast (Auto) (0-5) /lpf U Epithel Cells (Auto) (0-5) /lpf Urine Bacteria (Auto) (Negative) SARS-CoV-2, RNA, NAAT (NEGATIVE) 05/11/22 05/11/22 05/11/22 Range/Units 12:51 14:05 14:37 WBC (4.8-10.8) K/ul RBC (3.93-5.22) M/uL Hgb (12.0-16.0) g/dl Hct (34.1-44.9) % MCV (80.0-100.0) fL MCH (25.0-34.0) pg MCHC (32.0-36.0) g/dL RDW Std Deviation (36.4-46.3) fL RDW Coeff of Pavithra (11.5-14.5) % Plt Count (130-400) K/uL MPV (9.4-12.3) fL Immature Gran % (Auto) % Neut % (Auto) % Lymph % (Auto) % Barry % (Auto) % Eos % (Auto) % Baso % (Auto) % Neut # (Auto) (1.4-6.5) K/uL Lymph # (Auto) (1.2-3.4) K/uL Barry # (Auto) (0.24-0.82) K/uL Eos # (Auto) (0-0.50) K/uL Baso # (Auto) (0-0.2) K/uL Immature Gran # (Auto) (0.00-0.02) K/uL Sodium (136-145) mmol/L Potassium (3.5-5.1) mmol/L Chloride (98-107) mmol/L Carbon Dioxide (21-32) mmol/L Anion Gap (3-11) BUN (6-23) mg/dl Creatinine (0.6-1.2) mg/dl Est Cr Clr Drug Dosing ml/min Est GFR ( Amer) ml/min Est GFR (Non-Af Amer) ml/min BUN/Creatinine Ratio (10-20) Glucose (70-99(Fasting)) mg/dl Calcium (8.5-10.1) mg/dl Phosphorus 2.6 (2.5-4.9) mg/dl Magnesium (1.7-2.4) mg/dl Total Bilirubin (0.2-1.0) mg/dl AST (13-39) U/L ALT (7-52) U/L Alkaline Phosphatase (34-104) U/L Troponin I High Sens (0-14) pg/ml Total Protein (6.0-8.3) gm/dl Albumin (3.4-5.0) gm/dl Globulin (2.5-4.0) gm/dl Albumin/Globulin Ratio (0.9-2) TSH (0.300-4.500) uIu/ml Urine Color Yellow Urine Appearance Clear (Clear) Urine pH 6.0 (4.5-7.5) Ur Specific Wesson 1.009 (1.000-1.030) Urine Protein Negative (Negative) Urine Glucose (UA) Negative (Negative) Urine Ketones Negative (Negative) Urine Blood Negative (Negative) Urine Nitrite Positive A (Negative) Urine Bilirubin Negative (Negative) Urine Urobilinogen Negative (Negative) Ur Leukocyte Esterase Trace H (Negative) Urine WBC (Auto) 1-5 (0-5) /hpf Urine RBC (Auto) 0-4 (0-4) /hpf U Hyaline Cast (Auto) 0 (0-5) /lpf U Epithel Cells (Auto) 5-10 H (0-5) /lpf Urine Bacteria (Auto) 4+ H (Negative) SARS-CoV-2, RNA, NAAT NEGATIVE (NEGATIVE) Administered Medications Discontinued Medications Hydrocodone Bitart/Acetaminophen (Acetaminophen/Hydrocodone Elix 15 Ml/Cup) 10 ml PO Q8H PRN PRN Reason: Moderate-severe pain Stop: 05/25/22 21:05 Last Admin: 05/16/22 08:46 Dose: 10 ml Documented By: BRIAN Atorvastatin Calcium (Atorvastatin 40 Mg Tab) 40 mg PO HS [facility] Stop: 06/10/22 20:59 Last Admin: 05/18/22 20:46 Dose: 40 mg Documented By: Admin: 05/17/22 20:57 Dose: 40 mg Documented By: Admin: 05/16/22 21:03 Dose: 40 mg Documented By: Admin: 05/15/22 20:01 Dose: 40 mg Documented By: Admin: 05/14/22 20:32 Dose: 40 mg Documented By: Admin: 05/13/22 21:17 Dose: 40 mg Documented By: Admin: 05/12/22 21:05 Dose: 40 mg Documented By: Admin: 05/11/22 21:01 Dose: 40 mg Documented By: TIMMY Carbamide Peroxide (Carbamide Peroxide 6.5% 15 Ml Btl) 5 drops OT BID IVY Stop: 05/18/22 12:29 Last Admin: 05/18/22 09:21 Dose: 5 drops Documented By: Admin: 05/17/22 20:57 Dose: 5 drops Documented By: Admin: 05/17/22 09:17 Dose: 5 drops Documented By: Admin: 05/16/22 21:02 Dose: 5 drops Documented By: Admin: 05/16/22 08:45 Dose: 5 drops Documented By: Admin: 05/15/22 20:01 Dose: 5 drops Documented By: Admin: 05/15/22 14:37 Dose: 5 drops Documented By: MIKI Celecoxib (Celebrex 200 Mg Cap) 200 mg PO QAM IVY Stop: 06/11/22 08:59 Last Admin: 05/19/22 09:28 Dose: 200 mg Documented By: Admin: 05/18/22 09:19 Dose: 200 mg Documented By: Admin: 05/17/22 09:16 Dose: 200 mg Documented By: Admin: 05/16/22 08:46 Dose: 200 mg Documented By: Admin: 05/15/22 09:40 Dose: 200 mg Documented By: Admin: 05/14/22 09:42 Dose: 200 mg Documented By: Admin: 05/13/22 08:18 Dose: 200 mg Documented By: Admin: 05/12/22 08:53 Dose: 200 mg Documented By: SHAZIA Clopidogrel Bisulfate (Clopidogrel Bisulfate 75 Mg Tab) 75 mg PO DAILY IVY Stop: 06/11/22 08:59 Last Admin: 05/19/22 09:29 Dose: 75 mg Documented By: Admin: 05/18/22 09:19 Dose: 75 mg Documented By: Admin: 05/17/22 09:16 Dose: 75 mg Documented By: Admin: 05/16/22 08:46 Dose: 75 mg Documented By: Admin: 05/15/22 09:41 Dose: 75 mg Documented By: Admin: 05/14/22 09:42 Dose: 75 mg Documented By: Admin: 05/13/22 08:19 Dose: 75 mg Documented By: Admin: 05/12/22 08:52 Dose: 75 mg Documented By: SHAZIA Cyanocobalamin (Cyanocobalamin (B-12) 500 Mcg Tablet) 500 mcg PO QAM [facility] Stop: 06/11/22 08:59 Last Admin: 05/19/22 09:28 Dose: 500 mcg Documented By: Admin: 05/18/22 09:18 Dose: 500 mcg Documented By: Admin: 05/17/22 09:16 Dose: 500 mcg Documented By: Admin: 05/16/22 08:46 Dose: 500 mcg Documented By: Admin: 05/15/22 09:41 Dose: 500 mcg Documented By: Admin: 05/14/22 09:42 Dose: 500 mcg Documented By: Admin: 05/13/22 08:20 Dose: 500 mcg Documented By: Admin: 05/12/22 08:53 Dose: 500 mcg Documented By: SHAZIA Diltiazem HCl (Diltiazem Hcl 120 Mg Capcr) 120 mg PO ONCE ONE Stop: 05/11/22 21:24 Last Admin: 05/11/22 21:36 Dose: 120 mg Documented By: TIMMY Diltiazem HCl (Diltiazem Hcl 120 Mg Capcr) 120 mg PO QPM IVY Stop: 06/11/22 20:59 Last Admin: 05/13/22 21:17 Dose: 120 mg Documented By: Admin: 05/12/22 21:03 Dose: 120 mg Documented By: JULIA Diltiazem HCl (Diltiazem Hcl 180 Mg Capcr) 180 mg PO QPM IVY Stop: 06/13/22 20:59 Last Admin: 05/18/22 21:55 Dose: 180 mg Documented By: Admin: 05/17/22 20:56 Dose: 180 mg Documented By: Admin: 05/16/22 21:03 Dose: 180 mg Documented By: Admin: 05/15/22 20:01 Dose: 180 mg Documented By: Admin: 05/14/22 20:33 Dose: 180 mg Documented By: PALMER Enoxaparin Sodium (Enoxaparin Inj 40 Mg/0.4 Ml Syr) 40 mg SQ Q24H IVY Stop: 06/10/22 19:59 Last Admin: 05/18/22 20:46 Dose: 40 mg Documented By: Admin: 05/17/22 20:57 Dose: 40 mg Documented By: Admin: 05/16/22 20:59 Dose: 40 mg Documented By: Admin: 05/15/22 20:00 Dose: 40 mg Documented By: Admin: 05/14/22 20:32 Dose: 40 mg Documented By: Admin: 05/13/22 21:16 Dose: 40 mg Documented By: Admin: 05/12/22 21:01 Dose: 40 mg Documented By: Admin: 05/11/22 21:00 Dose: 40 mg Documented By: TIMMY Sodium Chloride (Nss 1000ml) 1,000 mls @ 125 mls/hr IV .Q8H IVY Stop: 05/11/22 21:29 Last Infusion: 05/11/22 19:52 Dose: 0 mls/hr Documented By: Admin: 05/11/22 14:55 Dose: 125 mls/hr Documented By: [id number] Piperacillin Sod/Tazobactam Sod (Zosyn) 4.5 gm in 120 mls @ 240 mls/hr IV NOW ONE Stop: 05/11/22 15:43 Last Infusion: 05/11/22 17:46 Dose: 0 mls/hr Documented By: [id number] Admin: 05/11/22 16:12 Dose: 240 mls/hr Documented By: [id number] Ceftriaxone Sodium 1,000 mg/ (Dextrose) 50 mls @ 100 mls/hr IV Q24H [facility]; Protocol Stop: 05/21/22 19:59 Last Infusion: 05/17/22 21:39 Dose: 0 mls/hr Documented By: Admin: 05/17/22 20:57 Dose: 100 mls/hr Documented By: Infusion: 05/16/22 21:29 Dose: 0 mls/hr Documented By: EGCresencio Admin: 05/16/22 20:58 Dose: 100 mls/hr Documented By: Infusion: 05/15/22 20:07 Dose: 0 mls/hr Documented By: Admin: 05/15/22 19:34 Dose: 100 mls/hr Documented By: Infusion: 05/14/22 21:12 Dose: 0 mls/hr Documented By: Admin: 05/14/22 20:31 Dose: 100 mls/hr Documented By: Infusion: 05/13/22 21:50 Dose: 0 mls/hr Documented By: Admin: 05/13/22 21:16 Dose: 100 mls/hr Documented By: Infusion: 05/12/22 21:31 Dose: 0 mls/hr Documented By: Admin: 05/12/22 21:01 Dose: 100 mls/hr Documented By: Infusion: 05/11/22 21:30 Dose: 0 mls/hr Documented By: Admin: 05/11/22 21:00 Dose: 100 mls/hr Documented By: EKF Sodium Chloride (Nss 1000ml) 1,000 mls @ 50 mls/hr IV .Q20H IVY Stop: 05/12/22 21:45 Last Infusion: 05/12/22 20:04 Dose: 0 mls/hr Documented By: Infusion: 05/12/22 17:03 Dose: 50 mls/hr Documented By: Admin: 05/12/22 06:26 Dose: 80 mls/hr Documented By: Infusion: 05/12/22 06:26 Dose: 80 mls/hr Documented By: Admin: 05/11/22 19:52 Dose: 80 mls/hr Documented By: EKF Magnesium Sulfate/Dextrose (Magnesium Sulfate / D5w) 1 gm in 100 mls @ 50 mls/hr IV ONE ONE Stop: 05/12/22 12:14 Last Infusion: 05/12/22 12:22 Dose: 0 mls/hr Documented By: Admin: 05/12/22 10:13 Dose: 50 mls/hr Documented By: SHAZIA Magnesium Sulfate/Dextrose (Magnesium Sulfate / D5w) 1 gm in 100 mls @ 50 mls/hr IV ONE ONE Stop: 05/13/22 15:01 Last Infusion: 05/13/22 16:20 Dose: 0 mls/hr Documented By: Admin: 05/13/22 14:09 Dose: 50 mls/hr Documented By: MIKI Dextrose/Sodium Chloride (D5w And Nss) 1,000 mls @ 60 mls/hr IV .[id number] IVY Stop: 06/12/22 17:44 Last Infusion: 05/15/22 20:39 Dose: 0 mls/hr Documented By: Admin: 05/15/22 19:34 Dose: 60 mls/hr Documented By: Infusion: 05/15/22 19:34 Dose: 60 mls/hr Documented By: Admin: 05/15/22 03:01 Dose: 60 mls/hr Documented By: Infusion: 05/15/22 02:23 Dose: 60 mls/hr Documented By: Admin: 05/14/22 09:42 Dose: 60 mls/hr Documented By: Infusion: 05/14/22 09:42 Dose: 60 mls/hr Documented By: Admin: 05/13/22 18:48 Dose: 60 mls/hr Documented By: MIKI Magnesium Sulfate/Dextrose (Magnesium Sulfate / D5w) 1 gm in 100 mls @ 50 mls/hr IV Q2H IVY Stop: 05/15/22 15:14 Last Infusion: 05/15/22 16:05 Dose: 0 mls/hr Documented By: Admin: 05/15/22 14:02 Dose: 50 mls/hr Documented By: Infusion: 05/15/22 13:52 Dose: 50 mls/hr Documented By: Admin: 05/15/22 11:52 Dose: 50 mls/hr Documented By: MIKI Levothyroxine Sodium (Levothyroxine Sodium 25 Mcg Tablet) 25 mcg PO DAILYBB IVY Stop: 06/11/22 06:29 Last Admin: 05/19/22 06:01 Dose: 25 mcg Documented By: Admin: 05/18/22 05:27 Dose: 25 mcg Documented By: Admin: 05/17/22 06:02 Dose: 25 mcg Documented By: Admin: 05/16/22 06:15 Dose: 25 mcg Documented By: Admin: 05/15/22 06:09 Dose: 25 mcg Documented By: Admin: 05/14/22 06:10 Dose: 25 mcg Documented By: Admin: 05/13/22 05:36 Dose: 25 mcg Documented By: Admin: 05/12/22 06:22 Dose: 25 mcg Documented By: TIMMY Magnesium Oxide (Magnesium Oxide 400 Mg Tab) 400 mg PO BID IVY Stop: 06/14/22 20:59 Last Admin: 05/19/22 09:29 Dose: 400 mg Documented By: Admin: 05/18/22 20:49 Dose: 400 mg Documented By: Admin: 05/18/22 09:19 Dose: 400 mg Documented By: Admin: 05/17/22 20:57 Dose: 400 mg Documented By: Admin: 05/17/22 09:16 Dose: 400 mg Documented By: Admin: 05/16/22 21:02 Dose: 400 mg Documented By: Admin: 05/16/22 08:48 Dose: 400 mg Documented By: Admin: 05/15/22 20:02 Dose: 400 mg Documented By: SUZETTE Melatonin (Melatonin 3 Mg Tab) 3 mg PO HS IVY Stop: 06/12/22 20:59 Last Admin: 05/18/22 20:53 Dose: 3 mg Documented By: Admin: 05/17/22 20:57 Dose: 3 mg Documented By: Admin: 05/16/22 21:02 Dose: 3 mg Documented By: Admin: 05/15/22 20:02 Dose: 3 mg Documented By: Admin: 05/14/22 20:32 Dose: 3 mg Documented By: Admin: 05/13/22 21:17 Dose: 3 mg Documented By: PALMER Methenamine Hippurate (Methenamine Hippurate 1 Gm Tab) 1 gm PO BID IVY Stop: 06/17/22 08:59 Last Admin: 05/19/22 09:28 Dose: 1 gm Documented By: Admin: 05/18/22 20:48 Dose: 1 gm Documented By: Admin: 05/18/22 09:24 Dose: 1 gm Documented By: ALLA Multivitamins/Minerals (Cerovite Adv Formula Tab) 1 tab PO QAM [facility] Stop: 06/13/22 10:29 Last Admin: 05/19/22 09:28 Dose: 1 tab Documented By: Admin: 05/18/22 09:19 Dose: 1 tab Documented By: Admin: 05/17/22 09:16 Dose: 1 tab Documented By: Admin: 05/16/22 08:46 Dose: 1 tab Documented By: Admin: 05/15/22 09:41 Dose: 1 tab Documented By: Admin: 05/14/22 12:12 Dose: 1 tab Documented By: RENEE Nystatin (Nystatin Susp 500,000 U/5 Ml Udc) 5 ml PO QID IVY Stop: 05/26/22 12:59 Last Admin: 05/19/22 09:29 Dose: 5 ml Documented By: Admin: 05/18/22 20:55 Dose: 5 ml Documented By: Admin: 05/18/22 17:48 Dose: 5 ml Documented By: Admin: 05/18/22 14:21 Dose: 5 ml Documented By: Admin: 05/18/22 09:21 Dose: 5 ml Documented By: Admin: 05/17/22 20:56 Dose: 5 ml Documented By: Admin: 05/17/22 18:39 Dose: 5 ml Documented By: Admin: 05/17/22 14:05 Dose: 5 ml Documented By: Admin: 05/17/22 09:16 Dose: 5 ml Documented By: Admin: 05/16/22 21:01 Dose: 5 ml Documented By: Admin: 05/16/22 17:24 Dose: 5 ml Documented By: Admin: 05/16/22 14:05 Dose: 5 ml Documented By: BRIAN Pantoprazole Sodium (Pantoprazole 40 Mg Tab) 40 mg PO HS IVY Stop: 06/10/22 20:59 Last Admin: 05/18/22 20:49 Dose: 40 mg Documented By: Admin: 05/17/22 20:58 Dose: 40 mg Documented By: Admin: 05/16/22 21:02 Dose: 40 mg Documented By: Admin: 05/15/22 20:02 Dose: 40 mg Documented By: Admin: 05/14/22 20:33 Dose: 40 mg Documented By: Admin: 05/13/22 21:17 Dose: 40 mg Documented By: Admin: 05/12/22 21:03 Dose: 40 mg Documented By: Admin: 05/11/22 21:02 Dose: 40 mg Documented By: JACF Polyethylene Glycol (Polyethylene (Miralax) 17 Gm Pack) 17 gm PO DAILY PRN PRN Reason: Constipation Stop: 06/10/22 18:42 Last Admin: 05/11/22 21:01 Dose: 17 gm Documented By: JACF Potassium Chloride (Potassium Chloride Crtab 20 Meq Tabcr) 20 meq PO DAILY IVY Stop: 06/11/22 08:59 Last Admin: 05/12/22 08:53 Dose: 20 meq Documented By: SHAZIA Potassium Chloride (Potassium Chloride Crtab 20 Meq Tabcr) 20 meq PO NOW STA Stop: 05/12/22 10:07 Last Admin: 05/12/22 10:13 Dose: 20 meq Documented By: SHAZIA Potassium Chloride (Potassium Chloride Crtab 20 Meq Tabcr) 20 meq PO BID IVY Stop: 06/11/22 20:59 Last Admin: 05/16/22 08:46 Dose: 20 meq Documented By: Admin: 05/15/22 20:02 Dose: 20 meq Documented By: Admin: 05/15/22 09:42 Dose: 20 meq Documented By: Admin: 05/14/22 20:32 Dose: 20 meq Documented By: Admin: 05/14/22 09:41 Dose: 20 meq Documented By: Admin: 05/13/22 21:17 Dose: 20 meq Documented By: Admin: 05/13/22 08:21 Dose: 20 meq Documented By: Admin: 05/12/22 21:02 Dose: 20 meq Documented By: JULIA Potassium Chloride (Potassium Chloride Crtab 20 Meq Tabcr) 20 meq PO NOW STA Stop: 05/15/22 10:08 Last Admin: 05/15/22 10:47 Dose: 20 meq Documented By: MIKI Potassium Chloride (Potassium Chloride Crtab 20 Meq Tabcr) 20 meq PO QAM IVY Stop: 06/16/22 08:59 Last Admin: 05/19/22 09:28 Dose: 20 meq Documented By: Admin: 05/18/22 09:19 Dose: 20 meq Documented By: Admin: 05/17/22 09:17 Dose: 20 meq Documented By: VIET Thiamine HCl (Thiamine Hcl 100 Mg Tab) 200 mg PO BID IVY Stop: 06/13/22 10:29 Last Admin: 05/19/22 09:28 Dose: 200 mg Documented By: Admin: 05/18/22 20:49 Dose: 200 mg Documented By: Admin: 05/18/22 09:18 Dose: 200 mg Documented By: Admin: 05/17/22 20:57 Dose: 200 mg Documented By: Admin: 05/17/22 09:17 Dose: 200 mg Documented By: Admin: 05/16/22 21:02 Dose: 200 mg Documented By: Admin: 05/16/22 08:47 Dose: 200 mg Documented By: Admin: 05/15/22 20:02 Dose: 200 mg Documented By: Admin: 05/15/22 09:42 Dose: 200 mg Documented By: Admin: 05/14/22 20:33 Dose: 200 mg Documented By: Admin: 05/14/22 12:12 Dose: 200 mg Documented By: RENEE Vitamin D (Cholecalciferol 1,000 Units 25 Mcg Tab) 2,000 units PO QAM IVY Stop: 06/11/22 08:59 Last Admin: 05/14/22 09:42 Dose: 2,000 units Documented By: Admin: 05/13/22 08:19 Dose: 2,000 units Documented By: Admin: 05/12/22 08:53 Dose: 2,000 units Documented By: DANYM Imaging Data Radiologist's Impression: Chest X-Ray 05/11/22 13:20 XR chest 1V portable HISTORY: 86 years-old Female weakness acute weakness COMPARISON: Chest radiograph 12/22/2021, CT abdomen and pelvis 01/05/2021 TECHNIQUE: AP view of the chest FINDINGS: Cardiac silhouette is enlarged. Chronic left basilar density redemonstrated. Atherosclerosis of the thoracic aorta. No pneumothorax, large pleural effusion or overt pulmonary edema. Degenerative changes of the shoulders and spine. IMPRESSION: 1. Cardiomegaly without acute process. 2. Chronic left basilar opacity likely represents the previously noted large hiatal hernia. ACT 112: Negative or not required by law. The above report was generated using voice recognition software. It may contain grammatical, syntax or spelling errors. Electronically signed by: Young Petersen M.D. 05/11/2022 1:41 PM Blood Pressure Blood Pressure Findings: Elevated blood pressure Blood Pressure Disposition: Referred to patients primary care provider Discharge Plan Visit Data Chief Complaint: Urinary Symptoms Stated Complaint: WEAKNESS, POSSIBLE UTI ED Provider: Olga Lanier Discharge Problem: Acute UTI, Weakness, Antibiotic-resistant bacterial infection Patient Disposition: Admitted As Inpatient Discharge Instructions Interventions: ED Discharge Assessment Last Done: 05/11/22 17:32
[2022-05-18] MEDS: ATORVASTATIN 40 MG TAB PO SCH (20:46)
[2022-05-18] MEDS: ENOXAPARIN INJ 40 MG/0.4 ML SYR SQ SCH (20:46)
[2022-05-18] MEDS: PANTOprazole 40 MG TAB PO SCH (20:49)
[2022-05-18] MEDS: MELATONIN 3 MG TAB PO SCH (20:53)
--- NOTE | 2022-05-18 20:56 | Hospitalist Progress Note ---
Date of Service May 18, 2022 Assessment & Plan (1) Lethargy: Plan: dramatic drop-off in mentation today vs all other days in the hospital. confused, lethargic, following commands, poorly, slurred speech. time of symptom onset uncertain. obtained BSG, prolactin (elevated in setting of acute seizure), troponin, procal, etc -- all negative/normal. after reassessing her she was modestly better but still not at baseline. thus, elected to obtain MRI brain. I spoke with the pt's daughter twice today (following both bedside visits). Explained the change in her status. Discussed MRI brain. Daughter did mention that sometimes "she has days like this at home." If MRI brain is negative then this may simply be a delirious state in the setting of baseline MCI or vascular dementia (several CVAs based on old MRIs). seizure is not suspected. infectious etiology not suspected. (2) Acute metabolic encephalopathy: Plan: present on admission was due to UTI mentation improved with Rx of UTI during the hospitalization then developed #1 this am -- see above cont melatonin 3mg HS avoid sedatives, etc (3) Acute UTI: Plan: Urine cx with MDR e.coli but sensitive to rocephin. completed 7-day course of IV rocephin (first dose was on 05/11) CT abd/pelvis - 2020 - no stones, etc. previously was taking methemanine for UTI prevention - resumed 1gm BID today (4) Weakness: Plan: 2nd to UTI, recent COVID-19 infection, deconditioning, high calcium levels, lumbar spinal stenosis/severe DJD, etc. PT, OT. Rx UTI. etc. B12, TSH, etc have been wnl within the last year. CPK wnl. discussed the CT lumbar spine results with the patient's 2 daughters extensively cont celebrex for this despite the severity of the L1 spinal stenosis (only 5mm of room in the canal at this level) she is not an operative candidate of note- given the high calcium levels I cannot exclude a malignancy process underlying everything else would not pursue w/u at this time (5) Chronic pain: Plan: 2nd osteoarthritis. Continue Celebrex, [place], glucosamine tabs. (6) Hypercalcemia: Plan: presenting Ca 10.8 calcium levels have been mildly high since 2020 received NS hydration this admission with improved levels could have been contributing to her fatigue/etc. at presentation w/u to date (iPTH, etc) all negative awaiting PTH-related peptide level (7) Hyperparathyroidism: Plan: records indicate this diagnosis, but prior PTH levels have NOT been elevated thus, she does not have this repeat intact PTH level is wnl 25-OH vit D level is wnl phos levl wnl sent PTH-related peptide level -- if high underlying malignancy is likely stopped vit D supplement (8) GERD without esophagitis: Plan: With known large hiatal hernia. Continue PPI. (9) Hypertension: Plan: Continue diltiazem. BPs improved with higher dose of 180mg/day. BPs tend to be labile. GIven her advanced age will leave dose as is for now. (10) Hyperlipidemia: Plan: Continue atorvastatin. CPK, LFTs wnl. (11) Hypothyroidism: Plan: Continue levothyroxine. TSH 2.13 (12) History of COVID-19: Plan: 04/2022 did not require hospitalization for such but she has been weak & fatigued since her infection ordered PT/OT to help with mobility and deconditioning CXR stable O2 sats stable has done poorly with PT/OT (max assist with getting to the bedside or standing) but family wishing to take her home at discharge they have numerous caregivers and will provide 24/7 assistance (13) DVT prophylaxis: Plan: lovenox daily (14) Swelling of right foot: Plan: given her recent COVID infection and poor mobility obtained venous duplex of RLE -- NEGATIVE for DVT (15) PAT (paroxysmal atrial tachycardia): Plan: cont diltiazem once daily (16) History of stroke: Plan: prior MRI brain showed old right frontal lobe CVA date of the CVA is uncertain records indicate h/o ICA stenosis as well cont plavix for secondary prevention cont statin for secondary prevention see #1 above regarding today's events (17) Large hiatal hernia: Plan: cont PPI no symptoms from the hiatal hernia at this time (no frequent GERD symptoms, chronic cough, aspiration, etc) (18) Hypokalemia: Plan: replaced resolved cont PO supplementation daily repeat BMP/mag today wnl (19) Hypomagnesemia: Plan: replaced resolved cont PO supplementation daily 2nd to PPI usage?? (20) Lumbar spinal stenosis: Plan: severe at L1 multiple other levels with significant/severe DJD the spinal stenosis could be contributing to b/l leg weakness - even urinary issues, too poor candidate for any intervention discussed this in detail with her 2 daughters (1 at bedside, 1 on Zoom call) cont celebrex for pain (21) Candidiasis of mouth and esophagus: Plan: improved cont nystatin 5cc qid swish/spit Plan despite doing very poorly on PT/OT evals family wishes to take her home with 24/7 support after d/c hospital bed prescription completed --- patient with SEVERE FUNCTIONAL DEFICITS, PARTICULARLY OF HER LEGS, ALONG WITH SEVERE GENERALIZED WEAKNESS WITHOUT HOSPITAL BED AT HOME TURNING, TRANSFERS, ETC WOULD BE EXCEPTIONALLY DIFFICULTY due to mobility issues she is at high risk of sacral decubs, etc hospital bed will make her overall care much easier no discharge today due to #1 strongly consider palliative care consultation given her overall prognosis is guarded given her overall decline in the last 2 months daughter updated by phone today 2x's (Vi Smith) Admission and Anticipated Discharge Date Admission Date: May 11, 2022 Subjective saw patient twice today during AM rounds patient was lethargic, dysarthric speech, couldn't answer questions, did not know where she was, and was following commands poorly ate poorly at breakfast staff report that at 0700 this am - shift change - she was in a similar state patient denied any pain in any location BSG obtained - >100 I reassessed her in the afternoon - she was more awake, less slurred speech - but dysarthria still present; following commands better still without complaints still quite weak ate a little lunch today per nursing Review of Systems Review of Systems: cv - denied chest pain neuro - denied headache pulm - denied dyspnea GI - denied abd pain - incontinent with use of Purewick catheter Physical Exam Physical Exam: gen - very thin, frail-appearing, NAD, laying in bed comfortably but VERY lethargic with slurred speech/dysarthric speech mouth - MM slightly dry neck - no JVD heart - RRR, s1 s2, 1/6 HILDA LSB lungs - CTA b/l abd - soft NT ND BS+ ext - pulses 2+ b/l, no edema skin - mild stasis changes b/l shins; extensive ecchymoses of b/l arms, R>L - unchanged musculo - b/l foot deformities (baseline) psych - more lethargic today, confused neuro - handgrips 5/5 b/l, unable to move legs that well b/l Results & Data Results & Data ([facility]) Vital Signs (Past 12 Hours) Vital Signs Temp Pulse Pulse Resp BP BP Pulse Ox 05/18/22 20:45 36.6 C 89 16 169/94 H 94 05/18/22 19:42 05/18/22 14:28 36.6 C 90 16 165/85 H 96 05/18/22 11:38 36.7 C 85 18 162/90 H 95 O2 Del Method 05/18/22 20:45 Room Air 05/18/22 19:42 Room Air 05/18/22 14:28 Room Air 05/18/22 11:38 Room Air Laboratory Results Laboratory Results - last 24 hr 05/18/22 05/18/22 05/18/22 07:04 07:04 11:34 WBC 7.30 RBC 3.88 L Hgb 12.6 Hct 36.7 MCV 94.6 MCH 32.5 MCHC 34.3 RDW Std Deviation 52.2 H RDW Coeff of Pavithra 15.0 H Plt Count 217 MPV 9.5 VBG pH VBG pCO2 VBG pO2 VBG HCO3 VBG O2 Saturation VBG Base Excess Sodium 138 Potassium 3.7 Chloride 102 Carbon Dioxide 31 Anion Gap 5 BUN 10 Creatinine 0.40 L Est Cr Clr Drug Dosing 68.4 Est GFR ( Amer) 107.8 Est GFR (Non-Af Amer) 93.0 BUN/Creatinine Ratio 25.0 H Glucose 116 H POC Glucose 118 H Lactate Calcium 10.2 H Magnesium 1.7 Troponin I High Sens Procalcitonin Prolactin 05/18/22 05/18/22 05/18/22 12:50 12:50 12:50 WBC RBC Hgb Hct MCV MCH MCHC RDW Std Deviation RDW Coeff of Pavithra Plt Count MPV VBG pH VBG pCO2 VBG pO2 VBG HCO3 VBG O2 Saturation VBG Base Excess Sodium Potassium Chloride Carbon Dioxide Anion Gap BUN Creatinine Est Cr Clr Drug Dosing Est GFR ( Amer) Est GFR (Non-Af Amer) BUN/Creatinine Ratio Glucose POC Glucose Lactate Calcium Magnesium Troponin I High Sens 12.9 Procalcitonin < 0.05 Prolactin 12.45 05/18/22 05/18/22 12:50 12:50 WBC RBC Hgb Hct MCV MCH MCHC RDW Std Deviation RDW Coeff of Pavithra Plt Count MPV VBG pH 7.46 H VBG pCO2 46 VBG pO2 52 VBG HCO3 33 VBG O2 Saturation 86.6 VBG Base Excess 7.7 Sodium Potassium Chloride Carbon Dioxide Anion Gap BUN Creatinine Est Cr Clr Drug Dosing Est GFR ( Amer) Est GFR (Non-Af Amer) BUN/Creatinine Ratio Glucose POC Glucose Lactate 0.8 Calcium Magnesium Troponin I High Sens Procalcitonin Prolactin PG Care Time/CCT Total # of Minutes Spent Total Time Spent with Patient: Total time spent is greater than 50% in coordination of care (as documented) at patient's floor/unit and/or counseling patient: Coding Level of Care Code 12239 SUB INP/OBS CARE 3/50MIN Diagnoses Lethargy R53.83 Acute metabolic encephalopathy G93.41 Acute UTI N39.0 Weakness R53.1 Chronic pain G89.29 Hypercalcemia E83.52 Hyperparathyroidism E21.3 GERD without esophagitis K21.9 Hypertension I10 Hypertension type: unspecified Hyperlipidemia E78.5 Hyperlipidemia type: unspecified Hypothyroidism E03.9 Hypothyroidism type: unspecified History of COVID-19 Z86.16 DVT prophylaxis Z29.9 Swelling of right foot M79.89 PAT (paroxysmal atrial tachycardia) I47.1 History of stroke Z86.73 Large hiatal hernia K44.9 Hypokalemia E87.6 Hypomagnesemia E83.42 Lumbar spinal stenosis M48.061 Candidiasis of mouth and esophagus B37.81; B37.0 (1) Hyperlipidemia Hyperlipidemia type: unspecified Qualified Code(s): E78.5 - Hyperlipidemia, unspecified (2) Hypothyroidism Hypothyroidism type: unspecified Qualified Code(s): E03.9 - Hypothyroidism, unspecified (3) Hypertension Hypertension type: unspecified Qualified Code(s): I10 - Essential (primary) hypertension
--- NOTE | 2022-05-18 20:56 | Magnetic Resonance Report ---
Brain MRI WITHOUT CONTRAST HISTORY: h/o CVA; altered mental status, slurred speech; eval new CVA TECHNIQUE: Multiplanar multisequence MRI of the brain was performed without the use of contrast. COMPARISON STUDY: Head CT 05/18/2022. Brain MRI 06/30/2020. FINDINGS: No areas restricted diffusion to suggest an acute infarction. The midline structures are in tact. Old right basal ganglia infarct, unchanged. There is no mass, hematoma, midline shift. Chronic opacification the right maxillary sinus again noted. The mastoid air cells are clear. The major vascu lar flow-voids at the skull base are well-maintained. Chronic wallerian degeneration of the right mid brain/cerebral peduncle. There is partial opacification of the right sphenoid sinus. The orbits are u nremarkable. Moderate atrophy and microvascular ischemic changes are again noted. IMPRESSION: 1. No significant change compared to the prior study. No acute intracranial abnormality. 2. Atrophy and microvascular ischemic changes again noted. 3. Chronic right basal ganglia infarct, unchanged. ACT 112: Negative or not required by law. Electronically signed by: Kevin Wallace M.D. 05/18/2022 8:54 PM
[2022-05-18] MEDS: dilTIAZem HCL 180 MG CAPCR PO SCH (21:55)
[2022-05-19] MEDS: LEVOTHYROXINE SODIUM 25 MCG TABLET PO SCH (06:01)
[2022-05-19] MEDS: CeleBREX 200 MG CAP PO SCH (09:28)
[2022-05-19] MEDS: THIAMINE HCL 100 MG TAB PO SCH (09:28)
[2022-05-19] MEDS: POTASSIUM CHLORIDE CRTAB 20 MEQ TABCR PO SCH (09:28)
[2022-05-19] MEDS: CYANOCOBALAMIN (B-12) 500 MCG TABLET PO SCH (09:28)
[2022-05-19] MEDS: METHENAMINE HIPPURATE 1 GM TAB PO SCH (09:28)
[2022-05-19] MEDS: CEROVITE ADV FORMULA TAB PO SCH (09:28)
[2022-05-19] MEDS: NYSTATIN SUSP 500,000 U/5 ML UDC PO SCH (09:29)
[2022-05-19] MEDS: CLOPIDOGREL BISULFATE 75 MG TAB PO SCH (09:29)
[2022-05-19] MEDS: MAGNESIUM OXIDE 400 MG TAB PO SCH (09:29)
--- NOTE | 2022-05-19 11:34 | Discharge Summary ---
Date of Service May 19, 2022 Admission HPI Per Admitting Provider Emilee Israel is an 86-year-old female with past medical history of recurrent UTIs, hypothyroidism, hyperparathyroidism, hypertension, GERD, and osteoarthritis is presenting today with generalized weakness. For the past 3 days she has felt weak in both of her legs and notices foul smelling urine. She notes she typically presents this way with UTIs and rarely has urinary symptoms, fevers, or chills. She has not had any falls, fever/chills, confusion, abdominal pain, n/v, increased urinary frequency, retention, or dysuria. She has been on methenamine and follows w/ urology for recurrent UTIs. On presentation she is borderline tachycardic and hypertensive, otherwise vital signs within normal limits, she is afebrile. UA positive for nitrates, trace leuk esterase and 4+ bacteria with 510 epithelial cells. Her Ca is mildly high at 10.8 which is not a new finding for her. Without leukocytosis, other electrolyte abnormalities or renal dysfunction. Troponin 9.6. TSH 2.1. Principal Diagnosis UTI, Acute metabolic encephalopathy, Generalized weakness Discharge Exam Vitals reviewed Gen: [AAOx2, NAD, pleasant, conversational] HEENT: [anicteric sclerae, EOMI] CV: [RRR no mgr nl S1S2] Pulm: [CTAB no wcr] Abd: [+BS soft NT ND no masses or hernias] Ext: [no edema Skin: [no rashes, warm/dry] Discharge Data Allergies Allergy/AdvReac Type Severity Reaction Status Date / Time cephalexin AdvReac Intermediate macular Verified 05/11/22 17:12 welts / rash duloxetine AdvReac Intermediate dazed. Verified 05/11/22 17:12 fatigued simvastatin [From Zocor] AdvReac Unknown Unknown Verified 05/11/22 17:12 Consultations 05/11/22 15:49 ED Decision to Admit Stat Ordered Studies 05/12/22 16:17 US venous doppler LE RT Routine 05/15/22 07:00 CT lumbar spine wo con Routine 05/18/22 11:38 CT head/brain wo con Urgent 05/18/22 17:33 MR brain wo con Routine Hospital Course (1) Lethargy: On 05/18, had dramatic drop-off in mentation vs all other days in the hospital. confused, lethargic, following commands, poorly, slurred speech. time of symptom onset uncertain. obtained BSG, prolactin (elevated in setting of acute seizure), troponin, procal, etc -- all negative/normal. after reassessing her she was modestly better but still not at baseline. thus, elected to obtain MRI brain which was negative for acute findings Daughter did mention that sometimes "she has days like this at home." Liely delirious state in the setting of baseline MCI or vascular dementia (several CVAs based on old MRIs). seizure is not suspected. infectious etiology not suspected. Had not taken hydrocodone in 2 days so not likely med related Now completely resolved and ding well on day of discharge -continue thiamine po until B1 level returns (2) Acute metabolic encephalopathy: present on admission was due to UTI mentation improved with Rx of UTI during the hospitalization then developed #1 -- see above resolved (3) Acute UTI: Urine cx with MDR e.coli but sensitive to rocephin. completed 7-day course of IV rocephin (first dose was on 05/11) CT abd/pelvis - 2020 - no stones, etc. previously was taking methenamine for UTI prevention - resumed 1gm BID (4) Weakness: 2nd to UTI, recent COVID-19 infection, deconditioning, high calcium levels, lumbar spinal stenosis/severe DJD, etc. PT, OT. Rx UTI. etc. B12, TSH, etc have been wnl within the last year. CPK wnl. discussed the CT lumbar spine results with the patient's 2 daughters extensively cont celebrex for this despite the severity of the L1 spinal stenosis (only 5mm of room in the canal at this level) she is not an operative candidate of note- given the high calcium levels I cannot exclude a malignancy process underlying everything else would not pursue w/u at this time (5) Chronic pain: 2nd osteoarthritis. Continue Celebrex, [place], glucosamine tabs, tylenol prn (6) Hypercalcemia: presenting Ca 10.8 calcium levels have been mildly high since 2020 received NS hydration this admission with improved levels could have been contributing to her fatigue/etc. at presentation w/u to date (iPTH, etc) all negative awaiting PTH-related peptide level at time of discharge d/w daughter at bedside f/u PCP (7) Hyperparathyroidism: records indicate this diagnosis, but prior PTH levels have NOT been elevated thus, she does not have this repeat intact PTH level is wnl 25-OH vit D level is wnl phos levl wnl sent PTH-related peptide level -- if high underlying malignancy is likely stopped vit D supplement (8) GERD without esophagitis: With known large hiatal hernia. Continue PPI. (9) Hypertension: Continue diltiazem. BPs improved with higher dose of 180mg/day. BPs tend to be labile. GIven her advanced age will leave dose as is for now. (10) Hyperlipidemia: Continue atorvastatin. CPK, LFTs wnl. (11) Hypothyroidism: Continue levothyroxine. TSH 2.13 (12) History of COVID-19: 04/2022 did not require hospitalization for such but she has been weak & fatigued since her infection ordered PT/OT to help with mobility and deconditioning CXR stable O2 sats stable has done poorly with PT/OT (max assist with getting to the bedside or standing) but family wishing to take her home at discharge they have numerous caregivers and will provide 24/7 assistance (13) DVT prophylaxis: lovenox daily (14) Swelling of right foot: given her recent COVID infection and poor mobility obtained venous duplex of RLE -- NEGATIVE for DVT (15) PAT (paroxysmal atrial tachycardia): cont diltiazem once daily (16) History of stroke: prior MRI brain showed old right frontal lobe CVA date of the CVA is uncertain records indicate h/o ICA stenosis as well cont plavix for secondary prevention cont statin for secondary prevention (17) Large hiatal hernia: cont PPI no symptoms from the hiatal hernia at this time (no frequent GERD symptoms, chronic cough, aspiration, etc) (18) Hypokalemia: replaced resolved cont PO supplementation daily (19) Hypomagnesemia: replaced resolved cont PO supplementation daily 2nd to PPI usage?? (20) Lumbar spinal stenosis: severe at L1 multiple other levels with significant/severe DJD the spinal stenosis could be contributing to b/l leg weakness - even urinary issues, too poor candidate for any intervention discussed this in detail with her 2 daughters (1 at bedside, 1 on Zoom call) cont celebrex for pain (21) Candidiasis of mouth and esophagus: improved cont nystatin 5cc qid swish/spit x 7 more days after discharge Plan despite doing very poorly on PT/OT evals family wishes to take her home with 24/7 support after d/c hospital bed prescription completed --- patient with SEVERE FUNCTIONAL DEFICITS, PARTICULARLY OF HER LEGS, ALONG WITH SEVERE GENERALIZED WEAKNESS WITHOUT HOSPITAL BED AT HOME TURNING, TRANSFERS, ETC WOULD BE EXCEPTIONALLY DIFFICULTY due to mobility issues she is at high risk of sacral decubs, etc hospital bed will make her overall care much easier strongly consider palliative care consultation given her overall prognosis is guarded given her overall decline in the last 2 months-f/u with PCP daughter updated today at bedside Dispo-stable for dc to home Home Health Attestation I certify that this patient is under my care and that I, or a physicians certified anesthesiologist assistant working with me, had a face to-face encounter that meets the home health [id number] encounter requirements with this patient. The encounter with the patient was in whole, or in part, for the following medical condition, which is the primary reason for home health care (list medical condition): UTI/weakness I certify that, based on my findings, the following services are medically necessary home health services: My clinical findings support the need for the above services because: PT Assessment for Endurance / Balance / Strength PT Eval for Safety and Mobility PT Eval for Safety, Gait Training, Assistive Devices PT Gait and Balance Training, Strengthening and Safety Safety Skilled Nsg Assessment Further, I certify that my clinical findings support that this patient is homebound (i.e. absences from home require considerable and taxing effort and are for medical reasons or zoroastrianism services or infrequently or of short duration when for other reasons) because: Assistance of 1 Person for Ambulation/Activities Supportive Aid - Walker Supportive Aid - Wheelchair Certification for Home Health Services: Based on the above findings, I certify that this patient is confined to the home and needs intermittent halfway care, physical therapy and/or speech therapy or continues to need occupational therapy. The patient is under my care, and I have initiated the establishment of the plan of care. This patient will be followed by a physician who will periodically review the plan of care. Total Time Total Time Spent Total Time Spent (In Minutes): 35 min Discharge Plan Discharge Items Patient Disposition: Home - Self-Care Reason For Visit: UTI/GENERALIZED WEAKNESS Discharge Diagnosis: UTI, Generalized weakness, Encephalopathy/Delirium Activity: Resume your previous activity Non-emergency contact: Primary Care Provider Call non-emergency contact if: you have any medication questions, your symptoms worsen and you have a fever Follow-up/Referrals: Addi Rangel MD [Primary Care Provider] - (Follow up within 1-2 weeks.) Diet: Regular Addtl Attending Provider Instructions: You were admitted and treated for a UTI. Your calcium levels have been a bit elevated and a test was ordered to look into the cause of this. This test was still pending at the time of discharge and Dr. Rangel can follow up on this for you. Your diltiazem dose was increased to 180mg daily for improved blood pressure control. You were started on thiamine (vitamin B1) in case a low level of this caused some of your confusion in the hospital. A blood test was checked for this and was still pending at the time of discharge. Please continue taking thiamine until this result returns. Pending Studies at Discharge: Yes Studies:: Vitamin B1 level and Parathyroid-related peptide Stand-Alone Forms: My [facility] [employer] Medications and DC Order Prescriptions: New nystatin 100,000 unit/mL Suspension 5 ml PO QID 7 Days Qty: 140 0RF diltiazem HCl 180 mg Capsule,Extended Release 24hr 180 mg PO QPM Qty: 30 0RF thiamine HCl (vitamin B1) 100 mg Tablet 200 mg PO QAM Qty: 60 0RF Rx Instructions: OTC Continued (DME) Wheelchair (Manual) Device See Rx Instructions .Route Qty: 1 0RF Rx Instructions: As directed celecoxib 200 mg capsule 200 mg PO QAM Qty: 90 3RF hydrocodone-acetaminophen 7.5-325 mg/15 mL solution 10 ml PO Q8H PRN (Reason: pain) Qty: 200 0RF benzonatate 100 mg capsule 100 mg PO TID PRN (Reason: cough) 10 Days Qty: 30 1RF Centrum 18-400 mg-mcg Tablet 1 tab PO QAM glucosamine-chondroitin [Osteo Bi-Flex] 250-200 mg tablet 1 tab PO BID cyanocobalamin (vitamin B-12) [Vitamin B-12] 500 mcg Tablet 500 mcg PO QAM ascorbic acid (vitamin C) 500 mg Tablet 500 mg PO DAILY potassium chloride 20 mEq tablet,ER particles/crystals 20 meq PO DAILY levothyroxine 25 mcg tablet 25 mcg PO DAILYBB clopidogrel 75 mg tablet 75 mg PO DAILY esomeprazole magnesium 40 mg capsule,delayed release(DR/EC) 40 mg PO HS latanoprost 0.005 % drops 1 drp OPR HS atorvastatin 40 mg tablet 40 mg PO HS magnesium oxide 400 mg magnesium Tablet 400 mg PO DAILY Discontinued diltiazem HCl 120 mg capsule,extended release 24hr 120 mg PO QAM Qty: 90 3RF cholecalciferol (vitamin D3) 50 mcg (2,000 unit) capsule 50 mcg PO QAM Discharge Orders: Discharge Order (Routine); Ordered 05/19/22 Ordered By: Gaby Monet Admission Data Admit Date/Time: 05/11/22 16:29 Attending Provider: Gaby Monet Admit Provider: Jhonatan Mike Primary Care Provider: Addi Rangel Other Providers: Jhonatan Mike Coding Level of Care Code HOSP INP/OBS DISCH >30 MIN Diagnoses Lethargy R53.83 Acute metabolic encephalopathy G93.41 Acute UTI N39.0 Weakness R53.1 Chronic pain G89.29 Hypercalcemia E83.52 Hyperparathyroidism E21.3 GERD without esophagitis K21.9 Hypertension I10 Hypertension type: unspecified Hyperlipidemia E78.5 Hyperlipidemia type: unspecified Hypothyroidism E03.9 Hypothyroidism type: unspecified History of COVID-19 Z86.16 DVT prophylaxis Z29.9 Swelling of right foot M79.89 PAT (paroxysmal atrial tachycardia) I47.1 History of stroke Z86.73 Large hiatal hernia K44.9 Hypokalemia E87.6 Hypomagnesemia E83.42 Lumbar spinal stenosis M48.061 Candidiasis of mouth and esophagus B37.81; B37.0
== END 2022-05-19 12:33 | disposition home health service (06) | DRG 689 ==
LOC: ED 12:33 → 3N 16:29 → SUATTDRO 16:29 → 3N 17:32
DX: M48.061 Spinal stenosis, lumbar region without neurogenic claudication; Z20.822 Contact with and (suspected) exposure to COVID-19; Z79.890 Hormone replacement therapy; G93.41 Metabolic encephalopathy; B96.20 Unspecified Escherichia coli [E. coli] as the cause of diseases classified elsewhere; K21.9 Gastro-esophageal reflux disease without esophagitis; E83.42 Hypomagnesemia; Z86.16 Personal history of COVID-19; Z79.1 Long term (current) use of non-steroidal anti-inflammatories (NSAID); M81.0 Age-related osteoporosis without current pathological fracture; Z79.02 Long term (current) use of antithrombotics/antiplatelets; E78.5 Hyperlipidemia, unspecified; N39.0 Urinary tract infection, site not specified; M47.9 Spondylosis, unspecified; E03.9 Hypothyroidism, unspecified; E87.6 Hypokalemia; Z86.73 Personal history of transient ischemic attack (TIA), and cerebral infarction without residual deficits; E83.52 Hypercalcemia; B37.81 Candidal esophagitis; R53.83 Other fatigue; Z88.1 Allergy status to other antibiotic agents; K44.9 Diaphragmatic hernia without obstruction or gangrene; I47.1 Supraventricular tachycardia; M79.89 Other specified soft tissue disorders; Z79.899 Other long term (current) drug therapy; M19.90 Unspecified osteoarthritis, unspecified site; R47.81 Slurred speech; R53.1 Weakness; F01.50 Vascular dementia, unspecified severity, without behavioral disturbance, psychotic disturbance, mood disturbance, and anxiety; I10 Essential (primary) hypertension; G89.29 Other chronic pain; B37.0 Candidal stomatitis; Z88.8 Allergy status to other drugs, medicaments and biological substances; Z16.24 Resistance to multiple antibiotics; R53.81 Other malaise

== ENCOUNTER 2023-06-05 12:08 | Inpatient (IN) ==
[2023-06-05] MEDS: SODIUM CHLORIDE 0.9% 500 ML IV ONE ×2 (12:24)
--- NOTE | 2023-06-05 12:27 | Emergency Department Note ---
Impression & Plan Acute alteration in mental status, Cardiac arrest, Acidosis, lactic, Pneumonia, Elevated troponin I level ED Provider Note NAME: RUSSEL CASANOVA AGE: 87 SEX: F : 1935 ARRIVES VIA: Ambulance INFORMANT: Patient, EMS, the patient's caregiver ED PROVIDER(S): Clarence Massey DO CHIEF COMPLAINT: Cardiac arrest HPI: The patient is an 87-year-old female who presented to the emergency department with reported cardiac arrest. The patient had an episode this morning which required CPR. History was obtained from the prehospital personnel as well as the patient's primary caregiver. The primary caregiver does not live with the patient but the patient does have other caregivers that stay in the house. The patient had an episode of unresponsiveness this morning. 911 was called. CPR was started by the caregiver at the house. Upon arrival the first responders found the patient to have a pulse but she was only responsive to painful stimuli. There is no reported dysrhythmia. Upon ALS evaluation the patient was awake and much more alert. The patient has been declining over the course the last week according to the daughter. The patient had a reported fever and had a urinalysis obtained but this was not consistent with infection. The patient upon arrival here is still somewhat unresponsive and not able to answer questions. ROS: See above HPI for pertinent positives & negatives. A total of 10 systems reviewed and were otherwise negative. PAST MEDICAL HISTORY: See Below PAST SURGICAL HISTORY: See Below FAMILY HISTORY: See Below SOCIAL HISTORY: See Below HOME MEDICATIONS: See Below ALLERGIES: See Below VITALS: See Below PHYSICAL EXAMINATION: GENERAL: The patient is listless. She has her eyes open but responds very slowly to any verbal commands. EYES: The conjunctivae are clear. The pupils are round and reactive. EARS, NOSE, MOUTH AND THROAT: The nose is without any evidence of any deformity. Mucous membranes are dry. NECK: The neck is nontender and supple. RESPIRATORY: Diminished breath sounds are noted throughout. CARDIOVASCULAR: Tachycardic heart sounds are noted to auscultation. Ectopy was noted to auscultation. GASTROINTESTINAL: The abdomen is soft. Abdomen is nontender. MUSCULOSKELETAL/EXTREMITIES: There is no evidence of gross deformity full range of motion is noted in the hips and shoulders. SKIN: Chronic venous stasis changes were noted. There is no pedal edema. NEUROLOGIC: Patient is awake to verbal commands. She does answer with one-word phrases. Left upper extremity is contracted. Administrative Assistant strength is present in the right hand but very diminished. MEDICAL DECISION MAKING: The patient is an 87-year-old female who presented to the emergency department by ambulance. The patient was felt to be in cardiac arrest this morning by her caregivers. CPR was started. The patient was evaluated by the initial responding prehospital team. The patient appeared to respond only to painful stimuli. She was then evaluated by the service or work dispatcher chief who found the patient to be awake but not able to speak. There is no lateralizing symptoms and the patient was not made a stroke alert prior to arrival. Upon arrival the patient was found to have an elevated blood pressure. She was also febrile and tachycardic. I discussed the patient's laboratory and radiographic studies to her but also her family members. At this time the patient does appear to have some sign of pneumonia on the chest x-ray. CT shows no acute process. Given the patient's presentation there is no definite last known well time and the daughter states that the patient has been declining over the course of the last few days at least I do not feel that this would warrant a stroke alert but she may require further neuroimaging as an inpatient. Patient was treated with IV antibiotics. The [facility] hospitalist was notified about the patient. Triage Nursing notes reviewed. Prior medical records reviewed Vital Signs: reviewed and remarkable for elevated blood pressure and tachycardia. Differential diagnosis: Infection, hypoglycemia, electrolyte abnormalities, overdose, toxicologic, cardiac sources, intracerebral event, neurologic, trauma, as well as other pathologies. ER treatment provided: See below Diagnostics interpreted by me: ECG: EKG was obtained in the emergency department. My interpretation is sinus tachycardia 119 bpm. PVCs were noted. LVH was noted by voltage criteria. This was compared to a tracing from August 17, 2022. No significant changes were noted other than there was an increase in the rate and the presence of the ectopy. EKG was obtained in the prehospital setting. My interpretation is sinus tachycardia at 130 bpm. PACs were noted. This compares similar to the tracing obtained in the emergency department. Cardiac Monitoring: An order was placed for continuous cardiac monitoring. The monitor shows a rate of 116 bpm with sinus rhythm and frequent PVCs. Laboratory studies: As stated above and show below. Imaging studies: See below. Radiographic imaging was reviewed by myself Consultation(s): Dr. Franks was notified about the patient. ED COURSE: Procedures: none Critical Care: I have personally spent greater than 45 minutes of critical care time in the direct management of this patient. This includes bedside care, interpretation of diagnostic studies, and testing, discussion with consultants, patient, and family members, and other required patient management activities. This 45 minutes is in excess of all separately billable procedures. Past Med/Surg History Medical History Abnormal weight loss Hernia, hiatal Swelling of right foot Community acquired pneumonia Gram-negative bacteremia Weakness Right ear impacted cerumen Incontinence of urine in female Arthritis, multiple joint involvement Cerebral artery occlusion with cerebral infarction Depression GERD without esophagitis Hyperlipidemia Hypertension Hypothyroidism Large hiatal hernia Macrocytosis Urinary incontinence UTI (urinary tract infection) Surgical History Hx of varicose vein ligation and stripping History of hysterectomy History of bladder surgery resuspension H/O foot surgery Hx of cholecystectomy Family History Unknown Cancer Rheumatoid arthritis Fibromyalgia Denies family history of Ovarian cancer Prostate cancer Myocardial infarction Breast cancer Colorectal cancer Social History Smoking Status: Unknown if ever smoked Second Hand Exposure: No; Do You Dip or Chew Tobacco: No; Hx Alcohol Use: No Hx Substance Use: No Preferred Language: Mongolian Communication Ability: Effective Visual Impairment: Partially Limited Hearing Ability: Normal Music Worker Required: No Beliefs That Will Affect Care: None marital status: / Current Living Situation: Alone Current Living Situation Comment: in-home aides to help current occupational status: retired Feels Safe at Home: Yes Childhood Exposure to Second-Hand Smoke: No Diet: other Diet Comment: lack of appetite- ensures caffeine: Yes during the past year weight has: remained stable Dental Care, Regularly: Yes Physical Activity Frequency: Does not Exercise Seatbelt Use: always Sunscreen Use: Yes Assistive Devices: Bedside Commode, Walker and Wheelchair Allergies Allergies Allergy/AdvReac Type Severity Reaction Status Date / Time cephalexin AdvReac Intermediate macular Verified 06/05/23 14:06 welts / rash duloxetine AdvReac Intermediate dazed. Verified 06/05/23 14:06 fatigued simvastatin [From Zocor] AdvReac Unknown Unknown Verified 06/05/23 14:06 Home Meds Home Medications Medication Instructions Recorded Confirmed multivitamin-ferrous 1 tab PO PM 06/30/19 06/05/23 fumarate-folic acid 18 mg-400 mcg tablet (Centrum) cyanocobalamin (vitamin B-12) 500 500 mcg PO QAM 04/29/20 06/05/23 mcg tablet (Vitamin B-12) ascorbic acid (vitamin C) 500 mg 500 mg PO DAILY 05/11/22 06/05/23 tablet latanoprost 0.005 % eye drops 1 drp OPR HS 05/11/22 06/05/23 magnesium oxide 400 mg PO DAILY 05/11/22 06/05/23 esomeprazole magnesium 40 mg 40 mg PO HS 06/05/23 06/05/23 capsule,delayed release levothyroxine 25 mcg tablet 25 mcg PO QAM 06/05/23 06/05/23 Previous Rx's Medication Instructions Recorded Wheelchair (Manual) #1 ea 09/04/21 thiamine HCl (vitamin B1) 100 mg 200 mg (2 x 100 mg) PO QAM #60 tabs 05/19/22 tablet methenamine mandelate 0.5 g tablet 0.5 g PO BID 90 days #180 tabs 06/15/22 celecoxib 200 mg capsule 200 mg PO QAM #90 caps 09/11/22 clopidogrel 75 mg tablet 75 mg PO DAILY #90 tabs 04/16/23 potassium chloride 20 mEq 20 meq PO DAILY #90 tabs 04/21/23 tablet,extended release(part/cryst) atorvastatin 40 mg tablet 40 mg PO HS #90 tabs 05/20/23 diltiazem HCl 180 mg 180 mg PO QPM #90 caps 05/20/23 capsule,extended release 24 hr Results & Data (ED) Vital Signs Vital Signs - 24 hr 06/05/23 12:12 06/05/23 12:13 06/05/23 12:15 Temperature Temperature Source Pulse Rate 124 H 114 H 126 H Pulse Rate [Left Finger] Pulse Rate from SpO2 Sensor 72 124 H Respiratory Rate 19 18 33 H Respiratory Effort / Characteristics Non-Labored Spontaneous Respiratory Depth Normal Blood Pressure 147/87 H 147/87 H Blood Pressure [Left Arm] Blood Pressure Mean 107 107 Blood Pressure Mean [Left Arm] Blood Pressure Position [Left Arm] Pulse Oximetry 90 96 92 Oxygen Delivery Method Room Air Sepsis Recent Fever Within 48 Hours Yes Sepsis New/Unexplained Change in Mental Status N/A Sepsis Action Taken by Nursing No Action Required 06/05/23 12:30 06/05/23 12:31 06/05/23 12:31 Temperature 37.2 C 36.9 C Temperature Source Eugene Cath ( Temp Sensing) Pulse Rate 117 H Pulse Rate [Left Finger] Pulse Rate from SpO2 Sensor Respiratory Rate 25 H Respiratory Effort / Characteristics Respiratory Depth Blood Pressure Blood Pressure [Left Arm] Blood Pressure Mean Blood Pressure Mean [Left Arm] Blood Pressure Position [Left Arm] Pulse Oximetry Oxygen Delivery Method Room Air Sepsis Recent Fever Within 48 Hours Sepsis New/Unexplained Change in Mental Status Sepsis Action Taken by Nursing 06/05/23 12:33 06/05/23 12:35 06/05/23 12:45 Temperature 37.5 C 37.8 C H Temperature Source Pulse Rate 126 H 126 H 116 H Pulse Rate [Left Finger] Pulse Rate from SpO2 Sensor 117 H Respiratory Rate 22 22 Respiratory Effort / Characteristics Respiratory Depth Blood Pressure 163/107 H Blood Pressure [Left Arm] Blood Pressure Mean 125 Blood Pressure Mean [Left Arm] Blood Pressure Position [Left Arm] Pulse Oximetry 95 Oxygen Delivery Method Sepsis Recent Fever Within 48 Hours Sepsis New/Unexplained Change in Mental Status Sepsis Action Taken by Nursing 06/05/23 13:00 06/05/23 13:06 06/05/23 13:15 Temperature 37.8 C H 37.7 C H 37.7 C H Temperature Source Pulse Rate 109 H 121 H 111 H Pulse Rate [Left Finger] Pulse Rate from SpO2 Sensor 109 H 121 H 110 H Respiratory Rate 21 22 22 Respiratory Effort / Characteristics Respiratory Depth Blood Pressure 182/102 H Blood Pressure [Left Arm] Blood Pressure Mean 128 Blood Pressure Mean [Left Arm] Blood Pressure Position [Left Arm] Pulse Oximetry 94 91 90 Oxygen Delivery Method Sepsis Recent Fever Within 48 Hours Sepsis New/Unexplained Change in Mental Status Sepsis Action Taken by Nursing 06/05/23 13:52 06/05/23 15:27 Temperature 37.8 C H Temperature Source Eugene Cath ( Temp Sensing) Pulse Rate Pulse Rate [Left Finger] 116 H 95 H Pulse Rate from SpO2 Sensor Respiratory Rate 20 21 Respiratory Effort / Characteristics Respiratory Depth Blood Pressure Blood Pressure [Left Arm] 182/102 H 157/93 H Blood Pressure Mean Blood Pressure Mean [Left Arm] 128 114 Blood Pressure Position [Left Arm] Lying Lying Pulse Oximetry 98 100 Oxygen Delivery Method Room Air Sepsis Recent Fever Within 48 Hours Sepsis New/Unexplained Change in Mental Status Sepsis Action Taken by Long-Term Medications Current Medication List: was personally reviewed by me Laboratory Data Attestation: I reviewed the patient's lab results. 06/05/23 12:15 06/05/23 12:15 Lab Results 06/05/23 06/05/23 06/05/23 Range/Units 12:10 12:15 12:35 WBC 19.59 H (4.8-10.8) K/ul RBC 3.72 L (4.20-5.40) M/uL Hgb 12.3 (12.0-16.0) g/dl Hct 37.1 (37.0-47.0) % MCV 99.7 (80.0-100.0) fL MCH 33.1 (25.0-34.0) pg MCHC 33.2 (32.0-36.0) g/dL RDW Std Deviation 49.2 H (36.4-46.3) fL RDW Coeff of Pavithra 13.2 (11.5-14.5) % Plt Count 332 (130-400) K/uL MPV 9.7 (9.4-12.4) fL Immature Gran % (Auto) 1.0 % Neut % (Auto) 90.2 % Lymph % (Auto) 4.3 % [place] % (Auto) 4.2 % Eos % (Auto) 0.1 % Baso % (Auto) 0.2 % Neut # (Auto) 17.67 H (1.40-6.50) K/uL Lymph # (Auto) 0.85 L (1.20-3.40) K/uL [place] # (Auto) 0.82 H (0.11-0.59) K/uL Eos # (Auto) 0.02 (0.00-0.50) K/uL Baso # (Auto) 0.04 (0.00-0.20) K/uL Immature Gran # (Auto) 0.19 (0.01-0.20) K/uL PT 11.3 (9.0-12.0) Seconds INR 1.0 (0.9-1.1) APTT 27 (21-31) Seconds PTT Ratio 1.0 VBG pH 7.36 (7.36-7.41) VBG pCO2 53 H (38-50) mmHg VBG pO2 27 mmHg VBG HCO3 30 mmol/L VBG O2 Saturation < 60.0 % VBG Base Excess 3.2 mEq/L Sodium 135 L (136-145) mmol/L Potassium 3.9 (3.5-5.1) mmol/L Chloride 98 (98-107) mmol/L Carbon Dioxide 27 (21-32) mmol/L Anion Gap 10 (3-11) BUN 16 (6-23) mg/dl Creatinine 0.50 L (0.6-1.2) mg/dl Est Cr Clr Drug Dosing 51.9 ml/min Est GFR ( Amer) 99.5 ml/min Est GFR (Non-Af Amer) 85.8 ml/min BUN/Creatinine Ratio 32.0 H (10-20) Glucose 109 H (70-99(Fasting)) mg/dl Lactate 2.6 H* (0.4-2.0) mmol/L Calcium 10.6 H (8.6-10.3) mg/dl Magnesium 1.7 (1.7-2.4) mg/dl Total Bilirubin 0.9 (0.2-1.0) mg/dl Direct Bilirubin 0.3 H (0-0.2) mg/dl AST 25 (13-39) U/L ALT 16 (7-52) U/L Alkaline Phosphatase 100 (34-104) U/L Total Creatine Kinase (26-192) U/L Troponin I High Sens 30.3 H (0-14) pg/ml Total Protein 6.9 (6.0-8.3) gm/dl Albumin 3.1 L (3.4-5.0) gm/dl Procalcitonin 0.57 H (0-0.5) ng/ml Urine Color Yellow Urine Appearance Slightly Cloudy (Clear) Urine pH 6.5 (4.5-7.5) Ur Specific [place] >= 1.030 (1.000-1.030) Urine Protein 3+ H (Negative) Urine Glucose (UA) Negative (Negative) Urine Ketones 1+ H (Negative) Urine Blood Trace-lysed H (Negative) Urine Nitrite Negative (Negative) Urine Bilirubin Negative (Negative) Urine Urobilinogen Negative (Negative) Ur Leukocyte Esterase Negative (Negative) Urine RBC 0-4 (0-4) /hpf Urine WBC 5-10 H (0-5) /hpf Ur Epithelial Cells 10-20 H (0-5) /lpf Urine Bacteria 1+ H (Negative) Hyaline Casts 5-10 H (0-5) /lpf Urine Mucus Present A (None Prsent) Adenovirus (PCR) Not Detected (NotDetected) B. pertussis DNA (PCR) Not Detected (NotDetected) B.parapertussis DNA PCR Not Detected (NotDetected) C. pneumoniae DNA (PCR) Not Detected (NotDetected) Coronavirus OC43 (PCR) Not Detected (NotDetected) Coronavirus HKU1 (PCR) Not Detected (NotDetected) Coronavirus 229E (PCR) Not Detected (NotDetected) SARS-CoV-2 (PCR) Not Detected (NotDetected) Coronavirus NL63 (PCR) Not Detected (NotDetected) Human Metapneumovir PCR Not Detected (NotDetected) Influenza Type A (PCR) Not Detected (NotDetected) Influenza Type B (PCR) Not Detected (NotDetected) M. pneumoniae (PCR) Not Detected (NotDetected) Parainfluenza 1 (PCR) Not Detected (NotDetected) Parainfluenza 2 (PCR) Not Detected (NotDetected) Parainfluenza 3 (PCR) Not Detected (NotDetected) Parainfluenza 4 (PCR) Not Detected (NotDetected) RSV (PCR) Not Detected (NotDetected) Entero/Rhino (PCR) Not Detected (NotDetected) 06/05/23 Range/Units 14:23 WBC (4.8-10.8) K/ul RBC (4.20-5.40) M/uL Hgb (12.0-16.0) g/dl Hct (37.0-47.0) % MCV (80.0-100.0) fL MCH (25.0-34.0) pg MCHC (32.0-36.0) g/dL RDW Std Deviation (36.4-46.3) fL RDW Coeff of Pavithra (11.5-14.5) % Plt Count (130-400) K/uL MPV (9.4-12.4) fL Immature Gran % (Auto) % Neut % (Auto) % Lymph % (Auto) % [place] % (Auto) % Eos % (Auto) % Baso % (Auto) % Neut # (Auto) (1.40-6.50) K/uL Lymph # (Auto) (1.20-3.40) K/uL [place] # (Auto) (0.11-0.59) K/uL Eos # (Auto) (0.00-0.50) K/uL Baso # (Auto) (0.00-0.20) K/uL Immature Gran # (Auto) (0.01-0.20) K/uL PT (9.0-12.0) Seconds INR (0.9-1.1) APTT (21-31) Seconds PTT Ratio VBG pH (7.36-7.41) VBG pCO2 (38-50) mmHg VBG pO2 mmHg VBG HCO3 mmol/L VBG O2 Saturation % VBG Base Excess mEq/L Sodium (136-145) mmol/L Potassium (3.5-5.1) mmol/L Chloride (98-107) mmol/L Carbon Dioxide (21-32) mmol/L Anion Gap (3-11) BUN (6-23) mg/dl Creatinine (0.6-1.2) mg/dl Est Cr Clr Drug Dosing ml/min Est GFR ( Amer) ml/min Est GFR (Non-Af Amer) ml/min BUN/Creatinine Ratio (10-20) Glucose (70-99(Fasting)) mg/dl Lactate 2.1 H* (0.4-2.0) mmol/L Calcium (8.6-10.3) mg/dl Magnesium (1.7-2.4) mg/dl Total Bilirubin (0.2-1.0) mg/dl Direct Bilirubin (0-0.2) mg/dl AST (13-39) U/L ALT (7-52) U/L Alkaline Phosphatase (34-104) U/L Total Creatine Kinase 50 (26-192) U/L Troponin I High Sens 29.1 H (0-14) pg/ml Total Protein (6.0-8.3) gm/dl Albumin (3.4-5.0) gm/dl Procalcitonin (0-0.5) ng/ml Urine Color Urine Appearance (Clear) Urine pH (4.5-7.5) Ur Specific [place] (1.000-1.030) Urine Protein (Negative) Urine Glucose (UA) (Negative) Urine Ketones (Negative) Urine Blood (Negative) Urine Nitrite (Negative) Urine Bilirubin (Negative) Urine Urobilinogen (Negative) Ur Leukocyte Esterase (Negative) Urine RBC (0-4) /hpf Urine WBC (0-5) /hpf Ur Epithelial Cells (0-5) /lpf Urine Bacteria (Negative) Hyaline Casts (0-5) /lpf Urine Mucus (None Prsent) Adenovirus (PCR) (NotDetected) B. pertussis DNA (PCR) (NotDetected) B.parapertussis DNA PCR (NotDetected) C. pneumoniae DNA (PCR) (NotDetected) Coronavirus OC43 (PCR) (NotDetected) Coronavirus HKU1 (PCR) (NotDetected) Coronavirus 229E (PCR) (NotDetected) SARS-CoV-2 (PCR) (NotDetected) Coronavirus NL63 (PCR) (NotDetected) Human Metapneumovir PCR (NotDetected) Influenza Type A (PCR) (NotDetected) Influenza Type B (PCR) (NotDetected) M. pneumoniae (PCR) (NotDetected) Parainfluenza 1 (PCR) (NotDetected) Parainfluenza 2 (PCR) (NotDetected) Parainfluenza 3 (PCR) (NotDetected) Parainfluenza 4 (PCR) (NotDetected) RSV (PCR) (NotDetected) Entero/Rhino (PCR) (NotDetected) Administered Medications Magnesium Sulfate/Dextrose (Magnesium Sulfate / D5w) 1 gm in 100 mls @ 100 mls/hr IV Q1H IVY Stop: 06/05/23 16:18 Last Admin: 06/05/23 15:08 Dose: 100 mls/hr Documented By: Infusion: 06/05/23 15:08 Dose: Infused Documented By: Admin: 06/05/23 14:15 Dose: 100 mls/hr Documented By: DAPHNEY Lactated Ringer's (Lr) 1,000 mls @ 999 mls/hr IV .Q1H1M ONE Stop: 06/05/23 15:56 Last Admin: 06/05/23 15:08 Dose: 999 mls/hr Documented By: DAPHNEY Acetaminophen (Ofirmev) 1,000 mg in 100 mls @ 400 mls/hr IV NOW STA Stop: 06/05/23 15:24 Last Admin: 06/05/23 15:27 Dose: 400 mls/hr Documented By: DAPHNEY Discontinued Medications Sodium Chloride (Nss) 500 mls @ 999 mls/hr IV .Q31M ONE Stop: 06/05/23 12:43 Last Infusion: 06/05/23 13:27 Dose: Infused Documented By: Admin: 06/05/23 12:24 Dose: 999 mls/hr Documented By: STEPHANIE Piperacillin Sod/Tazobactam Sod (Zosyn) 4.5 gm in 100 mls @ 200 mls/hr IV NOW ONE Stop: 06/05/23 12:47 Last Infusion: 06/05/23 13:27 Dose: Infused Documented By: Admin: 06/05/23 12:46 Dose: 200 mls/hr Documented By: CHAPINCITO Sodium Chloride (Nss) 500 mls @ 999 mls/hr IV .Q31M ONE Stop: 06/05/23 12:48 Last Infusion: 06/05/23 13:27 Dose: Infused Documented By: Admin: 06/05/23 12:24 Dose: 999 mls/hr Documented By: STEPHANIE Imaging Data Attestation: I personally reviewed and interpreted this imaging study as follows: My Impression: CT of the brain was obtained in the emergency department. My interpretation is previous stroke noted on the right cerebral hemisphere, no intracranial hemorrhage or mass effect, final report below. 1 view chest x-ray was obtained in the emergency department. My interpretation is right lower lobe infiltrate, cardiomegaly, there is no free air, final report below. Radiologist's Impression: Chest X-Ray 06/05/23 00:00 XR chest 1V portable CLINICAL HISTORY: CHEST PAIN TECHNIQUE: Single frontal radiograph of the chest was obtained. Comparison: Comparison is made to chest radiograph 08/17/2022 FINDINGS: No lines and tubes are seen. Cardiomegaly is noted. Reticular interstitial opacities are seen. No evidence of pleural effusion or pneumothorax. IMPRESSION: No acute chest disease. Cardiomegaly is noted. ACT 112: Negative or not required by law. Electronically signed by: Gera Jameson M.D. 06/05/2023 1:[address] 06/05/23 12:21 CT head/brain wo con CLINICAL HISTORY: AMS Technique: Contiguous axial CT images of the head were acquired from the base of the skull to the vertex without intravenous contrast administration. Images were viewed in brain, subdural and bone windows. Automated dose lowering techniques and/or adjustment according to patient size were utilized for this exam. Comparison: Comparison is made to CT head 08/17/2022 Findings: Areas of decreased attenuation are present in the periventricular and subcortical white matter bilaterally consistent with small vessel ischemic disease. Generalized cerebral atrophy with commensurate enlargement of the ventricles, sulci, and cisterns is also present. There is no acute intracranial hemorrhage or evidence of acute territorial infarction. No shift of the midline structures, mass effect, or extra-axial abnormalities are shown. Atherosclerotic calcifications are present in the intracranial segments of the internal carotid arteries. Right basal ganglia encephalomalacia is unchanged. Right maxillary sinus and sphenoid sinus disease noted. The orbits appear normal. There are no acute fractures of the calvaria or scalp swelling. Impression: No acute intracranial hemorrhage, no evidence of acute territorial infarction or other acute intracranial disease process. ACT 112: Negative or not required by law. Electronically signed by: Gera Jameson M.D. 06/05/2023 1:04 PM Discharge Plan Visit Data Chief Complaint: Cardiac Assessment ED Provider: Clarence Massey Discharge Problem: Acute alteration in mental status, Cardiac arrest, Acidosis, lactic, Pneumonia, Elevated troponin I level Patient Disposition: Being Evaluated by Hospitalist Forms Stand Alone Forms: [facility] [employer] Prescriptions Prescriptions: No Action (DME) Wheelchair (Manual) Device See Rx Instructions .Route Qty: 1 0RF Rx Instructions: As directed methenamine mandelate 0.5 g tablet 0.5 g PO BID 90 Days Qty: 180 5RF Rx Instructions: administer after meals and at bedtime celecoxib 200 mg capsule 200 mg PO QAM Qty: 90 3RF clopidogrel 75 mg tablet 75 mg PO DAILY Qty: 90 1RF potassium chloride 20 mEq tablet,ER particles/crystals 20 meq PO DAILY Qty: 90 3RF atorvastatin 40 mg tablet 40 mg PO HS Qty: 90 3RF diltiazem HCl 180 mg capsule,extended release 24hr 180 mg PO QPM Qty: 90 3RF Centrum 18-400 mg-mcg Tablet 1 tab PO PM cyanocobalamin (vitamin B-12) [Vitamin B-12] 500 mcg Tablet 500 mcg PO QAM ascorbic acid (vitamin C) 500 mg Tablet 500 mg PO DAILY latanoprost 0.005 % drops 1 drp OPR HS magnesium oxide 400 mg magnesium Tablet 400 mg PO DAILY thiamine HCl (vitamin B1) 100 mg Tablet 200 mg PO QAM Qty: 60 0RF Rx Instructions: OTC levothyroxine 25 mcg tablet 25 mcg PO QAM Rx Instructions: TAKE ONE TABLET BY MOUTH DAILY IN THE MORNING esomeprazole magnesium 40 mg capsule,delayed release(DR/EC) 40 mg PO HS Rx Instructions: TAKE 1 CAPSULE BY MOUTH AT BEDTIME Referrals Referrals: Ramez Olson CRNP [Primary Care Provider] -
[2023-06-05] MEDS: PIPERACILLIN/TAZOBACTAM 4.5 GM/100 ML BAG IV ONE (12:46)
[2023-06-05 12:57] LABS: Base Excess VBG 3.2 mEq/L; HCO3 VBG 30 mmol/L; Oxygen Saturation VBG < 60.0 %; PCO2 VBG 53 mmHg (38-50); PO2 VBG 27 mmHg; pH VBG 7.36 (7.36-7.41)
[2023-06-05 13:02] LABS: Appearance Urine Slightly Cloudy (Clear); Bilirubin Urine Negative (Negative); Blood Urine Trace-lysed (Negative); Color Urine Yellow; Glucose Urine UA Negative (Negative); Ketones Urine 1+ (Negative); Leukocyte Esterase Urine Negative (Negative); Nitrite Urine Negative (Negative); Protein Urine 3+ (Negative); Specific Gravity Urine >= 1.030 (1.000-1.030); Urobilinogen Urine Negative (Negative); pH Urine 6.5 (4.5-7.5)
[2023-06-05 13:05] LABS: Hematocrit (blood only) 37.1 % (37.0-47.0); Hemoglobin 12.3 g/dl (12.0-16.0); Mean Corpuscular Hemoglobin 33.1 pg (25.0-34.0); Mean Corpuscular Hgb Conc 33.2 g/dL (32.0-36.0); Mean Corpuscular Volume 99.7 fL (80.0-100.0); Mean Platelet Volume 9.7 fL (9.4-12.4); Platelet Count 332 K/uL (130-400); RDW Coefficient of Variation 13.2 % (11.5-14.5); RDW Standard Deviation 49.2 fL (36.4-46.3); Red Blood Count 3.72 M/uL (4.20-5.40); White Blood Count 19.59 K/ul (4.8-10.8)
--- NOTE | 2023-06-05 13:05 | CT Scan Report ---
CT head/brain wo con CLINICAL HISTORY: AMS Technique: Contiguous axial CT images of the head were acquired from the base of the skull to the jessika adan without intravenous contrast administration. Images were viewed in brain, subdural and bone [facility]. Automated dose lowering techniques and/or adjustment according to patient size were utilized for this exam. Comparison: Comparison is made to CT head 08/17/2022 Findings: Areas of decreased attenuation are present in the periventricular and subcortical white matter bilate rally consistent with small vessel ischemic disease. Generalized cerebral atrophy with commensurate e nlargement of the ventricles, sulci, and cisterns is also present. There is no acute intracranial hem orrhage or evidence of acute territorial infarction. No shift of the midline structures, mass effect, or extra-axial abnormalities are shown. Atherosclerotic calcifications are present in the intracran ial segments of the internal carotid arteries. Right basal ganglia encephalomalacia is unchanged. Right maxillary sinus and sphenoid sinus disease noted. The orbits appear normal. There are no acute fractures of the calvaria or scalp swelling. Impression: No acute intracranial hemorrhage, no evidence of acute territorial infarction or other acute intracra nial disease process. ACT 112: Negative or not required by law. Electronically signed by: Gera Jameson M.D. 06/05/2023 1:04 PM
[2023-06-05 13:13] LABS: RBC Urine 0-4 /hpf (0-4)
[2023-06-05 13:15] LABS: Bacteria Urine 1+ (Negative); Mucus Urine Present (None Prsent)
[2023-06-05 13:20] LABS: Albumin Level 3.1 gm/dl (3.4-5.0); Bilirubin Direct 0.3 mg/dl (0-0.2); Bilirubin,Total 0.9 mg/dl (0.2-1.0); Calcium 10.6 mg/dl (8.6-10.3); Creatinine Clr Calc Pharmacy 51.9 ml/min; Est GFR (African American) 99.5 ml/min; Est GFR (Non-African American) 85.8 ml/min; Magnesium 1.7 mg/dl (1.7-2.4); Potassium 3.9 mmol/L (3.5-5.1); Total Protein 6.9 gm/dl (6.0-8.3)
[2023-06-05 13:25] LABS: Troponin I High Sensitivity 30.3 pg/ml (0-14)
--- NOTE | 2023-06-05 13:26 | XRay Report ---
XR chest 1V portable CLINICAL HISTORY: CHEST PAIN TECHNIQUE: Single frontal radiograph of the chest was obtained. Comparison: Comparison is made to chest radiograph 08/17/2022 FINDINGS: No lines and tubes are seen. Cardiomegaly is noted. Reticular interstitial opacities are seen. No stefan dence of pleural effusion or pneumothorax. IMPRESSION: No acute chest disease. Cardiomegaly is noted. ACT 112: Negative or not required by law. Electronically signed by: Gera Jameson M.D. 06/05/2023 1:24 PM
[2023-06-05 13:35] LABS: Partial Thromboplastin Time 27 Seconds (21-31); Prothrombin Time 11.3 Seconds (9.0-12.0)
[2023-06-05 13:59] LABS: Basophils # (auto) 0.04 K/uL (0.00-0.20); Basophils % (auto) 0.2 %; Eosinophils # (auto) 0.02 K/uL (0.00-0.50); Eosinophils % (auto) 0.1 %; Immature Granulocytes # (auto) 0.19 K/uL (0.01-0.20); Lymphocytes # (auto) 0.85 K/uL (1.20-3.40); Lymphocytes % (auto) 4.3 %; Monocytes # (auto) 0.82 K/uL (0.11-0.59); Monocytes % (auto) 4.2 %; Neutrophils # (auto) 17.67 K/uL (1.40-6.50); Neutrophils % (auto) 90.2 %
[2023-06-05 14:11] LABS: Adenovirus PCR Not Detected (NotDetected); Bordetella parapertussis PCR Not Detected (NotDetected); Bordetella pertussis PCR Not Detected (NotDetected); Chlamydia pneumoniae PCR Not Detected (NotDetected); Coronavirus 229E PCR Not Detected (NotDetected); Coronavirus CoV-2 (COVID19)PCR Not Detected (NotDetected); Coronavirus HKU1 PCR Not Detected (NotDetected); Coronavirus NL63 PCR Not Detected (NotDetected); Coronavirus OC43PCR Not Detected (NotDetected); Human Metapneumovirus PCR Not Detected (NotDetected); Influenza A PCR Not Detected (NotDetected); Influenza B PCR Not Detected (NotDetected); Mycoplasma pneumoniae PCR Not Detected (NotDetected); Parainfluenza Virus 1 PCR Not Detected (NotDetected); Parainfluenza Virus 2 PCR Not Detected (NotDetected); Parainfluenza Virus 3 PCR Not Detected (NotDetected); Parainfluenza Virus 4 PCR Not Detected (NotDetected); Respiratory Syncytial VirusPCR Not Detected (NotDetected); Rhinovirus/Enterovirus PCR Not Detected (NotDetected)
[2023-06-05] MEDS: MAGNESIUM SULFATE / D5W 1 GM/100 ML BAG IV SCH (14:15)
--- NOTE | 2023-06-05 14:24 | History & Physical Report ---
Date of Service June 05, 2023 Assessment & Plan (1) Sepsis: Plan: -Admit to the PCU on tele and pulse oximetry -Currently hemodynamically stable and stable on RA -Presented to the ED via EMS for progressive generalized weakness, decreased oral intake, and ongoing fevers -Caregivers did perform approximately 100 chest compressions at the recommendation of the EMS dispatcher, but it does not appear that the patient ever stopped breathing or lost her pulse -She has a significant leukocytosis, is febrile, and tachycardic with HR in the 110's -At this time the patient has two likely sources of infection, aspiration pneumonia noted on CXR today, and possible UTI -Patient recent completed courses of Macrobid and Ciprofloxacin for UTI, per review of previous urine cultures she does grow E. coli resistant to macrobid and ciprofloxacin at times, but has also grown pansensitive e. coli -S/P one dose of Zosyn and 1L NSS in the ED -We will continue her on Zosyn for now -Will give 1L LR on admission to cover her sepsis fluid bolus of 1.6L -Initial lactate elevated at 2.6 on arrival --> 2.1 on 2 hour repeat >Will continue trending lactate until it is WNL -Blood and urine cultures have been sent, monitor for results and tailor abx as needed -NPO until she is evaluated by [facility] ATTENDANT -Will continue maintenance IV fluids while NPO -BL JANIS's for DVT PPX, hold chemical DVT PPX for now with recent chest compressions -Will obtain CK level on admission -AM CBC, CMP, mag, PT/INR (2) Acute alteration in mental status: Plan: -Patient is currently weak but alert and oriented to person and town of residence -Baseline is typhically oriented to self, town of residence, month, and year -Ct of the head negative for acute findings, no focal neuro defects on exam -Likely due to her acute illness and dehydration -Monitor for improvement with ongoing treatment of sepsis and dehydration -If no improvement could obtain MRI of the brain wo con -PT/OT consults ordered (3) Elevated troponin: Plan: -Initial high sen trop elevated at 30 --> 29 on 2 hour repeat -No acute ST segment or T-wave changes on ecg -Patient denies chest pain when asked -Likely due to demand from acute illness and recent chest compressions -Continue to monitor on tele -Will obtain TTE (4) Aspiration pneumonia: Plan: -CXR was read as negative for acute findings -However, on my read she clearly has a new RLL infiltrate compared to previous CXR -Has been stable on RA and without respiratory distress -Does have a hx of previous aspiration, can't be sure if this was the etiology of her weakness or if this occurred during CPR -Continue Zosyn for now -NPO until Evaluated by [facility] -Incentive spirometry, flutter therapy, prn Xopenex with current tachycardia (5) PAT (paroxysmal atrial tachycardia): Plan: -Will hold home diltiazem while NPO -Will place her on PCU for now in case IV medications are required -Continue to monitor on tele (6) Cerebral artery occlusion with cerebral infarction: Plan: -Continue aspirin and plavix when able to safely re-start PO intake (7) GERD without esophagitis: Plan: -If still NPO tomorrow would start IV PPI (8) Hypertension: Plan: -Will give IV antihypertensives if needed while NPO (9) Hypothyroidism: Plan: -Continue levothyroxine Plan The patient was discussed with Dr. Franks at the time of the admission History of Present Illness Chief Complaint: Unresponsiveness Primary Care Provider: APOLLO Bolivar Emilee is an 87 year old female with a PMH significant for recurrent UTIs, previous CVA with baseline left-sided weakness (now on aspirin and plavix), hypothyroidism, hyperparathyroidism, hypertension, GERD, and osteoarthritis who presented to the [facility] ED via EMS on 06/05/23 after an unresponsive episode where her caregiver reportedly started CPR. Per the ED staff on arrival EMS found the patient to have a pulse and to be responsive to painful stimuli only. On arrival to the ED she was noted to be tachycardic with HR in the 120's, febrile at 37.7C, but otherwise stable. Labs were significant for a leukocytosis of 19 with neutrophile predominance of 17, lymphocyte count of 0.85, VBG pH WNL, with pCO2 of 53, and pO2 of 27, initial lactate of 2.6, calcium of 10.6, initial high sen trop of 30, equivocal UA for infection, and full respiratory biofire negative. Ct of the head/brain wo con was read as "No acute intracranial hemorrhage, no evidence of acute territorial infarction or other acute intracranial disease process. ". Chest xray was read as no acute findings, but on comparison to her previous CXR she clearly has a RLL infiltrate. The patient was given a dose of Zosyn and 2, 500 mL NSS boluses prior to admission. At the time of the exam the patient was sitting in bed, sleeping comfortably, with her daughter and family friend sitting bedisde. History was obtained from family due to the patient's current weakness. They state that she has a long hx of recurrent UTI's. Over the past month the patient has completed a course of Macrobid and Ciprofloxacin for recurrent UTI's. Over the past week family and her 24 hr care givers have noticed that the patient has been generally weak. She has been having decreased oral intake and has been less alert than her baseline. Her baseline mental status is normally alert and oriented to self, place of residence, month, and year. When asked, they state that she has had an issue with aspiration in the past. Regarding the events prompting EMS earlier today. Her daughter states that the patient's caregiver was concerned for increased weakness and poor oral intake. They decided to call 911 in order to have her evaluated in the ED. When the caregiver spoke with the dispatcher they asked if the patient was breathing. They caregiver confirmed that she was breathing, but her breaths were more shallow than normal. The caregiver was instructed to begin CPR, so estimated she did approximately 100 chest compressions. When woken, the patient opens her eyes and will respond appropriately to yes or no questions. She is currently oriented to person and place of residence. Family currently wishes for her to be a Full code. Her daughter's would make medical decisions for her if she cannot make them herself. Please refer to Dr. Franks's attestation for any changes to the treatment plan Allergies Allergy/AdvReac Type Severity Reaction Status Date / Time cephalexin AdvReac Intermediate macular Verified 06/05/23 14:06 welts / rash duloxetine AdvReac Intermediate dazed. Verified 06/05/23 14:06 fatigued simvastatin [From Zocor] AdvReac Unknown Unknown Verified 06/05/23 14:06 Home Medications Medication Instructions Recorded Confirmed Type multivitamin-ferrous 1 tab PO PM 06/30/19 06/05/23 History fumarate-folic acid 18 mg-400 mcg tablet (Centrum) cyanocobalamin (vitamin B-12) 500 500 mcg PO QAM 04/29/20 06/05/23 History mcg tablet (Vitamin B-12) Wheelchair (Manual) #1 ea 09/04/21 03/18/23 Rx ascorbic acid (vitamin C) 500 mg 500 mg PO DAILY 05/11/22 06/05/23 History tablet latanoprost 0.005 % eye drops 1 drp OPR HS 05/11/22 06/05/23 History magnesium oxide 400 mg PO DAILY 05/11/22 06/05/23 History thiamine HCl (vitamin B1) 100 mg 200 mg (2 x 100 mg) PO QAM #60 tabs 05/19/22 06/05/23 Rx tablet methenamine mandelate 0.5 g tablet 0.5 g PO BID 90 days #180 tabs 06/15/22 06/05/23 Rx celecoxib 200 mg capsule 200 mg PO QAM #90 caps 09/11/22 06/05/23 Rx clopidogrel 75 mg tablet 75 mg PO DAILY #90 tabs 04/16/23 06/05/23 Rx potassium chloride 20 mEq 20 meq PO DAILY #90 tabs 04/21/23 06/05/23 Rx tablet,extended release(part/cryst) atorvastatin 40 mg tablet 40 mg PO HS #90 tabs 05/20/23 06/05/23 Rx diltiazem HCl 180 mg 180 mg PO QPM #90 caps 05/20/23 06/05/23 Rx capsule,extended release 24 hr esomeprazole magnesium 40 mg 40 mg PO HS 06/05/23 06/05/23 History capsule,delayed release levothyroxine 25 mcg tablet 25 mcg PO QAM 06/05/23 06/05/23 History Past Med/Surg History Medical History Abnormal weight loss Hernia, hiatal Swelling of right foot Community acquired pneumonia Gram-negative bacteremia Weakness Right ear impacted cerumen Incontinence of urine in female Arthritis, multiple joint involvement Cerebral artery occlusion with cerebral infarction Depression GERD without esophagitis Hyperlipidemia Hypertension Hypothyroidism Large hiatal hernia Macrocytosis Urinary incontinence UTI (urinary tract infection) Surgical History Hx of varicose vein ligation and stripping History of hysterectomy History of bladder surgery resuspension H/O foot surgery Hx of cholecystectomy Family History Unknown Cancer Rheumatoid arthritis Fibromyalgia Denies family history of Ovarian cancer Prostate cancer Myocardial infarction Breast cancer Colorectal cancer Social History Smoking Status: Unknown if ever smoked Second Hand Exposure: No; Do You Dip or Chew Tobacco: No; Hx Alcohol Use: No Hx Substance Use: No Preferred Language: Icelandic Communication Ability: Effective Visual Impairment: Partially Limited Hearing Ability: Normal Structural Shop Helper Required: No Beliefs That Will Affect Care: None marital status: / Current Living Situation: Other Current Living Situation Comment: Care Givers current occupational status: retired Other Information That Helps Us Care for You: No Feels Safe at Home: Yes Safety Concerns: Feels Safe At This Time Childhood Exposure to Second-Hand Smoke: No Diet: other Diet Comment: lack of appetite- ensures caffeine: Yes during the past year weight has: remained stable Dental Care, Regularly: Yes Physical Activity Frequency: Does not Exercise Seatbelt Use: always Sunscreen Use: Yes Assistive Devices: Walker Physical Exam Physical Exam: Physical Exam: General: In no acute distress, stated age, dehydrated, ill appearing but non- toxic HEENT: Normocephalic, atraumatic, no scleral icterus, pupils around round, symmetrical, and reactive to light, dry mucus membranes, trachea midline, no thyromegaly Chest/Pulm: No respiratory distress, symmetrical chest expansion, rhonchi noted in the RLL, otherwise CTA Cardiac: Regular rate, irregular rhythm, no murmurs noted Abdomen: Negative for ascites and bruising, normoactive bowel sounds, soft, non-tender to palpation throughout : Eugene catheter in place and draining clear, yellow urine Musculoskeletal: No acute trauma on exam Extremities: Radial, dorsalis pedis, and posterior tibial pulses are intact and symmetrical, no edema noted in the BL LE's Skin: Bruising noted on the BL upper extremities in various stages of healing Neuro: Alert and oriented to person and town of residence, no focal defects, no tremors noted Psych: No acute distress, weak, responds appropriately to questions, Results & Data Results & Data Vital Signs (Past 12 Hours) Vital Signs Temp Pulse Pulse Resp BP BP Pulse Ox 06/05/23 13:52 116 H 20 182/102 H 98 01/27/24 13:15 37.7 C H 111 H 22 90 06/05/23 13:06 37.7 C H 121 H 22 182/102 H 91 06/05/23 13:00 37.8 C H 109 H 21 94 06/05/23 12:45 37.8 C H 116 H 22 95 06/05/23 12:35 126 H 06/05/23 12:33 37.5 C 126 H 22 163/107 H 06/05/23 12:31 36.9 C 06/05/23 12:31 06/05/23 12:30 37.2 C 117 H 25 H 06/05/23 12:15 126 H 33 H 92 06/05/23 12:13 114 H 18 147/87 H 96 06/05/23 12:12 124 H 19 147/87 H 90 O2 Del Method 06/05/23 13:52 06/05/23 13:15 06/05/23 13:06 06/05/23 13:00 06/05/23 12:45 06/05/23 12:35 06/05/23 12:33 06/05/23 12:31 06/05/23 12:31 Room Air 06/05/23 12:30 06/05/23 12:15 06/05/23 12:13 Room Air 06/05/23 12:12 Laboratory Results Abnormal lab results 06/05/23 06/05/23 06/05/23 Range/Units 12:10 12:15 12:35 WBC 19.59 H (4.8-10.8) K/ul RBC 3.72 L (4.20-5.40) M/uL RDW Std Deviation 49.2 H (36.4-46.3) fL Neut # (Auto) 17.67 H (1.40-6.50) K/uL Lymph # (Auto) 0.85 L (1.20-3.40) K/uL Perry # (Auto) 0.82 H (0.11-0.59) K/uL VBG pCO2 53 H (38-50) mmHg Sodium 135 L (136-145) mmol/L Creatinine 0.50 L (0.6-1.2) mg/dl BUN/Creatinine Ratio 32.0 H (10-20) Glucose 109 H (70-99(Fasting)) mg/dl Lactate 2.6 H* (0.4-2.0) mmol/L Calcium 10.6 H (8.6-10.3) mg/dl Direct Bilirubin 0.3 H (0-0.2) mg/dl Troponin I High Sens 30.3 H (0-14) pg/ml Albumin 3.1 L (3.4-5.0) gm/dl Procalcitonin 0.57 H (0-0.5) ng/ml Urine Protein 3+ H (Negative) Urine Ketones 1+ H (Negative) Urine Blood Trace-lysed H (Negative) Urine WBC 5-10 H (0-5) /hpf Ur Epithelial Cells 10-20 H (0-5) /lpf Urine Bacteria 1+ H (Negative) Hyaline Casts 5-10 H (0-5) /lpf Urine Mucus Present A (None Prsent) 06/05/23 Range/Units 14:23 WBC (4.8-10.8) K/ul RBC (4.20-5.40) M/uL RDW Std Deviation (36.4-46.3) fL Neut # (Auto) (1.40-6.50) K/uL Lymph # (Auto) (1.20-3.40) K/uL Perry # (Auto) (0.11-0.59) K/uL VBG pCO2 (38-50) mmHg Sodium (136-145) mmol/L Creatinine (0.6-1.2) mg/dl BUN/Creatinine Ratio (10-20) Glucose (70-99(Fasting)) mg/dl Lactate 2.1 H* (0.4-2.0) mmol/L Calcium (8.6-10.3) mg/dl Direct Bilirubin (0-0.2) mg/dl Troponin I High Sens 29.1 H (0-14) pg/ml Albumin (3.4-5.0) gm/dl Procalcitonin (0-0.5) ng/ml Urine Protein (Negative) Urine Ketones (Negative) Urine Blood (Negative) Urine WBC (0-5) /hpf Ur Epithelial Cells (0-5) /lpf Urine Bacteria (Negative) Hyaline Casts (0-5) /lpf Urine Mucus (None Prsent) Diagnostic Findings Chest X-Ray 06/05/23 00:00 XR chest 1V portable CLINICAL HISTORY: CHEST PAIN TECHNIQUE: Single frontal radiograph of the chest was obtained. Comparison: Comparison is made to chest radiograph 08/17/2022 FINDINGS: No lines and tubes are seen. Cardiomegaly is noted. Reticular interstitial opacities are seen. No evidence of pleural effusion or pneumothorax. IMPRESSION: No acute chest disease. Cardiomegaly is noted. ACT 112: Negative or not required by law. Electronically signed by: Gera Jameson M.D. 06/05/2023 1:[address] 06/05/23 12:21 CT head/brain wo con CLINICAL HISTORY: AMS Technique: Contiguous axial CT images of the head were acquired from the base of the skull to the vertex without intravenous contrast administration. Images were viewed in brain, subdural and bone windows. Automated dose lowering techniques and/or adjustment according to patient size were utilized for this exam. Comparison: Comparison is made to CT head 08/17/2022 Findings: Areas of decreased attenuation are present in the periventricular and subcortical white matter bilaterally consistent with small vessel ischemic disease. Generalized cerebral atrophy with commensurate enlargement of the ventricles, sulci, and cisterns is also present. There is no acute intracranial hemorrhage or evidence of acute territorial infarction. No shift of the midline structures, mass effect, or extra-axial abnormalities are shown. Atherosclerotic calcifications are present in the intracranial segments of the internal carotid arteries. Right basal ganglia encephalomalacia is unchanged. Right maxillary sinus and sphenoid sinus disease noted. The orbits appear normal. There are no acute fractures of the calvaria or scalp swelling. Impression: No acute intracranial hemorrhage, no evidence of acute territorial infarction or other acute intracranial disease process. ACT 112: Negative or not required by law. Electronically signed by: Gera Jameson M.D. 06/05/2023 1:04 PM ECG Additional Comments: Sinus tachycardia with occasional Premature ventricular complexes Pulmonary disease pattern Right bundle branch block Left anterior fascicular block Bifascicular block Left ventricular hypertrophy with repolarization ab normality ( R in aVL ) Cannot rule out Septal infarct (cited on or before 05-JUN-2023) Abnormal ECG When compared with ECG of 17-AUG-2022 15:16, Significant changes have occurred Code Status & VTE Plan Code Status Full code VTE Prophylaxis Plan VTE Prophylaxis will be ordered: Yes Supervising Physician Co-Signing Physician Notes I personally saw and examined the patient. I verified all vyas points and agree with Victor Hugo Amaro PA-C with the following exceptions and/or additions: 87 year old female who presents to the ER with generalized weakness, poor oral intake progressively worse over the last week. Unable to take independent history from the patient due to altered mental state. Suspected to not have a pulse at home therefore chest compressions were given but determined to have a pulse once EMS arrived. O/E Alert to noxious stimuli, appears malnourished and frail, GCS 10 [id number], very dry mucus membranes, HS increased rate, regular rhythm, no murmurs, Chest - rhonchi b/l anteriorly without wheezing, Abdo soft, non tenderness, no CVA tenderness, no cellulitic areas seen A/P Altered mental state / sepsis - suspect due to UTI vs pneumonia, IV zosyn, added vancomycin IV due to MRSA nose positive. Lactate 2.6. Total 2L bolus of IV fluids given. Follow up urine/blood cultures S/P chest compressions - Monitor for worsening respiratory status PG Care Time/CCT Total # of Minutes Spent Total Time Spent with Patient: Total time spent is greater than 50% in coordination of care (as documented) at patient's floor/unit and/or counseling patient: Coding [place] [address] INT INP/OBS CARE 3/75MIN Patient Type Established Medical Decision Making High Complexity Diagnoses Sepsis A41.9 Acute alteration in mental status R41.82 Elevated troponin R79.89 Aspiration pneumonia J69.0 PAT (paroxysmal atrial tachycardia) I47.1 Cerebral artery occlusion with cerebral infarction I63.50 GERD without esophagitis K21.9 Hypertension, unspecified type I10 Hypertension type: unspecified Hypothyroidism, unspecified type E03.9 Hypothyroidism type: unspecified (8) Hypertension Hypertension type: unspecified Qualified Code(s): I10 - Essential (primary) hypertension (9) Hypothyroidism Hypothyroidism type: unspecified Qualified Code(s): E03.9 - Hypothyroidism, unspecified
[2023-06-05 15:04] LABS: Troponin I High Sensitivity 29.1 pg/ml (0-14)
[2023-06-05] MEDS: LACTATED RINGER'S 1,000 ML IV ONE (15:08)
[2023-06-05] MEDS: ACETAMINOPHEN 1,000 MG/100 ML VIAL IV STA (15:27)
[2023-06-05] MEDS: LACTATED RINGER'S 1,000 ML IV SCH (17:11)
[2023-06-05] MEDS: PIPERACILLIN/TAZOBACTAM 4.5 GM in DEXTROSE 5% MINI-B 100 ML IV SCH (18:17)
[2023-06-05] MEDS ORDERED: VANCOMYCIN CONSULT ACTIVE PRN (18:26)
[2023-06-05] MEDS: PANTOprazole 40 MG in SYRINGE 0 ML IV ONE (19:11)
[2023-06-05] MEDS: VANCOMYCIN HCL 1,000 MG in SODIUM CHLORIDE 0.9% 250 ML IV ONE (19:15)
[2023-06-05 19:47] LABS: Allen Test Pos (Pos)
[2023-06-05 19:49] LABS: Base Excess ABG -0.1 mEq/L (-9-1.8); HCO3 ABG 24 mmol/L (19-24); Oxygen Saturation ABG 96.4 % (90-95); PCO2 ABG 36 mmHg (35-46); PO2 ABG 74 mmHg (80-95); pH ABG 7.43 (7.35-7.45)
[2023-06-06] MEDS: VANCOMYCIN HCL 1,000 MG in SODIUM CHLORIDE 0.9% 250 ML IV SCH (05:50)
--- NOTE | 2023-06-06 07:36 | Hospitalist Progress Note ---
Date of Service June 06, 2023 Assessment & Plan (1) Sepsis: Plan: 87 y/o with frequent UTIs had been feeling poorly for about a week at home then had unresponsive episode, caregiver administered 100 chest compressions by direction of EMS until she woke up. Was still breathing, though decreased, and does not appear to have ever lost her pulse, so cardiac arrest unlikely. Has recently been on macrobid and cipro for UTIs possible sepsis with possible acute encephalopathy, leukocytosis, hypothermia, mildly elevated lactate leukocytosis 19K - could be related to infection, aspiration, or reactive. improved to 12K interstitial markings and possible R base infiltrate on CXR - I personally reviewed film. Pct 0.5, recheck this AM remains indeterminate at 0.5 UA with some mild pyuria and bacteria (also epithelial cells) neg LE, similar or improved compared to previous UAs, follow up culture -Blood and urine cultures have been sent, monitor for results and tailor abx as needed -continue pip-tazo for now but stop vancomycin -NPO until she is evaluated by LOGGING EQUIPMENT OPERATOR -Will continue maintenance IV fluids while NPO -BL JANIS's for DVT PPX, hold chemical DVT PPX for now with recent chest compressions -Will obtain CK level on admission -AM CBC, CMP, mag, PT/INR (2) Acute alteration in mental status: Plan: Acute metabolic encephalopathy -Patient is currently weak and lethargic, oriented to person and town of residence though not the year -Baseline is typhically oriented to self, town of residence, month, and year -Ct of the head negative for acute findings, no new focal neuro defects on exam -Likely due to her acute illness and dehydration - speaking and AOx1 today though lethargic -Monitor for improvement with ongoing treatment of sepsis and dehydration -If no improvement could obtain MRI of the brain wo con -PT/OT consults ordered (3) Elevated troponin: Plan: -Initial high sen trop elevated at 30 --> 29 on 2 hour repeat -also had potential syncopal episode (vs encephalopathy) resulting in chest compressions -mottled and cold extremities - evaluate EF with TTE -No acute ST segment or T-wave changes on ecg, abnormal EKG -Patient denies chest pain when asked -Likely due to demand from acute illness and recent chest compressions, no evidence of ACS -Continue to monitor on tele -TTE reviewed and is reassuring, EF 60-65%, mild AR, mild conc LVH, no rwma's, normal RA pressure and volume status, unchanged from previous (4) Aspiration pneumonia: Plan: -CXR was read as negative for acute findings -However, on my read may have RLL infiltrate compared to previous CXR -Has been stable on RA and without respiratory distress -Does have a hx of previous aspiration, can't be sure if this was the etiology of her weakness or if this occurred during CPR -Continue Zosyn for now -NPO until Evaluated by [facility]PL -prn bronchodilators. Unable to cooperate with IS/flutter at this time (5) PAT (paroxysmal atrial tachycardia): Plan: -Will hold home diltiazem while NPO -Will place her on PCU for now in case IV medications are required -Continue to monitor on tele (6) Cerebral artery occlusion with cerebral infarction: Plan: history of stroke with baseline L sided weakness. R basal ganglia encephalomalacia unchanged on head CT -Continue aspirin and plavix when able to safely re-start PO intake (7) GERD without esophagitis: Plan: -If still NPO tomorrow would start IV PPI (8) Hypertension: Plan: -normally on diltiazem -ordered nitro paste PRN -can use IV medications if necessary but would rather avoid (9) Hypothyroidism: Plan: -Continue levothyroxine (10) Unresponsive episode: Plan: see above. cardiac arrest unlikely. could have been syncopal episode or acute encephalopathy monitor telemetry while in PCU Plan DVT ppx: chemopx held since she received chest compressions am CBC, consider tomorrow AM Admission and Anticipated Discharge Date Admission Date: June 05, 2023 Subjective 87 y/o with frequent UTIs had been feeling poorly for about a week at home then had unresponsive episode, caregiver administered 100 chest compressions by direction of EMS until she woke up. Was still breathing, though decreased, so cardiac arrest unlikely. This morning has been lethargic but awakens with stimulation and can make verbal responses and follow basic commands inconsistently Not able to give narrative history. Denies chest pain. Physical Exam 2 Physical Exam: PHYSICAL EXAMINATION Last 24h vital signs reviewed, see documentation in flowsheet General: comfortable appearing, no distress HEENT: Normocephalic, atraumatic, pupils round and equal, sclerae anicteric, no conjunctival injection, dry mucus membranes Lungs: Normal respiratory effort. Clear to auscultation bilaterally. No RRW Heart: Regular rate and rhythm, no murmurs. No JVD Abdomen: Soft, nontender, nondistended. Bowel sounds present. Extremities: Hands and feet are all cool to touch and with some acrocyanosis and mottling. No extremity edema. Neuro: lethargic but awakens with stimulation and can make verbal responses and follow basic commands inconsistently, face asymmetric slight L decrease, moves 4 extremities, has some L weakness at baseline Psych: Normal affect and behavior Results & Data Results & Data Vital Signs (Past 12 Hours) Vital Signs Temp Pulse Resp BP Pulse Ox 06/06/23 06:30 36.6 C 81 19 06/06/23 06:15 36.5 C 78 20 06/06/23 06:00 36.5 C 84 19 06/06/23 05:45 36.5 C 79 18 94 06/06/23 05:30 36.5 C 82 16 96 06/06/23 05:15 36.5 C 75 14 94 06/06/23 05:00 36.5 C 78 21 95 06/06/23 04:45 36.5 C 74 22 06/06/23 04:30 36.5 C 82 22 97 06/06/23 04:30 79 06/06/23 04:15 36.4 C L 80 15 97 06/06/23 04:00 191/82 H 06/06/23 04:00 36.4 C L 91 H 22 97 06/06/23 03:45 36.4 C L 87 15 98 06/06/23 03:30 36.4 C L 88 19 97 06/06/23 03:15 36.4 C L 85 18 96 06/06/23 03:00 36.4 C L 86 17 98 06/06/23 02:45 36.5 C 86 21 98 06/06/23 02:30 36.4 C L 91 H 22 97 06/06/23 02:15 36.5 C 82 17 99 06/06/23 02:00 36.5 C 76 16 99 06/06/23 01:45 36.5 C 76 21 96 06/06/23 01:30 36.5 C 83 13 99 06/06/23 01:15 36.5 C 77 25 H 98 06/06/23 01:00 36.5 C 87 21 87 L 06/06/23 00:45 36.5 C 79 16 99 06/06/23 00:30 36.5 C 77 12 100 06/06/23 00:15 36.6 C 80 14 97 06/06/23 00:00 154/91 H 06/06/23 00:00 36.5 C 81 14 98 06/05/23 23:45 36.5 C 84 16 96 06/05/23 23:30 36.5 C 78 25 H 95 06/05/23 23:15 36.5 C 76 17 98 06/05/23 23:00 36.6 C 80 19 98 06/05/23 22:45 36.6 C 82 17 100 06/05/23 22:30 36.6 C 86 15 97 06/05/23 22:15 36.7 C 78 16 99 06/05/23 22:00 36.7 C 77 17 98 06/05/23 21:45 36.7 C 80 20 96 06/05/23 21:44 181/75 H 06/05/23 21:44 36.7 C 77 21 06/05/23 21:30 36.8 C 79 14 06/05/23 21:15 36.8 C 83 17 06/05/23 21:08 84 06/05/23 21:00 36.9 C 80 17 06/05/23 20:51 36.9 C 84 16 06/05/23 20:30 132/88 06/05/23 20:30 37.1 C 83 21 100 06/05/23 20:15 37.1 C 77 14 100 06/05/23 20:15 139/71 06/05/23 20:00 37.1 C 80 16 97 06/05/23 20:00 162/91 H 06/05/23 19:45 85 16 143/83 H 98 06/05/23 19:45 37.1 C 85 16 98 06/05/23 19:30 37.2 C 81 15 99 06/05/23 19:30 84 18 142/77 H 94 Laboratory Results 06/06/23 07:19 06/06/23 07:19 PG Care Time/CCT Total # of Minutes Spent Total Time Spent with Patient: Total time spent is greater than 50% in coordination of care (as documented) at patient's floor/unit and/or counseling patient: Coding Level of Care Code 18900 SUB INP/OBS CARE 3/50MIN Diagnoses Sepsis A41.9 Acute alteration in mental status R41.82 Elevated troponin R79.89 Aspiration pneumonia J69.0 PAT (paroxysmal atrial tachycardia) I47.1 Cerebral artery occlusion with cerebral infarction I63.50 GERD without esophagitis K21.9 Hypertension, unspecified type I10 Hypertension type: unspecified Hypothyroidism, unspecified type E03.9 Hypothyroidism type: unspecified Unresponsive episode R40.4 (8) Hypertension Hypertension type: unspecified Qualified Code(s): I10 - Essential (primary) hypertension (9) Hypothyroidism Hypothyroidism type: unspecified Qualified Code(s): E03.9 - Hypothyroidism, unspecified
[2023-06-06 07:47] LABS: Basophils # (auto) 0.04 K/uL (0.00-0.20); Basophils % (auto) 0.3 %; Eosinophils # (auto) 0.14 K/uL (0.00-0.50); Eosinophils % (auto) 1.1 %; Hematocrit (blood only) 33.8 % (37.0-47.0); Hemoglobin 11.1 g/dl (12.0-16.0); Immature Granulocytes # (auto) 0.27 K/uL (0.01-0.20); Immature Granulocytes % (auto) 2.2 %; Lymphocytes # (auto) 0.74 K/uL (1.20-3.40); Mean Corpuscular Hemoglobin 32.6 pg (25.0-34.0); Mean Corpuscular Hgb Conc 32.8 g/dL (32.0-36.0); Mean Corpuscular Volume 99.4 fL (80.0-100.0); Mean Platelet Volume 9.3 fL (9.4-12.4); Monocytes # (auto) 0.59 K/uL (0.11-0.59); Monocytes % (auto) 4.8 %; Neutrophils # (auto) 10.64 K/uL (1.40-6.50); Neutrophils % (auto) 85.6 %; Platelet Count 305 K/uL (130-400); RDW Coefficient of Variation 12.9 % (11.5-14.5); RDW Standard Deviation 46.7 fL (36.4-46.3); White Blood Count 12.42 K/ul (4.8-10.8)
[2023-06-06 08:05] LABS: Albumin Globulin Ratio 0.8 (0.9-2); Albumin Level 2.6 gm/dl (3.4-5.0); BUN Creatinine Ratio 32.3 (10-20); Bilirubin,Total 0.6 mg/dl (0.2-1.0); Calcium 9.9 mg/dl (8.6-10.3); Creatinine Clr Calc Pharmacy 87.6 ml/min; Est GFR (African American) 116.4 ml/min; Est GFR (Non-African American) 100.4 ml/min; Globulin 3.1 gm/dl (2.5-4.0); Magnesium 1.7 mg/dl (1.7-2.4); Potassium 3.3 mmol/L (3.5-5.1); Total Protein 5.7 gm/dl (6.0-8.3)
[2023-06-06 08:14] LABS: Prothrombin Time 11.4 Seconds (9.0-12.0)
--- NOTE | 2023-06-06 10:03 | Electrocardiogram Report ---
Test Reason : Blood Pressure : / mmHG Vent. Rate : 119 BPM Atrial Rate : 119 BPM P-R Int : 180 ms QRS Dur : 112 ms QT Int : 322 ms P-R-T Axes : 088 -49 094 degrees QTc Int : 452 ms Poor data quality, interpretation may be adversely affected Sinus tachycardia with occasional Premature ventricular complexes Premature atrial complexes Right bundle branch block Left anterior fascicular block Bifascicular block Left ventricular hypertrophy with repolarization abnormality ( R in aVL ) Cannot rule out Septal infarct (cited on or before 05-JUN-2023) Abnormal ECG When compared with ECG of 17-AUG-2022 15:16, Significant changes have occurred Confirmed by Clarence Otoole ([id number]) on 06/06/2023 10:02:48 AM Referred By: REFERRED SELF Confirmed By:Clarence Otoole
--- NOTE | 2023-06-06 10:49 | XCELERA ---
[id number]
[2023-06-06] MEDS: POTASSIUM CHLORIDE / WTR 10 MEQ/100 ML PLCT IV SCH (11:34)
[2023-06-06] MEDS: PANTOprazole 40 MG in SYRINGE 0 ML IV SCH (11:34)
[2023-06-06] MEDS ORDERED: NITROGLYCERIN 2% OINTMENT 30GM TUBE EXT PRN (13:54)
--- NOTE | 2023-06-06 16:25 | Communication Note ---
Date of Service: June 06, 2023 I checked on her this afternoon, she is more alert and talkative, UOP remains low about 200 for the shift, hands and arms now warm though feet still cool and mottled, good DP pulses. Increased rate of LD to 100 mL/h. TTE was reassuring. I updated her daughter Vi by phone.
[2023-06-06] MEDS: LACTATED RINGER'S 1,000 ML IV SCH (16:31)
[2023-06-07 08:43] LABS: Basophils # (auto) 0.03 K/uL (0.00-0.20); Basophils % (auto) 0.3 %; Eosinophils # (auto) 0.11 K/uL (0.00-0.50); Eosinophils % (auto) 1.1 %; Hematocrit (blood only) 34.1 % (37.0-47.0); Hemoglobin 11.1 g/dl (12.0-16.0); Immature Granulocytes # (auto) 0.14 K/uL (0.01-0.20); Immature Granulocytes % (auto) 1.4 %; Lymphocytes # (auto) 0.72 K/uL (1.20-3.40); Mean Corpuscular Hemoglobin 31.9 pg (25.0-34.0); Mean Corpuscular Hgb Conc 32.6 g/dL (32.0-36.0); Mean Platelet Volume 9.1 fL (9.4-12.4); Monocytes # (auto) 0.67 K/uL (0.11-0.59); Monocytes % (auto) 6.5 %; Neutrophils # (auto) 8.67 K/uL (1.40-6.50); Neutrophils % (auto) 83.7 %; Platelet Count 303 K/uL (130-400); RDW Standard Deviation 46.2 fL (36.4-46.3); Red Blood Count 3.48 M/uL (4.20-5.40); White Blood Count 10.34 K/ul (4.8-10.8)
[2023-06-07 08:55] LABS: Albumin Globulin Ratio 0.8 (0.9-2); Albumin Level 2.5 gm/dl (3.4-5.0); BUN Creatinine Ratio 29.2 (10-20); Bilirubin,Total 0.5 mg/dl (0.2-1.0); Calcium 9.6 mg/dl (8.6-10.3); Creatinine Clr Calc Pharmacy 123.4 ml/min; Est GFR (African American) 126.6 ml/min; Est GFR (Non-African American) 109.3 ml/min; Magnesium 1.4 mg/dl (1.7-2.4); Total Protein 5.5 gm/dl (6.0-8.3)
[2023-06-07 09:06] LABS: Prothrombin Time 11.2 Seconds (9.0-12.0)
[2023-06-07] MEDS: POTASSIUM CHLORIDE / WTR 10 MEQ/100 ML PLCT IV SCH (14:50)
[2023-06-07] MEDS: D5W AND 1/2NSS + 20MEQ KCL 20 MEQ/1,000 ML BAG IV SCH (14:50)
--- NOTE | 2023-06-07 15:12 | Hospitalist Progress Note ---
Date of Service June 07, 2023 Assessment & Plan (1) Sepsis: Plan: 87 y/o with frequent UTIs had been feeling poorly for about a week at home then had unresponsive episode, caregiver administered 100 chest compressions by direction of EMS until she woke up. Was still breathing, though decreased, and does not appear to have ever lost her pulse, so cardiac arrest unlikely. Has recently been on macrobid and cipro for UTIs sepsis likely due to RLL aspiration pneumonia with end organ dysfunction: acute metabolic encephalopathy, leukocytosis, hypothermia, mildly elevated lactate leukocytosis 19K - improved to 10K Perfusion of extremities and UOP has improved last 24h. Remains lethargic. urine culture negative, blood cultures pending. Procal was indeterminate at 0.5 -Blood and urine cultures have been sent, monitor for results and tailor abx as needed -continue pip-tazo -NPO until she is cleared by DIVING JUDGE - seen today and too lethargic for diet -Will continue maintenance IV fluids while NPO - D5 1/2NS + K (2) Acute alteration in mental status: Plan: Acute metabolic encephalopathy -Patient is currently weak and lethargic, oriented to person and town of residence though not the year -Baseline is typhically oriented to self, town of residence, month, and year -Ct of the head negative for acute findings, no new focal neuro defects on exam -Likely due to her acute illness and dehydration - speaking and AOx1 today though lethargic -Monitor for improvement with ongoing treatment of sepsis and dehydration -If no improvement could obtain MRI of the brain wo con -PT/OT consults ordered (3) Elevated troponin: Plan: -Initial high sen trop elevated at 30 --> 29 on 2 hour repeat -also had potential syncopal episode (vs encephalopathy) resulting in chest compressions -mottled and cold extremities - evaluate EF with TTE -No acute ST segment or T-wave changes on ecg, abnormal EKG -Patient denies chest pain when asked -Likely due to demand from acute illness and recent chest compressions, no evidence of ACS -Continue to monitor on tele -TTE reviewed and is reassuring, EF 60-65%, mild AR, mild conc LVH, no rwma's, normal RA pressure and volume status, unchanged from previous (4) Aspiration pneumonia: Plan: CXR suspicious for RLL infiltrate Also has chronic ILD based on serial CXR and review of chest CT earlier in 2022 -treatment as above (5) PAT (paroxysmal atrial tachycardia): Plan: -Will hold home diltiazem while NPO -Will place her on PCU for now in case IV medications are required -Continue to monitor on tele (6) Cerebral artery occlusion with cerebral infarction: Plan: history of stroke with baseline L sided weakness. R basal ganglia encephalomalacia unchanged on head CT -Continue aspirin and plavix when able to safely re-start PO intake (7) GERD without esophagitis: Plan: -start IV PPI (8) Hypertension: Plan: -normally on diltiazem -ordered nitro paste PRN -can use IV medications if necessary but would rather avoid (9) Hypothyroidism: Plan: -Continue levothyroxine (10) Unresponsive episode: Plan: see above. cardiac arrest unlikely. could have been syncopal episode or acute encephalopathy monitor telemetry while in PCU CK was normal Reviewed telemetry - sinus rhythm with PACs TTE reassuring Plan hypokalemia - replacing with 40 meq IV, am BMP hypomagnesemia - replacing with 2g IV mag, check in AM DVT ppx: Hct stable, no evidence of acute bleeding start SQ enoxaparin ST following PT/OT when alert enough to participate Updated daughter Vi by phone 06/06, at bedside 06/07. Updated daughter Nayeli Han by phone [phone] who lives in [place] and is a nurse Admission and Anticipated Discharge Date Admission Date: June 05, 2023 Subjective Mentation improved compared to yesterday AM but remains lethargic, falls asleep easily, more confused than baseline. She denies pain and shortness of breath. Extremities now warm and UOP improved since yesterday. Physical Exam 2 Physical Exam: PHYSICAL EXAMINATION Last 24h vital signs reviewed, see documentation in flowsheet General: comfortable appearing, no distress HEENT: Normocephalic, atraumatic, pupils round and equal, sclerae anicteric, no conjunctival injection, dry mucus membranes Lungs: Normal respiratory effort. Clear to auscultation bilaterally. No RRW Heart: Regular rate and rhythm, no murmurs. No JVD Abdomen: Soft, nontender, nondistended. Bowel sounds present. Extremities: Hands and feet are now warm to touch, edema of hands and feet present, ecchymoses hands and arms especially, skin is fragile Neuro: lethargic but awakens with gentle stimulation, makes brief verbal replies but is confused, falls asleep easily, face asymmetric slight L decrease, moves 4 extremities weakly, has some L weakness at baseline Psych: no agitation, unable to otherwise assess Results & Data Results & Data Vital Signs (Past 12 Hours) Vital Signs Temp Pulse Pulse Resp BP Pulse Ox O2 Del Method 06/07/23 11:00 36.7 C 74 16 161/89 H 97 Room Air 06/07/23 07:18 36.8 C 89 18 164/96 H 96 Room Air 06/07/23 07:00 88 Laboratory Results 06/07/23 08:15 06/07/23 08:15 PG Care Time/CCT Total # of Minutes Spent Total Time Spent with Patient: Total time spent is greater than 50% in coordination of care (as documented) at patient's floor/unit and/or counseling patient: Coding Level of Care Code 81537 SUB INP/OBS CARE 3/50MIN Diagnoses Sepsis A41.9 Acute alteration in mental status R41.82 Elevated troponin R79.89 Aspiration pneumonia J69.0 PAT (paroxysmal atrial tachycardia) I47.1 Cerebral artery occlusion with cerebral infarction I63.50 GERD without esophagitis K21.9 Hypertension, unspecified type I10 Hypertension type: unspecified Hypothyroidism, unspecified type E03.9 Hypothyroidism type: unspecified Unresponsive episode R40.4 (8) Hypertension Hypertension type: unspecified Qualified Code(s): I10 - Essential (primary) hypertension (9) Hypothyroidism Hypothyroidism type: unspecified Qualified Code(s): E03.9 - Hypothyroidism, unspecified
[2023-06-07] MEDS: MAGNESIUM SULFATE / D5W 1 GM/100 ML BAG IV SCH (15:57)
[2023-06-07 16:49] LABS: Base Excess VBG 1.5 mEq/L; HCO3 VBG 26 mmol/L; Oxygen Saturation VBG 64.4 %; PCO2 VBG 39 mmHg (38-50); PO2 VBG 37 mmHg; pH VBG 7.43 (7.36-7.41)
[2023-06-08] MEDS ORDERED: VANCOMYCIN CONSULT ACTIVE PRN ×2 (00:53→07:23)
[2023-06-08] MEDS: VANCOMYCIN HCL 1,000 MG in SODIUM CHLORIDE 0.9% 250 ML IV ONE (01:21)
[2023-06-08] MEDS: ACETAMINOPHEN 1,000 MG/100 ML VIAL IV STA (05:42)
[2023-06-08 06:28] LABS: Basophils # (auto) 0.04 K/uL (0.00-0.20); Basophils % (auto) 0.4 %; Eosinophils # (auto) 0.07 K/uL (0.00-0.50); Eosinophils % (auto) 0.6 %; Hemoglobin 11.3 g/dl (12.0-16.0); Immature Granulocytes # (auto) 0.12 K/uL (0.01-0.20); Immature Granulocytes % (auto) 1.1 %; Lymphocytes # (auto) 0.67 K/uL (1.20-3.40); Lymphocytes % (auto) 5.9 %; Mean Corpuscular Hemoglobin 32.2 pg (25.0-34.0); Mean Corpuscular Hgb Conc 33.2 g/dL (32.0-36.0); Mean Corpuscular Volume 96.9 fL (80.0-100.0); Mean Platelet Volume 9.4 fL (9.4-12.4); Monocytes # (auto) 0.59 K/uL (0.11-0.59); Monocytes % (auto) 5.2 %; Neutrophils # (auto) 9.84 K/uL (1.40-6.50); Neutrophils % (auto) 86.8 %; Platelet Count 304 K/uL (130-400); RDW Coefficient of Variation 12.8 % (11.5-14.5); RDW Standard Deviation 45.1 fL (36.4-46.3); Red Blood Count 3.51 M/uL (4.20-5.40); White Blood Count 11.33 K/ul (4.8-10.8)
[2023-06-08 06:41] LABS: Albumin Globulin Ratio 0.9 (0.9-2); Albumin Level 2.7 gm/dl (3.4-5.0); BUN Creatinine Ratio 13.9 (10-20); Bilirubin,Total 0.5 mg/dl (0.2-1.0); Calcium 9.6 mg/dl (8.6-10.3); Creatinine Clr Calc Pharmacy 82.8 ml/min; Est GFR (African American) 110.8 ml/min; Est GFR (Non-African American) 95.6 ml/min; Globulin 3.1 gm/dl (2.5-4.0); Magnesium 1.7 mg/dl (1.7-2.4); Potassium 3.5 mmol/L (3.5-5.1); Total Protein 5.8 gm/dl (6.0-8.3)
[2023-06-08 07:11] LABS: Prothrombin Time 10.7 Seconds (9.0-12.0)
--- NOTE | 2023-06-08 07:22 | Hospitalist Progress Note ---
Date of Service June 08, 2023 Assessment & Plan (1) Sepsis: Plan: 87 y/o with frequent UTIs had been feeling poorly for about a week at home then had unresponsive episode, caregiver administered 100 chest compressions by direction of EMS until she woke up. Was still breathing, though decreased, and does not appear to have ever lost her pulse, so cardiac arrest unlikely. Has recently been on macrobid and cipro for UTIs sepsis due to R>LLL aspiration pneumonia with end organ dysfunction: acute metabolic encephalopathy, leukocytosis, hypothermia, mildly elevated lactate leukocytosis 19K - improved to 10K Perfusion of extremities and UOP has improved. Remains lethargic. urine culture negative, blood cultures pending NGTD. Procal was indeterminate at 0.5 x 2, has decreased to normal 06/08 -Blood and urine cultures have been sent, monitor for results and tailor abx as needed -continue pip-tazo, restarted vancomycin 06/08 (MRSA nares screen was positive). add on procal to today's labs - wnl. WBC 11 -repeat CXR this am - right greater than left bibasilar consolidations consistent with aspiration per my review of the film, has worsened since admission film (2) Acute alteration in mental status: Plan: Acute metabolic encephalopathy -Patient is currently weak and lethargic, oriented to person and town of residence though not the year -Baseline is typhically oriented to self, town of residence, month, and year -Ct of the head negative for acute findings, no new focal neuro defects on exam -moderate hyponatremia at 131 but not low enough that it should affect mentation, AM BMP ordered -repeat vbg 06/07 without hypercarbia or acidosis -PT/OT consults ordered (3) Elevated troponin: Plan: -Initial high sen trop elevated at 30 --> 29 on 2 hour repeat -also had potential syncopal episode (vs encephalopathy) resulting in chest compressions -mottled and cold extremities - evaluate EF with TTE -No acute ST segment or T-wave changes on ecg, abnormal EKG -Patient denies chest pain when asked -Likely due to demand from acute illness and recent chest compressions, no evidence of ACS -Continue to monitor on tele -TTE reviewed and is reassuring, EF 60-65%, mild AR, mild conc LVH, no rwma's, normal RA pressure and volume status, unchanged from previous (4) Aspiration pneumonia: Plan: CXR suspicious for RLL infiltrate on admission, 06/08 CXR was confirmatory Also has chronic ILD based on serial CXR and review of chest CT earlier in 2022 -treatment as above -repeat CXR (5) PAT (paroxysmal atrial tachycardia): Plan: -Will hold home diltiazem while NPO -Will place her on PCU for now in case IV medications are required -Continue to monitor on tele (6) Cerebral artery occlusion with cerebral infarction: Plan: history of stroke with baseline L sided weakness. R basal ganglia encephalomalacia unchanged on head CT -Continue aspirin and plavix when able to safely re-start PO intake (7) GERD without esophagitis: Plan: -IV PPI (8) Hypertension: Plan: -normally on diltiazem -ordered nitro paste PRN -can use IV medications if necessary but would rather avoid (9) Hypothyroidism: Plan: -Continue levothyroxine (10) Unresponsive episode: Plan: see above. cardiac arrest unlikely. could have been syncopal episode or acute encephalopathy monitor telemetry while in PCU CK was normal Reviewed telemetry - sinus rhythm with PACs TTE reassuring Plan hypokalemia, hypomagnesemia - replaced IV, resolved on 06/08 labs FEN: per family eats poorly and has been losing weight and becoming more frail last 6 months. daughters state she would want temporary tube feeding if it could help with short term improvement -remains too lethargic for ST eval or oral intake -Will continue maintenance IV fluids while NPO - D5 1/2NS + K -place feeding tube, consult RD for recs -reviewed KUB film - FT may be in hiatal hernia and need advancement, will confirm with radiologist DVT ppx: SQ enoxaparin ST following PT/OT when alert enough to participate Updated daughter Vi by phone 06/06, at bedside 06/07. Updated daughter Nayeli Han by phone [phone] who lives in [place] and is a nurse Admission and Anticipated Discharge Date Admission Date: June 05, 2023 Subjective Febrile overnight Tm 38.5, resolved as of 7am today. Vancomycin restarted overnight Remains lethargic, more so than yesterday, has waxed and waned Physical Exam 2 Physical Exam: PHYSICAL EXAMINATION Last 24h vital signs reviewed, see documentation in flowsheet General: comfortable appearing, no distress HEENT: Normocephalic, atraumatic, pupils round and equal, sclerae anicteric, no conjunctival injection, dry mucus membranes Lungs: Normal respiratory effort. Clear to auscultation bilaterally anteriorly. Coarse and diminished in bases. Heart: Regular rate and rhythm, no murmurs. No JVD Abdomen: Soft, nontender, nondistended. Bowel sounds present. Extremities: Hands are warm but feet again are cool to touch, edema of hands and feet present, ecchymoses hands and arms especially, skin is fragile Neuro: lethargic but awake with gentle stimulation, no verbal replies this am, face asymmetric slight L decrease, moves 4 extremities weakly, has some L weakness at baseline Psych: no agitation, unable to otherwise assess Results & Data Results & Data Vital Signs (Past 12 Hours) Vital Signs Temp Pulse Pulse Resp BP BP Pulse Ox 06/08/23 07:06 37.8 C H 79 30 H 122/65 92 06/08/23 05:30 38.5 C H 107 H 93 06/08/23 05:15 38.5 C H 98 H 19 92 06/08/23 05:06 38.5 C H 104 H 91 06/08/23 05:06 146/103 H 06/08/23 05:00 38.4 C H 102 H 17 92 06/08/23 04:45 38.4 C H 109 H 16 90 06/08/23 04:30 38.4 C H 100 H 93 06/08/23 04:18 155/101 H 06/08/23 04:18 38.4 C H 103 H 15 92 06/08/23 04:15 38.4 C H 102 H 21 90 06/08/23 04:00 38.4 C H 106 H 21 94 06/08/23 04:00 176/105 H 06/08/23 03:45 38.4 C H 105 H 92 06/08/23 03:30 38.4 C H 100 H 14 06/08/23 03:15 38.4 C H 102 H 15 92 06/08/23 03:00 38.4 C H 107 H 20 93 06/08/23 02:45 38.4 C H 108 H 16 06/08/23 02:30 38.4 C H 106 H 12 06/08/23 02:15 38.4 C H 103 H 94 06/08/23 02:00 38.5 C H 108 H 91 06/08/23 01:45 38.5 C H 100 H 15 92 06/08/23 01:30 38.5 C H 103 H 14 94 06/08/23 01:15 38.4 C H 107 H 90 06/08/23 01:00 38.4 C H 113 H 23 06/08/23 00:45 38.4 C H 103 H 16 92 06/08/23 00:30 38.4 C H 102 H 17 90 06/08/23 00:15 38.3 C H 114 H 13 06/08/23 00:00 38.2 C H 105 H 23 91 06/08/23 00:00 145/101 H 06/07/23 23:45 38.2 C H 105 H 20 06/07/23 23:40 98 H 06/07/23 23:30 38.1 C H 103 H 12 92 06/07/23 23:21 38.1 C H 106 H 15 95 06/07/23 23:21 160/87 H 06/07/23 23:15 38.0 C H 103 H 19 06/07/23 23:00 38.0 C H 100 H 21 06/07/23 22:45 37.9 C H 99 H 18 06/07/23 22:30 37.8 C H 104 H 16 94 06/07/23 22:15 37.7 C H 96 H 10 L 06/07/23 22:00 37.6 C H 103 H 13 93 06/07/23 21:45 37.6 C H 101 H 92 06/07/23 21:40 06/07/23 21:30 37.5 C 90 16 93 06/07/23 21:15 37.5 C 98 H 23 93 06/07/23 21:14 36.6 C 96 H 18 172/93 H 93 06/07/23 21:13 172/93 H 06/07/23 21:13 37.5 C 99 H 18 96 06/07/23 21:00 37.4 C 100 H 13 06/07/23 20:45 37.5 C 99 H 23 92 06/07/23 20:30 37.4 C 99 H 12 06/07/23 20:15 37.5 C 99 H 15 94 06/07/23 20:00 37.4 C 94 H 14 94 06/07/23 20:00 157/93 H 06/07/23 19:45 37.5 C 95 H 13 94 06/07/23 19:30 37.4 C 99 H 19 92 O2 Del Method 06/08/23 07:06 Room Air 06/08/23 05:30 06/08/23 05:15 06/08/23 05:06 06/08/23 05:06 06/08/23 05:00 06/08/23 04:45 06/08/23 04:30 06/08/23 04:18 06/08/23 04:18 06/08/23 04:15 06/08/23 04:00 06/08/23 04:00 06/08/23 03:45 06/08/23 03:30 06/08/23 03:15 06/08/23 03:00 06/08/23 02:45 06/08/23 02:30 06/08/23 02:15 06/08/23 02:00 06/08/23 01:45 06/08/23 01:30 06/08/23 01:15 06/08/23 01:00 06/08/23 00:45 06/08/23 00:30 06/08/23 00:15 06/08/23 00:00 06/08/23 00:00 06/07/23 23:45 06/07/23 23:40 06/07/23 23:30 06/07/23 23:21 06/07/23 23:21 06/07/23 23:15 06/07/23 23:00 06/07/23 22:45 06/07/23 22:30 06/07/23 22:15 06/07/23 22:00 06/07/23 21:45 06/07/23 21:40 Room Air 06/07/23 21:30 06/07/23 21:15 06/07/23 21:14 Room Air 06/07/23 21:13 06/07/23 21:13 06/07/23 21:00 06/07/23 20:45 06/07/23 20:30 06/07/23 20:15 06/07/23 20:00 06/07/23 20:00 06/07/23 19:45 06/07/23 19:30 Laboratory Results 06/08/23 05:29 06/08/23 05:29 PG Care Time/CCT Total # of Minutes Spent Total Time Spent with Patient: Total time spent is greater than 50% in coordination of care (as documented) at patient's floor/unit and/or counseling patient: Coding Level of Care Code 86124 SUB INP/OBS CARE 3/50MIN Diagnoses Sepsis A41.9 Acute alteration in mental status R41.82 Elevated troponin R79.89 Aspiration pneumonia J69.0 PAT (paroxysmal atrial tachycardia) I47.1 Cerebral artery occlusion with cerebral infarction I63.50 GERD without esophagitis K21.9 Hypertension, unspecified type I10 Hypertension type: unspecified Hypothyroidism, unspecified type E03.9 Hypothyroidism type: unspecified Unresponsive episode R40.4 (8) Hypertension Hypertension type: unspecified Qualified Code(s): I10 - Essential (primary) hypertension (9) Hypothyroidism Hypothyroidism type: unspecified Qualified Code(s): E03.9 - Hypothyroidism, unspecified
--- NOTE | 2023-06-08 08:54 | XRay Report ---
SINGLE VIEW CHEST CLINICAL HISTORY: Fever. Sepsis. FINDINGS: An AP, portable, upright chest radiograph is compared to study dated 06/05/2023 and correlat ed with chest CT dated 01/21/2023. The examination is degraded by portable technique and patient rotat ion. The heart is enlarged indenting atherosclerotic calcification of the thoracic aorta. The pulmon tess vasculature is noncongested. Chronic interstitial thickening is similar to previous. There are la yering pleural effusions with dependent consolidation, right lung greater than left. No pneumothorax is seen. A hiatal hernia is noted. The skeletal structures are osteopenic. There is chronic deformity of the left proximal humerus. Cholecystectomy clips are seen in the right upper quadrant. IMPRESSION: 1. Cardiomegaly without radiographic evidence of congestive failure. 2. Layering pleural effusions with bibasilar consolidation, right greater than left. Correlate clinic ally for evidence of pneumonia/aspiration pneumonitis. Radiographic follow-up to resolution is recomm ended. ACT 112: Negative or not required by law. Electronically signed by: Pietro Ott M.D. 06/08/2023 8:53 AM
--- NOTE | 2023-06-08 12:49 | Pharmacy Report ---
Pharmacy PK ABX Note - Date of Service June 08, 2023 - Assessment and Plan Assessment 87 year old F receiving VANCOMYCIN/ZOSYN for treatment of possible pneumonia/sepsis. Pertinent microbiologic data includes: Positive MRSA Nasal Swab. Blood cultures negative at 48 hours, urine culture negative. Patient with continued fevers overnight, vancomycin was discontinued on the , restarted given + nasal swab + fevers. Plan Vancomycin * Loading dose: 1000 mg IV x 1 * Maintenance dose: 1000 mg IV every 18 hours * Regimen is predicted to achieve target AUC/RIGOBERTO of 400-600 mg/L.hr * Random level to be ordered with AM labs 06/09 Pharmacy will continue to follow and will adjust dose/frequency as necessary. Thank you. Pharmacy has transitioned to AUC monitoring for vancomycin. AUC/RIGOBERTO is the preferred PK/PD target and is associated with decreased risk of nephrotoxicity compared to traditional trough targets.
[2023-06-08] MEDS: VANCOMYCIN HCL 1,000 MG in SODIUM CHLORIDE 0.9% 250 ML IV SCH (13:08)
--- NOTE | 2023-06-08 14:54 | XRay Report ---
KUB HISTORY: NG tube placement. COMPARISON: Chest CT 01/21/2023. FINDINGS: The bowel gas pattern is unremarkable. There are no dilated loops of small bowel to suggest an obstruction. The NG tube is seen lateral to the left side of the trachea and tracks along the le ft heart border. This does not appear to be within the left mainstem bronchus. Therefore, the NG tube terminates at the expected location of the patient's known large hiatus hernia. Bibasilar interstiti al thickening persists. There is a nonobstructive bowel gas pattern. Prior cholecystectomy. Degenerat hang changes and scoliosis again seen within the thoracolumbar spine. No pneumoperitoneum or pneumatos is. IMPRESSION: The NG tube likely terminates within the patient's known large hiatus hernia as described above. ACT 112: Negative or not required by law. Electronically signed by: Kevin Wallace M.D. 06/08/2023 2:52 PM
--- NOTE | 2023-06-08 16:25 | XRay Report ---
KUB HISTORY: Status post placement of an enteric tube NG placement COMPARISON: KUB of same day at 10:58 AM FINDINGS: Cardiac silhouette is enlarged. Pulmonary edema with layering pleural effusions and bibasil ar consolidation. The lower abdomen is excluded from the [id number]. Large hiatal hernia with intr athoracic stomach. An enteric tube is present with distal tip projected superiorly over the left hear t border. Bones appear grossly intact. No renal calculi. No ureteral calculi. No pneumoperitoneum or pneumatosis. No fracture. IMPRESSION: The patient has a large hiatal hernia with partially intrathoracic stomach. Distal tip of enteric tub e projects superiorly over the left heart border, likely within the intrathoracic stomach. ACT 112: Negative or not required by law. The above report was generated using voice recognition software. It may contain grammatical, syntax o r spelling errors. Electronically signed by: Young Petersen M.D. 06/08/2023 4:23 PM
[2023-06-08] MEDS ORDERED: TPN/PPN CONSULT PHARMACY STA (16:36)
[2023-06-08] MEDS ORDERED: DEXTROSE 10% 1,000 ML IV PRN (16:36)
[2023-06-08 17:21] LABS: Hematocrit (blood only) 35.1 % (37.0-47.0); Hemoglobin 11.9 g/dl (12.0-16.0); Mean Corpuscular Hemoglobin 32.5 pg (25.0-34.0); Mean Corpuscular Hgb Conc 33.9 g/dL (32.0-36.0); Mean Corpuscular Volume 95.9 fL (80.0-100.0); Mean Platelet Volume 9.2 fL (9.4-12.4); Platelet Count 321 K/uL (130-400); RDW Coefficient of Variation 12.8 % (11.5-14.5); RDW Standard Deviation 45.5 fL (36.4-46.3); Red Blood Count 3.66 M/uL (4.20-5.40); White Blood Count 10.91 K/ul (4.8-10.8)
[2023-06-08 17:35] LABS: BUN Creatinine Ratio 11.4 (10-20); Bilirubin,Total 0.5 mg/dl (0.2-1.0); Calcium 9.3 mg/dl (8.6-10.3); Creatinine Clr Calc Pharmacy 85.2 ml/min; Est GFR (African American) 111.8 ml/min; Est GFR (Non-African American) 96.5 ml/min; Magnesium 1.6 mg/dl (1.7-2.4); Phosphorus 1.8 mg/dl (2.5-4.9); Potassium 3.4 mmol/L (3.5-5.1)
[2023-06-08 17:36] LABS: Phosphorus 1.8 mg/dl (2.5-4.9)
[2023-06-09] MEDS ORDERED: TPN/PPN CONSULT PHARMACY SCH (05:00)
[2023-06-09 05:46] LABS: Hematocrit (blood only) 32.7 % (37.0-47.0); Mean Corpuscular Hemoglobin 32.1 pg (25.0-34.0); Mean Corpuscular Hgb Conc 33.6 g/dL (32.0-36.0); Mean Corpuscular Volume 95.3 fL (80.0-100.0); Mean Platelet Volume 9.2 fL (9.4-12.4); Platelet Count 320 K/uL (130-400); RDW Coefficient of Variation 12.9 % (11.5-14.5); RDW Standard Deviation 44.8 fL (36.4-46.3); Red Blood Count 3.43 M/uL (4.20-5.40); White Blood Count 13.65 K/ul (4.8-10.8)
[2023-06-09 06:01] LABS: BUN Creatinine Ratio 12.5 (10-20); Calcium 9.4 mg/dl (8.6-10.3); Creatinine Clr Calc Pharmacy 92.4 ml/min; Est GFR (African American) 115.2 ml/min; Est GFR (Non-African American) 99.4 ml/min; Magnesium 1.4 mg/dl (1.7-2.4); Phosphorus 1.9 mg/dl (2.5-4.9); Potassium 3.2 mmol/L (3.5-5.1)
[2023-06-09] MEDS: VANCOMYCIN LEVEL ONE (06:05)
[2023-06-09] MEDS ORDERED: POTASSIUM PHOS 3 MMOL/1 ML INFUSION IV STA (08:23)
[2023-06-09] MEDS: MAGNESIUM SULFATE / D5W 1 GM/100 ML BAG IV SCH (09:14)
[2023-06-09] MEDS: POTASSIUM PHOSPHATE 15 MMOL in SODIUM CHLORIDE 0.9% 250 ML IV ONE (09:14)
[2023-06-09 10:37] LABS: Influenza A virus by PCR Negative (Neg); Influenza B virus by PCR Negative (Neg); RSV by PCR Negative (Neg); SARS CoV2 RNA(COVID-19) Ceph NEGATIVE (Negative)
--- NOTE | 2023-06-09 13:13 | Hospitalist Progress Note ---
Date of Service June 09, 2023 Assessment & Plan (1) Aspiration pneumonia: Plan: b/l basilar pneumonia as seen on serial CXR - suspicious for aspiration remains with low-grade fevers blood cx's from admission negative cont zosyn - day #5 of such cont vancomycin due to MRSA+ status - received such on 06/05 and 06/06, then resumed again on 06/08; cont MRSA coverage for at least 7 days Initial [employer] panel was fully negative Given ongoing fevers repeat COVID/flu/RSV - again negative plan for repeat pCXR in am if fevers persist then will obtain chest CT for further characterization of note - discussed care with speech therapy - pt still too lethargic to perform adequate bedside swallow eval or instrumental study PPN for nutrition in meantime (2) Sepsis: Plan: 2nd to #1 blood cx's remain negative low-grade fevers continue despite broad-spectrum IV abx including MRSA coverage see discussion in #1 above (3) Acute alteration in mental status: Plan: Acute metabolic encephalopathy 2nd to #1, #2 in the setting of significant atrophy and prior stroke as seen on CT head - ongoing CT of the head this admission negative for acute findings VBG today w/o hypercapnia or acidosis TSH wnl check ammonia level am if mental status does not improve would need to consider more advanced imaging in the way of MRI Brain given prior stroke history (4) Elevated troponin: Plan: Peak HS trop ~30 2nd to myocardial demand ischemia in setting of #1, #2, and chest compressions given pre-hospital Echo this admission - EF 60-65%, mild AR, mild conc LVH, no regional WMAs (5) PAT (paroxysmal atrial tachycardia): Plan: PO diltiazem on hold due to NPO status tele remains stable (6) Cerebral artery occlusion with cerebral infarction: Plan: history of stroke with baseline L sided weakness. R basal ganglia encephalomalacia unchanged on head CT this admission. Resume aspirin and plavix for 2nd prevention when able. (7) GERD without esophagitis: Plan: cont IV PPI (8) Hypertension: Plan: BPs labile, with >50% of readings within acceptable range Monitor (9) Hypothyroidism: Plan: If pt unable to take PO in the next 1-2 days start IV levothyroxine most recent TSH wnl (10) Unresponsive episode: Plan: pre-admission received chest compressions at home upon EMS arrival to her home she had a pulse & was spontaneously breathing cardiac arrest felt unlikely could have been syncopal episode, vs acute metabolic encephalopathy from #1, #2, vs other can't rule out arrhythmia contributing to the episode no seizure activity by report CPK was normal Echo wnl Troponin scantly elevated Tele thus far stable CT head w/o acute findings (11) Hypokalemia: Plan: replaced initially with IV K-phos repeat level still low then gave KCL 20meq IV x 1 repeat BMP am replaced low mag (12) Hypomagnesemia: Plan: mag sulfate 2gm IV x 1 repeat level wnl (13) Hypophosphatemia: Plan: s/p IV K-phos with improved level today (14) DVT prophylaxis: Plan: resume lovenox am (15) Hernia, hiatal: Plan: large most of stomach is intra-thoracic likely a large contributor to aspiration risk cont PPI NG tube unable to be placed due to the hiatal hernia (16) Underweight: Plan: BMI 18 poor appetite per family at home PPN started in arron of tube feedings (unable to successfully place NG tube in correct position despite multiple attempts) (17) Recurrent UTI: Plan: no UTI this admission - urine cx negative Plan Called lani Lebron this evening - no answer, left message. Previous attending spoke with Vi by phone 06/06 and at bedside 06/07. Previous attending updated lani Han by phone [phone] who lives in [place] and is a nurse. Admission and Anticipated Discharge Date Admission Date: June 05, 2023 Subjective continues to have altered mental status during the visit she was sleeping heavily awoke to her name being called she was able to tell me she was in the hospital then quickly fell asleep per nursing staff no distress at any time tele overnight - sinus tach, otherwise NSR noted to have temp of 37.6 thru the night Review of Systems Review of Systems: Unobtainable due to cognitive status Physical Exam Physical Exam: gen - very thin, NAD, lethargic eyes - PERRL mouth - MM dry neck - no JVD heart - RRR, s1 s2 lungs - b/l basilar rales, mild tachypnea noted but no retractions, no wheeze abd - soft NT ND BS+ ext - no edema, pulses 2+ b/l neuro - contractures of LUE noted psych - oriented to person, place; lethargic Results & Data Results & Data Vital Signs (Past 12 Hours) Vital Signs Temp Pulse Pulse Resp BP BP Pulse Ox 06/09/23 11:36 37.0 C 95 H 17 136/93 92 06/09/23 07:44 06/09/23 07:20 182/82 H 06/09/23 07:10 37.1 C 97 H 19 181/93 H 95 06/09/23 04:15 37.4 C 94 H 22 95 06/09/23 04:00 37.4 C 93 H 22 95 06/09/23 04:00 153/89 H 06/09/23 03:45 37.4 C 103 H 20 92 06/09/23 03:42 37.4 C 94 H 16 156/90 H 95 06/09/23 03:41 156/90 H 06/09/23 03:41 37.4 C 94 H 22 95 06/09/23 03:30 37.4 C 97 H 23 94 06/09/23 03:15 37.4 C 101 H 23 93 06/09/23 03:00 37.5 C 101 H 24 93 06/09/23 02:45 37.5 C 117 H 23 92 06/09/23 02:31 37.6 C H 97 H 22 95 06/09/23 02:15 37.6 C H 100 H 22 95 06/09/23 02:00 37.6 C H 110 H 23 95 06/09/23 01:46 37.6 C H 100 H 23 95 06/09/23 01:30 37.6 C H 105 H 22 93 06/09/23 01:15 37.6 C H 105 H 95 O2 Del Method 06/09/23 11:36 Room Air 06/09/23 07:44 Room Air 06/09/23 07:20 06/09/23 07:10 Room Air 06/09/23 04:15 06/09/23 04:00 06/09/23 04:00 06/09/23 03:45 06/09/23 03:42 Room Air 06/09/23 03:41 06/09/23 03:41 06/09/23 03:30 06/09/23 03:15 06/09/23 03:00 06/09/23 02:45 06/09/23 02:31 06/09/23 02:15 06/09/23 02:00 06/09/23 01:46 06/09/23 01:30 06/09/23 01:15 Laboratory Results Laboratory Results - last 24 hr 06/09/23 06/09/23 06/09/23 05:13 06:02 11:44 WBC 13.65 H RBC 3.43 L Hgb 11.0 L Hct 32.7 L MCV 95.3 MCH 32.1 MCHC 33.6 RDW Std Deviation 44.8 RDW Coeff of Pavithra 12.9 Plt Count 320 MPV 9.2 L VBG pH VBG pCO2 VBG pO2 VBG HCO3 VBG O2 Saturation VBG Base Excess Sodium 133 L Potassium 3.2 L Chloride 100 Carbon Dioxide 26 Anion Gap 7 BUN 4 L Creatinine 0.32 L Est Cr Clr Drug Dosing 92.4 Est GFR ( Amer) 115.2 Est GFR (Non-Af Amer) 99.4 BUN/Creatinine Ratio 12.5 Glucose 153 H POC Glucose 154 H 120 H Calcium 9.4 Phosphorus 1.9 L Magnesium 1.4 L TSH Random Vancomycin 10.7 SARS-CoV-2 (PCR) Influenza Type A (PCR) Influenza Type B (PCR) RSV (RT-PCR) 06/09/23 06/09/23 06/09/23 14:49 18:50 Unknown WBC RBC Hgb Hct MCV MCH MCHC RDW Std Deviation RDW Coeff of Pavithra Plt Count MPV VBG pH 7.46 H VBG pCO2 36 L VBG pO2 50 VBG HCO3 26 VBG O2 Saturation 84.3 VBG Base Excess 2.0 Sodium Potassium 3.2 L Chloride Carbon Dioxide Anion Gap BUN Creatinine Est Cr Clr Drug Dosing Est GFR ( Amer) Est GFR (Non-Af Amer) BUN/Creatinine Ratio Glucose POC Glucose 128 H Calcium Phosphorus 2.7 Magnesium 1.9 TSH 2.255 Random Vancomycin SARS-CoV-2 (PCR) NEGATIVE Influenza Type A (PCR) Negative Influenza Type B (PCR) Negative RSV (RT-PCR) Negative 06/10/23 00:26 WBC RBC Hgb Hct MCV MCH MCHC RDW Std Deviation RDW Coeff of Pavithra Plt Count MPV VBG pH VBG pCO2 VBG pO2 VBG HCO3 VBG O2 Saturation VBG Base Excess Sodium Potassium Chloride Carbon Dioxide Anion Gap BUN Creatinine Est Cr Clr Drug Dosing Est GFR ( Amer) Est GFR (Non-Af Amer) BUN/Creatinine Ratio Glucose POC Glucose 128 H Calcium Phosphorus Magnesium TSH Random Vancomycin SARS-CoV-2 (PCR) Influenza Type A (PCR) Influenza Type B (PCR) RSV (RT-PCR) PG Care Time/CCT Total # of Minutes Spent Total Time Spent with Patient: Total time spent is greater than 50% in coordination of care (as documented) at patient's floor/unit and/or counseling patient: Coding Level of Care Code 89610 SUB INP/OBS CARE 3/50MIN Diagnoses Aspiration pneumonia J69.0 Sepsis A41.9 Acute alteration in mental status R41.82 Elevated troponin R79.89 PAT (paroxysmal atrial tachycardia) I47.1 Cerebral artery occlusion with cerebral infarction I63.50 GERD without esophagitis K21.9 Hypertension, unspecified type I10 Hypertension type: unspecified Hypothyroidism, unspecified type E03.9 Hypothyroidism type: unspecified Unresponsive episode R40.4 Hypokalemia E87.6 Hypomagnesemia E83.42 Hypophosphatemia E83.39 DVT prophylaxis Z29.9 Hernia, hiatal K44.9 Underweight R63.6 Recurrent UTI N39.0 (8) Hypertension Hypertension type: unspecified Qualified Code(s): I10 - Essential (primary) hypertension (9) Hypothyroidism Hypothyroidism type: unspecified Qualified Code(s): E03.9 - Hypothyroidism, unspecified
--- NOTE | 2023-06-09 14:12 | Pharmacy Report ---
Pharmacy Initial PN Consult Nt - Date of Service June 09, 2023 - Scope Pharmacy has been consulted on this date to manage parenteral nutrition orders and order appropriate labs. As part of the Nutrition Support Team Guidelines, pharmacy will work in conjunction with dietary when determining the patients caloric needs. - Subjective * The patient is a 87 year old Female admitted on 06/05/23 for SEPSIS, PNEUMONIA, AMS, WEAKNESS. * Patient is to receive parenteral nutrition for NPO, inability to place NG - Objective Vascular Access: * Patient currently has a peripheral line * Peripheral line was confirmed by IV Team to be acceptable for PPN use on 06/08/23 Height & Weight (Last Documented) Height 5 ft 4 in Weight 49.1 kg Diet Order(s) 06/05/23 14:26 NPO Intake & Ouput (24hrs) 06/08/23 06/09/23 06/10/23 06:59 06:59 06:59 Intake Total 3165.833 / 3165.833 1670 / 1670 1747.5 / 1747.5 Output Total 950 / 950 1300 / 1300 450 / 450 Balance 2215.833 / 2215.833 370 / 370 1297.5 / 1297.5 Selected Laboratory Results 06/08/23 06/08/23 06/08/23 16:58 16:58 16:58 Sodium 134 L Potassium 3.4 L Chloride 100 Carbon Dioxide 25 Anion Gap 9 BUN 4 L Creatinine 0.35 L Est GFR ( Amer) 111.8 Est GFR (Non-Af Amer) 96.5 BUN/Creatinine Ratio 11.4 Glucose 132 H Calcium 9.3 Phosphorus 1.8 L 1.8 L Magnesium 1.6 L Total Bilirubin 0.5 AST 32 Alkaline Phosphatase 77 Triglycerides 120 121 06/09/23 05:13 Sodium 133 L Potassium 3.2 L Chloride 100 Carbon Dioxide 26 Anion Gap 7 BUN 4 L Creatinine 0.32 L Est GFR ( Amer) 115.2 Est GFR (Non-Af Amer) 99.4 BUN/Creatinine Ratio 12.5 Glucose 153 H Calcium 9.4 Phosphorus 1.9 L Magnesium 1.4 L Total Bilirubin AST Alkaline Phosphatase Triglycerides RD - Follow Up Nutrition Assessment Start: 06/06/23 11:58 Freq: Status: Active Protocol: Document 06/09/23 10:46 WN (Rec: 06/09/23 10:59 WN [id number]) RD - Initial Nutrition Assessment Start: 06/06/23 11:44 Freq: Status: Active Protocol: Document 06/06/23 11:44 WN (Rec: 06/06/23 11:58 WN [id number]) - Assessment & Plan Assessment: * Appreciate dietitians recommendations for macronutrients. * F: D5 + 1/2NS + 20 MEQ @ 75 ml/hr * E: several electrolyte abnormalities: Na 133; K 3.2, Mg 1.4, Phos 1.9; Electrolytes repleted with 15 mmol Kphos, 2 gm Magnesium * Electrolyte abnormalities discussed with hospitalist/bread wrapper, however, given patient has already been on dextrose containing fluids for 1.5 days felt we could proceed with ppn at this time. Will need to monitor closely Plan: * For Day #1 of PPN administration, the following will be ordered: * Macronutrients: * Amino Acids: 71 grams/day * Dextrose: 84 grams/day * Lipids: 50 grams/day * Micronutrients: * TPN electrolytes: 20 mL/day - Contains 35 mEq Na, 20 mEq K, 4.5 mEq Ca, 5 mEq Mg, 35 mEq Cl, 29.5 mEq Acetate per 20 mL * Sodium chloride: 90 mEq/day * Sodium acetate: 60 mEq/day * Potassium phosphate: 15 mMol/day * Magnesium sulfate: 4.06 mEq/day * Multivitamins: 10 mL/day * Trace elements: 1 mL/day * Thiamine: 100 mg/day * Total volume of 1784 mL will be infused over 24 hours and will provide 1071.2 kcal/day * Patient is on PPN which has a maximum mOsm/L of 900. Final osmolarity of curr ent solution is 897.22 mOsm/L. * Labs will be ordered per PN protocol. * Pharmacy will follow and adjust PN orders on a daily basis. Thank you!
--- NOTE | 2023-06-09 14:17 | Pharmacy Report ---
Pharmacy PK ABX Note - Date of Service June 09, 2023 - Assessment and Plan Assessment 06/09: Random level this monring 10.7 mcg/mL, this does predict AUC within target although with 82% probability. Will adjust dose slightly to 750 mg q12H which predicts an AUC of 511 mg/L.hr with 96% probability. 06/08 87 year old F receiving VANCOMYCIN/ZOSYN for treatment of possible pneumonia/sepsis. Pertinent microbiologic data includes: Positive MRSA Nasal Swab. Blood cultures negative at 48 hours, urine culture negative. Patient with continued fevers overnight, vancomycin was discontinued on the , restarted given + nasal swab + fevers. Plan Vancomycin * Loading dose: 1000 mg IV x 1 * Maintenance dose: 750 mg IV every 12 hours * Regimen is predicted to achieve target AUC/RIGOBERTO of 400-600 mg/L.hr * Random level to be ordered with AM labs 06/11 Pharmacy will continue to follow and will adjust dose/frequency as necessary. Thank you. Pharmacy has transitioned to AUC monitoring for vancomycin. AUC/RIGOBERTO is the preferred PK/PD target and is associated with decreased risk of nephrotoxicity compared to traditional trough targets.
[2023-06-09 15:03] LABS: HCO3 VBG 26 mmol/L; Oxygen Saturation VBG 84.3 %; PCO2 VBG 36 mmHg (38-50); PO2 VBG 50 mmHg; pH VBG 7.46 (7.36-7.41)
[2023-06-09 15:24] LABS: Magnesium 1.9 mg/dl (1.7-2.4); Phosphorus 2.7 mg/dl (2.5-4.9); Potassium 3.2 mmol/L (3.5-5.1)
[2023-06-09] MEDS: CLINOLIPID 20% IV FAT EMULSION 250 ML IV SCH (15:35)
[2023-06-09] MEDS: PERIPHERAL TPN IV SCH (15:36)
[2023-06-09] MEDS: [UNRECOGNIZED DRUG - OTHER] IV SCH (15:36)
[2023-06-09 15:39] LABS: Thyroid Stimulating Hormone 2.255 uIu/ml (0.300-4.500)
[2023-06-09] MEDS: POTASSIUM CHLORIDE / WTR 10 MEQ/100 ML PLCT IV SCH (17:11)
[2023-06-09] MEDS: hydrALAZINE HCL 20 MG/ML VIAL IV PRN (19:45)
[2023-06-09] MEDS: VANCOMYCIN HCL 750 MG in SODIUM CHLORIDE 0.9% 250 ML IV SCH (20:00)
[2023-06-09] MEDS: STOP CLINOLIPID SCH (21:02)
[2023-06-10] MEDS: ACETAMINOPHEN 1,000 MG/100 ML VIAL IV STA (02:14)
[2023-06-10 05:58] LABS: Basophils # (auto) 0.03 K/uL (0.00-0.20); Basophils % (auto) 0.2 %; Eosinophils # (auto) 0.11 K/uL (0.00-0.50); Eosinophils % (auto) 0.8 %; Hematocrit (blood only) 29.4 % (37.0-47.0); Hemoglobin 9.8 g/dl (12.0-16.0); Immature Granulocytes # (auto) 0.25 K/uL (0.01-0.20); Immature Granulocytes % (auto) 1.7 %; Lymphocytes # (auto) 0.62 K/uL (1.20-3.40); Lymphocytes % (auto) 4.3 %; Mean Corpuscular Hemoglobin 31.8 pg (25.0-34.0); Mean Corpuscular Hgb Conc 33.3 g/dL (32.0-36.0); Mean Corpuscular Volume 95.5 fL (80.0-100.0); Mean Platelet Volume 9.4 fL (9.4-12.4); Monocytes # (auto) 0.47 K/uL (0.11-0.59); Monocytes % (auto) 3.3 %; Neutrophils # (auto) 12.97 K/uL (1.40-6.50); Neutrophils % (auto) 89.7 %; Platelet Count 277 K/uL (130-400); RDW Coefficient of Variation 13.1 % (11.5-14.5); RDW Standard Deviation 45.1 fL (36.4-46.3); Red Blood Count 3.08 M/uL (4.20-5.40); White Blood Count 14.45 K/ul (4.8-10.8)
[2023-06-10 06:14] LABS: Creatinine Clr Calc Pharmacy 134.4 ml/min; Est GFR (African American) 130.3 ml/min; Est GFR (Non-African American) 112.4 ml/min; Magnesium 1.7 mg/dl (1.7-2.4); Phosphorus 2.4 mg/dl (2.5-4.9)
--- NOTE | 2023-06-10 07:42 | XRay Report ---
XR chest 1V portable CLINICAL HISTORY: b/l pneumonia, interval change TECHNIQUE: Single frontal radiograph of the chest was obtained. Comparison: Comparison is made to chest radiograph 06/08/2023 FINDINGS: No lines and tubes are seen. Calcified aortic knob is seen. Stable right greater than left airspace o pacities. Hiatal hernia is again suggested. No evidence of pleural effusion or pneumothorax. IMPRESSION: Stable right greater than left airspace opacities compatible with ongoing pneumonia. ACT 112: Negative or not required by law. Electronically signed by: Gera Jameson M.D. 06/10/2023 7:40 AM
[2023-06-10] MEDS: POTASSIUM CHLORIDE / WTR 10 MEQ/100 ML PLCT IV SCH (08:19)
[2023-06-10] MEDS: CLINOLIPID 20% IV FAT EMULSION 250 ML IV SCH (15:55)
[2023-06-10] MEDS: [UNRECOGNIZED DRUG - OTHER] IV SCH (15:56)
[2023-06-10] MEDS: PERIPHERAL TPN IV SCH (15:56)
[2023-06-10] MEDS: dilTIAZem HCL 180 MG CAPCR PO ONE (18:29)
[2023-06-10] MEDS ORDERED: Nursing to Pharmacy Communication SCH (18:30)
--- NOTE | 2023-06-10 20:27 | Hospitalist Progress Note ---
Date of Service June 10, 2023 Assessment & Plan (1) Aspiration pneumonia: Plan: b/l basilar pneumonia - suspicious for aspiration can't rule out gram negative etiology can't rule out MRSA as culprit pathogen blood cx's from admission negative clinically stable and modestly improved today (especially mental status) cont zosyn - day #6 of such cont vancomycin due to MRSA+ status - received such on 06/05 and 06/06, then resumed again on 06/08; cont MRSA coverage for at least 7 days could consider changing vanco to zyvox to complete course Initial Bio[employer] panel was fully negative Given ongoing fevers repeated COVID/flu/RSV - again negative repeat pCXR today noted if fevers recur then will obtain chest CT for further characterization appreciate speech therapy assistance cleared for diet today (2) Sepsis: Plan: 2nd to #1 blood cx's remain negative see discussion in #1 above (3) Acute alteration in mental status: Plan: Acute metabolic encephalopathy 2nd to #1, #2 in the setting of significant atrophy and prior stroke as seen on CT head - ongoing CT of the head this admission negative for acute findings VBG w/o hypercapnia or acidosis TSH wnl ammonia wnl IMPROVED today (4) Elevated troponin: Plan: Peak HS trop ~30 2nd to myocardial demand ischemia in setting of #1, #2, and chest compressions given pre-hospital Echo this admission - EF 60-65%, mild AR, mild conc LVH, no regional WMAs (5) PAT (paroxysmal atrial tachycardia): Plan: resume PO diltiazem CD today (6) Cerebral artery occlusion with cerebral infarction: Plan: history of stroke with baseline L sided weakness. R basal ganglia encephalomalacia unchanged on head CT this admission. Resume plavix for 2nd prevention. (7) GERD without esophagitis: Plan: cont PPI - change back to PO tomorrow (8) Hypertension: Plan: resume cardizem CD (9) Hypothyroidism: Plan: resume synthroid most recent TSH wnl (10) Unresponsive episode: Plan: pre-admission received chest compressions at home upon EMS arrival to her home she had a pulse & was spontaneously breathing cardiac arrest felt unlikely could have been syncopal episode, vs acute metabolic encephalopathy from #1, #2, vs other can't rule out arrhythmia contributing to the episode no seizure activity by report CPK was normal Echo wnl Troponin scantly elevated Tele thus far stable CT head w/o acute findings (11) Hypokalemia: Plan: cont to replace repeat BMP am replaced low mag (12) Hypomagnesemia: Plan: repleted resolved (13) Hypophosphatemia: Plan: s/p IV K-phos with improved levels getting phos in PPN (14) DVT prophylaxis: Plan: start heparin 5000 BID (15) Hernia, hiatal: Plan: large most of stomach is intra-thoracic likely a large contributor to aspiration risk cont PPI NG tube unable to be placed due to the hiatal hernia (16) Underweight: Plan: BMI 18 poor appetite per family at home PPN started in arron of tube feedings (unable to successfully place NG tube in correct position despite multiple attempts) will give 1 more day of the PPN and if eating adequately will stop and see how she does (17) Recurrent UTI: Plan: no UTI this admission - urine cx negative Plan Left message for daughter Vi 06/09/23. Updated Vi and Nayeli - daughters - today during my bedside visit. Nayelijusto Han - phone [phone]. She lives in [place] and is a nurse. Admission and Anticipated Discharge Date Admission Date: June 05, 2023 Subjective patient much more awake/alert today speech cleared her to take PO diet by report did eat her last meal fairly tele with episodes of tachycardia - PAT runs? during the visit a friend, her sister who lives locally, and her sister by way of [facility] (she lives in [place]) were all present update given one daughter asked about meds to help with cough patient denied any specific complaints during the visit she was sleepy - would awaken easily and answer questions, however Review of Systems Review of Systems: gen - fatigued cv - no cp pulm - cough but no dyspnea GI - no abd pain Physical Exam Physical Exam: gen - very thin, NAD, more awake/alert today - but did fall asleep towards end of visit eyes - PERRL mouth - MM more moist but still a little dry neck - no JVD heart - RRR, s1 s2 lungs - b/l basilar rales, R>L, no wheeze, good airation; no increased work of breathing abd - soft NT ND BS+ ext - no edema, pulses 2+ b/l neuro - contractures of LUE psych - more awake/alert today; recognizes her friend and sisters Results & Data Results & Data Vital Signs (Past 12 Hours) Vital Signs Temp Pulse Pulse Resp BP BP Pulse Ox 06/10/23 19:49 06/10/23 19:13 36.4 C L 122 H 22 147/73 H 95 06/10/23 18:30 128/87 06/10/23 18:22 37.2 C 108 H 18 180/86 H 91 06/10/23 14:50 103 H 06/10/23 11:51 36.6 C 100 H 18 155/85 H 95 O2 Del Method 06/10/23 19:49 Room Air 06/10/23 19:13 Room Air 06/10/23 18:30 06/10/23 18:22 Room Air 06/10/23 14:50 06/10/23 11:51 Room Air Laboratory Results Laboratory Results - last 24 hr 06/10/23 06/10/23 06/10/23 00:26 05:24 06:21 WBC 14.45 H RBC 3.08 L Hgb 9.8 L Hct 29.4 L MCV 95.5 MCH 31.8 MCHC 33.3 RDW Std Deviation 45.1 RDW Coeff of Pavithra 13.1 Plt Count 277 MPV 9.4 Immature Gran % (Auto) 1.7 Neut % (Auto) 89.7 Lymph % (Auto) 4.3 Graves % (Auto) 3.3 Eos % (Auto) 0.8 Baso % (Auto) 0.2 Neut # (Auto) 12.97 H Lymph # (Auto) 0.62 L Graves # (Auto) 0.47 Eos # (Auto) 0.11 Baso # (Auto) 0.03 Immature Gran # (Auto) 0.25 H Sodium 132 L Potassium 3.0 L Chloride 101 Carbon Dioxide 25 Anion Gap 6 BUN 11 Creatinine 0.22 L Est Cr Clr Drug Dosing 134.4 Est GFR ( Amer) 130.3 Est GFR (Non-Af Amer) 112.4 BUN/Creatinine Ratio 50.0 H Glucose 160 H POC Glucose 128 H 148 H Calcium 9.0 Phosphorus 2.4 L Magnesium 1.7 Ammonia 21.0 Urine Osmolality Ur Random Sodium 06/10/23 08:15 WBC RBC Hgb Hct MCV MCH MCHC RDW Std Deviation RDW Coeff of Pavithra Plt Count MPV Immature Gran % (Auto) Neut % (Auto) Lymph % (Auto) Graves % (Auto) Eos % (Auto) Baso % (Auto) Neut # (Auto) Lymph # (Auto) Graves # (Auto) Eos # (Auto) Baso # (Auto) Immature Gran # (Auto) Sodium Potassium Chloride Carbon Dioxide Anion Gap BUN Creatinine Est Cr Clr Drug Dosing Est GFR ( Amer) Est GFR (Non-Af Amer) BUN/Creatinine Ratio Glucose POC Glucose Calcium Phosphorus Magnesium Ammonia Urine Osmolality 233 L Ur Random Sodium 42 Diagnostic Findings Chest X-Ray 06/10/23 07:30 XR chest 1V portable CLINICAL HISTORY: b/l pneumonia, interval change TECHNIQUE: Single frontal radiograph of the chest was obtained. Comparison: Comparison is made to chest radiograph 06/08/2023 FINDINGS: No lines and tubes are seen. Calcified aortic knob is seen. Stable right greater than left airspace opacities. Hiatal hernia is again suggested. No evidence of pleural effusion or pneumothorax. IMPRESSION: Stable right greater than left airspace opacities compatible with ongoing pneumonia. ACT 112: Negative or not required by law. Electronically signed by: Gera Jameson M.D. 06/10/2023 7:40 AM PG Care Time/CCT Total # of Minutes Spent Total Time Spent with Patient: Total time spent is greater than 50% in coordination of care (as documented) at patient's floor/unit and/or counseling patient: Coding Level of Care Code 19592 SUB INP/OBS CARE 3/50MIN Diagnoses Aspiration pneumonia J69.0 Sepsis A41.9 Acute alteration in mental status R41.82 Elevated troponin R79.89 PAT (paroxysmal atrial tachycardia) I47.1 Cerebral artery occlusion with cerebral infarction I63.50 GERD without esophagitis K21.9 Hypertension, unspecified type I10 Hypertension type: unspecified Hypothyroidism, unspecified type E03.9 Hypothyroidism type: unspecified Unresponsive episode R40.4 Hypokalemia E87.6 Hypomagnesemia E83.42 Hypophosphatemia E83.39 DVT prophylaxis Z29.9 Hernia, hiatal K44.9 Underweight R63.6 Recurrent UTI N39.0 (8) Hypertension Hypertension type: unspecified Qualified Code(s): I10 - Essential (primary) hypertension (9) Hypothyroidism Hypothyroidism type: unspecified Qualified Code(s): E03.9 - Hypothyroidism, unspecified
[2023-06-10] MEDS ORDERED: dilTIAZem HCL 180 MG CAPCR PO SCH (21:00)
[2023-06-10] MEDS: HEPARIN SOD 5,000 UNIT/0.5 ML VIAL SQ SCH (21:29)
[2023-06-10] MEDS: ACETAMINOPHEN 1,000 MG/100 ML VIAL IV PRN (21:31)
[2023-06-11] MEDS: STOP CLINOLIPID SCH (00:55)
[2023-06-11 05:50] LABS: Hematocrit (blood only) 29.9 % (37.0-47.0); Hemoglobin 10.1 g/dl (12.0-16.0); Mean Corpuscular Hemoglobin 32.4 pg (25.0-34.0); Mean Corpuscular Hgb Conc 33.8 g/dL (32.0-36.0); Mean Corpuscular Volume 95.8 fL (80.0-100.0); Mean Platelet Volume 9.3 fL (9.4-12.4); Platelet Count 299 K/uL (130-400); RDW Coefficient of Variation 13.2 % (11.5-14.5); RDW Standard Deviation 46.5 fL (36.4-46.3); Red Blood Count 3.12 M/uL (4.20-5.40); White Blood Count 12.75 K/ul (4.8-10.8)
[2023-06-11 06:01] LABS: BUN Creatinine Ratio 79.2 (10-20); Creatinine Clr Calc Pharmacy 123.2 ml/min; Est GFR (African American) 126.6 ml/min; Est GFR (Non-African American) 109.3 ml/min; Magnesium 1.7 mg/dl (1.7-2.4); Phosphorus 2.4 mg/dl (2.5-4.9); Potassium 3.3 mmol/L (3.5-5.1)
[2023-06-11] MEDS: POTASSIUM CHLORIDE CRTAB 20 MEQ TABCR PO SCH (08:32)
[2023-06-11] MEDS: VANCOMYCIN HCL 1,000 MG in SODIUM CHLORIDE 0.9% 250 ML IV SCH (08:41)
[2023-06-11] MEDS: LEVOTHYROXINE SODIUM 25 MCG TABLET PO SCH (10:39)
[2023-06-11] MEDS: PANTOprazole 40 MG TAB PO SCH (10:40)
[2023-06-11] MEDS: CLOPIDOGREL BISULFATE 75 MG TAB PO ONE (10:40)
--- NOTE | 2023-06-11 12:41 | Pharmacy Report ---
Pharmacy PK ABX Note - Date of Service June 11, 2023 - Assessment and Plan Assessment 06/09: Random level this monring 10.7 mcg/mL, this does predict AUC within target although with 82% probability. Will adjust dose slightly to 750 mg q12H which predicts an AUC of 511 mg/L.hr with 96% probability. 06/08 87 year old F receiving VANCOMYCIN/ZOSYN for treatment of possible pneumonia/sepsis. Pertinent microbiologic data includes: Positive MRSA Nasal Swab. Blood cultures negative at 48 hours, urine culture negative. Patient with continued fevers overnight, vancomycin was discontinued on the , restarted given + nasal swab + fevers. Plan Vancomycin * Loading dose: 1000 mg IV x 1 * Maintenance dose: 750 mg IV every 12 hours * Regimen is predicted to achieve target AUC/RIGOBERTO of 400-600 mg/L.hr * Random level to be ordered with AM labs 06/11 Pharmacy will continue to follow and will adjust dose/frequency as necessary. Thank you. Pharmacy has transitioned to AUC monitoring for vancomycin. AUC/RIGOBERTO is the preferred PK/PD target and is associated with decreased risk of nephrotoxicity compared to traditional trough targets.
[2023-06-11] MEDS: guaiFENesin SUGAR FREE 100 MG/5 ML UDC PO SCH (13:00)
[2023-06-11] MEDS: POT PHOSPHATE MONOBASIC W/ SOD TAB PO SCH (13:01)
[2023-06-11] MEDS ORDERED: ACETAMINOPHEN 325 MG TAB PO PRN (16:49)
[2023-06-11] MEDS: ACETAMINOPHEN 325 MG TAB ONE (16:59)
[2023-06-11] MEDS: OPTIRAY 320 125ml IV ONE (17:59)
--- NOTE | 2023-06-11 18:27 | XRay Report ---
XR KUB/Abdomen 1 view CLINICAL HISTORY: abd distension TECHNIQUE: 1 view of the abdomen was obtained. Comparison: Comparison is made to abdomen radiograph 06/08/2023 FINDINGS: Lung bases are unremarkable. The osseous structures are grossly unremarkable. Multiple gas-distended loops of small bowel measure up to 32 mm in diameter. No significant stool burden is seen. IMPRESSION: Interval development of multiple gas-distended loops of small bowel. No significant stool burden. Dev eloping small bowel obstruction cannot be excluded. ACT 112: Negative or not required by law. Electronically signed by: Gera Jameson M.D. 06/11/2023 6:25 PM
--- NOTE | 2023-06-11 18:33 | CT Scan Report ---
CT angio chest PE protocol CLINICAL HISTORY: b/l pneumonia, persistent fevers TECHNIQUE: Multidetector row helical CT of the chest was performed with angiographic protocol. Fleming l and sagittal reformations were obtained. Coronal and sagittal MIPS were obtained from the axial mandi a set and were submitted for review. Automated dose lowering techniques and/or adjustment according to patient size were utilized for this exam. CT DOSE: 389.97 mGy.cm Comparison: Comparison is made to CT chest 01/21/2023 FINDINGS: Lungs and pleura: Moderate right and small left pleural effusions with underlying atelectasis. Airspa ce opacities are seen in the right greater than left lung. Heart and pericardium: Cardiomegaly is seen with biatrial enlargement. Vessels: No evidence of pulmonary embolism. Moderate atherosclerotic disease is seen. Mediastinum and joan: Subcentimeter lymph nodes are seen. Chest wall and lower neck: Unremarkable. Abdomen: Unremarkable. Bones: Degenerative changes in the thoracic spine. IMPRESSION: 1. No pulmonary embolus. 2. Moderate right and small left pleural effusions. 3. Multifocal airspace opacities compatible with aspiration/pneumonia. ACT 112: Negative or not required by law. Electronically signed by: Gera Jameson M.D. 06/11/2023 6:31 PM
--- NOTE | 2023-06-11 19:49 | Hospitalist Progress Note ---
Date of Service June 11, 2023 Assessment & Plan (1) Aspiration pneumonia: Plan: b/l basilar pneumonia - suspicious for aspiration can't rule out gram negative etiology can't rule out MRSA as culprit pathogen blood cx's from admission negative I did obtain repeat blood cx's today due to recurrent fever (Tm 37.9) zosyn - day #7 of such today due to MRSA+ status has received IV vanco - received such on 06/05 and 06/06, then resumed again on 06/08; thus, day #5 or 6 of IV vanco Initial BioFire panel was fully negative Given ongoing fevers repeated COVID/flu/RSV - again negative I am concerned about persistent fevers despite very good antibiotic/broad- spectrum coverage over the last 7 days this potentially suggests - * multidrug resistant pathogen * non-bacterial process (although viral panels have been negative) * non-pulmonary source of fever * empyema? doubt, no chest pain or other symptoms to suggest such Will change IV vanco to zyvox and complete 10 days in total of vanco/zyvox for coverage of MRSA Will obtain chest CT - r/o empyema/loculated effusion, r/o PE, etc Follow blood cx's procal noted to be negative this afternoon re-eval tomorrow (2) Sepsis: Plan: 2nd to #1 see discussion in #1 above (3) Acute alteration in mental status: Plan: Acute metabolic encephalopathy 2nd to #1, #2 in the setting of significant atrophy and prior stroke as seen on CT head - ongoing Was rather awake/alert yesterday, and by report was awake/alert earlier today But now very sleepy and altered again CT of the head this admission negative for acute findings VBG w/o hypercapnia or acidosis TSH wnl ammonia wnl suspect ongoing altered MS is due to infectious process given ongoing fevers, etc (4) Elevated troponin: Plan: Peak HS trop ~30 2nd to myocardial demand ischemia in setting of #1, #2, and chest compressions given pre-hospital Echo this admission - EF 60-65%, mild AR, mild conc LVH, no regional WMAs (5) PAT (paroxysmal atrial tachycardia): Plan: resumed PO diltiazem CD (6) Cerebral artery occlusion with cerebral infarction: Plan: history of stroke with baseline L sided weakness. R basal ganglia encephalomalacia unchanged on head CT this admission. Resumed plavix for 2nd prevention. (7) GERD without esophagitis: Plan: cont PPI (8) Hypertension: Plan: resumed cardizem CD (9) Hypothyroidism: Plan: resumed synthroid most recent TSH wnl (10) Unresponsive episode: Plan: pre-admission received chest compressions at home upon EMS arrival to her home she had a pulse & was spontaneously breathing cardiac arrest felt unlikely could have been syncopal episode, vs acute metabolic encephalopathy from #1, #2, vs other can't rule out arrhythmia contributing to the episode no seizure activity by report CPK was normal Echo wnl Troponin scantly elevated Tele thus far stable CT head w/o acute findings (11) Hypokalemia: Plan: cont to replace repeat BMP am recheck mag level am (12) Hypomagnesemia: Plan: repleted resolved (13) Hypophosphatemia: Plan: add K-phos neutral 1 cap QID for mildlyl low phos level (14) DVT prophylaxis: Plan: heparin 5000 BID (15) Hernia, hiatal: Plan: large most of stomach is intra-thoracic likely a large contributor to aspiration risk cont PPI NG tube unable to be placed earlier this admission due to the hiatal hernia (16) Underweight: Plan: BMI 18 poor appetite per family at home stop PPN due to 10kg of weight gain/volume overload (17) Recurrent UTI: Plan: no UTI this admission - urine cx negative (18) Volume overload: Plan: patient is 10 liters + for the hospitalization, and is up 10kg as well she is 3rd spacing on exam suspect she has effusions/edema in the lungs checking CT chest which will confirm the above likely to need diuresis with IV lasix explained to family that resuming PPN will just make this issue worse she will 3rd space due to low albumin levels (19) Failure to thrive: Plan: acute on chronic I am concerned about her overall lack of robust, consistent improvement expressed my concerns to her family today will re-eval tomorrow CT chest may help with deciding on additional therapies prognosis is guarded Plan updated 3 daughters today extensively during the visit Admission and Anticipated Discharge Date Admission Date: June 05, 2023 Subjective during rounds 2 of the pt's daughters were present at bedside a 3rd daughter (lives in [place]) was on Facetime patient was in bed with eyes closed she appeared to be having mild chills she was quite sleepy family reports she was more awake earlier in the day appetite remains fair at best but closer to poor liquid intake is poor she remains very weak family asked numerous questions including why PPN was stopped, if IV albumin was an option to improve her protein levels, how do we encourage PO intake, etc we discussed her low-grade fever this afternoon per family Mrs Israel had a smear of stool earlier today Review of Systems Review of Systems: CV - pt denied chest pain pulm - pt denied feeling dyspneic GI - c/o abd pain but no vomiting Physical Exam Physical Exam: gen - very thin, quite sleepy - had eyes closed 95% of the entire visit, no acute distress; was having shaking chills mouth - MM remains dry neck - no JVD heart - RRR, s1 s2 lungs - b/l basilar rales, decreased BS bases; no wheeze, mild tachypnea noted abd - distended (new); mildly tender (generalized); BS+ ext - no edema of feet/ankles but there is dependent edema of arms; pulses feet 2+ neuro - contractures of LUE skin - extensive ecchymoses b/l arms psych - very sleepy during the visit, oriented to person only Results & Data Results & Data Vital Signs (Past 12 Hours) Vital Signs Temp Pulse Pulse Resp BP Pulse Ox O2 Del Method 06/11/23 19:00 37.8 C H 90 25 H 127/71 93 Room Air 06/11/23 15:46 94 H 06/11/23 15:31 37.3 C 100 H 18 149/89 H 97 Room Air 06/11/23 11:52 37.1 C 94 H 18 133/72 91 Room Air 06/11/23 08:11 36.8 C 94 H 18 143/65 H 95 Room Air 06/11/23 08:00 84 06/11/23 08:00 Nasal Cannula O2 Flow Rate 06/11/23 19:00 06/11/23 15:46 06/11/23 15:31 06/11/23 11:52 06/11/23 08:11 06/11/23 08:00 06/11/23 08:00 2 Laboratory Results Laboratory Results - last 24 hr 06/11/23 06/11/23 05:26 17:28 WBC 12.75 H RBC 3.12 L Hgb 10.1 L Hct 29.9 L MCV 95.8 MCH 32.4 MCHC 33.8 RDW Std Deviation 46.5 H RDW Coeff of Pavithra 13.2 Plt Count 299 MPV 9.3 L Sodium 132 L Potassium 3.3 L Chloride 102 Carbon Dioxide 25 Anion Gap 5 BUN 19 Creatinine 0.24 L Est Cr Clr Drug Dosing 123.2 Est GFR ( Amer) 126.6 Est GFR (Non-Af Amer) 109.3 BUN/Creatinine Ratio 79.2 H Glucose 127 H Calcium 9.0 Phosphorus 2.4 L Magnesium 1.7 Procalcitonin 0.35 Random Vancomycin 14.4 PG Care Time/CCT Total # of Minutes Spent Total Time Spent with Patient: Total time spent is greater than 50% in coordination of care (as documented) at patient's floor/unit and/or counseling patient: Coding Level of Care Code 93990 SUB INP/OBS CARE 3/50MIN Diagnoses Aspiration pneumonia J69.0 Sepsis A41.9 Acute alteration in mental status R41.82 Elevated troponin R79.89 PAT (paroxysmal atrial tachycardia) I47.1 Cerebral artery occlusion with cerebral infarction I63.50 GERD without esophagitis K21.9 Hypertension, unspecified type I10 Hypertension type: unspecified Hypothyroidism, unspecified type E03.9 Hypothyroidism type: unspecified Unresponsive episode R40.4 Hypokalemia E87.6 Hypomagnesemia E83.42 Hypophosphatemia E83.39 DVT prophylaxis Z29.9 Hernia, hiatal K44.9 Underweight R63.6 Recurrent UTI N39.0 Volume overload E87.70 Failure to thrive (8) Hypertension Hypertension type: unspecified Qualified Code(s): I10 - Essential (primary) hypertension (9) Hypothyroidism Hypothyroidism type: unspecified Qualified Code(s): E03.9 - Hypothyroidism, unspecified
[2023-06-11] MEDS: dilTIAZem HCL 180 MG CAPCR PO SCH (19:50)
[2023-06-11] MEDS: FUROSEMIDE INJ 20 MG/2 ML VIAL IV ONE (19:50)
[2023-06-11] MEDS: LINEZOLID 600 MG/300 ML BAG IV SCH (20:37)
[2023-06-12 05:57] LABS: Basophils # (auto) 0.03 K/uL (0.00-0.20); Basophils % (auto) 0.3 %; Eosinophils # (auto) 0.13 K/uL (0.00-0.50); Eosinophils % (auto) 1.3 %; Hematocrit (blood only) 28.1 % (37.0-47.0); Hemoglobin 9.3 g/dl (12.0-16.0); Immature Granulocytes # (auto) 0.17 K/uL (0.01-0.20); Immature Granulocytes % (auto) 1.8 %; Lymphocytes # (auto) 0.83 K/uL (1.20-3.40); Lymphocytes % (auto) 8.5 %; Mean Corpuscular Hgb Conc 33.1 g/dL (32.0-36.0); Mean Corpuscular Volume 96.6 fL (80.0-100.0); Mean Platelet Volume 9.4 fL (9.4-12.4); Monocytes # (auto) 0.41 K/uL (0.11-0.59); Monocytes % (auto) 4.2 %; Neutrophils # (auto) 8.14 K/uL (1.40-6.50); Neutrophils % (auto) 83.9 %; Platelet Count 296 K/uL (130-400); RDW Coefficient of Variation 13.4 % (11.5-14.5); RDW Standard Deviation 47.6 fL (36.4-46.3); Red Blood Count 2.91 M/uL (4.20-5.40); White Blood Count 9.71 K/ul (4.8-10.8)
[2023-06-12 06:10] LABS: Calcium 9.1 mg/dl (8.6-10.3); Creatinine Clr Calc Pharmacy 91.2 ml/min; Est GFR (African American) 111.8 ml/min; Est GFR (Non-African American) 96.5 ml/min; Magnesium 1.6 mg/dl (1.7-2.4); Potassium 3.2 mmol/L (3.5-5.1)
--- NOTE | 2023-06-12 07:18 | XRay Report ---
KUB HISTORY: Acute generalized abdominal pain ileus vs developing SBO? COMPARISON: KUB 06/11/2023 FINDINGS: Right upper abdominal surgical clips. Air-filled loops of large and small bowel are noted w ith small bowel loops measuring up to approximately 2.4 cm and large bowel loops measuring up to 5.9 cm. A rectal catheter is in place. No renal calculi. No ureteral calculi. No pneumoperitoneum or pne umatosis. Lumbar levoscoliosis. Hiatal hernia with bibasilar consolidation an pleural effusions. No f racture. IMPRESSION: 1. Air-filled loops of large and small bowel suggestive of ileus. 2. No pneumoperitoneum. 3. Hiatal hernia. 4. Layering pleural effusions with bibasilar consolidation redemonstrated. ACT 112: Negative or not required by law. The above report was generated using voice recognition software. It may contain grammatical, syntax o r spelling errors. Electronically signed by: Young Petersen M.D. 06/12/2023 7:17 AM
[2023-06-12] MEDS: CLOPIDOGREL BISULFATE 75 MG TAB PO SCH (07:35)
[2023-06-12] MEDS: POTASSIUM CHLORIDE / WTR 10 MEQ/100 ML PLCT IV SCH (08:26)
[2023-06-12] MEDS: MAGNESIUM SULFATE / D5W 1 GM/100 ML BAG IV SCH (08:26)
[2023-06-12] MEDS: FUROSEMIDE INJ 20 MG/2 ML VIAL IV ONE (12:24)
[2023-06-12] MEDS: ALBUT/IPRATROP 3MG/0.5MG NEB 3 ML VIAL NEB STA (12:26)
--- NOTE | 2023-06-12 18:43 | Hospitalist Progress Note ---
Date of Service June 12, 2023 Assessment & Plan (1) Aspiration pneumonia: Plan: b/l basilar pneumonia can't rule out gram negative etiology can't rule out MRSA as culprit pathogen blood cx's from admission negative repeat blood cx's 06/11/23 negative completed 7 days of zosyn - now off due to MRSA+ status had received IV vanco - received such on 06/05 and 06/06, then resumed again on 06/08; switched to IV zyvox 06/11/23 for easier dosing, etc plan 10 days in total of IV vanco/zyvox Initial BioFire panel was fully negative repeat COVID/flu/RSV - negative CT chest yesterday with extensive b/l pneumonia, R>L - aspiration pneumonia suspected most recent procalcitonin negative I am concerned about persistent fevers despite very good antibiotic/broad- spectrum coverage over the last 7-8 days this potentially suggests - * multidrug resistant pathogen * non-bacterial process (although viral panels have been negative) * non-pulmonary source of fever * empyema? doubt, no chest pain or other symptoms to suggest such; effusions on CT chest appear simple rather than complicated/loculated Overall she is stable, WBC is improved today, etc -- but she is failing to thrive, sleeping much of the day, has poor appetite, etc -- see below discussion (2) Sepsis: Plan: 2nd to #1 see discussion in #1 above (3) Acute alteration in mental status: Plan: Acute metabolic encephalopathy 2nd to #1, #2 in the setting of significant atrophy and prior stroke as seen on CT head - ongoing Has had periods of being awake/alert, then alternates with periods of severe sleepiness CT of the head this admission negative for acute findings VBG w/o hypercapnia or acidosis TSH wnl ammonia wnl suspect ongoing altered MS is due to infectious process in the setting of baseline cognitive impairment (4) Elevated troponin: Plan: Peak HS trop ~30 2nd to myocardial demand ischemia in setting of #1, #2, and chest compressions given pre-hospital Echo this admission - EF 60-65%, mild AR, mild conc LVH, no regional WMAs (5) PAT (paroxysmal atrial tachycardia): Plan: PO diltiazem CD (6) Cerebral artery occlusion with cerebral infarction: Plan: history of stroke with baseline L sided weakness. R basal ganglia encephalomalacia unchanged on head CT this admission. plavix for 2nd prevention. (7) GERD without esophagitis: Plan: cont PPI (8) Hypertension: Plan: cardizem CD (9) Hypothyroidism: Plan: cont synthroid most recent TSH wnl (10) Unresponsive episode: Plan: pre-admission received chest compressions at home upon EMS arrival to her home she had a pulse & was spontaneously breathing CT chest yesterday did not show any fractures cardiac arrest felt unlikely could have been syncopal episode, vs acute metabolic encephalopathy from #1, #2, vs other can't rule out arrhythmia contributing to the episode no seizure activity by report CPK was normal Echo wnl Troponin scantly elevated Tele thus far stable CT head w/o acute findings (11) Hypokalemia: Plan: cont to replace repeat BMP am replace low mag (12) Hypomagnesemia: Plan: replete repeat level am (13) Hypophosphatemia: Plan: cont K-phos neutral 1 cap QID (14) DVT prophylaxis: Plan: heparin 5000 BID (15) Hernia, hiatal: Plan: large most of stomach is intra-thoracic likely a large contributor to aspiration risk cont PPI NG tube unable to be placed earlier this admission due to the hiatal hernia (16) Underweight: Plan: BMI 18 poor appetite per family at home stop PPN due to 10kg of weight gain/volume overload (17) Recurrent UTI: Plan: no UTI this admission - urine cx negative (18) Volume overload: Plan: patient is 10 liters + for the hospitalization, and is up 10kg as well she is 3rd spacing on exam CT chest with b/l effusions; can't rule out element of pulmonary edema s/p lasix yesterday will give another dose today (19) Failure to thrive: Plan: acute on chronic I am concerned about her overall lack of robust, consistent improvement see discussion below (20) Ileus: Plan: likely 2nd to low K, low mag, bed-bound status, illness, etc downgraded diet to full liquids replace low K and low mag await return of bowel function Plan had about a 30 minute discussion with pt's 2 daughters who are physically present along with another daughter who lives in [place] latter daughter was present via FaceTime discussed current problems, lack of significant general improvement, poor PO intake, lethargy, ongoing low-grade fevers, ileus, etc discussed options for care, code status, etc discussed prognosis plan - * 3 daughters will discuss code status amongst themselves as well as their brother; they are leaning towards DNR/DNI * will give supportive care for another 48 hours * if we get to Wednesday and if there is little to no improvement will need to strongly consider transition to palliative care/comfort * family's initial desire would be home with hospice for their mother; they feel she would want to pass at home rather than in the hospital * will re-eval status tomorrow Admission and Anticipated Discharge Date Admission Date: June 05, 2023 Subjective per staff Ms Israel passed a little flatus while she was being cleaned up earlier today daughters at bedside - they report she ate a little at her last meal; intake remains poor was up for a period of time, now sleeping since then no major changes or events since yesterday family with numerous questions about her status and prognosis Review of Systems Review of Systems: Unobtainable due to cognitive status Physical Exam Physical Exam: gen - very thin, sleeping - I did not wake her neck - no JVD heart - RRR, s1 s2, no murmur lungs - b/l basilar rales, decreased BS bases R>L; no wheeze - exam largely unchanged abd - softer today, distension is less, NT, BS+ ext - no edema of feet/ankles but there is dependent edema of arms; pulses feet 2+; waffle boots in place b/l neuro - contracture of LUE skin - extensive ecchymoses b/l arms Results & Data Results & Data Vital Signs (Past 12 Hours) Vital Signs Temp Pulse Pulse Resp BP Pulse Ox O2 Del Method 06/12/23 16:23 37.0 C 88 18 149/71 H 90 Room Air 06/12/23 16:00 77 06/12/23 12:26 89 18 97 Nasal Cannula 06/12/23 11:41 36.7 C 77 18 149/57 H 97 Nasal Cannula 06/12/23 08:00 87 06/12/23 08:00 Nasal Cannula 06/12/23 07:58 37.2 C 82 18 116/45 L 95 Room Air O2 Flow Rate 06/12/23 16:23 06/12/23 16:00 06/12/23 12:26 1 06/12/23 11:41 1 06/12/23 08:00 06/12/23 08:00 2 06/12/23 07:58 Laboratory Results Laboratory Results - last 24 hr 06/12/23 05:34 WBC 9.71 RBC 2.91 L Hgb 9.3 L Hct 28.1 L MCV 96.6 MCH 32.0 MCHC 33.1 RDW Std Deviation 47.6 H RDW Coeff of Pavithra 13.4 Plt Count 296 MPV 9.4 Immature Gran % (Auto) 1.8 Neut % (Auto) 83.9 Lymph % (Auto) 8.5 Mcintosh % (Auto) 4.2 Eos % (Auto) 1.3 Baso % (Auto) 0.3 Neut # (Auto) 8.14 H Lymph # (Auto) 0.83 L Mcintosh # (Auto) 0.41 Eos # (Auto) 0.13 Baso # (Auto) 0.03 Immature Gran # (Auto) 0.17 Sodium 134 L Potassium 3.2 L Chloride 100 Carbon Dioxide 27 Anion Gap 7 BUN 14 Creatinine 0.35 L Est Cr Clr Drug Dosing 91.2 Est GFR ( Amer) 111.8 Est GFR (Non-Af Amer) 96.5 BUN/Creatinine Ratio 40.0 H Glucose 99 Calcium 9.1 Magnesium 1.6 L Random Vancomycin 11.6 PG Care Time/CCT Total # of Minutes Spent Total Time Spent with Patient: Total time spent is greater than 50% in coordination of care (as documented) at patient's floor/unit and/or counseling patient: Coding Level of Care Code 19197 SUB INP/OBS CARE 3/50MIN Diagnoses Aspiration pneumonia J69.0 Sepsis A41.9 Acute alteration in mental status R41.82 Elevated troponin R79.89 PAT (paroxysmal atrial tachycardia) I47.1 Cerebral artery occlusion with cerebral infarction I63.50 GERD without esophagitis K21.9 Hypertension, unspecified type I10 Hypertension type: unspecified Hypothyroidism, unspecified type E03.9 Hypothyroidism type: unspecified Unresponsive episode R40.4 Hypokalemia E87.6 Hypomagnesemia E83.42 Hypophosphatemia E83.39 DVT prophylaxis Z29.9 Hernia, hiatal K44.9 Underweight R63.6 Recurrent UTI N39.0 Volume overload E87.70 Failure to thrive Ileus K56.7 (8) Hypertension Hypertension type: unspecified Qualified Code(s): I10 - Essential (primary) hypertension (9) Hypothyroidism Hypothyroidism type: unspecified Qualified Code(s): E03.9 - Hypothyroidism, unspecified
[2023-06-13 06:35] LABS: Hemoglobin 9.5 g/dl (12.0-16.0); Mean Corpuscular Hemoglobin 31.8 pg (25.0-34.0); Mean Corpuscular Hgb Conc 32.8 g/dL (32.0-36.0); Mean Platelet Volume 9.4 fL (9.4-12.4); Platelet Count 350 K/uL (130-400); RDW Coefficient of Variation 13.4 % (11.5-14.5); RDW Standard Deviation 47.8 fL (36.4-46.3); Red Blood Count 2.99 M/uL (4.20-5.40); White Blood Count 10.41 K/ul (4.8-10.8)
[2023-06-13 06:50] LABS: BUN Creatinine Ratio 27.3 (10-20); Calcium 9.1 mg/dl (8.6-10.3); Creatinine Clr Calc Pharmacy 91.2 ml/min; Est GFR (Non-African American) 98.4 ml/min; Magnesium 1.8 mg/dl (1.7-2.4); Potassium 3.1 mmol/L (3.5-5.1)
[2023-06-13] MEDS: POTASSIUM CHLORIDE CRTAB 20 MEQ TABCR PO STA (09:12)
[2023-06-13] MEDS: POTASSIUM CHLORIDE / WTR 10 MEQ/100 ML PLCT IV SCH ×2 (09:18→17:50)
--- NOTE | 2023-06-13 12:42 | Hospitalist Progress Note ---
Date of Service June 13, 2023 Assessment & Plan (1) Aspiration pneumonia: Plan: b/l basilar pneumonia - gram negative vs MRSA low-grade fever again early this am (37.6) s/p 7 day course of zosyn blood cx's from admission negative repeat blood cx's 06/11/23 negative due to MRSA+ status had received IV vanco - received such on 06/05 and 06/06, then resumed again on 06/08; switched to IV zyvox 06/11/23 for easier dosing, etc plan 10 days in total of IV vanco/zyvox - day #8 today Initial BioFire panel was fully negative repeat COVID/flu/RSV - negative CT chest with extensive b/l pneumonia, R>L - aspiration pneumonia suspected most recent procalcitonin negative Overall she is stable with no o2 requirement and resolution of leukocytosis. However, she continues to have failure to thrive, sleeping much of the day, poor PO intake/appetite, etc -- see below discussion (2) Sepsis: Plan: 2nd to #1 see discussion in #1 above (3) Acute alteration in mental status: Plan: Acute metabolic encephalopathy 2nd to #1, #2 in the setting of significant atrophy and prior stroke as seen on CT head - ongoing Has had brief periods of being awake/alert (1-3 hours), then alternates with periods of severe sleepiness CT of the head this admission negative for acute findings VBG w/o hypercapnia or acidosis TSH wnl ammonia wnl suspect ongoing altered MS is due to infectious process in the setting of baseline cognitive impairment (4) Elevated troponin: Plan: Peak HS trop ~30 2nd to myocardial demand ischemia in setting of #1, #2, and chest compressions given pre-hospital Echo this admission - EF 60-65%, mild AR, mild conc LVH, no regional WMAs (5) PAT (paroxysmal atrial tachycardia): Plan: PO diltiazem CD (6) Cerebral artery occlusion with cerebral infarction: Plan: history of stroke with baseline L sided weakness. R basal ganglia encephalomalacia unchanged on head CT this admission. plavix for 2nd prevention. (7) GERD without esophagitis: Plan: cont PPI (8) Hypertension: Plan: cardizem CD (9) Hypothyroidism: Plan: cont synthroid most recent TSH wnl (10) Unresponsive episode: Plan: pre-admission received chest compressions at home upon EMS arrival to her home she had a pulse & was spontaneously breathing CT chest did not show any fractures cardiac arrest felt unlikely could have been syncopal episode, vs acute metabolic encephalopathy from #1, #2, vs other can't rule out arrhythmia contributing to the episode but unlikely -- tele has been normal the entire stay (except some brief episodes of PAT) no seizure activity by report CPK was normal Echo wnl Troponin scantly elevated Tele thus far stable CT head w/o acute findings (11) Hypokalemia: Plan: cont to replace cannot take PO meds unfortunately will give 3 K riders (30meq total) today (12) Hypomagnesemia: Plan: repleted (13) Hypophosphatemia: Plan: stop K-phos neutral 1 cap QID - level likely normal at this point and she is refusing to take it anyway (14) DVT prophylaxis: Plan: heparin 5000 BID (15) Hernia, hiatal: Plan: large most of stomach is intra-thoracic likely a large contributor to aspiration risk cont PPI NG tube unable to be placed earlier this admission due to the hiatal hernia (16) Underweight: Plan: BMI 18 poor appetite per family at home over the last few weeks-months stopped PPN earlier this week due to 10kg of weight gain/volume overload (17) Recurrent UTI: Plan: no UTI this admission - urine cx negative (18) Volume overload: Plan: patient is 10 liters + for the hospitalization, and is up 10kg as well she is 3rd spacing on exam CT chest with b/l effusions; can't rule out element of pulmonary edema s/p lasix yesterday will give another dose today - 20mg IV x (19) Failure to thrive: Plan: acute on chronic see below (20) Ileus: Plan: likely 2nd to low K, low mag, bed-bound status, illness, etc improved clinically on exam allow full liquids if desired by patient Plan extensive discussion held with 3 daughters on 06/12/23 about goals of care, code status, poor prognosis, etc plan is to wait until tomorrow AM to see if there is any additional improvement if she is the same medically tomorrow - lethargic, poor po intake, etc - plan is to transition to palliative care/comfort care pathway her daughters told me yesterday that they would likely want to bring their mother home on hospice suspect there will not be any significant improvement by Wednesday am I updated pt's daughter who just arrived from [place] at bedside late this afternoon Admission and Anticipated Discharge Date Admission Date: June 05, 2023 Subjective no significant changes overnight did not take any breakfast was not able to take most of her oral medications she remains sleepy during the visit she was initially sleeping, briefly opened her eyes I asked how she was doing and she said "I'm doing ok" when asked if she was in pain at that point she fell asleep unable to obtain any additional history or ROS Review of Systems Review of Systems: Unobtainable due to cognitive status Physical Exam Physical Exam: gen - very thin, lethargic - briefly was awake, then quickly went back to sleep neck - no JVD heart - RRR, s1 s2, no murmur lungs - b/l basilar rales unchanged; decreased BS bases R>L; no wheeze - exam unchanged abd - soft, distension resolved, NT, BS+ ext - no edema of feet/ankles but there is dependent edema thighs, arms; pulses feet 2+; waffle boots in place b/l neuro - contracture of LUE - chronic skin - extensive ecchymoses b/l arms unchanged psych - lethargic Results & Data Results & Data Vital Signs (Past 12 Hours) Vital Signs Temp Pulse Resp BP Pulse Ox O2 Del Method 06/13/23 11:47 36.6 C 77 18 156/76 H 96 Room Air 06/13/23 08:13 37.2 C 88 18 151/81 H 92 Room Air 06/13/23 08:00 Room Air 06/13/23 03:00 37.6 C H 93 H 18 148/66 H 95 Room Air Laboratory Results Laboratory Results - last 24 hr 06/13/23 05:42 WBC 10.41 RBC 2.99 L Hgb 9.5 L Hct 29.0 L MCV 97.0 MCH 31.8 MCHC 32.8 RDW Std Deviation 47.8 H RDW Coeff of Pavithra 13.4 Plt Count 350 MPV 9.4 Sodium 133 L Potassium 3.1 L Chloride 98 Carbon Dioxide 28 Anion Gap 7 BUN 9 Creatinine 0.33 L Est Cr Clr Drug Dosing 91.2 Est GFR ( Amer) 114.0 Est GFR (Non-Af Amer) 98.4 BUN/Creatinine Ratio 27.3 H Glucose 95 Calcium 9.1 Magnesium 1.8 PG Care Time/CCT Total # of Minutes Spent Total Time Spent with Patient: Total time spent is greater than 50% in coordination of care (as documented) at patient's floor/unit and/or counseling patient: Coding Level of Care Code 05308 SUB INP/OBS CARE 2/35MIN Diagnoses Aspiration pneumonia J69.0 Sepsis A41.9 Acute alteration in mental status R41.82 Elevated troponin R79.89 PAT (paroxysmal atrial tachycardia) I47.1 Cerebral artery occlusion with cerebral infarction I63.50 GERD without esophagitis K21.9 Hypertension, unspecified type I10 Hypertension type: unspecified Hypothyroidism, unspecified type E03.9 Hypothyroidism type: unspecified Unresponsive episode R40.4 Hypokalemia E87.6 Hypomagnesemia E83.42 Hypophosphatemia E83.39 DVT prophylaxis Z29.9 Hernia, hiatal K44.9 Underweight R63.6 Recurrent UTI N39.0 Volume overload E87.70 Failure to thrive Ileus K56.7 (8) Hypertension Hypertension type: unspecified Qualified Code(s): I10 - Essential (primary) hypertension (9) Hypothyroidism Hypothyroidism type: unspecified Qualified Code(s): E03.9 - Hypothyroidism, unspecified
[2023-06-14 06:53] LABS: BUN Creatinine Ratio 18.2 (10-20); Calcium 9.2 mg/dl (8.6-10.3); Creatinine Clr Calc Pharmacy 94.9 ml/min; Est GFR (Non-African American) 98.4 ml/min; Potassium 3.4 mmol/L (3.5-5.1)
[2023-06-14] MEDS: POTASSIUM CHLORIDE / WTR 10 MEQ/100 ML PLCT IV SCH (08:27)
[2023-06-14] MEDS: FUROSEMIDE INJ 20 MG/2 ML VIAL IV ONE (08:27)
[2023-06-14] MEDS: LEVALBUTEROL HCL 0.63 MG/3 ML NEB NEB PRN (12:24)
--- NOTE | 2023-06-14 14:32 | Hospitalist Progress Note ---
Date of Service June 14, 2023 Assessment & Plan (1) Aspiration pneumonia: Plan: b/l pneumonia - gram negative vs MRSA despite 7 days of IV zosyn and nearly 10 days of MRSA coverage with vanco/zyvox she continues with failure to thrive, lethargy, poor appetite, and daily low- grade fevers (high 37's) multiple sets of blood cx's negative Initial BioFire panel was fully negative repeat COVID/flu/RSV - negative CT chest with extensive b/l pneumonia, R>L patient transitioning to comfort/hospice stop all antibiotics (2) Sepsis: Plan: 2nd to #1 see discussion in #1 above (3) Acute alteration in mental status: Plan: Acute metabolic encephalopathy 2nd to #1, #2 in the setting of significant atrophy and prior stroke as seen on CT head - ongoing Has had brief periods of being awake/alert (1-3 hours), then alternates with periods of severe sleepiness that can be very lengthy CT of the head this admission negative for acute findings VBG w/o hypercapnia or acidosis TSH wnl ammonia wnl suspect ongoing altered MS is due to infectious process in the setting of baseline cognitive impairment (4) Elevated troponin: Plan: Peak HS trop ~30 2nd to myocardial demand ischemia in setting of #1, #2, and chest compressions given pre-hospital Echo this admission - EF 60-65%, mild AR, mild conc LVH, no regional WMAs (5) PAT (paroxysmal atrial tachycardia): Plan: stop diltiazem (6) Cerebral artery occlusion with cerebral infarction: Plan: history of stroke with baseline L sided weakness. R basal ganglia encephalomalacia unchanged on head CT this admission. stop plavix - transitioning to hospice status (7) GERD without esophagitis: Plan: stopping PPI (8) Hypertension: Plan: stop cardizem CD (9) Hypothyroidism: Plan: most recent TSH wnl but stopping synthroid - transition to hospice status (10) Unresponsive episode: Plan: pre-admission received chest compressions at home upon EMS arrival to her home she had a pulse & was spontaneously breathing CT chest did not show any fractures cardiac arrest felt unlikely could have been syncopal episode, vs acute metabolic encephalopathy from #1, #2, vs other can't rule out arrhythmia contributing to the episode but unlikely -- tele has been normal the entire stay (except some brief episodes of PAT) no seizure activity seen at any time CPK was normal Echo wnl Troponin scantly elevated Tele thus far stable CT head w/o acute findings (11) Hypokalemia: Plan: ongoing despite copious IV replacement during the stay partially due to poor PO intake, partially due to IV lasix stop supplementation - transition to hospice status (12) Hypomagnesemia: (13) Hypophosphatemia: Plan: stop K-phos neutral 1 cap QID (14) DVT prophylaxis: Plan: stop heparin 5000 BID (15) Hernia, hiatal: Plan: large most of stomach is intra-thoracic likely has been a large contributor to aspiration risk (16) Underweight: Plan: BMI 18 poor appetite per family at home over the last few weeks-months received PPN early in the stay -- stopped due to 10kg volume overload (17) Recurrent UTI: Plan: no UTI this admission - urine cx was negative (18) Volume overload: Plan: patient was 10 liters + for the hospitalization, and was up 10kg as well 3rd spacing on exam CT chest with b/l effusions; can't rule out element of pulmonary edema s/p multiple doses of IV lasix last few days stop after today's dose (19) Failure to thrive: Plan: acute on chronic severe (20) Ileus: Plan: likely 2nd to low K, low mag, bed-bound status, illness, etc resolved distension no longer present +BM last 24 hours (21) Encounter for hospice care discussion: Plan: see below Plan extensive discussion held with 3 daughters on 06/12/23 about goals of care, code status, poor prognosis, etc plan was to wait until today, 06/14, to see if there was any additional improvement given lack of any robust improvement and given her ongoing failure to thrive, poor intake, ongoing low-grade temps, etc we are now transitioning to comfort care/palliative care/hospice today I met with 3 daughters, 1 son, and another daughter who was available [facility] everyone was in agreement about initiating hospice family would like to take her home on hospice they already have a hospital bed at her house we discussed hospice in detail answered questions apparently they already have additional private duty caregivers in place that provide [id number]-[id number] care Tiny from case management made aware of transition to hospice plan is d/c home tomorrow afternoon with hospice in place [facility] was selected by family to provide those hospice services it has been very challenging to get any meds into the patient over the last 48 hours - either having trouble swallowing them, refusing them, etc will cancel any unnecessary meds keep nebs for now keep tylenol prn pain/discomfort keep robitussin for cough we discussed code status - pt is now DNR/DNI - order changed support given to family total time today about 60 minutes over several visits to the bedside and complex care coordination Admission and Anticipated Discharge Date Admission Date: June 05, 2023 Subjective no issues overnight pt's family reports she ate some cream of wheat this am and was awake for much of the morning by early afternoon she was very tired and was uninterested in lunch most of her children have gathered together from out of town I met with 3 daughters and 1 son to discuss full transition to comfort/hospice they wish to take Ms Israel home on hospice Review of Systems Review of Systems: Unobtainable due to cognitive status Physical Exam Physical Exam: gen - very thin, lethargic, unable to provide any meaningful history or ROS mouth - MM dry neck - no JVD heart - RRR, s1 s2, no murmur lungs - b/l basilar rales unchanged; decreased BS bases R>L; no wheezes abd - soft, ND, NT, BS+ ext - no edema of feet/ankles but there is dependent edema thighs, arms; pulses feet 2+; waffle boots in place b/l neuro - contracture of LUE - chronic skin - extensive ecchymoses b/l arms unchanged with multiple optifoams in place psych - lethargic, falls asleep easily Results & Data Results & Data Vital Signs (Past 12 Hours) Vital Signs Temp Pulse Pulse Resp BP BP Pulse Ox 06/14/23 12:25 92 H 18 92 06/14/23 11:09 36.7 C 88 19 149/78 H 92 06/14/23 08:00 06/14/23 08:00 85 06/14/23 07:14 36.7 C 90 19 170/85 H 92 06/14/23 03:00 37.1 C 80 16 179/77 H 96 O2 Del Method 06/14/23 12:25 Room Air 06/14/23 11:09 Room Air 06/14/23 08:00 Room Air 06/14/23 08:00 06/14/23 07:14 Room Air 06/14/23 03:00 Room Air Laboratory Results Laboratory Results - last 24 hr 06/14/23 06:04 Sodium 134 L Potassium 3.4 L Chloride 101 Carbon Dioxide 27 Anion Gap 6 BUN 6 Creatinine 0.33 L Est Cr Clr Drug Dosing 94.9 Est GFR ( Amer) 114.0 Est GFR (Non-Af Amer) 98.4 BUN/Creatinine Ratio 18.2 Glucose 96 Calcium 9.2 PG Care Time/CCT Total # of Minutes Spent Total Time Spent with Patient: Total time spent is greater than 50% in coordination of care (as documented) at patient's floor/unit and/or counseling patient: Coding Level of Care Code 25784 SUB INP/OBS CARE 3/50MIN Diagnoses Aspiration pneumonia J69.0 Sepsis A41.9 Acute alteration in mental status R41.82 Elevated troponin R79.89 PAT (paroxysmal atrial tachycardia) I47.1 Cerebral artery occlusion with cerebral infarction I63.50 GERD without esophagitis K21.9 Hypertension, unspecified type I10 Hypertension type: unspecified Hypothyroidism, unspecified type E03.9 Hypothyroidism type: unspecified Unresponsive episode R40.4 Hypokalemia E87.6 Hypomagnesemia E83.42 Hypophosphatemia E83.39 DVT prophylaxis Z29.9 Hernia, hiatal K44.9 Underweight R63.6 Recurrent UTI N39.0 Volume overload E87.70 Failure to thrive Ileus K56.7 Encounter for hospice care discussion Z71.89 (8) Hypertension Hypertension type: unspecified Qualified Code(s): I10 - Essential (primary) hypertension (9) Hypothyroidism Hypothyroidism type: unspecified Qualified Code(s): E03.9 - Hypothyroidism, unspecified
[2023-06-14] MEDS: ACETAMINOPHEN 1,000 MG/100 ML VIAL IV PRN (14:42)
[2023-06-14 15:16] VITALS: RESP 24
[2023-06-14 15:24] VITALS: BP 148/86; TEMP 99.3; O2SAT 94
[2023-06-15 11:25] VITALS: PULSE 96
--- NOTE | 2023-06-15 19:23 | Discharge Summary ---
Date of Service June 15, 2023 Admission HPI Per Admitting Provider Emilee is an 87 year old female with a PMH significant for recurrent UTIs, previous CVA with baseline left-sided weakness (now on aspirin and plavix), hypothyroidism, hyperparathyroidism, hypertension, GERD, and osteoarthritis who presented to the [facility] ED via EMS on 06/05/23 after an unresponsive episode where her caregiver reportedly started CPR. Per the ED staff on arrival EMS found the patient to have a pulse and to be responsive to painful stimuli only. On arrival to the ED she was noted to be tachycardic with HR in the 120's, febrile at 37.7C, but otherwise stable. Labs were significant for a leukocytosis of 19 with neutrophile predominance of 17, lymphocyte count of 0.85, VBG pH WNL, with pCO2 of 53, and pO2 of 27, initial lactate of 2.6, calcium of 10.6, initial high sen trop of 30, equivocal UA for infection, and full respiratory biofire negative. Ct of the head/brain wo con was read as "No acute intracranial hemorrhage, no evidence of acute territorial infarction or other acute intracranial disease process. ". Chest xray was read as no acute findings, but on comparison to her previous CXR she clearly has a RLL infiltrate. The patient was given a dose of Zosyn and 2, 500 mL NSS boluses prior to admission. At the time of the exam the patient was sitting in bed, sleeping comfortably, with her daughter and family friend sitting bedisde. History was obtained from family due to the patient's current weakness. They state that she has a long hx of recurrent UTI's. Over the past month the patient has completed a course of Macrobid and Ciprofloxacin for recurrent UTI's. Over the past week family and her 24 hr care givers have noticed that the patient has been generally weak. She has been having decreased oral intake and has been less alert than her baseline. Her baseline mental status is normally alert and oriented to self, place of residence, month, and year. When asked, they state that she has had an issue with aspiration in the past. Regarding the events prompting EMS earlier today. Her daughter states that the patient's caregiver was concerned for increased weakness and poor oral intake. They decided to call 911 in order to have her evaluated in the ED. When the caregiver spoke with the dispatcher they asked if the patient was breathing. They caregiver confirmed that she was breathing, but her breaths were more shallow than normal. The caregiver was instructed to begin CPR, so estimated she did approximately 100 chest compressions. When woken, the patient opens her eyes and will respond appropriately to yes or no questions. She is currently oriented to person and place of residence. Family currently wishes for her to be a Full code. Her daughter's would make medical decisions for her if she cannot make them herself. Principal Diagnosis Sepsis and acute metabolic encephalopathy due to aspiration pneumonia Discharge Exam PHYSICAL EXAMINATION Last 24h vital signs reviewed, see documentation in flowsheet General: comfortable appearing, no distress HEENT: Normocephalic, atraumatic, dry mucus membranes Lungs: Nonlabored. Clear to auscultation bilaterally anteriorly. Heart: Regular rate and rhythm, no murmurs. No JVD Abdomen: Soft, nontender, nondistended. Bowel sounds present. Extremities: edema of hands and feet present, ecchymoses hands and arms especially, skin is fragile, ext warm to touch Neuro: lethargic, did not arouse to exam. at baseline has L sided weakness from previous stroke Discharge Data Allergies Allergy/AdvReac Type Severity Reaction Status Date / Time cephalexin AdvReac Intermediate macular Verified 06/05/23 14:06 welts / rash duloxetine AdvReac Intermediate dazed. Verified 06/05/23 14:06 fatigued simvastatin [From Zocor] AdvReac Unknown Unknown Verified 06/05/23 14:06 Consultations 06/05/23 14:00 ED Decision to Admit Stat Ordered Studies 06/05/23 12:21 CT head/brain wo con Stat 06/11/23 16:49 CT angio chest PE protocol Routine Chest X-Ray 06/05/23 00:00 XR chest 1V portable CLINICAL HISTORY: CHEST PAIN TECHNIQUE: Single frontal radiograph of the chest was obtained. Comparison: Comparison is made to chest radiograph 08/17/2022 FINDINGS: No lines and tubes are seen. Cardiomegaly is noted. Reticular interstitial opacities are seen. No evidence of pleural effusion or pneumothorax. IMPRESSION: No acute chest disease. Cardiomegaly is noted. ACT 112: Negative or not required by law. Electronically signed by: Gera Jameson M.D. 06/05/2023 1:[address] 06/05/23 12:21 CT head/brain wo con CLINICAL HISTORY: AMS Technique: Contiguous axial CT images of the head were acquired from the base of the skull to the vertex without intravenous contrast administration. Images were viewed in brain, subdural and bone windows. Automated dose lowering techniques and/or adjustment according to patient size were utilized for this exam. Comparison: Comparison is made to CT head 08/17/2022 Findings: Areas of decreased attenuation are present in the periventricular and subcortical white matter bilaterally consistent with small vessel ischemic disease. Generalized cerebral atrophy with commensurate enlargement of the ventricles, sulci, and cisterns is also present. There is no acute intracranial hemorrhage or evidence of acute territorial infarction. No shift of the midline structures, mass effect, or extra-axial abnormalities are shown. Atherosclerotic calcifications are present in the intracranial segments of the internal carotid arteries. Right basal ganglia encephalomalacia is unchanged. Right maxillary sinus and sphenoid sinus disease noted. The orbits appear normal. There are no acute fractures of the calvaria or scalp swelling. Impression: No acute intracranial hemorrhage, no evidence of acute territorial infarction or other acute intracranial disease process. ACT 112: Negative or not required by law. Electronically signed by: Gera Jameson M.D. 06/05/2023 1:04 PM Chest X-Ray 06/08/23 07:21 SINGLE VIEW CHEST CLINICAL HISTORY: Fever. Sepsis. FINDINGS: An AP, portable, upright chest radiograph is compared to study dated 06/05/2023 and correlated with chest CT dated 01/21/2023. The examination is degraded by portable technique and patient rotation. The heart is enlarged indenting atherosclerotic calcification of the thoracic aorta. The pulmonary vasculature is noncongested. Chronic interstitial thickening is similar to previous. There are layering pleural effusions with dependent consolidation, right lung greater than left. No pneumothorax is seen. A hiatal hernia is noted. The skeletal structures are osteopenic. There is chronic deformity of the left proximal humerus. Cholecystectomy clips are seen in the right upper quadrant. IMPRESSION: 1. Cardiomegaly without radiographic evidence of congestive failure. 2. Layering pleural effusions with bibasilar consolidation, right greater than left. Correlate clinically for evidence of pneumonia/aspiration pneumonitis. Radiographic follow-up to resolution is recommended. ACT 112: Negative or not required by law. Electronically signed by: Pietro Ott M.D. 06/08/2023 8:53 AM KUB X-Ray 06/08/23 10:18 KUB HISTORY: NG tube placement. COMPARISON: Chest CT 01/21/2023. FINDINGS: The bowel gas pattern is unremarkable. There are no dilated loops of small bowel to suggest an obstruction. The NG tube is seen lateral to the left side of the trachea and tracks along the left heart border. This does not appear to be within the left mainstem bronchus. Therefore, the NG tube terminates at the expected location of the patient's known large hiatus hernia. Bibasilar interstitial thickening persists. There is a nonobstructive bowel gas pattern. Prior cholecystectomy. Degenerative changes and scoliosis again seen within the thoracolumbar spine. No pneumoperitoneum or pneumatosis. IMPRESSION: The NG tube likely terminates within the patient's known large hiatus hernia as described above. ACT 112: Negative or not required by law. Electronically signed by: Kevin Wallace M.D. 06/08/2023 2:52 PM KUB X-Ray 06/08/23 15:38 KUB HISTORY: Status post placement of an enteric tube NG placement COMPARISON: KUB of same day at 10:58 AM FINDINGS: Cardiac silhouette is enlarged. Pulmonary edema with layering pleural effusions and bibasilar consolidation. The lower abdomen is excluded from the [id number]. Large hiatal hernia with intrathoracic stomach. An enteric tube is present with distal tip projected superiorly over the left heart border. Bones appear grossly intact. No renal calculi. No ureteral calculi. No pneumoperitoneum or pneumatosis. No fracture. IMPRESSION: The patient has a large hiatal hernia with partially intrathoracic stomach. Di stal tip of enteric tube projects superiorly over the left heart border, likely within the intrathoracic stomach. ACT 112: Negative or not required by law. The above report was generated using voice recognition software. It may contain grammatical, syntax or spelling errors. Electronically signed by: Young Petersen M.D. 06/08/2023 4:23 PM Chest X-Ray 06/10/23 07:30 XR chest 1V portable CLINICAL HISTORY: b/l pneumonia, interval change TECHNIQUE: Single frontal radiograph of the chest was obtained. Comparison: Comparison is made to chest radiograph 06/08/2023 FINDINGS: No lines and tubes are seen. Calcified aortic knob is seen. Stable right greater than left airspace opacities. Hiatal hernia is again suggested. No evidence of pleural effusion or pneumothorax. IMPRESSION: Stable right greater than left airspace opacities compatible with ongoing pneumonia. ACT 112: Negative or not required by law. Electronically signed by: Gera Jameson M.D. 06/10/2023 7:40 AM Chest CTA 06/11/23 16:49 CT angio chest PE protocol CLINICAL HISTORY: b/l pneumonia, persistent fevers TECHNIQUE: Multidetector row helical CT of the chest was performed with angiographic protocol. Coronal and sagittal reformations were obtained. Coronal and sagittal MIPS were obtained from the axial data set and were submitted for review. Automated dose lowering techniques and/or adjustment according to patient size were utilized for this exam. CT DOSE: 389.97 mGy.cm Comparison: Comparison is made to CT chest 01/21/2023 FINDINGS: Lungs and pleura: Moderate right and small left pleural effusions with underlying atelectasis. Airspace opacities are seen in the right greater than left lung. Heart and pericardium: Cardiomegaly is seen with biatrial enlargement. Vessels: No evidence of pulmonary embolism. Moderate atherosclerotic disease is seen. Mediastinum and joan: Subcentimeter lymph nodes are seen. Chest wall and lower neck: Unremarkable. Abdomen: Unremarkable. Bones: Degenerative changes in the thoracic spine. IMPRESSION: 1. No pulmonary embolus. 2. Moderate right and small left pleural effusions. 3. Multifocal airspace opacities compatible with aspiration/pneumonia. ACT 112: Negative or not required by law. Electronically signed by: Grea Jameson M.D. 06/11/2023 6:31 PM KUB X-Ray 06/11/23 16:51 XR KUB/Abdomen 1 view CLINICAL HISTORY: abd distension TECHNIQUE: 1 view of the abdomen was obtained. Comparison: Comparison is made to abdomen radiograph 06/08/2023 FINDINGS: Lung bases are unremarkable. The osseous structures are grossly unremarkable. Multiple gas-distended loops of small bowel measure up to 32 mm in diameter. No significant stool burden is seen. IMPRESSION: Interval development of multiple gas-distended loops of small bowel. No significant stool burden. Developing small bowel obstruction cannot be excluded. ACT 112: Negative or not required by law. Electronically signed by: Gera Jameson M.D. 06/11/2023 6:25 PM KUB X-Ray 06/11/23 22:00 KUB HISTORY: Acute generalized abdominal pain ileus vs developing SBO? COMPARISON: KUB 06/11/2023 FINDINGS: Right upper abdominal surgical clips. Air-filled loops of large and small bowel are noted with small bowel loops measuring up to approximately 2.4 cm and large bowel loops measuring up to 5.9 cm. A rectal catheter is in place. No renal calculi. No ureteral calculi. No pneumoperitoneum or pneumatosis. Lumbar levoscoliosis. Hiatal hernia with bibasilar consolidation an pleural effusions. No fracture. IMPRESSION: 1. Air-filled loops of large and small bowel suggestive of ileus. 2. No pneumoperitoneum. 3. Hiatal hernia. 4. Layering pleural effusions with bibasilar consolidation redemonstrated. ACT 112: Negative or not required by law. The above report was generated using voice recognition software. It may contain grammatical, syntax or spelling errors. Electronically signed by: Young Petersen M.D. 06/12/2023 7:17 AM Hospital Course (1) Aspiration pneumonia: 87 y/o woman with history of previous stroke and dementia who developed decreased responsiveness and decreased respirations at home. Caregiver performed apx 100 chest compressions and she was brought to ED by medics. Treated for bilateral aspiration pneumonia, sepsis, and acute metabolic encephalopathy. multiple sets of blood cx's negative Initial BioFire panel was fully negative repeat COVID/flu/RSV - negative CT chest with extensive b/l pneumonia, R>L Despite hospital care with 7 days of IV zosyn and nearly 10 days of MRSA coverage with vanco/zyvox she did not improve with failure to thrive, lethargy, poor appetite, and daily low-grade fevers (high 37's) She transitioned to comfort measures on 06/14 and discharged with home hospice and home caregivers 06/15. (2) Sepsis: 2nd to #1 see discussion in #1 above (3) Acute alteration in mental status: Acute metabolic encephalopathy 2nd to #1, #2 in the setting of significant atrophy and prior stroke as seen on CT head - ongoing Has had brief periods of being awake/alert (1-3 hours), then alternates with periods of severe sleepiness that can be very lengthy CT of the head this admission negative for acute findings VBG w/o hypercapnia or acidosis TSH wnl ammonia wnl ongoing encephalopathy is due to infectious process in the setting of baseline cognitive impairment (4) Elevated troponin: Peak HS trop ~30 2nd to myocardial demand ischemia in setting of #1, #2, and chest compressions given pre-hospital Echo this admission - EF 60-65%, mild AR, mild conc LVH, no regional WMAs (5) PAT (paroxysmal atrial tachycardia): history of (6) Cerebral artery occlusion with cerebral infarction: history of stroke with baseline L sided weakness. R basal ganglia encephalomalacia unchanged on head CT this admission. (7) GERD without esophagitis: (8) Hypertension: (9) Hypothyroidism: most recent TSH wnl (10) Unresponsive episode: pre-admission received chest compressions at home upon EMS arrival to her home she had a pulse & was spontaneously breathing CT chest did not show any fractures cardiac arrest felt unlikely could have been syncopal episode, vs acute metabolic encephalopathy from #1, #2, vs other can't rule out arrhythmia contributing to the episode but unlikely -- tele has been normal the entire stay (except some brief episodes of PAT) no seizure activity seen at any time CPK was normal Echo wnl Troponin scantly elevated Tele thus far stable CT head w/o acute findings (11) Hypokalemia: ongoing despite copious IV replacement during the stay (12) Hypomagnesemia: replaced (13) Hypophosphatemia: replaced (14) Hernia, hiatal: large most of stomach is intra-thoracic likely has been a large contributor to aspiration risk (15) Underweight: BMI 18 poor appetite per family at home over the last few months feeding tube was tried earlier in hospital course but unable to pass because of large hiatal hernia. received PPN early in the stay -- stopped due to 10kg volume overload. (16) Recurrent UTI: no UTI this admission - urine cx was negative (17) Volume overload: patient was 10 liters + for the hospitalization, and was up 10kg as well 3rd spacing on exam CT chest with b/l effusions; can't rule out element of pulmonary edema s/p multiple doses of IV lasix last few days (18) Failure to thrive: acute on chronic severe (19) Ileus: likely 2nd to low K, low mag, bed-bound status, illness, etc resolved distension no longer present +BM last 24 hours (20) Encounter for hospice care discussion: see below Total Time Total Time Spent Total Time Spent (In Minutes): 25 minutes Discharge Plan Discharge Items Patient Disposition: Hospice - Home Reason For Visit: SEPSIS, PNEUMONIA, AMS, WEAKNESS Discharge Diagnosis: sepsis due to aspiration pneumonia, acute encephalopathy Condition on Discharge: Serious Activity: Resume your previous activity Weightbearing: Full weightbearing Non-emergency contact: Primary Care Provider Call non-emergency contact if: you have any medication questions and your symptoms worsen Follow-up/Referrals: Ramez Olson CRNP [Primary Care Provider] - [facility],Home Healthcare [Non-Staff] - Diet: Regular Addtl Attending Provider Instructions: [facility] home hospice intake 2/6 Diet and activity as tolerated Pending Studies at Discharge: No Stand-Alone Forms: My [facility] Medications and DC Order Prescriptions: Continued (DME) Wheelchair (Manual) Device See Rx Instructions .Route Qty: 1 0RF Rx Instructions: As directed Discontinued methenamine mandelate 0.5 g tablet 0.5 g PO BID 90 Days Qty: 180 5RF Rx Instructions: administer after meals and at bedtime celecoxib 200 mg capsule 200 mg PO QAM Qty: 90 3RF clopidogrel 75 mg tablet 75 mg PO DAILY Qty: 90 1RF potassium chloride 20 mEq tablet,ER particles/crystals 20 meq PO DAILY Qty: 90 3RF atorvastatin 40 mg tablet 40 mg PO HS Qty: 90 3RF diltiazem HCl 180 mg capsule,extended release 24hr 180 mg PO QPM Qty: 90 3RF Centrum 18-400 mg-mcg Tablet 1 tab PO PM cyanocobalamin (vitamin B-12) [Vitamin B-12] 500 mcg Tablet 500 mcg PO QAM ascorbic acid (vitamin C) 500 mg Tablet 500 mg PO DAILY latanoprost 0.005 % drops 1 drp OPR HS magnesium oxide 400 mg magnesium Tablet 400 mg PO DAILY thiamine HCl (vitamin B1) 100 mg Tablet 200 mg PO QAM Qty: 60 0RF Rx Instructions: OTC levothyroxine 25 mcg tablet 25 mcg PO QAM Rx Instructions: TAKE ONE TABLET BY MOUTH DAILY IN THE MORNING esomeprazole magnesium 40 mg capsule,delayed release(DR/EC) 40 mg PO HS Rx Instructions: TAKE 1 CAPSULE BY MOUTH AT BEDTIME Discharge Orders: Discharge Order (Routine); Ordered 06/15/23 Ordered By: Lynn Kay Admission Data Admit Date/Time: 06/05/23 14:25 Attending Provider: Lynn Kay Admit Provider: Keagan Franks Primary Care Provider: Ramez Olson Other Providers: Keagan Franks; [facility]; [facility] Other Interventions: Discharge Summary Assessment (RN) Last Done: 06/15/23 11:23 Coding Level of Care Code 03044 IN/OBS DISCH 30 MIN/LESS Diagnoses Aspiration pneumonia J69.0 Sepsis A41.9 Acute alteration in mental status R41.82 Elevated troponin R79.89 PAT (paroxysmal atrial tachycardia) I47.1 Cerebral artery occlusion with cerebral infarction I63.50 GERD without esophagitis K21.9 Hypertension, unspecified type I10 Hypertension type: unspecified Hypothyroidism, unspecified type E03.9 Hypothyroidism type: unspecified Unresponsive episode R40.4 Hypokalemia E87.6 Hypomagnesemia E83.42 Hypophosphatemia E83.39 Hernia, hiatal K44.9 Underweight R63.6 Recurrent UTI N39.0 Volume overload E87.70 Failure to thrive Ileus K56.7 Encounter for hospice care discussion Z71.89
== END 2023-06-15 15:23 | disposition hospice, home (50) | DRG 871 ==
LOC: EDSEX → ED 12:08 → EDINP 14:25 → SUATTDRO 14:25 → 2E 20:16
DX: Z79.02 Long term (current) use of antithrombotics/antiplatelets; A41.89 Other specified sepsis; G93.41 Metabolic encephalopathy; R62.7 Adult failure to thrive; I47.19 Other supraventricular tachycardia; K56.7 Ileus, unspecified; J15.69 Pneumonia due to other Gram-negative bacteria; Z68.1 Body mass index [BMI] 19.9 or less, adult; Z79.82 Long term (current) use of aspirin; Z88.1 Allergy status to other antibiotic agents; E83.42 Hypomagnesemia; J69.0 Pneumonitis due to inhalation of food and vomit; I24.89 Other forms of acute ischemic heart disease; Z79.890 Hormone replacement therapy; I69.354 Hemiplegia and hemiparesis following cerebral infarction affecting left non-dominant side; E03.9 Hypothyroidism, unspecified; R63.0 Anorexia; E87.6 Hypokalemia; E86.0 Dehydration; Z87.440 Personal history of urinary (tract) infections; Z51.5 Encounter for palliative care; E83.39 Other disorders of phosphorus metabolism; K44.9 Diaphragmatic hernia without obstruction or gangrene; K21.9 Gastro-esophageal reflux disease without esophagitis; R50.81 Fever presenting with conditions classified elsewhere; J15.212 Pneumonia due to Methicillin resistant Staphylococcus aureus; M19.90 Unspecified osteoarthritis, unspecified site; F03.90 Unspecified dementia, unspecified severity, without behavioral disturbance, psychotic disturbance, mood disturbance, and anxiety; Z79.899 Other long term (current) drug therapy; Z88.8 Allergy status to other drugs, medicaments and biological substances; J90 Pleural effusion, not elsewhere classified; E78.5 Hyperlipidemia, unspecified; Z87.01 Personal history of pneumonia (recurrent); R63.6 Underweight; I10 Essential (primary) hypertension; E21.3 Hyperparathyroidism, unspecified